=== PATIENT | female | born 1965 | race Caucasian/White ===

== ENCOUNTER → 2018-04-15 07:54 | Outpatient (CLI) | payer BC, SELFPAY ==
--- NOTE | 2018-04-15 08:15 | RAD_ITS ---
STUDY: X-RAY - PELVIS AND BILATERAL HIPS REASON FOR EXAM: Female, 52 years old. Pain. No known injury. TECHNIQUE: Radiological exam, hip, bilateral, with pelvis when performed; 2 views COMPARISON: None. FINDINGS: There is a non-specific bowel gas pattern. There are multiple calcified phleboliths. Normal bilateral iliac wings, sacroiliac joints and visualized sacrum. Normal bilateral superior and inferior pubic rami. Normal pubic symphysis. Normal bilateral ischial tuberosities. Normal visualized right femoral head. Normal right acetabulum. Normal right hip joint. Normal visualized left femoral head. Normal left acetabulum. Normal left hip joint. IMPRESSION: Normal x-ray examination of the pelvis and bilateral hips. Electronically Signed: Garrett Stroud MD at 9:21 EDT Tel [phone], Service support , STUDY: X-RAY - PELVIS REASON FOR EXAM: Female, 52 years old. Bilateral hip pain. TECHNIQUE: One view of the pelvis was obtained. COMPARISON: None. FINDINGS: There is a non-specific bowel gas pattern. There are multiple calcified phleboliths. There is narrowing with cortical sclerosis and osteophyte formation of the sacroiliac joint consistent with degenerative osteoarthritic changes. Normal visualized bilateral superior and inferior pubic rami. Normal pubic symphysis. Normal ischial tuberosities. Normal visualized right femoral head. Normal right acetabulum. Normal right hip joint. Normal visualized left femoral head. Normal left acetabulum. Normal left hip joint. 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 Electronically Signed: Garrett Stroud MD at 9:20 EDT Tel [phone], Service support ,
[2018-04-15 09:31] LABS: Absolute Lymphocyte Count 1.75 X10^3/ul (0.83-4.51); Absolute Neutrophil Count 2.3 X10^3/uL (2.0-7.7); Basophil# 0.03 X10^3/uL; Basophil% 0.7 % (0-1); Eosinophils% 4.4 % (0-5); Hematocrit 42.5 % (37-47); Lymphocyte # 1.75 X10^3/ul (4.0); Lymphocyte % 38.2 % (19-41); Mean Corp Hgb Conc 32.9 g/gl (32-36); Mean Corpuscular Hgb 29.9 pg (27.0-32.0); Mean Corpuscular Volume 90.6 fL (81-99); Mean Platelet Vol. 10.7 fl (6.2-12.0); Monocyte# 0.29 X10^3/uL; Monocyte% 6.3 % (0-10); Neutrophil # 2.31 X10^3/uL (2.7-7.7); Neutrophil % 50.4 % (47-70); Platelet Count 242 K/mm3 (150-450); RBC Distribution Width CV 12.2 % (11.6-14.6); RBC Distribution Width SD 39.9 fl (35.1-43.9); Red Blood Count 4.69 M/mm3 (4.2-5.4); White Blood Count 4.6 K/mm3 (4.4-11.0)
[2018-04-15 09:32] LABS: POSITIVE COUNT NO; POSITIVE DIFFERENTIAL NO; POSITIVE MORPHOLOGY NO
[2018-04-15 09:51] LABS: Anion Gap 7 (5-15); BUN 11 mg/dL (7-18); BUN/Creat Ratio 14.6 RATIO (10-20); Calcium,Total 9.3 mg/dL (8.5-10.1); Chloride 107 mmol/L (98-107); Cholesterol 204 mg/dL (200); Creatinine, Serum 0.75 mg/dL (0.55-1.02); EST Glomerular Filtration Rate 86 mL/min (>60); Est Glom Filt Rate - Afr Amer 104 mL/min (>60); Glucose 81 mg/dL (74-106); High Density Lipoprotein 51 mg/dL; Potassium 4.2 mmol/L (3.5-5.1); Sodium Level 141 mmol/L (136-145); Triglycerides 128 mg/dL; Very Low Density Lipoprotein 26 mg/dL (5-40)
== END ==
PROVIDERS: Family Provider Internal Medicine; PCP Internal Medicine; Visit Provider Internal Medicine
DX: Z00.00 Encounter for general adult medical examination without abnormal findings (principal); R10.2 Pelvic and perineal pain
CPT/HCPCS: 36415; 73521; 80048; 80061; 85025

== ENCOUNTER 2018-10-10 08:22 | Day surgery (SDC) | payer OTHER, SELFPAY ==
--- NOTE | 2018-10-10 | COLBX_PTH ---
PATIENT: NAYE MONDRAGON LOC: EN U#:[id number] AGE/SX: 53/F ROOM: RE10/10/[address]: Dr. Jamil Covington MD : 1965 BED: DIS: 10/10/2018 SPEC #: [id number] RECD: 10/10/18 13:52 STATUS: DEXTER REZuleima #: [id number] ANTHONY: 10/10/18 00:[address]: Jamil Covington DEPT: SURGICAL PATHOLOGY RECD BY: Omi Dale ENTERED: 10/10/18 13:52 SP TYPE: COLON BX OTHR DR: Dr. Josh Shoemaker DO Tissues: Right colon Procedures: Surgery Specimen Level IV HEADER OPERATION: Colonoscopy (MAC) PRE-OP DIAGNOSIS: Screening TISSUE SUBMITTED: Right colonic biopsies MICROSCOPIC DIAGNOSIS Right colon, biopsy: Fragments of colonic mucosa, no pathologic diagnosis. SJ:sarah 10/13/18 MICROSCOPIC DESCRIPTION Slides are reviewed. GROSS DESCRIPTION Received is one container labeled with the patient name and designated right colon biopsy. The specimen consists of multiple irregular fragments of light reyes soft tissue that in aggregate measure 1.5 x 0.5 x 0.1 cm. The specimen is totally submitted in one cassette. / SJ:sp 10/10/18 TC: 4 CPT: 10722
[2018-10-10 09:25] VITALS: BP 138/80; PULSE 93; RESP 18; TEMP 37; O2SAT 100; BMI 29.2
[2018-10-10 10:15] VITALS: BP 112/60; BP 138/80; PULSE 90; RESP 16; TEMP 36.9; O2SAT 98
--- NOTE | 2018-10-10 10:16 | OP.ENDO_ITS ---
Patient Name: Carmencita Dinh Procedure Date: 10/10/2018 9:47 AM Date of : 1965 Age: 53 Procedure: Colonoscopy Indications: Screening for colorectal malignant neoplasm Providers: Jamil Covington MD Referring MD: Jamil Covington MD Medicines: See the Anesthesia note for documentation of the administered medications Patient Profile: Last Colonoscopy: none. The patient's first colonoscopy is today. Complications: No immediate complications. Procedure: Pre-Anesthesia Assessment: - Prior to the procedure, a History and Physical was performed, and patient medications and allergies were reviewed. The patient's tolerance of previous anesthesia was also reviewed. The risks and benefits of the procedure and the sedation options and risks were discussed with the patient. All questions were answered, and informed consent was obtained. Prior Anticoagulants: The patient has taken no previous anticoagulant or antiplatelet agents. ASA Grade Assessment: II - A patient with mild systemic disease. After reviewing the risks and benefits, the patient was deemed in satisfactory condition to undergo the procedure. After I obtained informed consent, the scope was passed under direct vision. Throughout the procedure, the patient's blood pressure, pulse, and oxygen saturations were monitored continuously. The colonoscope was introduced through the anus and advanced to the cecum, identified by appendiceal orifice and ileocecal valve. The colonoscopy was performed without difficulty. The patient tolerated the procedure well. The quality of the bowel preparation was good. The ileocecal valve was photographed. Scope In: 9:57:22 AM Scope Withdrawal Time 0 hours 8 minutes 31 seconds Scope Out: 10:11:54 AM Total Procedure Duration Time 0 hours 14 minutes 32 seconds Findings: The perianal and digital rectal examinations were normal. Multiple diverticula were found in the sigmoid colon and descending colon. Biopsies for histology were taken with a cold forceps from the cecum and ascending colon for evaluation of microscopic colitis. The exam was otherwise without abnormality. Impression: - Diverticulosis in the sigmoid colon and in the descending colon. Biopsied. - The examination was otherwise normal. Recommendation: - Discharge patient to home. - Resume previous diet. - Continue present medications. - Repeat colonoscopy in 10 years for screening purposes. - Telephone my office for pathology results in 1 week. Procedure Code(s): --- Professional --- 01391, Colonoscopy, flexible; with biopsy, single or multiple Diagnosis Code(s): --- Professional --- Z12.11, Encounter for screening for malignant neoplasm of colon K57.30, Diverticulosis of large intestine without perforation or abscess without bleeding CPT copyright 2017 [employer]. All rights reserved. The codes documented in this report are preliminary and upon confectionery drops machine operator review may be revised to meet current compliance requirements. Jamil Covington MD 10/10/2018 10:16:05 AM This report has been signed electronically. Number of Addenda: 0 Note Initiated On: 10/10/2018 9:47 AM
[2018-10-10 10:20] VITALS: BP 106/66; BP 138/80; PULSE 89; RESP 16; O2SAT 99
[2018-10-10 10:25] VITALS: BP 123/68; BP 138/80; PULSE 86; RESP 16; O2SAT 99
[2018-10-10 10:30] VITALS: BP 126/66; BP 138/80; PULSE 84; RESP 16; TEMP 36.9; O2SAT 97
[2018-10-10 11:00] VITALS: BP 138/80
== END 2018-10-10 11:01 | disposition home or self-care (01) ==
LOC: EN 08:22 → AC 08:38
PROVIDERS: Family Provider Family Medicine; PCP Family Medicine; Referring Provider Surgery; Visit Provider Surgery
PROC: 0DJD8ZZ Inspection of Lower Intestinal Tract, Via Natural or Artificial Opening Endoscopic (ICD-10-PCS; CPT 45378; principal; 2018-10-10 09:25)
DX: Z12.11 Encounter for screening for malignant neoplasm of colon (principal); K57.30 Diverticulosis of large intestine without perforation or abscess without bleeding; J45.909 Unspecified asthma, uncomplicated; Z87.891 Personal history of nicotine dependence
CPT/HCPCS: 45380; 88305; J7120

== ENCOUNTER → 2022-12-05 | Outpatient (CLI) | payer OTHER, SELFPAY ==
--- NOTE | 2022-12-05 16:02 | CT_ITS ---
EXAM: CT ABDOMEN AND PELVIS WITHOUT AND WITH INTRAVENOUS CONTRAST CLINICAL INDICATION: HEMATURIA/PAIN TECHNIQUE: Helically acquired images were obtained of the abdomen and pelvis without and with intravenous contrast. This CT exam was performed using one or more of the following dose reduction techniques: automated exposure control, adjustment of the mA and/or kV according to patient size, and/or use of iterative reconstruction technique. This report was created using [employer] report generation technology. CONTRAST: IV 100mL Isovue-300 COMPARISON: None. FINDINGS: LOWER THORAX: Unremarkable. Lung bases are clear. No cardiomegaly. No significant pericardial effusion. ABDOMEN: LIVER: Unremarkable. Homogeneous. No focal mass. GALLBLADDER AND BILE DUCTS: Unremarkable. No calcified gallstones. No gallbladder distention or wall edema. No intra- or extrahepatic biliary ductal dilation. PANCREAS: Unremarkable. No focal cystic or solid mass. SPLEEN: Unremarkable. Normal size without focal cystic or solid mass. ADRENALS: Unremarkable. No nodules. KIDNEYS AND URETERS: Unremarkable. Normal renal size and position. No hydronephrosis. STOMACH AND BOWEL: Unremarkable. No stomach or bowel distention. No focal inflammatory change. PELVIS: APPENDIX: No evidence of acute appendicitis. BLADDER: Unremarkable. REPRODUCTIVE: Unremarkable as visualized. No mass. ABDOMEN and PELVIS: INTRAPERITONEAL SPACE: Unremarkable. No ascites or other fluid collection. No free air. BONES/JOINTS: Unremarkable. No suspicious lytic or blastic abnormality. SOFT TISSUES: Unremarkable. No discrete abdominal or pelvic wall hernia. VASCULATURE: Unremarkable. Abdominal aorta is non-dilated. LYMPH NODES: Unremarkable. No enlarged lymph nodes. CT/CT Abd/Pelvis W/WO Contrast IMPRESSION: Negative CT of the abdomen and pelvis without and with intravenous contrast. Electronically Signed: Victor M Weber MD at 17:03 [facility] ,
== END | disposition home or self-care (01) ==
LOC: CT 16:00
PROVIDERS: PCP Student in an Organized Health Care Education/Training Program; Referring Provider Urology; Visit Provider Urology
DX: R31.1 Benign essential microscopic hematuria (principal); R10.2 Pelvic and perineal pain
CPT/HCPCS: 74178; Q9967

== ENCOUNTER 2023-08-13 09:30 | Outpatient (RCR) | payer OTHER, SELFPAY ==
--- NOTE | 2023-05-20 15:19 | HP.PTEVAL ---
Patient's Visit Information NAYE MONDRAGON is a 57 year old F referred to Physical Therapy by Dr. Ivelisse De La Fuente DO with a diagnosis of S/P RC repair and R biceps tendonosis. Date of Evaluation: 05/20/23 Physical Therapist: DEVIKA Beltran - Visit Plan Frequency: 2x /Week Duration: 2 Months Plan: 2X/ week for 8 weeks for R shoulder end range PROM, AAROm/AROM, stretching, RC and scapular strengthening with HEP. HEP: Green mid rows, supine and standing wand flexion, towel IR stretch - Subjective Surgery was February 05 RC repair, bicep tendonosis. She has been doing PT since 2 weeks post. They did PROM for 1 month 2 X/week and then re-eval and then she was able to lift no more than cell phone (and then AAROM in supine (flexion, and ER). She can not even go behind the back until 3 weeks ago. She is [address] wanted her to go to PT here as she was still having pain in the bone on the later side between bicep and tricep. She did a doppler to r/o blood clot. She does have some neck pain she thought due to the wrong sling. She is not sleeping since Jan and very emotional. The pain wakes her up at night and her arm will get hard as a rock like a spasm and she props her arm on pillows. Melatonin 10 mg and Tylenol as needed for the pain. She is R handed. - Pain R shoulder Pain Intensity (Out of 10): Unrated - Objective R handed: R 45# and L 56#. R bicep reflex: R 2+/3 and L 1+/3. R shoulder AROM: Flexion 142. ABD 162, IR L1, ER 45. L shoulder flex 180, ABD 180, IR T5, ER 72. R shoulder MMT: flexion 4.3, ABD 3.2, ER 4.8, IR 8.2, bicep 5.5. L shoulder MMT: flexion 8.9, ABD 7.3, ER 6, 10.8, bicep 10.4. PROM R shoulder: Painful and tight at end range all planes - Balance/Special Test Scores Quick DASH Score: 72.7250 - Goals Goal 1:: I HEP Goal Time Frame: 8-12 Weeks Goal 2:: Be able to sleep through the night without waking up in pain Goal Time Frame: 8-12 Weeks Goal 3:: Increase R shoulder strength (at time of the eval: R shoulder MMT: flexion 4.3, ABD 3.2, ER 4.8, IR 8.2, bicep 5.5. L shoulder MMT: flexion 8.9, ABD 7.3, ER 6, 10.8, bicep 10.4) Goal Time Frame: 8-12 Weeks Goal 4:: Increase R shoulder AROM (at the time of the eval: R shoulder AROM: Flexion 142. ABD 162, IR L1, ER 45. L shoulder flex 180, ABD 180, IR T5, ER 72) Goal Time Frame: 8-12 Weeks Goal 5:: Decrease R lateral arm pain on a daily basis to 1/10 Goal Time Frame: 8-12 Weeks - Rehabilitation Potential Rehabilitation Potential: Good - Anticipated Interventions Patient/Client Instruction: Educate patient on: Condition, Plan of Care For the Purpose of:: To decrease pain, To increase ROM, To improve nutrient delivery to tissue, To improve muscle performance and motor function, To improve ability to perform ADL's, To increase tolerance to activity/condition/position, To improve performance and independence with ADL's, To decrease level of supervision to perform tasks, To improve ability of physical actions for home/community/work/leisure, To improve health of tissue, To decrease soft tissue restriction, To increase flexibility/ROM Therapeutic Exercise to Include: Strength training, Gait and locomotor training For the Purpose of:: To decrease pain, To increase ROM, To improve nutrient delivery to tissue, To improve muscle performance and motor function, To improve ability to perform ADL's, To increase tolerance to activity/condition/position, To improve performance and independence with ADL's, To decrease level of supervision to perform tasks, To improve ability of physical actions for home/community/work/leisure, To improve health of tissue, To decrease soft tissue restriction, To increase flexibility/ROM Manual Therapy Techniques to Include: Passive ROM For the Purpose of:: To increase ROM, To improve nutrient delivery to tissue, To improve muscle performance and motor function Thank you for the opportunity to evaluate your patient. For Medicare and Medicare HMO plans, please review the plan of care and approve it. It will need to be FAXED BACK to us at [phone] for Medicare purposes. For Medicare only, by signing this I certify the plan of care. Please let me know if there are questions or concerns regarding this plan of care. Physician Signature: Date:
== END 2023-08-13 19:00 | disposition home or self-care (01) ==
LOC: PT 09:30
PROVIDERS: PCP Student in an Organized Health Care Education/Training Program; Referring Provider Orthopaedic Surgery; Visit Provider Orthopaedic Surgery
DX: M79.601 Pain in right arm (principal); M67.813 Other specified disorders of tendon, right shoulder; M77.8 Other enthesopathies, not elsewhere classified; M75.51 Bursitis of right shoulder; Z98.890 Other specified postprocedural states
CPT/HCPCS: 97110; 97140; 97161; 97530

== ENCOUNTER 2023-11-21 09:00 | Outpatient (RCR) | payer OTHER, SELFPAY ==
--- NOTE | 2023-11-11 15:18 | HP.PTEVAL ---
Patient's Visit Information Visit Information Visit Information: NAYE MONDRAGON is a 58 year old F referred to Physical Therapy by Self Referred with a diagnosis of Shoulder strain. Date of Evaluation: 10/08/23 Physical Therapist: Brando Ceja DPT Visit Plan Frequency: 2-3x /Week Duration: 6 Weeks Plan: Start with DN to L UT, RTC insertion Manual mobilization at end range functional IR stretching progressive strengthening as tolerated. Subjective Subjective: Pt. is here today for her initial evaluation with history of R RTC repair, R trapezius strain, R snapping scapula. Pt. reports having R RTC repair ~8 months previously. Pt. reports overall doing well, but is still having R shoulder pain at times. She reports having difficulty with knowing what she can and cannot do. She is also having some pain at her lateral shoulder and scapular regions with her HEP. Pt. is hopeful to reduce symptoms in order to get back to all recreational activities without limitations. She is having some difficulty with sleeping as well. Pain R shoulder: Pain Intensity (Out of 10): 3 Pain Intensity Range: 2 and 5 Objective Objective: POSTURE: Pt. has fairly normal posture. Slight rounded shoulders, but able to self correct. PALPATION: Pt. has tenderness throughout RTC insertion. Painful at UT region. Pt. has increased tenderness at coracoid process as well. NEURO: normal throughout. Pt. has normal DTR of BUEs. ROM: Pt. has close to full R shoulder ROM, except slight tightness with functional IR on R side. MMT: Pt. has close to symmetrical strength between the two sides. except ER 15# on R side and 21# on L side. Balance/Special Test Scores Quick DASH Score: 25.0000 Goals Goal 1:: LTG: Pt. to be I with HEP Goal Time Frame: 4-6 Weeks Goal 2:: LTG: pt. to be able to sleep throughout the night without increase in symptoms. Goal Time Frame: 4-6 Weeks Goal 3:: LTG: pt. to have full L shoulder ROM without increase in symptoms. Goal Time Frame: 4-6 Weeks Goal 4:: LTG: Pt. to complete a progressive strengthening program of both deltoid and scapular/periscapular musculature. Goal Time Frame: 4-6 Weeks Rehabilitation Potential Physical Therapy Diagnosis: Pt. has signs and symptoms consistent with R UT and snapping scapula after RTC repair. Pt. has some weakness, but is more limited secondary to increased pain and difficulty sleeping after exercising. Rehabilitation Potential: Excellent Anticipated Interventions Patient/Client Instruction: Educate patient on: Condition, Plan of Care, Risk Factors and Benefits of Fitness Program For the Purpose of:: To foster healthy habits, To improve decision making, To facilitate caregiver knowledge, To improve self management, To prevent re-injury and To improve ability to perform tasks related to life management Therapeutic Exercise to Include: Strength training, Power training, Flexibilty training, Passive ROM, Active ROM and Scapular Strength/Stabilization For the Purpose of:: To decrease pain, To increase ROM, To improve nutrient delivery to tissue, To increase oxygenation perfusion, To improve muscle performance and motor function, To improve ability to perform ADL's, To decrease soft tissue restriction and To increase flexibility/ROM Manual Therapy Techniques to Include: Mobilization, Functional dry needling and Soft tissue mobilization For the Purpose of:: To decrease pain, To increase ROM, To improve nutrient delivery to tissue, To increase oxygenation perfusion and To improve muscle performance and motor function Text: Thank you for the opportunity to evaluate your patient. For Medicare and Medicare HMO plans, please review the plan of care and approve it. It will need to be FAXED BACK to us at [phone] for Medicare purposes. For Medicare only, by signing this I certify the plan of care. Please let me know if there are questions or concerns regarding this plan of care. Physician Signature: Date:
== END 2023-11-21 19:00 | disposition home or self-care (01) ==
LOC: PT 09:00
PROVIDERS: PCP Student in an Organized Health Care Education/Training Program
DX: S46.811D Strain of other muscles, fascia and tendons at shoulder and upper arm level, right arm, subsequent encounter (principal); M24.111 Other articular cartilage disorders, right shoulder; Z98.890 Other specified postprocedural states
CPT/HCPCS: 97110; 97161

== ENCOUNTER 2025-02-03 09:36 | Day surgery (SDC) | payer OTHER, SELFPAY ==
--- NOTE | 2025-02-01 13:44 | PAT.ANESEVAL ---
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 When Was Last Pacemaker Check QUESTION #4 FULL TEXT: You/Your Family Experience fever (hyperthermia) with Anesthesia Last Oral Intake Last Oral intake: Last Oral Intake NPO since Meds taken in AM with sips of water? 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 - golf club manager: PONV - golf club manager Female Yes 02/01/25 11:15 HX of Motion Sickness Yes 02/01/25 11:15 HX of N/V After Surgery Yes 02/01/25 11:15 Non-Smoker Yes 02/01/25 11:15 Duration of Surgery greater No 02/01/25 11:15 than 60 minutes Number of Risk Factors 4 02/01/25 11:15 PONV Score Severe Risk 02/01/25 11:15 Height & Weight Height & Weight: Anesthesia: Height & Weight Height 5 ft 6 in 11/17/24 10:35 Respiratory Assessment Respiratory Assessment - golf club manager: Respiratory Tract Infection Hx - golf club manager Hx Respiratory Tract Infection No: (+) COVID 2/21, WAS ON 02/01/25 11:15 PAXLOVID, NO S/S RESP DISTRESS -BACK TO BASELINE STOP Sleep Apnea STOP Sleep Apnea - golf club manager: STOP Sleep Apnea - golf club manager Hx Hypertension No 02/01/25 11:15 Hx Sleep Apnea Yes 02/01/25 11:15 CPAP Yes 02/01/25 11:15 BIPAP No 02/01/25 11:15 Do you snore loudly (louder than talking or can be heard Do you often feel tired/ fatigued/ sleepy during daytime? Has anyone observed you stop breathing during sleep? STOP Results Positive 02/01/25 11:15 QUESTION #5 FULL TEXT : Do you snore loudly (louder than talking or can be heard through closed doors)? Tobacco Use History Tobacco Use History - golf club manager: Tobacco Use History - golf club manager Tobacco Use Smoking Status Former smoker 02/01/25 11:15 Hx Tobacco Use No 02/01/25 11:15 Years Smoking Packs Smoked per Day Smoking Cessation Date was Yes - quit smoking within 15 02/01/25 11:15 within the last 15 years years Hx Smoking Cessation Date Hx Smoking Cessation Counseling Hematologic Medial History Hematologic Hx - golf club manager: Hematologic Medical Hx - occupational therapist per diem Hx of Blood Transfusion No 02/01/25 11:15 Hx of Transfusion in last 3 No 02/01/25 11:15 Months Date of Last Transfusion (if within last 3 months) Ever experience any problems No 02/01/25 11:15 with transfusion(s)? Specify any problems Hx of Preganancy in last 3 No 02/01/25 11:15 Months Nurse Filling Out Transfusion [facility] 02/01/25 11:15 & Questions: Date: 02/01/25 02/01/25 11:15 Time: 11:30 02/01/25 11:15 Patient unable to answer at this time (ie. confused, unrespo /Reproduction History /Reproductive History - golf club manager: /Reproductive Hx- golf club manager Hx Now No 02/01/25 11:15 Gestational Age (in weeks): EDC: Hx Hx Para Hx Section SAB No 02/01/25 11:15 [facility] Medical History (Updated 02/01/25 @ 11:30 by Galina Tapia) Arthritis Low iron High cholesterol Injury of head and neck History of ulceration Former smoker CPAP (continuous positive airway pressure) dependence Sleep apnea Leg cramps History of echocardiogram History of stress test Cardiology follow-up encounter Chronic shoulder pain Breast lump Glaucoma suspect Asthma Seasonal allergies Pelvic pain Home Medications ?Medication ?Instructions ?Recorded ?Last Taken ?Type multivitamin 1 cap PO QAM 04/14/18 10/01/18 History triamcinolone acetonide 55 mcg 2 spray intranasal QDAY 04/14/18 10/01/18 History nasal spray aerosol (Nasacort) acetaminophen 500 mg capsule 1,000 mg PO TID PRN fever or pain 11/16/24 Unknown History ascorbic acid (vitamin C) 1,000 mg 1 g PO QDAY 11/16/24 Unknown History capsule ferrous sulfate 325 mg (65 mg 325 mg PO DAILY 11/16/24 Unknown History iron) tablet psyllium husk 0.4 gram capsule 0.4 g PO 4X/DAY PRN constipation 11/16/24 Unknown History (Metamucil) cholecalciferol (vitamin D3) 50 50 mcg PO QDAY 11/17/24 Unknown History mcg (2,000 unit) capsule guaifenesin 600 mg tablet, 600 mg PO BID PRN congestion 02/01/25 Unknown History extended release 12 hr (Mucinex) loratadine 10 mg tablet 10 mg PO DAILY 02/01/25 Unknown History (Allerclear) pregabalin 50 mg capsule (Lyrica) 50 mg PO BID 02/01/25 Unknown History Allergy/AdvReac Type Severity Reaction Status Date / Time iodine Allergy Severe hives Verified 02/01/25 11:09 Sulfa (Sulfonamide Allergy Severe hives Verified 02/01/25 11:09 Antibiotics) chlorhexidine (From Allergy Intermediate HIVES Verified 02/01/25 11:09 ChloraPrep Clear) isopropyl alcohol (From Allergy Intermediate HIVES Verified 02/01/25 11:09 ChloraPrep Clear) morphine Allergy Intermediate Vomiting Verified 02/01/25 11:09 prochlorperazine (From Allergy Vomiting Verified 02/01/25 11:09 Compazine) Family History Grandmother Osteoporosis Heart disease Arthritis Diabetes Grandfather Arthritis Heart disease Diabetes Father Diabetes Hypertension Hyperlipemia Cancer lung Obesity Mother Diabetes Thyroid disorder Depression Obesity Brother Hypertension Obesity Surgical History History of loop electrical excision procedure (LEEP) History of D&C History of hysteroscopy History of tonsillectomy History of laparoscopy Social History (Updated 09/30/18 @ 16:[address] Jamil Covington MD) Smoking Status: Former smoker Tobacco: How many years used: 20 how long ago did patient quit smokin alcohol intake: never substance use type: does not use what type of physical activity do you participate in: walking frequency: 5-6 times per week Audit: Pertinent Findings Pertinent Findings EKG Perinent findings: 08/06/2024 sinus rhythm left axis deviation RSR 1 in V2 left anterior fascicular block Consult pertinent findings: Cardiology 11/05/2024. Chest pressure. Echocardiogram showed normal wall motion normal EF no further testing Recommendation Anesthesia Recommendation Anesthesia recommendation: OPTIMIZED for anesthesia
[2025-02-03] VITALS (8 sets, daily range): BP systolic 107–139; BP diastolic 65–79; PULSE 80–92; RESP 16; TEMP 36.9–37.2; O2SAT 95–98; BMI 30.7
--- NOTE | 2025-02-03 10:22 | PRE.ANES_ITS ---
ASA Classification* ASA Classification ASA Classification: 2 Assessment & Plan Anesthesia* Anesthesia Assessment Anesthesia Assessment: Discussed sedation and/or anesthesia options, risks, benefits, and alternatives with patient/parents/legal guardian/POA. Questions invited. The patient/parents/legal guardian/POA seems to understand and agrees to proceed with anesthesia plan. Reviewed the physical assessment, medical history, allergy history and patient home medications list prior to surgery/procedure/anesthetic and documented any changes. Performed airway and anesthesia risk assessments. Anesthesia Type Anesthesia Type: MAC Anesthesia Focused Assessment* Temperature: 98.9 F Pulse Rate: 92 Blood Pressure: 139/79 Respiratory Rate: 16 Pulse Ox: 98 Airway Assessment Mouth opens: >3 cm Mallampati Score: II Focused Labs Anesthesia Preop lab: CBC WBC 4.6 K/mm3 (4.4-11.0) 04/15/18 08:03 04/15/18 RBC 4.69 M/mm3 (4.2-5.4) 04/15/18 08:03 04/15/18 Hgb 14.0 g/dl (12.0-15.0) 04/15/18 08:03 04/15/18 Hct 42.5 % (37-47) 04/15/18 08:03 04/15/18 Plt Count 242 K/mm3 (150-450) 04/15/18 08:03 04/15/18 CHEMISTRY Potassium 4.2 mmol/L (3.5-5.1) 04/15/18 08:03 04/15/18 Sodium 141 mmol/L (136-145) 04/15/18 08:03 04/15/18 BUN 11 mg/dL (7-18) 04/15/18 08:03 04/15/18 Creatinine 0.75 mg/dL (0.55-1.02) 04/15/18 08:03 04/15/18 Glucose 81 mg/dL (74-106) 04/15/18 08:03 04/15/18 COAG Pre-Assessment Diagnosis/Proposed Procedure Planned Operative Procedure(s): EGD Anesthesia History 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 When Was Last Pacemaker Check QUESTION #4 FULL TEXT: You/Your Family Experience fever (hyperthermia) with Anesthesia Last Oral Intake Last Oral intake: Last Oral Intake NPO since 00:00 02/03/25 09:59 Meds taken in AM with sips of water? 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 Female Yes 02/01/25 11:15 HX of Motion Sickness Yes 02/01/25 11:15 HX of N/V After Surgery Yes 02/01/25 11:15 Non-Smoker Yes 02/01/25 11:15 Duration of Surgery greater No 02/01/25 11:15 than 60 minutes Number of Risk Factors 4 02/01/25 11:15 PONV Score Severe Risk 02/01/25 11:15 Height & Weight Height & Weight: Anesthesia: Height & Weight Height 5 ft 6 in 02/03/25 09:59 Weight: 86.183 kg 02/03/25 09:59 Body Mass Index (BMI) 30.7 02/03/25 09:59 Respiratory Assessment Respiratory Assessment - truck unloader: Respiratory Tract Infection Hx - truck unloader Hx Respiratory Tract Infection No: (+) COVID 2/21, WAS ON 02/01/25 11:15 PAXLOVID, NO S/S RESP DISTRESS -BACK TO BASELINE STOP Sleep Apnea STOP Sleep Apnea - truck unloader: STOP Sleep Apnea - truck unloader Hx Hypertension No 02/01/25 11:15 Hx Sleep Apnea Yes 02/01/25 11:15 CPAP Yes 02/01/25 11:15 BIPAP No 02/01/25 11:15 Do you snore loudly (louder than talking or can be heard Do you often feel tired/ fatigued/ sleepy during daytime? Has anyone observed you stop breathing during sleep? STOP Results Positive 02/01/25 11:15 QUESTION #5 FULL TEXT : Do you snore loudly (louder than talking or can be heard through closed doors)? 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 Specify any problems Hx of Preganancy in last 3 No 02/01/25 11:15 Months Nurse Filling Out Transfusion [facility] 02/01/25 11:15 & Questions: Date: 02/01/25 02/01/25 11:15 Time: 11:30 02/01/25 11:15 Patient unable to answer at this time (ie. confused, unrespo /Reproduction History /Reproductive History - truck unloader: /Reproductive Hx- truck unloader Hx Now No 02/01/25 11:15 Gestational Age (in weeks): EDC: Hx Hx Para Hx Section SAB No 02/01/25 11:15 [facility] Medical History Arthritis Low iron High cholesterol Injury of head and neck History of ulceration Former smoker CPAP (continuous positive airway pressure) dependence Sleep apnea Leg cramps History of echocardiogram History of stress test Cardiology follow-up encounter Chronic shoulder pain Breast lump Glaucoma suspect Asthma Seasonal allergies Pelvic pain Home Medications ?Medication ?Instructions ?Recorded ?Last Taken ?Type multivitamin 1 cap PO QAM 04/14/18 History triamcinolone acetonide 55 mcg 2 spray intranasal QDAY 04/14/18 10/01/18 History nasal spray aerosol (Nasacort) acetaminophen 500 mg capsule 1,000 mg PO TID PRN fever or pain 11/16/24 Unknown History ascorbic acid (vitamin C) 1,000 mg 1 g PO QDAY 4 Unknown History capsule ferrous sulfate 325 mg (65 mg 325 mg PO DAILY 11/16/24 Unknown History iron) tablet psyllium husk 0.4 gram capsule 0.4 g PO 4X/DAY PRN con stipation 11/16/24 Unknown History (Metamucil) cholecalciferol (vitamin D3) 50 50 mcg PO QDAY 4 Unknown History mcg (2,000 unit) capsule guaifenesin 600 mg tablet, 600 mg PO BID PRN congestio n 02/01/25 Unknown History extended release 12 hr (Mucinex) loratadine 10 mg tablet 10 mg PO DAILY 02/01/25 Unkn own History (Allerclear) pregabalin 50 mg capsule (Lyrica) 50 mg PO BID 5 02/02/25 History Allergy/AdvReac Type Severity Reaction Status Date / Time iodine Allergy Severe hives Verified 02/03/25 09:59 Sulfa (Sulfonamide Allergy Severe hives Verified 02/03/25 09:59 Antibiotics) chlorhexidine (From Allergy Intermediate HIVES Verified 02/03/25 09:59 ChloraPrep Clear) isopropyl alcohol (From Allergy Intermediate HIVES Verified 02/03/25 09:59 ChloraPrep Clear) morphine Allergy Intermediate Vomiting Verified 02/03/25 09:59 prochlorperazine (From Allergy Vomiting Verified 02/03/25 09:59 Compazine) Family History Grandmother Osteoporosis Heart disease Arthritis Diabetes Grandfather Arthritis Heart disease Diabetes Father Diabetes Hypertension Hyperlipemia Cancer lung Obesity Mother Diabetes Thyroid disorder Depression Obesity Brother Hypertension Obesity Surgical History History of loop electrical excision procedure (LEEP) History of D&C History of hysteroscopy History of tonsillectomy History of laparoscopy Social History Smoking Status: Former smoker Tobacco: How many years used: 20 how long ago did patient quit smokin alcohol intake: never substance use type: does not use what type of physical activity do you participate in: walking frequency: 5-6 times per week Review of Systems (Anesthesia) ROS Narrative System reviewed and no additional complaints, except as documented.
--- NOTE | 2025-02-03 10:45 | EGD_PTH ---
PATIENT: NAYE MONDRAGON LOC: EN U#:[id number] AGE/SX: 59/F ROOM: RE02/03/[address]: Dr. Matt Padron DO : 1965 BED: DIS: 02/03/2025 SPEC #: [id number] RECD: 02/04/25 10:35 STATUS: DEXTER REZuleima #: [id number] ANTHONY: 02/03/25 10:[address]: Matt Padron DEPT: SURGICAL PATHOLOGY RECD BY: Yaya Malave ENTERED: 02/04/25 10:36 SP TYPE: EGD BIOPSY LAURI DR: Dr. Johnathan Camara DO Tissues: A - Duodenum, NOS B - Stomach, NOS Procedures: Surgery Specimen Level IV HEADER OPERATION: EGD with biopsy PRE-OP DIAGNOSIS: Abdominal pain TISSUE SUBMITTED: A- Duodenum biopsy, B- Lesser curvature biopsy MICROSCOPIC DIAGNOSIS A. Duodenum, biopsy: * Normal villous architecture with Rashi gland hyperplasia. * Negative for increased intraepithelial lymphocytes. B. Stomach, lesser curvature, biopsy: * Oxyntic mucosa with features of reactive gastropathy. * Negative for Helicobacter-like organisms (H&E). MICROSCOPIC DESCRIPTION Slides are reviewed. GROSS DESCRIPTION Specimen A-received in formalin labeled, Naye Mondragon, and designated duodenum biopsy, are multiple reyes tissue fragment that aggregate to 0.6 x 0.6 x 0.2 cm. Totally submitted in one cassette.Specimen B-received in formalin labeled, Naye Mondragon, and designated lesser curvature biopsy, are two reyes tissue fragments aggregating to 0.7 x 0.3 x 0.2 cm. Totally submitted in one cassette.BELLO. 02/04/2025 CPT:89559p3
--- NOTE | 2025-02-03 11:05 | PCM.HP.STD ---
HPI - General General Date of Admission: 02/03/25 Date of Service: 02/03/25 Chief Complaint: Abdominal pain HPI Narrative NAYE MONDRAGON, is a 59 F who presents for the evaluation of abdominal pain. 59y/o female presents for consultation with complaints of epigastric abdominal pain/ache that radiates out to bilateral sides. She denies any relation to PO intake. She reports this pain is not similar to her prior ulcer pain in the 's. She denies any history of prior EGD. She denies any N/V but does endorse regurgitation since starting Omeprazole. I have reviewed PCP records and she reports starting Omeprazole 40mg daily on 11/06/2024. She complains of change in bowel habits with looser stools since starting PPI. CT A&P w/ contrast 10/05/2024 revealed a tiny fat containing umbilical hernia with mild diastasis recti, otherwise unremarkable. Colon 2018 (Dr. C[place]ton) negative right colon biopsy - denies any family history of colon CA - denies any personal history of colon polyps LABS 11/03/2024 CRP, ESR, SEBASTIAN, and stool for H. pylori Ag were all negative. 07/09/2024 CBC and CMP were unremarkable with a negative HCVAb 07/09/2024 - ABD pain x1 year - reports symptoms started a year ago when she started using a CPAP - wakes with symptoms - no change with PO intake - pain worse over the past 3 months - started Omeprazole and reports this caused upset stomach with a change in bowel habits - denies any weight loss - she reports elimination of gluten and dairy - thought this would help with symptoms but reports no change - takes Metamucil - has a BM QD - QOD - denies any BRBPR - reports she is not a vegetarian - she reports occult negative stool in the past year - c/o BM are messy - she is taking IBU-diphenhydramine 200-38mg -- she discontinued this and switched to Tylenol PM - she reports starting Fe TIW for low Fe - reports she has been on Fe for maybe 3 months - she reports abdominal discomfort began prior to starting Fe - shoulder pain - she was taking Meloxicam daily for >1 year and believes she discontinued this this past January - Caffeine 2 cups a day - EtOH - once a year - smoking - h/o quit 24 years ago - NSAIDS - as noted above EGD: denies previous - she reports she stopped using sun screen due to having a low vitamin D [facility] Medical History Arthritis Low iron High cholesterol Injury of head and neck History of ulceration Former smoker CPAP (continuous positive airway pressure) dependence Sleep apnea Leg cramps History of echocardiogram History of stress test Cardiology follow-up encounter Chronic shoulder pain Breast lump Glaucoma suspect Asthma Seasonal allergies Pelvic pain Home Medications ?Medication ?Instructions ?Recorded ?Last Taken ?Type multivitamin 1 cap PO QAM 04/14/18 10/01/18 History triamcinolone acetonide 55 mcg 2 spray intranasal QDAY 04/14/18 10/01/18 History nasal spray aerosol (Nasacort) acetaminophen 500 mg capsule 1,000 mg PO TID PRN fever or pain 11/16/24 Unknown History ascorbic acid (vitamin C) 1,000 mg 1 g PO QDAY 11/16/24 Unknown History capsule ferrous sulfate 325 mg (65 mg 325 mg PO DAILY 11/16/24 Unknown History iron) tablet psyllium husk 0.4 gram capsule 0.4 g PO 4X/DAY PRN constipation 11/16/24 Unknown History (Metamucil) cholecalciferol (vitamin D3) 50 50 mcg PO QDAY 11/17/24 Unknown History mcg (2,000 unit) capsule guaifenesin 600 mg tablet, 600 mg PO BID PRN congestion 02/01/25 Unknown History extended release 12 hr (Mucinex) loratadine 10 mg tablet 10 mg PO DAILY 02/01/25 Unknown History (Allerclear) pregabalin 50 mg capsule (Lyrica) 50 mg PO BID 02/01/25 02/02/25 History Allergy/AdvReac Type Severity Reaction Status Date / Time iodine Allergy Severe hives Verified 02/03/25 09:59 Sulfa (Sulfonamide Allergy Severe hives Verified 02/03/25 09:59 Antibiotics) chlorhexidine (From Allergy Intermediate HIVES Verified 02/03/25 09:59 ChloraPrep Clear) isopropyl alcohol (From Allergy Intermediate HIVES Verified 02/03/25 09:59 ChloraPrep Clear) morphine Allergy Intermediate Vomiting Verified 02/03/25 09:59 prochlorperazine (From Allergy Vomiting Verified 02/03/25 09:59 Compazine) Family History Grandmother Osteoporosis Heart disease Arthritis Diabetes Grandfather Arthritis Heart disease Diabetes Father Diabetes Hypertension Hyperlipemia Cancer lung Obesity Mother Diabetes Thyroid disorder Depression Obesity Brother Hypertension Obesity Surgical History History of loop electrical excision procedure (LEEP) History of D&C History of hysteroscopy History of tonsillectomy History of laparoscopy Social History Smoking Status: Former smoker Tobacco: How many years used: 20 how long ago did patient quit smokin alcohol intake: never substance use type: does not use what type of physical activity do you participate in: walking frequency: 5-6 times per week ROS Constitutional Constitutional: Denies fatigue, fever(s), poor appetite, weight gain or weight loss Gastrointestinal Gastrointestinal: Denies belching, bloating, change in bowel habits, change in stool character, chewing difficulty, coffee ground emesis, constipation, cramping, diarrhea, dyspepsia, dysphagia, early satiety, excessive flatus, fecal incontinence, heartburn, hematemesis, hematochezia, hemorrhoids, loose stools, melena, nausea, odynophagia, rectal bleeding, tenesmus, vomiting or weight changes Vital Signs Vital Signs Vital Signs: 02/03/25 09:59 02/03/25 09:59 02/03/25 10:23 Temperature 98.9 F 98.9 F Temperature Source Temporal Pulse Rate 92 92 Respiratory Rate 16 16 Respiratory Pattern Normal Blood Pressure 139/79 H 139/79 H Blood Pressure Mean 99 Blood Pressure Source Monitor Blood Pressure Position Semi-Fowlers Blood Pressure Location Left Arm Pulse Ox 98 98 Oxygen Delivery Method Room Air Weight Weight: 190 lb Body Mass Index (BMI) 30.7 Physical Exam Const alert, oriented x3, no apparent distress and healthy appearing General Appearance: cooperative GI normal to inspection, nondistended, normoactive bowel sounds, soft to palpation, non-tender and non-distended Percussion: normal to percussion Rectal Exam: deferred Assessment & Plan Assessment/Plan (1) Dyspepsia: (2) Epigastric pain: PLAN: ROS Const Constitutional: Positive for fatigue, headache(s) and weakness; No fever(s) or weight change ENT ENT: Positive for headache(s); No difficulty swallowing Gastro GI: Positive for abdominal pain, bloating, change in bowel habits and constipation; No belching, change in stool character, coffee ground emesis, cramping, diarrhea, heartburn, difficulty swallowing, feeling full early, excessive flatus, incontinent of stools, Vomiting blood/hematemesis, Blood in stool, loose stools, Black,tarry stools, nausea/dyspepsia, pain with swallowing, vomiting or other Musc Musculoskeletal: Positive for joint pain, back pain, muscle cramps, muscle weakness, numbness, stiffness and tingling Skin Skin: Positive for dry skin; No yellowing of the eye or itchy eyes Neuro Neurology: Positive for weakness, headache(s), numbness and tingling Psych Psychiatric: No anxiety and No depression Endo Endocrine: Positive for fatigue; No weight change Aller/Imm Allergy/Immunologic: No itchy eyes Moses/Lymp Hematologic/Lymphatic: No easy bleeding or easy bruising Exam Const General: healthy appearing, no acute distress and well developed Nutritional Appearance: average body habitus and well nourished Orientation: alert and oriented x3 HENAL Head: normocephalic Ears: hearing grossly normal bilaterally Mouth: moist mucous membranes Teeth and gingiva: dentition normal Eyes Conjunctivae: conjunctivae normal Sclera: sclerae normal Neck Neck: normal visual inspection, full ROM and trachea midline Resp Effort & Inspection: normal respiratory effort, able to speak in complete sentences and symmetric chest movement Auscultation: Bilateral: Clear to Auscultation Cardio Rate: regular rate Rhythm: regular rhythm GI Inspection: normal to inspection Auscultation: normal bowel sounds Palpation: soft and no hepatosplenomegaly Rectal Exam: deferred Skin General: no rashes or lesions noted and turgor normal Neuro General: patient alert and patient oriented x3 Cranial Nerves: other (CN' grossly intact, non-focal exam) Cognition: normal cognition Speech: speech normal Gait: normal gait Extrem General: normal to inspection (no edema noted) Psych Appearance: grossly normal and well kempt Affect: normal affect Attitude: cooperative Thought Process: normal Assessment and Plan Assessment and Plan (1) Screening for intestinal cancer: Status: Acute (2) Epigastric pain: Status: Acute (3) Dyspepsia: Status: Acute Medications: New pantoprazole 20 mg orally once daily 30 minutes prior to first meal; 30 tabs 3RF Discontinued omeprazole Discontinued Reason: Order Changed 40 mg PO QDAY Plan 59y/o female presents for consultation with complaints of epigastric abdominal pain/ache that radiates out to bilateral sides. She denies any relation to PO intake. She reports this pain is not similar to her prior ulcer pain in the 80's. She denies any history of prior EGD. She denies any N/V but does endorse regurgitation since starting Omeprazole. I have reviewed PCP records and she reports starting Omeprazole 40mg daily on 11/06/2024. H. pylori stool antigen was negative prior to starting PPI. She complains of change in bowel habits with looser stools since starting PPI. I have discontinued Omeprazole and she will trial pantoprazole 20mg daily. She will proceed with EGD. She declines colonoscopy but is agreeable to completion of Cologuard stool testing. Plan Details Follow Up: 2 Months
--- NOTE | 2025-02-03 11:28 | OP.CCLET_ITS ---
02/03/2025 Johnathan Camara Do Re : Upper GI endoscopy procedure for Carmencita Dinh Dear Jax This procedure was performed on Monday, February 03, 2025. My impressions and recommendations are as follows: Impressions : - Normal esophagus. - Erythematous mucosa in the lesser curvature. Biopsied. - No gross lesions in the third portion of the duodenum. Biopsied. Recommendations : - Await pathology results. - Continue present medications. My findings are described in the full procedure note, which is enclosed. If I can be of further assistance, please feel free to contact me at . Sincerely, Matt Padron, 02/03/2025 11:28:05 AM This report has been signed electronically.
--- NOTE | 2025-02-03 11:28 | OP.EGD_ITS ---
Patient Name: Carmencita Dinh Procedure Date: 02/03/2025 11:11 AM Date of : 1965 Age: 59 Procedure: Upper GI endoscopy Indications: Epigastric abdominal pain Providers: Matt Padron DO Referring MD: Johnathan Camara Do Medicines: Monitored Anesthesia Care Patient Profile: This is a 59 year old female. Refer to note in patient chart for documentation of history and physical. Patient has symptoms of acute right upper quadrant abdominal pain and acute epigastric abdominal pain. Complications: No immediate complications. Procedure: Pre-Anesthesia Assessment: - Prior to the procedure, a History and Physical was performed, and patient medications and allergies were reviewed. The patient is competent. The risks and benefits of the procedure and the sedation options and risks were discussed with the patient. All questions were answered and informed consent was obtained. Patient identification and proposed procedure were verified by the physician in the pre-procedure area. Mental Status Examination: alert and oriented. Airway Examination: normal oropharyngeal airway and neck mobility. Respiratory Examination: clear to auscultation. CV Examination: normal. ASA Grade Assessment: II - A patient with mild systemic disease. After reviewing the risks and benefits, the patient was deemed in satisfactory condition to undergo the procedure. The anesthesia plan was to use moderate sedation / analgesia (conscious sedation). Immediately prior to administration of medications, the patient was re-assessed for adequacy to receive sedatives. The heart rate, respiratory rate, oxygen saturations, blood pressure, adequacy of pulmonary ventilation, and response to care were monitored throughout the procedure. The physical status of the patient was re-assessed after the procedure. After obtaining informed consent, the endoscope was passed under direct vision. Throughout the procedure, the patient's blood pressure, pulse, and oxygen saturations were monitored continuously. The gastroscope was introduced through the mouth, and advanced to the third part of the duodenum. Small bowel enteroscopy was deemed necessary. The upper GI endoscopy was accomplished without difficulty. The patient tolerated the procedure well. Scope In: 11:19:08 AM Scope Withdrawal Time 0 hours 0 minutes 1 second Scope Out: 11:23:02 AM Total Procedure Duration Time 0 hours 3 minutes 54 seconds Findings: The examined esophagus was normal. Patchy mildly erythematous mucosa without bleeding was found on the lesser curvature of the stomach. Biopsies were taken with a cold forceps for histology. Verification of patient identification for the specimen was done. Estimated blood loss was minimal. Biopsies were taken with a cold forceps for Helicobacter pylori testing. Verification of patient identification for the specimen was done. Estimated blood loss was minimal. No gross lesions were noted in the third portion of the duodenum. Biopsies were taken with a cold forceps for histology. Impression: - Normal esophagus. - Erythematous mucosa in the lesser curvature. Biopsied. - No gross lesions in the third portion of the duodenum. Biopsied. Recommendation: - Await pathology results. - Continue present medications. Procedure Code(s): --- Professional --- 03212, Small intestinal endoscopy, enteroscopy beyond second portion of duodenum, not including ileum; with biopsy, single or multiple CPT copyright 2021 [employer]. All rights reserved. The codes documented in this report are preliminary and upon depilatory painter review may be revised to meet current compliance requirements. Matt Padron DO 02/03/2025 11:28:05 AM This report has been signed electronically. Number of Addenda: 0 Note Initiated On: 02/03/2025 11:11 AM
--- NOTE | 2025-02-03 11:34 | PCM.POST.ANE ---
Anesthesia: Postop Eval I Current Vital Signs Temperature: 98.4 F Pulse Rate: 87 Blood Pressure: 134/74 Respiratory Rate: 16 Pulse Ox: 97 Oxygen Delivery Method: Room Air Assessment Airway patent: Yes Spontaneous unlabored respirations: Yes Mental status: Awake and Calm nausea: No Vomiting: No Anesthesia Complication: No Fluid Hydration Crystalloid volume administer (ml): 30 Total IV fluid infused: 30 Progress Note Anesthesia document: Postop Eval 1 completed: Yes
--- NOTE | 2025-02-03 11:47 | PCM.POSTANE2 ---
Anesthesia Postop Eval I Sum Postop Eval Completion status Anesthesia document: Postop Eval 1 completed: Yes Anesthesia Postop Eval I Summary Anesthesia Postop Eval I Summary: Anesthesia Postop Eval I: Assessment Summary Airway patent Yes 02/03/25 11:34 [email or web address] Spontaneous unlabored Yes 02/03/25 11:34 [email or web address] respirations Mental status Awake,Calm 02/03/25 11:34 [email or web address] nausea No 02/03/25 11:34 [email or web address] Vomiting No 02/03/25 11:34 [email or web address] Anesthesia Postop Eval I: Fluid Summary Crystalloid volume administer 30 02/03/25 11:34 [email or web address] (ml) Colloids volume administered ( ml) Blood Product volume administered (ml) Total IV fluid infused 30 02/03/25 11:34 [email or web address] Anesthesia Postop Eval I: Summary Notes Anesthesia Complication No 02/03/25 11:34 [email or web address] Anesthesia Complication Comment: Post-operative progress note Anesthesia: Postop Eval II Evaluation Mental status: Awake Pain Level: 0 nausea: No Vomiting: No
== END 2025-02-03 12:10 | disposition home or self-care (01) ==
LOC: EN 09:41 → AC 09:43
PROVIDERS: PCP Student in an Organized Health Care Education/Training Program; Referring Provider Student in an Organized Health Care Education/Training Program; Visit Provider Internal Medicine Gastroenterology
PROC: 0DJ08ZZ Inspection of Upper Intestinal Tract, Via Natural or Artificial Opening Endoscopic (ICD-10-PCS; CPT 43235; principal; 2025-02-03 10:40)
DX: K31.89 Other diseases of stomach and duodenum (principal); R10.13 Epigastric pain; Z87.891 Personal history of nicotine dependence
CPT/HCPCS: 44361; 88305; A4216; J2405

== ENCOUNTER → 2025-03-18 | Outpatient (CLI) | payer OTHER, SELFPAY ==
--- NOTE | 2025-03-18 07:39 | US_ITS ---
PROCEDURE: ABDOMEN LIMITED 03/18/2025 REASON FOR EXAM: Right upper quadrant pain. TECHNIQUE: Complete abdominal ultrasound alston-scale images with color doppler. PATIENT PREPARATION: Per protocol COMPARISON: Prior CT scan dated December 05, 2022. FINDINGS: Liver: Diffusely echogenic suggesting fatty infiltration. The liver measures 14.1 cm. Gallbladder: No stones, sludge, wall thickening or tenderness. Common bile duct: Normal measuring 5 mm.. Pancreas: Visualized portions are sonographically unremarkable. Kidneys: The right kidney measures 11.9 cm 6 cm 4.2 cm. US/Abdomen Limited IMPRESSION: Fatty infiltration of the liver. The liver is not enlarged. Reading Location: [place] [id number]
== END | disposition home or self-care (01) ==
PROVIDERS: PCP Student in an Organized Health Care Education/Training Program; Referring Provider Nurse Practitioner Acute Care; Visit Provider Nurse Practitioner Acute Care
DX: R10.13 Epigastric pain (principal)
CPT/HCPCS: 76705

== ENCOUNTER → 2025-04-20 | Outpatient (CLI) | payer OTHER, SELFPAY ==
[2025-04-20 07:18] LABS: Absolute Lymphocyte Count 2.25 X10^3/uL (0.83-4.51); Absolute Neutrophil Count 1.4 X10^3/uL (2.0-7.7); Basophil# 0.06 X10^3/uL; Basophil% 1.4 % (0-1); Eosinophils% 6.8 % (0-5); Hematocrit 44.7 % (37-47); Hemoglobin 14.7 g/dL (12.0-15.0); Lymphocyte # 2.25 X10^3/ul (0.83-4.51); Lymphocyte % 50.9 % (19-41); Mean Corp Hgb Conc 32.9 g/dL (32-36); Mean Corpuscular Hgb 29.6 pg (27.0-32.0); Mean Corpuscular Volume 89.9 fL (81-99); Mean Platelet Vol. 9.9 fl (6.2-12.0); NRBC Flagged by Analyzer 0 % (0-5); Neutrophil % 31.7 % (47-70); Platelet Count 274 K/mm3 (150-450); RBC Distribution Width CV 12.6 % (11.6-14.6); RBC Distribution Width SD 41.4 fl (35.1-43.9); Red Blood Count 4.97 M/mm3 (4.2-5.4); White Blood Count 4.4 K/mm3 (4.4-11.0)
[2025-04-20 08:27] LABS: ALB/GLOB Ratio 1.3 RATIO (0.9-2.4); AST(SGOT) 32 U/L (<=31); Alanine Aminotransfer ALT/SGPT 40 U/L (<=34); Albumin, Serum 4.4 g/dL (3.5-5.0); Alkaline Phosphatase 109 U/L (35-104); Anion Gap 12 (5-15); BUN 11 mg/dL (4-19); BUN/Creat Ratio 14.1 RATIO (10-20); Carbon Dioxide 23.9 mmol/L (21.0-32.0); Chloride 106 mmol/L (98-108); EST Glomerular Filtration Rate 86 (>60); Globulin 3.3 g/dL (2.2-4.2); Glucose 100 mg/dL (70-99); Hepatitis B Surface Antigen Nonreactive (Nonreactive); Potassium 4.4 mmol/L (3.3-5.1); Protein, Total 7.7 g/dL (5.9-8.4); Sodium Level 143 mmol/L (133-145); Total Bilirubin 0.44 mg/dL (0.00-1.30)
[2025-04-20 08:54] LABS: Hepatitis C Antibody Nonreactive (Nonreactive)
[2025-04-20 09:58] LABS: Hepatitis B Surface Antibody Indetermin
[2025-04-21 05:07] LABS: Hepatitis A AB, Total Negative (Negative); Hepatitis B Core Ab Total Negative (Negative)
== END | disposition home or self-care (01) ==
LOC: LAB 06:26
PROVIDERS: PCP Student in an Organized Health Care Education/Training Program; Referring Provider Nurse Practitioner Acute Care; Visit Provider Nurse Practitioner Acute Care
DX: K76.0 Fatty (change of) liver, not elsewhere classified (principal)
CPT/HCPCS: 36415; 80053; 82977; 85025; 86704; 86706; 86708; 86803; 87340

== ENCOUNTER → 2025-05-26 | Outpatient (CLI) | payer OTHER, SELFPAY ==
--- OUTSIDE RECORDS SUMMARY | 2025-05-26 07:07 | XMS RPT_ITS | CCD ---
Author Organization [facility] Care Team Providers Care Director Of Category Management Name Role Phone Wendie Feliciano Melony Unavailable DR JOHNATHAN PEREZ DO Primary Care Physician Dre Naqvi Primary Care Provider Dre Naqvi Primary Care Provider Dre Naqvi Primary Care Provider Dre Naqvi Primary Care Provider Dre Naqvi DO Primary Care Provider [phone] Johnathan Perez DO Primary Care Provider [phone] IVELISSE DE LA FUENTE Attending Unavailab IVELISSE Stephens Admitting Unavailab DRE Monahan Primary Care Unavailable VITALIY LAM Referring Unavailable ANA, JOHNATHAN Primary Care Unavailable WAN WILKINSON Attending Unavailable VITALIY LAM Referring Unavailable ROMAR, JOHNATHAN Primary Care Unavailable WAN WILKINSON Attending Unavailable VITALIY LAM Referring Unavailable ROMOSCAR, JOHNATHAN Primary Care Unavailable VITALIY LAM Referring Unavailable ROMAR, JOHNATHAN Primary Care Unavailable IVELISSE DE LA FUENTE Attending Unavailab le ROMAR, JOHNATHAN Primary Care Unavailable ROMAR, JOHNATHAN Referring Unavailable ROMAR, JOHNATHAN Primary Care Unavailable CASS BEATTY Attending Unavailable IVELISSE DE LA FUENTE Attending Unavailab le ANA, JOHNATHAN Primary Care Unavailable ROMAR, JOHNATHAN Referring Unavailable ROMAR, JOHNATHAN Primary Care Unavailable IVELISSE DE LA FUENTE Attending Unavailab le ANA, JOHNATHAN Primary Care Unavailable ROMAR, JOHNATHAN Primary Care Unavailable IVELISSE DE LA FUENTE Referring Unavailab le IVELISSE DE LA FUENTE Attending Unavailab le PANCHITOAR DO, DR MANN Attending Unavailable ROMAR DO, DR MANN Primary Care Unavailable ROMAR DO, DR MANN Attending Unavailable ROMAR DO, DR MANN Primary Care Unavailable ROMAR DO, DR MANN Attending Unavailable ROMAR DO, DR MANN Primary Care Unavailable ROMAR DO, DR MANN Attending Unavailable ROMAR DO, DR MANN Primary Care Unavailable ROMAR DO, DR AMNN Attending Unavailable ROMAR DO, DR MANN Primary Care Unavailable ROMAR DO, DR MANN Attending Unavailable ROMAR DO, DR MANN Primary Care Unavailable Romar DO, Johnathan E Primary Care Provider MARK CUELLAR Referring Unavailable ROMAR, JOHNATHAN E Primary Care Unavailable Romar DO, Dr. Mann Primary Care Provider [phone] Romar DO, Dr. Mann Referring Provider Friend , Dr. Gutierrez Attending Provider Nereida BRADY, Dr. Gutierrez Other Provider [phone] Edgardo HEAVY LIFT RIGGER-CJayla Attending Provider Edgardo HEAVY LIFT RIGGER-CJayla Referring Provider Matt Padron Attending Unavailable Matt Padron Consulting Unavailable PanchitoarJohnathan Referring Unavailable Romar, Johnathan Primary Care Unavailable Matt Padron Attending Unavailable RomarJohnathan Referring Unavailable Romar, Johnathan Primary Care Unavailable EdgardoJayla Referring Unavailable EdgardoJayla Attending Unavailable Romar, Johnathan Primary Care Unavailable EdgardoJayla Referring Unavailable EdgardoJayla Attending Unavailable Romar, Johnathan Primary Care Unavailable Romar, Johnathan Referring Unavailable EdgardoJayla Attending Unavailable Romar, Johnathan Primary Care Unavailable Romar, Johnathan Referring Unavailable Romar, Johnathan Primary Care Unavailable Edgardo, Jayla Attending Unavailable Edgardo, Jayla Attending Unavailable Romar, Johnathan Referring Unavailable Romar, Johnathan Primary Care Unavailable JUSTINE OLGUIN MD Attending Unavailable ROMAR DO, DR MANN Primary Care Unavailable ROMAR DO, DR MANN Primary Care Unavailable MAGED CUEVAS MD Attending Unavailable ROMAR DO, DR MANN Attending Unavailable ROMAR DO, DR MANN Primary Care Unavailable ROMAR DO, DR MANN Primary Care Unavailable ROMAR DO, DR MANN Attending Unavailable ROMAR DO, DR MANN Attending Unavailable ROMAR DO, DR MANN Primary Care Unavailable ROMAR DO, DR MANN Attending Unavailable ROMAR DO, DR MANN Primary Care Unavailable ROMAR DO, DR MANN Primary Care Unavailable ROMAR DO, DR MANN Attending Unavailable ROMAR DO, DR MANN Primary Care Unavailable ROMAR DO, DR MANN Attending Unavailable ROMAR DO, DR MANN Attending Unavailable ROMAR DO, DR MANN Primary Care Unavailable ROMAR DO, DR MANN Attending Unavailable ROMAR DO, DR MANN Primary Care Unavailable ROMAR DO, DR MANN Primary Care Unavailable ROMAR DO, DR MANN Attending Unavailable ROMAR DO, DR MANN Primary Care Unavailable ÁNGELA ENVIRONMENTAL CONTROL ADMINISTRATOR-BODY SERVICE TEAM MEMBER, MOHINDER Attending Unavailab le ROMAR DO, DR MANN Primary Care Unavailable ROMAR DO, DR MANN Attending Unavailable ROMAR DO, DR MANN Primary Care Unavailable ROMAR DO, DR MANN Attending Unavailable ROMAR DO, DR MANN Attending Unavailable ROMAR DO, DR MANN Primary Care Unavailable ROMAR DO, DR MANN Attending Unavailable ROMAR DO, DR MANN Primary Care Unavailable ROMAR DO, DR MANN Attending Unavailable ROMAR DO, DR MANN Primary Care Unavailable ROMAR DO, DR MANN Attending Unavailable ROMAR DO, DR MANN Primary Care Unavailable ROMAR DO, DR MANN Attending Unavailable ROMAR DO, DR MANN Primary Care Unavailable ROMAR DO, DR MANN Attending Unavailable ROMAR DO, DR MANN Primary Care Unavailable Allergies Allergy Classification Reported Allergen(s) Allergy Type Date of Onset Reaction(s) Facility (20 sources) iodine; Translations: [Iodine] Drug Allergy 04-04-20 04 Hives [facility] Work Phone: (1 source) Sulfonamides (Antibiotic) drug allergy 08-24-20 14 [facility] Work Phone: (1 source) COMPOZINE drug allergy 08-24-20 14 [facility] Work Phone: (20 sources) Morphine; Translations: [morphine] Drug Allergy 03-25-20 06 [facility] (20 sources) Prochlorperazine; Translations: [prochlorperazine] Drug Allergy 04-04-20 04 Vomiting [facility] (20 sources) Sulfonamides (Antibiotic); Translations: [sulfa drugs] Drug allergy [facility] (20 sources) Sulfonamides (Antibiotic); Translations: [SULFA (SULFONAMIDE ANTIBIOTICS)] Propensity to adverse reactions 04-04-20 04 [facility] Work Phone: (5 sources) Sulfonamides (Antibiotic) Allergy to substance 10-08-20 18 [facility] [place] (20 sources) Chlorhexidine / Isopropyl Alcohol; Translations: [CHLORHEXIDIN-ISOPR OPYL ALCOHOL] Drug Allergy 02-19-20 23 Rash, [facility] Work Phone: (20 sources) Chlorhexidine; Translations: [chlorhexidine topical] Drug Allergy 02-25-20 Weal (disorder) [facility] (1 source) ALLERGIES NOT ON FILE; Translations: [ALLERGIES NOT ON FILE] Propensity to adverse reactions (disorder) [facility] Repository (2 sources) Isopropyl Alcohol Drug Allergy 02-25-20 25 [facility] (1 source) Chlorhexidine Drug Allergy 04-29-[address] [facility] Repository (1 source) Isopropyl Alcohol Drug Allergy 04-29-[address] [facility] Repository (1 source) Morphine Drug Allergy 04-29-[address] [facility] Repository (1 source) Prochlorperazine Drug Allergy 04-29-[address] [facility] Repository (1 source) Sulfonamides (Antibiotic) Drug allergy (disorder) 04-29-[address] [facility] Repository Medications Current Medications Medication Drug Class(es) Dates Sig (Normalized) Sig (Original) acetaminophen 500 mg oral capsule (20 sources) Start: 11-16-2024 take 2 capsules by mouth three times daily as needed for pain Acetaminophen 500 mg capsule Active 1000 mg PO THREE TIMES A DAY as needed for fever or pain November 16, 2024 1:00am Start: 10-12-2020 acetaminophen 500 mg oral tablet Dose : 1,000 mg = 2 tab(s), Oral, TID, PRN pain or fever, 0 Refill(s) Start Date: 10/12/20 Status: Ordered Repeat number: 1 acetaminophen (T YLENOL ORAL) Take by mouth as needed. 0 Active Comment on above: Take by mouth as nee ded. acetaminophen 250 mg / aspirin 250 mg / caffeine 65 mg oral tablet (8 sources) Platelet Aggregation Inhibitor, Nonsteroidal Anti-inflammatory Drug, Central Nervous System Stimulant, Methylxanthine Start: 10-12-20 take 1 tablet by mouth every six hours as needed for pain Excedrin Extra Strength oral tab (250/250/65) Dose = 1 tab(s), Oral, q6h, PRN pain, 0 Refill(s) Start Date: 10/12/20 Status: Ordered amoxicillin 875 mg / clavulanate 125 mg oral tablet (1 source) Penicillin-class Antibacterial Start: 05-15-20 End: 05-25-20 take 1 tablet by mouth every twelve hours at mealtime amoxicillin-clav ulanate 875 mg-125 mg oral tablet 1 tab(s), Oral, q12h, with food or milk, X 10 day(s), # 20 tab(s), 0 Refill(s), 05/25/23 8:45:00 EDT, Pharmacy: [facility] #[id number], 167.5, cm, 05/15/23 8:09:00 EDT, Height, 79.5 Start Date: 05/15/23 Stop Date: 05/25/23 Status: Ordered ascorbic acid 1000 mg oral capsule (20 sources) Vitamin C Start: 11-16-20 take 1 g by mouth once daily Ascorbic Acid (Vitamin C) 1,000 mg capsule Active 1 g PO daily November 16, 2024 1:00am Start: 05-15-2023 take 1 dose by mouth once denilson y Vitamin C Dose : 1,000 mg =, Oral, qDay, 0 Refill(s) Start Date: 05/15/23 Status: Ordered Repeat number: 1 take 2 tablets by mo uth once daily ascorbic acid, vitamin C, (VITAMIN C) 500 mg tablet Take 1,000 mg by mouth once daily. 0 Active Comment on above: Take 1,000 mg by eugenia once daily. cholecalciferol 0.1 mg oral tablet (20 sources) Vitamin D Start: 03-23-2025 End: 06-21-2025 cholecalciferol 100 mcg (4000 intl units) oral tablet Dose : 100 mcg = 1 tab(s), Oral, qDayM, with food, # 90 tab(s), 0 Refill(s), Pharmacy: [facility]/pharmacy #[id number], 167, cm, 03/23/25 8:55:00 EDT, Height, kg, 03/23/25 8:55:00 EDT, Dosing Weight Start Date: 03/23/25 Stop Date: 06/21/25 Status: Ordered Quantity: 90.0 Unit: tab(s) Repeat number: 1 Start: 11-17-2024 take 1 capsule by mo [facility] once daily Cholecalciferol (Vitamin D3) 50 mcg (2,000 unit) capsule Active 50 ug PO daily November 17, 2024 1:00am Start: 12-27-2023 End: 12-21-2024 cholecalciferol 100 mcg (400 0 intl units) oral tablet Dose : 100 mcg = 1 tab(s), Oral, qDayM, with food, # 90 tab(s), 3 Refill(s), Pharmacy: [facility] #[id number], 167, cm, 12/27/23 8:22:00 EST, Height, kg, 12/27/23 8:22:00 EST, Dosing Weight Start Date: 12/27/23 Stop Date: 12/21/24 Status: Ordered Quantity: 90.0 Unit: tab(s) Repeat number: 4 Start: 08-14-2023 End: 11-12-2023 cholecalciferol 100 mcg (400 0 intl units) oral tablet Dose : 100 mcg = 1 tab(s), Oral, qDayM, with food, # 90 tab(s), 0 Refill(s), Pharmacy: [facility] #[id number], 167, cm, 08/14/23 8:58:00 EDT, Height, kg, 08/14/23 8:58:00 EDT, Dosing Weight Start Date: 08/14/23 Stop Date: 11/12/23 Status: Ordered take 1 tablet by eugenia twice daily cholecalciferol (VITAMIN D3) 50 mcg (2,000 unit) tablet Take 2,000 Units by mouth twice daily. 0 Active take 1 tablet by eugenia once daily cholecalciferol (VITAMIN D-3) 50 mcg (2,000 unit) tablet Take 2,000 Units by mouth once daily. 0 Active Comment on above: Take 2,000 Units by mouth once daily. Take 2,000 Units by mouth twice daily. Cod Liver Oil (3 sources) Start: 2017 take 1 capsule by mouth once daily Cod Liver Oil Active 1 CAP PO DAILY September 29, 2018 11:00pm cyclobenzaprine hydrochloride 5 mg oral tablet (1 source) Muscle Relaxant Start: 2021 End: 2021 cyclobenzaprine 5 mg oral tablet Dose : 5 mg = 1 tab(s), Oral, qPM, PRN Muscle spasm, Do not drive, operate heavy machinery, or drink alcohol while on this med., X 30 day(s), # 30 tab(s), 1 Refill(s), 09/15/22 8:53:00 EDT, Pharmacy: [facility] #[id number], 167, cm, 07/17/22 8:32:00 EDT, Height Start Date: 07/17/22 Stop Date: 09/15/22 Status: Ordered diclofenac sodium 50 mg delayed release oral tablet (4 sources) Nonsteroidal Anti-inflammatory Drug Start: 2022 End: 2022 take 1 tablet by mouth twice daily diclofenac, EC, (VOLTAREN) 50 mg EC tablet Indications: S/P right rotator cuff repair Take 1 tablet by mouth twice daily. 60 tablet 0 04/09/2023 05/09/2023 Active Comment on above: Take 1 tablet by [facility] twice daily. DULoxetine 20 mg delayed release oral capsule (2 sources) Serotonin and Norepinephrine Reuptake Inhibitor Start: 2024 DULoxetine 20 mg oral delayed release capsule Dose : 20 mg = 1 cap(s), Oral, BID, # 180 cap(s), 0 Refill(s) Start Date: 02/16/25 Status: Ordered Quantity: 180.0 Unit: cap(s) Repeat number: 1 etodolac 400 mg oral tablet (1 source) Nonsteroidal Anti-inflammatory Drug Start: 2022 End: 2022 take 1 tablet by mouth twice daily etodolac (LODINE) 400 mg tablet Indications: Acute pain of right shoulder Take 1 tablet by mouth twice daily for 14 days. 28 tablet 0 07/01/2023 07/15/2023 Active Comment on above: Take 1 tablet by eugenia th twice daily for 14 days. ferrous sulfate 325 mg oral tablet (19 sources) Start: 2023 End: 2024 ferrous sulfate 325 mg (65 mg elemental iron) oral tablet Dose : 325 mg = 1 tab(s), Oral, qDay, may take with food to minimize abdominal discomfort, # 90 tab(s), 0 Refill(s), Pharmacy: [facility]/pharmacy #[id number], 167, cm, 03/23/25 8:55:00 EDT, Height, kg, 03/23/25 8:55:00 EDT, Dosing Weight Start Date: 03/23/25 Stop Date: 06/21/25 Status: Ordered Quantity: 90.0 Unit: tab(s) Repeat number: 1 12 hr guaiFENesin 600 mg extended release oral tablet (2 sources) Start: 2024 take 1 tablet by mouth twice daily as needed for congestion, then take 1 tablet by mouth every twelve hours as needed for congestion Guaifenesin (Mucinex) 600 mg tablet extended release 12hr Active 600 mg PO TWICE A DAY as needed for congestion February 01, 2025 1:00am Ibuprofen (15 sources) Nonsteroidal Anti-inflammatory Drug Start: 2022 take 1 tablet by mouth once daily at bedtime Advil PM 38 mg-200 mg oral tablet tab(s), Oral, qHS, 0 Refill(s) Start Date: 06/18/23 Status: Ordered Repeat number: 1 Start: 06-18-2023 take 1 tablet by eugenia th once daily at bedtime Advil PM 38 mg-200 mg oral tablet tab(s), Oral, qHS, 0 Refill(s) Start Date: 06/18/23 Status: Ordered loratadine 10 mg oral tablet (2 sources) Start: 02-01-2025 take 1 tablet by mouth once daily Loratadine (Allerclear) 10 mg tablet Active 10 mg PO DAILY February 01, 2025 1:00am melatonin 10 mg oral tablet (2 sources) Start: 05-15-2023 End: 06-14-2023 melatonin 10 mg oral tablet Dose : 10 mg = 1 tab(s), Oral, qHS, PRN as needed for insomnia, Do not drive, operate heavy machinery, or drink alcohol while on this med., # 30 tab(s), 0 Refill(s), Pharmacy: [facility] #[id number], 167.5, cm, 05/15/23 8:09:00 EDT, Height Start Date: 05/15/23 Stop Date: 06/14/23 Status: Ordered methocarbamol 750 mg oral tablet (1 source) Muscle Relaxant Start: 01-16-2022 End: 01-23-2022 methocarbamol 750 mg oral tablet Dose : 1,500 mg = 2 tab(s), Oral, TID, PRN as needed for pain, Do not drive, operate heavy machinery, or drink alcohol while on this medication., X 7 day(s), # 42 tab(s), 0 Refill(s), 01/23/22 15:10:00 EST, Pharmacy: [facility] 168, cm,... Start Date: 01/16/22 Stop Date: 01/23/22 Status: Ordered Misc Medication (1 source) Start: 08-14-2023 Misc Medicatio n See Instructions, relaxium , melatonin and magnesium, 0 Refill(s), 78 Start Date: 08/14/23 Status: Ordered multivitamin capsule (3 sources) Start: 04-14-2018 take 1 capsule by mouth once daily in the morning multivitamin capsule Active 1 CAP PO EVERY MORNING April 13, 2018 11:00pm Multivitamin capsule (2 sources) Start: 04-14-2018 Multivitamin capsule Active 1 NMA PO EVERY MORNING April 14, 2018 12:00am Multivitamin preparation (20 sources) Start: 10-09-2022 take 1 tablet by mouth once daily Multivitamin Dose = 1 tab(s), Oral, Daily, 0 Refill(s) Start Date: 10/09/22 Status: Ordered Repeat number: 1 Start: 10-09-2022 take 1 tablet by eugenia th once daily Multivitamin Dose = 1 tab(s), Oral, Daily, 0 Refill(s) Start Date: 10/09/22 Status: Ordered Start: 10-10-2017 multivitamin ( MULTIPLE VITAMINS ORAL) Take by mouth. 0 10/10/2017 Active Comment on above: Take by mouth. Nasacort Allergy 24HR 55 mcg/inh nasal spray (3 sources) Start: 0 take 1 dose nasal route once daily as needed Nasacort Allergy 24HR 55 mcg/inh nasal spray Dose = 1 spray(s), Nostril, each, qDay, PRN Allergy symptoms, 0 Refill(s) Start Date: 05/10/20 Status: Ordered pantoprazole 40 mg delayed release oral tablet (10 sources) Proton Pump Inhibitor Start: pantoprazole 40 mg oral enteric coated tablet Dose : 40 mg = 1 tab(s), Oral, qDay, # 90 tab(s), 0 Refill(s) Start Date: 03/23/25 Status: Ordered Quantity: 90.0 Unit: tab(s) Repeat number: 1 Start: 11-17-2024 End: 02-01-2025 take 1 tablet by mouth once daily at mealtime Pantoprazole 20 mg tablet,delayed release (DR/EC) Discontinued 20 mg PO .COMPLEX November 17, 2024 1:00am February 01, 2025 12:14pm 20 mg orally once daily 30 minutes prior to first meal; PARoxetine hydrochloride 10 mg oral tablet (7 sources) Serotonin Reuptake Inhibitor Start: 08-18-2024 Paxil 10 mg oral tablet Dose : 10 mg = 1 tab(s), Oral, qDay, # 90 tab(s), 0 Refill(s), Pharmacy: [facility]/pharmacy #[id number], 168.5, cm, 08/18/24 9:19:00 EDT, Height, kg, 08/18/24 9:19:00 EDT, Dosing Weight Start Date: 08/18/24 Status: Ordered predniSONE 10 mg oral tablet (5 sources) Start: 02-18-2023 End: 03-02-2023 take 4 tablets by mouth once daily, then take 3 tablets by mouth once daily, then take 2 tablets by mouth once daily, then take 1 tablet by mouth once daily predniSONE (DELTASONE) 10 mg tablet Take 4 tablets by mouth once daily for 3 days, THEN 3 tablets once daily for 3 days, THEN 2 tablets once daily for 3 days, THEN 1 tablet once daily for 3 days. 30 tablet 0 02/18/2023 03/02/2023 Active Comment on above: Take 4 tablets by mo [facility] once daily for 3 days, THEN 3 tablets once daily for 3 days, THEN 2 tablets once daily for 3 days, THEN 1 tablet once daily for 3 days. pregabalin 50 mg oral capsule (8 sources) Start: 02-24-2025 take 4 capsules by mouth twice daily Pregabalin (Lyrica) 50 mg capsule Active 200 mg PO TWICE A DAY February 24, 2025 10:02am Start: 01-22-2025 End: 02-24-2025 pregabalin 50 mg oral capsul e Dose : 50 mg = 1 cap(s), PLEASE SEE ATTACHED FOR DETAILED DIRECTIONS Start Date: 01/22/25 Status: Ordered Repeat number: 1 psyllium 400 mg oral capsule (11 sources) Start: 11-16-2024 Psyllium Husk (Metamucil) 0.4 gram capsule Active 0.4 g PO 4 TIMES DAILY as needed for constipation November 16, 2024 1:00am Start: 09-17-2024 Metamucil 400 mg oral capsule Dose : 2,000 mg = 5 cap(s), Oral, QID, PRN as needed for constipation, # 160 cap(s), 0 Refill(s) Start Date: 09/17/24 Status: Ordered Quantity: 160.0 Unit: cap(s) Repeat number: 1 rifAXIMin 550 mg oral tablet (4 sources) Rifamycin Antibacterial Start: 03-26-2025 End: 04-29-2025 Xifaxan 550 mg oral tablet Dose : 550 mg = 1 tab(s), Oral, BID, # 60 tab(s), 0 Refill(s) Start Date: 04/19/25 Status: Ordered Quantity: 60.0 Unit: tab(s) Repeat number: 1 triamcinolone acetonide 0.055 mg/actuat metered dose nasal spray (20 sources) Corticosteroid Start: 05-10-2020 Nasacort Aller gy 24HR 55 mcg/inh nasal spray 110 mcg Dose = 2 spray(s), Nostril, each, qDay, PRN Allergy symptoms, 0 Refill(s) Start Date: 05/10/20 Status: Ordered Repeat number: 1 Start: 04-14-2018 Triamcinolone Acetonide (Nasacort) 55 mcg aerosol,spray Active 2 NMA INTRANASAL daily April 14, 2018 12:00am Start: 04-14-2018 Triamcinolone Acetonide (Nasacort) 55 mcg aerosol,spray Active 2 SPRAY INTRANASAL daily April 13, 2018 11:00pm take 1 spray(s) nasa l route at bedtime TRIAMCINOLONE ACETONIDE (NASACORT NASAL) Use in the nose. One spray in each nostril at bedtime 0 Active Comment on above: Use in the nose. One spray in each nostril at bedtime turmeric extract 500 mg oral capsule (1 source) Start: 08-14-2023 turmeric 500 mg oral capsule Dose : 500 mg = 1 cap(s), Oral, Daily, 0 Refill(s) Start Date: 08/14/23 Status: Ordered Vitamin D3 50 mcg (2000 intl units) oral capsule (6 sources) Start: 07-17-2022 Vitamin D3 50 mcg (2000 intl units) oral capsule Dose : 50 mcg = 1 cap(s), Oral, qDay, # 60 cap(s), 0 Refill(s) Start Date: 07/17/22 Status: Ordered Completed/Discontinued Medications Medication Drug Class(es) Dates Sig (Normalized) Sig (Original) Acetaminophen / diphenhydrAMINE (1 source) Histamine-1 Receptor Antagonist acetaminophen/diphe nhydramine (TYLENOL PM ORAL) Take by mouth as needed. 0 Active Comment on above: Take by mouth as nee ded. acetaminophen 325 mg / oxyCODONE hydrochloride 5 mg oral tablet (20 sources) Opioid Agonist Start: 02-05-2023 take 1 tablet by mouth every six hours as needed for pain oxyCODONE-acetamino phen (PERCOCET) 5-325 mg tablet Indications: Postoperative pain Take 1 tablet by mouth every 6 hours as needed for pain. 20 tablet 0 02/05/2023 Active Comment on above: Take 1 tablet by [facility] every 6 hours as needed for pain. [id number] 200 actuat albuterol 0.09 mg/actuat metered dose inhaler (5 sources) beta2-Adrenergic Agonist Start: 04-14-2018 End: 11-17-2024 Albuterol Sulfate (Proair Hfa) 90 mcg/actuation HFA aerosol inhaler Discontinued 2 NMA INHALATION Q4H as needed for Sob &/Or Wheezing April 14, 2018 12:00am November 17, 2024 11:30am Start: 04-14-2018 take 1 puff(s) by in halation every four hours Albuterol Sulfate (Proair Hfa) 90 mcg/actuation HFA aerosol inhaler Active 2 PUFF INHALATION Q4H April 13, 2018 11:00pm aspirin 325 mg oral tablet (1 source) Nonsteroidal Anti-inflammatory Drug Start: 08-24-2014 ASPIRIN 325 MG TA BS as needed ASPIRIN [id number] Ivelisse De La Fuente ASPIRIN-ACETAMINOPHEN -CAFFEINE TABS (1 source) Start: 08-24-2014 PAMPRIN MAX TA BS as needed ASPIRIN-ACETAMINOPH EN-CAFFEINE TABS [id number] Ivelisse De La Fuente azelastine hydrochloride 0.206 mg/actuat metered dose nasal spray (5 sources) Histamine-1 Receptor Antagonist Start: 09-30-2018 End: 02-01-2025 Azelastine 0.15 % (205.5 mcg) spray,non-aerosol Discontinued 205.5 ug INTRANASAL TWICE A DAY September 30, 2018 12:00am February 01, 2025 12:14pm Clobetasol (8 sources) Corticosteroid Start: 01-29-2022 End: 02-12-2022 clobetasol 0.05% topical cream Apply 1 susannah, Topical, BID, PRN Rash, apply a thin film to affected area. After 14 days consecutive use, take 7 days off before restarting., # 45 gram(s), 0 Refill(s), other reason (Rx), Cream, Dosing Weight Start Date: 01/29/22 Stop Date: 02/12/22 Status: Ordered Start: 01-16-2022 End: 01-30-2022 clobetasol 0.05% topical cre am Apply 1 susannah, Topical, BID, PRN Rash, apply a thin film to affected area. After 14 days consecutive use, take 7 days off before restarting., X 14 day(s), # 45 gram(s), 0 Refill(s), [facility] [place], 168, cm, 01/16/22 14:39:00 E... Start Date: 01/16/22 Stop Date: 01/30/22 Status: Ordered Start: 09-30-2018 End: 11-17-2024 Clobetasol 0.05 % cream Disc ontinued 1 NMA TOPICAL TWICE A DAY September 30, 2018 12:00am November 17, 2024 11:32am Cod Liver Oil capsule (2 sources) Start: 09-30-2018 End: 11-17-2024 Cod Liver Oil capsule Discontinued 1 NMA PO DAILY September 30, 2018 12:00am November 17, 2024 11:32am diphenhydrAMINE citrate 38 mg / ibuprofen 200 mg oral tablet (2 sources) Histamine-1 Receptor Antagonist, Nonsteroidal Anti-inflammatory Drug Start: 11-16-2024 End: 02-01-2025 Ibuprofen-Diphenhydr amine Cit (Advil Pm) 200-38 mg tablet Discontinued 1 NMA PO AT BEDTIME November 16, 2024 1:00am February 01, 2025 12:14pm ergocalciferol, vitamin D2, (VITAMIN D2 ORAL) (13 sources) End: 01-21-2023 ergocalciferol, vitamin D2, (VITAMIN D2 ORAL) Take by mouth. 0 01/21/2023 Discontinued ergocalciferol, vitamin D2, (VITAMIN D2 ORAL) Take by mouth. 0 Active Comment on above: Take by mouth. 84 hr estradiol 0.28100 mg/hr / norethindrone acetate 0.87009 mg/hr transdermal system (11 sources) Estrogen Start: 07-16-20 End: 01-21-20 23 apply 1 dose transdermal route two times weekly, then apply 1 dose transdermal route two times weekly Estradiol-Norethindr one Acet (COMBIPATCH) 0.05-0.14 mg/24 hr Apply 1 Patch as directed two times a week. APPLY ONE(1) PATCH TWICE WEEKLY DIRECTED. 8 Patch 11 07/16/2022 01/21/2023 Discontinued Comment on above: Apply 1 Patch as dir ected two times a week. APPLY ONE(1) PATCH TWICE WEEKLY DIRECTED. Lactulose (2 sources) Osmotic Laxative Start: 03-08-20 End: 04-29-20 take 10 g by mouth once Lactulose 10 gram/15 mL solution Discontinued 10 g PO ONCE March 08, 2025 12:00am April 29, 2025 3:04pm As directed for breath testing Start: 03-08-2025 take 10 g by mouth once Lactul ose 10 gram/15 mL solution Active 10 g PO ONCE March 08, 2025 12:00am As directed for breath testing meloxicam 15 mg oral tablet (20 sources) Nonsteroidal Anti-inflammatory Drug Start: 07-17-2022 End: 01-13-2023 meloxicam 15 mg oral tablet Dose : 15 mg = 1 tab(s), Oral, qDay, PRN Pain, Take with food/milk and fluids. Do not take any other NSAIDs while on this med., # 90 tab(s), 1 Refill(s), [facility]: [id number], 167, cm, 07/17/22 8:32:00 EDT, Height, kg, 07/17/22 8:32:00 EDT, Dosin... Start Date: 07/17/22 Stop Date: 01/13/23 Status: Ordered Start: 04-27-2022 End: 07-01-2023 take 1 tablet by mouth once daily meloxicam (MOBIC) 7.5 mg tablet Take 1 tablet by mouth once daily. 30 tablet 0 04/27/2022 07/01/2023 Discontinued Start: 01-16-2022 End: 04-16-2022 meloxicam 15 mg oral tablet Dose : 15 mg = 1 tab(s), Oral, qDay, PRN Pain, Take with food/milk and fluids. Do not take any other NSAIDs while on this medication., # 30 tab(s), 1 Refill(s), [facility]: [id number] 167, cm, 02/15/22 8:26:00 EDT, Height, kg, 02/15/22 8:2... Start Date: 02/15/22 Stop Date: 04/16/22 Status: Ordered Start: 08-24-2014 End: 09-23-2014 take 1 tablet by mouth once daily at mealtime MELOXICAM 7.5 MG TABS one po daily with food MELOXICAM [id number] Ivelisse De La Fuente Comment on above: Take 1 tablet by eugenia th once daily. methylPREDNISolone 4 mg oral tablet (2 sources) Corticosteroid Start: 2022 methylPREDNISolone (MEDROL, CECI,) 4 mg Dose-Pack Indications: Acute pain of right shoulder Take 1 tablet by mouth as directed. As directed on package 21 tablet 0 07/01/2023 Active Comment on above: Take 1 tablet by eugenia as directed. As directed on package omeprazole 40 mg delayed release oral capsule (5 sources) Proton Pump Inhibitor Start: 2024 End: 2024 take 1 capsule by mouth once daily Omeprazole 40 mg capsule,delayed release(DR/EC) Discontinued 40 mg PO daily March 07, 2025 12:00am March 16, 2025 1:30pm Start: 11-03-2024 End: 12-15-2024 take 1 capsule by mouth once daily Omeprazole 40 mg capsule,delayed release(DR/EC) Discontinued 40 mg PO daily November 16, 2024 1:00am November 17, 2024 12:04pm ondansetron 4 mg oral tablet (20 sources) Serotonin-3 Receptor Antagonist Start: 02-05-2023 take 1 tablet by mouth every eight hours as needed ondansetron (ZOFRAN) 4 mg tablet Take 1 tablet by mouth every 8 hours as needed for nausea/vomiting. 10 tablet 0 02/05/2023 Active Comment on above: Take 1 tablet by eugenia every 8 hours as needed for nausea/vomiting. Soy Isofla-Blk Cohosh-Mag Bark (Estroven) 155 mg capsule (5 sources) Start: 04-14-2018 End: 09-30-2018 Soy Isofla-Blk Cohosh-Mag Bark (Estroven) 155 mg capsule Discontinued NMA PO April 14, 2018 12:00am September 30, 2018 3:20pm Start: 04-14-2018 End: 09-30-2018 Soy Isofla-Blk Cohosh-Mag Ba rk (Estroven) 155 mg capsule Discontinued CAP PO April 13, 2018 11:00pm September 30, 2018 2:20pm traMADol hydrochloride 50 mg oral tablet (1 source) Opioid Agonist Start: 08-24-2014 End: 09-23-2014 take 1 tablet by mouth twice daily at mealtime TRAMADOL HCL 50 MG TABS one by mouth twice a day with food TRAMADOL HCL [id number] Ivelisse De La Fuente traZODone hydrochloride 50 mg oral tablet (1 source) Serotonin Reuptake Inhibitor Start: 08-14-2023 End: 09-13-2023 traZODone 50 mg oral tablet Dose : 50 mg = 1 tab(s), Oral, qHS, PRN Sleep / Insomnia, after meals, # 30 tab(s), 0 Refill(s), [facility]acy: [facility] #[id number], 167, cm, 08/14/23 8:58:00 EDT, Height, kg, 08/14/23 8:58:00 EDT, Dosing Weight Start Date: 08/14/23 Stop Date: 09/13/23 Status: Ordered Problems Active Problems Problem Classification Problem Date Documented Da te Episodic/Chronic Allergic reactions (1 source) Urticaria; Translations: [Urticaria, unspecified] Episodic Aortic; peripheral; and visceral artery aneurysms (16 sources) Dilatation of descending aorta 08-06-2024 Chronic Asthma (5 sources) Asthma; Translations: [Unspecified asthma, uncomplicated] 04-14-2018 Chronic Disorders of lipid metabolism (20 sources) Mixed hyperlipidemia; Translations: [Mixed hyperlipidemia] Onset: 12-14-2024 05-24-2022 Chronic Comment on above: 02/20 ascvd risk 2.7% 10/02 ascvd risk 2.1% 08/24 ascvd 2.0% 07/25 ASCVD risk 3.4% Fluid and electrolyte disorders (3 sources) Hyperkalemia 07-09-2024 Episodic Genitourinary symptoms and ill-defined conditions (20 sources) Blood in urine 02-15-2022 Episodic Glaucoma (5 sources) Preglaucoma, unspecified, unspecified eye; Translations: [Glaucoma suspect] 04-14-2018 Chronic Lymphadenitis (11 sources) Axillary lymphadenopathy 10-07-2024 Episodic Menopausal disorders (20 sources) Postmenopausal bleeding; Translations: [Postmenopausal bleeding] Onset: 12-06-2017 12-06-2017 Chronic Menstrual disorders (20 sources) Irregular periods; Translations: [Irregular menstruation, unspecified] Onset: 06-30-2008 06-30-2008 Chronic Neoplasms of unspecified nature or uncertain behavior (20 sources) Neoplasm and/or hamartoma 01-05-2021 Episodic Nonmalignant breast conditions (20 sources) Breast lump; Translations: [Unspecified lump in unspecified breast] Onset: 07-15-2007 07-15-2007 Episodic Nonspecific chest pain (20 sources) Chest discomfort; Translations: [Chest pain] Onset: 12-14-2024 08-06-2024 Episodic Nutritional deficiencies (20 sources) Vitamin D deficiency; Translations: [Vitamin D deficiency, unspecified] Onset: 12-15-2024 05-22-2022 Chronic Other aftercare (1 source) Other penitentiary (current) drug therapy; Translations: [Other penitentiary (current) drug therapy] Onset: 05-19-2025 Episodic Other circulatory disease (1 source) Abnormal peripheral pulse 01-05-2021 Episodic Other connective tissue disease (20 sources) Primary fibromyalgia syndrome 05-09-2020 Episodic Other connective tissue disease (20 sources) Cramp 05-22-2022 Episodic Other connective tissue disease (13 sources) Partial thickness rotator cuff tear; Translations: [Incomplete rotator cuff tear or rupture of right shoulder, not specified as traumatic] Episodic Other connective tissue disease (1 source) Pain in right arm; Translations: [Pain in right arm] Episodic Other connective tissue disease (1 source) Fibromyalgia; Translations: [Fibromyalgia] Onset: 05-19-2025 Episodic Other female genital disorders (20 sources) Premenstrual tension syndrome; Translations: [Premenstrual tension syndrome] Onset: 06-30-2008 06-30-2008 Chronic Other gastrointestinal disorders (19 sources) Constipation 07-09-2024 Episodic Other gastrointestinal disorders (19 sources) Epigastric mass 07-09-2024 Episodic Other inflammatory condition of skin (20 sources) Psoriasis 01-29-2022 Chronic Other liver diseases (4 sources) Steatosis of liver 03-23-2025 Chronic Other liver diseases (3 sources) Fatty (change of) liver, not elsewhere classified; Translations: [Metabolic dysfunction-associate d steatotic liver disease (MASLD)] Onset: 04-27-2025 03-26-2025 Chronic Other liver diseases (2 sources) Alkaline phosphatase raised; Translations: [Abnormal levels of other serum enzymes] 04-21-2025 Episodic Other lower respiratory disease (20 sources) Rib pain 02-15-2022 Episodic Other lower respiratory disease (4 sources) Postviral cough 03-23-2025 Episodic Other nervous system disorders (2 sources) Carpal tunnel syndrome; Translations: [Ulnar neuropathy] Onset: 08-24-2014 09-28-2014 Chronic Other nervous system disorders (20 sources) Brachial plexus disorder; Translations: [Brachial plexus disorders] Onset: 04-04-2004 04-05-2004 Chronic Other nervous system disorders (8 sources) Right thoracic outlet syndrome 11-03-2024 Chronic Other nervous system disorders (1 source) Other acute postprocedural pain; Translations: [Postoperative pain] Onset: 02-05-2023 Episodic Other nervous system disorders (20 sources) Numbness of hand 08-14-2023 Episodic Other non-traumatic joint disorders (1 source) Chronic pain of right upper limb; Translations: [Pain in right shoulder] Episodic Other non-traumatic joint disorders (5 sources) Shoulder pain; Translations: [Pain in unspecified shoulder] 04-14-2018 Episodic Other non-traumatic joint disorders (8 sources) Multiple joint pain 11-03-2024 Episodic Other nutritional; endocrine; and metabolic disorders (4 sources) Body mass index 30+ - obesity 03-23-2025 Chronic Other nutritional; endocrine; and metabolic disorders (1 source) Body mass index (BMI) 31.0-31.9, adult; Translations: [Body mass index [BMI] 31.0-31.9, adult] Onset: 05-19-2025 Chronic Other skin disorders (20 sources) Hidradenitis suppurativa 05-09-2020 Episodic Other upper respiratory disease (20 sources) Allergic rhinitis; Translations: [Allergic rhinitis, unspecified] Onset: 06-30-2010 06-30-2010 Chronic Other upper respiratory disease (5 sources) Seasonal allergy; Translations: [Other seasonal allergic rhinitis] 04-14-2018 Chronic Residual codes; unclassified (1 source) Hypersomnia 08-14-2023 Chronic Residual codes; unclassified (20 sources) Obstructive sleep apnea syndrome; Translations: [Obstructive sleep apnea (adult) (pediatric)] 12-27-2023 Chronic Residual codes; unclassified (2 sources) Obstructive sleep apnea (adult) (pediatric); Translations: [Obstructive sleep apnea (adult) (pediatric)] Onset: 12-14-2024 Chronic Residual codes; unclassified (20 sources) Insomnia 05-09-2020 Episodic Residual codes; unclassified (20 sources) Flushing 05-22-2022 Episodic Residual codes; unclassified (5 sources) Postmenopausal state; Translations: [Asymptomatic menopausal state] 04-14-2018 Episodic Residual codes; unclassified (20 sources) Difficulty sleeping 10-09-2022 Episodic Spondylosis; intervertebral disc disorders; other back problems (20 sources) Chronic neck pain; Translations: [Neck pain] Onset: 02-18-2007 02-15-2022 Episodic Unclassified (20 sources) Suspected disease caused by 2019-nCoV 02-01-2022 Unclassified (1 source) APPOINTMENT CANCELLED 03-18-2024 Unclassified (19 sources) Pain of right shoulder region 07-09-2024 Unclassified (1 source) Cough, unspecified; Translations: [Cough, unspecified] Onset: 02-16-2025 Viral infection (2 sources) COVID-19; Translations: [COVID-19] Onset: 02-16-2025 Past or Other Problems Problem Classification Problem Date Documented Date Episodic/Chronic Abdominal pain (20 sources) Pain in pelvis; Translations: [Pelvic and perineal pain] Onset: 11-03-2024 04-14-2018 Episodic Immunizations and screening for infectious disease (2 sources) Encounter for screening for human papillomavirus (HPV); Translations: [Encounter for screening for human papillomavirus (HPV)] Onset: 08-18-2024 Episodic Malaise and fatigue (6 sources) Fatigue; Translations: [Other fatigue] Onset: 02-16-2025 03-23-2025 Episodic Nutritional deficiencies (20 sources) Iron deficiency; Translations: [Iron deficiency] Onset: 07-15-2024 07-13-2024 Episodic Other connective tissue disease (2 sources) Plantar fasciitis; Translations: [Adhesive capsulitis of shoulder] Onset: 08-24-2014 08-26-2014 Episodic Other connective tissue disease (20 sources) Muscle pain; Translations: [Myalgia and myositis, unspecified] Onset: 02-18-2007 02-18-2007 Episodic Other connective tissue disease (20 sources) Pain in limb; Translations: [Pain in unspecified limb] Onset: 09-05-2007 09-05-2007 Episodic Other connective tissue disease (20 sources) Fibromyalgia; Translations: [Fibromyalgia] Onset: 07-31-2010 07-31-2010 Episodic Other connective tissue disease (20 sources) Tendonitis of right shoulder; Translations: [Other enthesopathies, not elsewhere classified] Onset: 09-24-2022 Episodic Other connective tissue disease (20 sources) Impingement syndrome of right shoulder region; Translations: [Impingement syndrome of right shoulder] Onset: 09-24-2022 Episodic Other connective tissue disease (20 sources) Bursitis of right shoulder; Translations: [Bursitis of right shoulder] Onset: 09-24-2022 Episodic Other connective tissue disease (20 sources) Biceps tendinitis; Translations: [Bicipital tendinitis, right shoulder] Onset: 09-24-2022 Episodic Other connective tissue disease (20 sources) Tendinosis of right biceps brachii; Translations: [Other specified disorders of tendon, right shoulder] Onset: 02-19-2023 Episodic Other connective tissue disease (1 source) Pain in right arm; Translations: [Pain of right upper extremity] Onset: 09-05-2007 Episodic Other connective tissue disease (1 source) Other specified disorders of tendon, right shoulder; Translations: [Biceps tendonosis of right shoulder] Onset: 02-19-2023 Episodic Other connective tissue disease (1 source) Other enthesopathies, not elsewhere classified; Translations: [Tendinitis of right shoulder] Onset: 09-24-2022 Episodic Other connective tissue disease (1 source) Bursitis of right shoulder; Translations: [Bursitis of right shoulder] Onset: 09-24-2022 Episodic Other connective tissue disease (2 sources) Pain in right foot; Translations: [Pain in right foot] Onset: 12-15-2024 Episodic Other connective tissue disease (2 sources) Pain in left foot; Translations: [Pain in left foot] Onset: 12-15-2024 Episodic Other female genital disorders (20 sources) Cervical intraepithelial neoplasia grade 1; Translations: [Mild cervical dysplasia] Onset: 06-30-2008 06-30-2008 Episodic Other nervous system disorders (1 source) Abnormal reflex; Translations: [Abnormal reflex] Onset: 12-07-2014 12-16-2014 Episodic Other non-traumatic joint disorders (1 source) Pain in joint, shoulder region; Translations: [Pain in joint involving shoulder region] Onset: 08-24-2014 08-24-2014 Episodic Other non-traumatic joint disorders (3 sources) Pain in right shoulder; Translations: [Pain in joint, shoulder region] Onset: 11-03-2024 07-01-2023 Episodic Other non-traumatic joint disorders (2 sources) Pain in unspecified joint; Translations: [Pain in unspecified joint] Onset: 11-03-2024 Episodic Other screening for suspected conditions (not mental disorders or infectious disease) (8 sources) Decreased vitamin D; Translations: [Other specified abnormal findings of blood chemistry] Onset: 08-18-2024 Episodic Other upper respiratory infections (20 sources) Posterior rhinorrhea; Translations: [Acute pharyngitis, unspecified] Onset: 02-16-2025 08-14-2023 Episodic Residual codes; unclassified (1 source) Other specified postprocedural states; Translations: [S/P right rotator cuff repair] Onset: 02-19-2023 Episodic Unclassified (1 source) Cough, unspecified; Translations: [Cough, unspecified] Onset: 02-16-2025 Results Test Name Value Interpretation Reference Range Facility Gastroenterology Visit Repor ton 04-29-2025 Gastroenterology Visit Report [facility] Gastroenterology [address] [place] [address] OFFICE VISIT Date of Service: 04/29/25 MR#: [id number] Acct: [id number] Name: CARMENCITA MONDRAGON Rep #: [id number] : 1965 Provider: WINIFRED means Age/Sex: 59/F Location: [facility] [place] Status: Signed Intake Vital Signs 02/24/25 10:06 04/29/25 15:10 Height 5 ft 6 in 5 ft 6 in Weight: 192 lb 6 oz 198 lb 6 oz BMI 31.0 32.0 BP 128/84 H 126/77 H Respiration 18 16 Pulse 90 85 Pulse Oximetry (%) 98 94 Oxygen Delivery Method room air room air Intake Visit Reasons: Follow up Chief Complaint: on going pelvic pain 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: No Accompanied by: Is patient in pain?: No Allergies iodine Allergy (Severe, Verified 04/29/25 15:03) hives Sulfa (Sulfonamide Antibiotics) Allergy (Severe, Verified 04/29/25 15:03) hives chlorhexidine (From ChloraPrep Clear) Allergy (Intermediate, Verified 04/29/25 15:03) HIVES isopropyl alcohol (From ChloraPrep Clear) Allergy (Intermediate, Verified 04/29/25 15:03) HIVES morphine Allergy (Intermediate, Verified 04/29/25 15:03) Vomiting prochlorperazine (From Compazine) Allergy (Verified 04/29/25 15:03) Vomiting Medications ???Medication ???Instructions ???Recorded ???Confirmed ???Type multivitamin 1 cap PO QAM 04/14/18 04/29/25 His tory triamcinolone acetonide 55 mcg 2 spray intranasal QDAY 04/14/18 0 04/29/25 History nasal spray aerosol (Nasacort) acetaminophen 500 mg capsule 1,000 mg PO TID PRN fever or pain 11/16/24 04/29/25 History ascorbic acid (vitamin C) 1,000 mg 1 g PO QDAY 11/16/24 04/29/25 Hi story capsule ferrous sulfate 325 mg (65 mg 325 mg PO DAILY 11/16/24 04/29/25 History iron) tablet cholecalciferol (vitamin D3) 50 50 mcg PO QDAY 11/17/24 04/29/25 H istory mcg (2,000 unit) capsule guaifenesin 600 mg tablet, 600 mg PO BID PRN congestion 02/0104/29/25 History extended release 12 hr (Mucinex) loratadine 10 mg tablet 10 mg PO DAILY 02/01/25 04/29/25 H istory (Allerclear) pregabalin 50 mg capsule (Lyrica) 200 mg PO BID 02/24/25 04/29/25 H istory pantoprazole 40 mg tablet,delayed 40 mg PO QDAY #90 tabs 03/16/25 0 04/29/25 Rx release linaclotide 290 mcg capsule 290 mcg PO QAM #90 caps 05/01/25 0 05/01/25 Rx (Linzess) PFSH Medical History Arthritis Low iron High cholesterol Injury of head and neck History of ulceration Former smoker CPAP (continuous positive airway pressure) dependence Sleep apnea Leg cramps History of echocardiogram History of stress test Cardiology follow-up encounter Chronic shoulder pain Breast lump Glaucoma suspect Asthma Seasonal allergies Pelvic pain Surgical History History of loop electrical excision procedure (LEEP) History of D C History of hysteroscopy History of tonsillectomy History of laparoscopy Family History Grandmother Osteoporosis Heart disease Arthritis Diabetes Grandfather Arthritis Heart disease Diabetes Father Diabetes Hypertension Hyperlipemia Cancer lung Obesity Mother Diabetes Thyroid disorder Depression Obesity Brother Hypertension Obesity Social History Smoking Status: Former smoker Tobacco: How many years used: 20 how long ago did patient quit smokin alcohol intake: never substance use type: does not use what type of physical activity do you participate in: walking frequency: 5-6 times per week HPI HPI Chief Complaint: on going pelvic pain Details: CARMENCITA MONDRAGON, is a 59 F who presents to the office today for OV 02/24/2025 59-year-old female presents for follow-up of epigastric abdominal pain. EGD performed 02/04/2025, biopsies negative for H. pylori and celiac sprue. Cologuard was performed December 2024 and negative. I recommend repeating Cologuard or scheduling colonoscopy in 3 years. Epigastric abdominal pain has been ongoing for greater than 1 year and she denies any change in pain with p.o. intake or movement. She denies any improvement in pain with PPI x 3 months, or worsening of pain since discontinuing PPI 1 month ago. She denies any radiation of pain, weight loss or change in bowel habits. She will complete a 5-day course of Advil and Tylenol, if symptoms improve the pain is likely musculoskeletal or neuropathic in nature. She will provide symptom update in 1 week. If symptoms are persisting I will order an abdominal ultrasound and Trio smart breath testing. Patient Instructions: - 5 days of Advil 2 tablets (400mg) twice daily and Tylenol 2 tablets (1000mg) twice daily. T (more content not included)... Normal [facility] Hepatitis A AB, Totalon 05-2 HEPATITIS A,TOT Negative Normal Negative [facility] Comment on above: Result Comment: Comm ent: The HAV total antibody assay detects both IgG and IgM but does not differentiate between them. A negative result suggests susceptibility to infection. A positive result could be due to vaccination, previously resolved infection or active infection. Testing for HAV IgM should be performed if active HAV infection is suspected. [employer] offers profiles that will automatically reflex positive HAV total antibody results to IgM (e.g., panel #[id number] HAV Antibody w/ Rfx). Performed at: [address], [place], [place] [id number] Research Affiliate: Vern Fagan PhD, Phone: [phone] Performed By: #### L 3100.0300, L500.4050, L100.0100, L3890.6202, L3890.6102, L3890.6301, L3100.0460 ####[facility] [address] [place], [address] Hepatitis B Core Ab Totalon 04-21-2025 HEP B CORE,TOT Negative Normal Negative [facility] Comment on above: Performed By: #### L 3100.0300, L500.4050, L100.0100, L3890.6202, L3890.6102, L3890.6301, L3100.0460 ####[facility] [id number] [facility] [place], [place], [id number] Absolute lymphocyte countOrd ered By: Jayla Reynoso on 04-20-2025 Lymphocytes Auto (Unsp spec) [#/Vol] 2.25 10*3/uL 0.83-4.[address] [facility] Absolute neutrophil countOrd ered By: Jayla Reynoso on 04-20-2025 Neutrophils (Bld) [#/Vol] 1.4 10*3/uL Low 2.0-7.[address] [facility] Anion gap in Serum or Plasma Ordered By: Jayla Reynoso on 04-20-2025 Anion gap [Moles/Vol] 12 mmol/L 5-15 [facility] Automated lymphocyte count a s percentage of total leukocytesOrdered By: Jayla Reynoso on 04-20-2025 Lymphocytes/100 WBC Auto (Unsp spec) 50.9 % High - [facility] BUN/creatinine ratioOrdered By: Jayla Reynoso on 04-20-2025 Urea nitrogen/Creatinine [Mass ratio] 14.1 mg/mg - [facility] Basophil percentageOrdered B y: Jayla Reynoso on 04-20-2025 Basophils/100 WBC (Bld) 1.4 % High 0-1 [facility] Bilirubin, totalOrdered By: Jayla Edgardo on 04-20-2025 Bilirubin [Mass/Vol] 0.44 mg/dL 0.00-1.30 [facility] CBC W/Diff, Automatedon 04-02 Absolute Lymph 2.25 X10 3/uL Normal 0.83-4.[address] [facility] Comment on above: Performed By: #### L 3100.0300, L500.4050, L100.0100, L3890.6202, L3890.6102, L3890.6301, L3100.0460 #### [facility] [address] [place], [address] Absolute Neut 1.4 X10 3/uL Low 2.0-7.[address] [facility] Comment on above: Performed By: #### L 3100.0300, L500.4050, L100.0100, L3890.6202, L3890.6102, L3890.6301, L3100.0460 #### [facility] [address] [place], [address] Basophils/100 WBC (Bld) 1.4 % High 0-1 [facility] Comment on above: Performed By: #### L 3100.0300, L500.4050, L100.0100, L3890.6202, L3890.6102, L3890.6301, L3100.0460 #### [facility] [address] [place], [address] Eosinophils/100 WBC (Bld) 6.8 % High 0-[address] [facility] Comment on above: Performed By: #### L 3100.0300, L500.4050, L100.0100, L3890.6202, L3890.6102, L3890.6301, L3100.0460 #### [facility] [address] [place], [address] Erythrocyte distribution width (RBC) [Ratio] 12.6 % Normal 11.6-14.[address] [facility] Comment on above: Performed By: #### L 3100.0300, L500.4050, L100.0100, L3890.6202, L3890.6102, L3890.6301, L3100.0460 #### [facility] [address] [place], [address] Hematocrit (Bld) [Volume fraction] 44.7 % Normal 37-[address] [facility] Comment on above: Performed By: #### L 3100.0300, L500.4050, L100.0100, L3890.6202, L3890.6102, L3890.6301, L3100.0460 #### [facility] [address] [place], [address] Hemoglobin (Bld) [Mass/Vol] 14.7 g/dL Normal 12.0-15.[address] [facility] Comment on above: Performed By: #### L 3100.0300, L500.4050, L100.0100, L3890.6202, L3890.6102, L3890.6301, L3100.0460 #### [facility] [address] [place], [address] IG% 0.200 Normal 0.0-0.[address] [facility] Comment on above: Result Comment: IG% - Immature Granulocytes (promyelocytes, myelocytes and metamyelocytes) > 1% indicates that a LEFT SHIFT is Present. Performed By: #### L 3100.0300, L500.4050, L100.0100, L3890.6202, L3890.6102, L3890.6301, L3100.0460 #### [facility] [address] [place], [address] Lymphocytes/100 WBC (Bld) 50.9 % High 19-[address] [facility] Comment on above: Performed By: #### L 3100.0300, L500.4050, L100.0100, L3890.6202, L3890.6102, L3890.6301, L3100.0460 #### [facility] [address] [place], [address] MCH (RBC) [Entitic mass] 29.6 pg Normal 27.0-32.[address] [facility] Comment on above: Performed By: #### L 3100.0300, L500.4050, L100.0100, L3890.6202, L3890.6102, L3890.6301, L3100.0460 #### [facility] [address] [place], [address] MCHC (RBC) [Mass/Vol] 32.9 g/dL Normal 32-36 [facility] Comment on above: Performed By: #### L 3100.0300, L500.4050, L100.0100, L3890.6202, L3890.6102, L3890.6301, L3100.0460 #### [facility] [address] [place], [address] MCV (RBC) [Entitic vol] 89.9 fL Normal 81-99 [facility] Comment on above: Performed By: #### L 3100.0300, L500.4050, L100.0100, L3890.6202, L3890.6102, L3890.6301, L3100.0460 #### [facility] [address] [place], [address] Monocytes/100 WBC (Bld) 9.0 % Normal 0-10 [facility] Comment on above: Performed By: #### L 3100.0300, L500.4050, L100.0100, L3890.6202, L3890.6102, L3890.6301, L3100.0460 #### [facility] [address] [place], [address] Neutrophils/100 WBC (Bld) 31.7 % Low 47-[address] [facility] Comment on above: Performed By: #### L 3100.0300, L500.4050, L100.0100, L3890.6202, L3890.6102, L3890.6301, L3100.0460 #### [facility] [address] [place], [address] Nucleated RBC (Bld) [#/Vol] 0 10*3/uL Normal 0-[address] [facility] Comment on above: Performed By: #### L 3100.0300, L500.4050, L100.0100, L3890.6202, L3890.6102, L3890.6301, L3100.0460 #### [facility] [address] [place], [address] Platelet mean volume (Bld) [Entitic vol] 9.9 fL Normal 6.2-12.[address] [facility] Comment on above: Performed By: #### L 3100.0300, L500.4050, L100.0100, L3890.6202, L3890.6102, L3890.6301, L3100.0460 #### [facility] [address] [place], [address] Platelets (Bld) [#/Vol] 274 10*3/uL Normal 150-[address] [facility] Comment on above: Performed By: #### L 3100.0300, L500.4050, L100.0100, L3890.6202, L3890.6102, L3890.6301, L3100.0460 #### [facility] [address] [place], [address] RBC (Bld) [#/Vol] 4.97 10*6/uL Normal 4.2-5.4 [facility] Comment on above: Performed By: #### L 3100.0300, L500.4050, L100.0100, L3890.6202, L3890.6102, L3890.6301, L3100.0460 #### [facility] [address] [place], [address] RDW SD 41.4 fl Normal 35.1-43.[address] [facility] Comment on above: Performed By: #### L 3100.0300, L500.4050, L100.0100, L3890.6202, L3890.6102, L3890.6301, L3100.0460 #### [facility] [address] [place], [address] WBC (Bld) [#/Vol] 4.4 10*3/uL Normal 4.4-11.0 [facility] Comment on above: Performed By: #### L 3100.0300, L500.4050, L100.0100, L3890.6202, L3890.6102, L3890.6301, L3100.0460 #### [facility] [address] [facility] [place], [address] Carbon dioxide, total [Moles /volume] in Central venous bloodOrdered By: Jayla Reynoso on 04-20-2025 CO2 [Moles/Vol] 23.9 mmol/L 21.0-32.[address] [facility] Chloride assayOrdered By: Eduard Reynoso on 04-20-2025 Chloride [Moles/Vol] 106 mmol/L 98-108 [facility] Comprehensive Metabolic Prof ilon 04-20-2025 Albumin [Mass/Vol] 4.4 g/dL Normal 3.5-5.0 [facility] Comment on above: Performed By: #### L 3100.0300, L500.4050, L100.0100, L3890.6202, L3890.6102, L3890.6301, L3100.0460 ####[facility] [address] [place], [address] Albumin/Globulin [Mass ratio] 1.3 {ratio} Normal 0.9-2.[address] [facility] Comment on above: Performed By: #### L 3100.0300, L500.4050, L100.0100, L3890.6202, L3890.6102, L3890.6301, L3100.0460 ####[facility] [address] [place], [address] ALK PHOS 109 U/L High 35-[address] [facility] Comment on above: Performed By: #### L 3100.0300, L500.4050, L100.0100, L3890.6202, L3890.6102, L3890.6301, L3100.0460 ####[facility] [address] [place], [address] ALT [Catalytic activity/Vol] 40 U/L High <=[address] [facility] Comment on above: Performed By: #### L 3100.0300, L500.4050, L100.0100, L3890.6202, L3890.6102, L3890.6301, L3100.0460 ####[facility] [address] [place], [address] AST [Catalytic activity/Vol] 32 U/L Normal <=[address] [facility] Comment on above: Performed By: #### L 3100.0300, L500.4050, L100.0100, L3890.6202, L3890.6102, L3890.6301, L3100.0460 ####[facility] [address] [place], [address] Bilirubin [Mass/Vol] 0.44 mg/dL Normal 0.00-1.30 [facility] Comment on above: Performed By: #### L 3100.0300, L500.4050, L100.0100, L3890.6202, L3890.6102, L3890.6301, L3100.0460 ####[facility] [address] [place], [address] BUN/CRE 14.1 RATIO Normal 10-[address] [facility] Comment on above: Performed By: #### L 3100.0300, L500.4050, L100.0100, L3890.6202, L3890.6102, L3890.6301, L3100.0460 ####[facility] [address] [place], [address] Calcium [Mass/Vol] 10.0 mg/dL Normal 7.6-11.0 [facility] Comment on above: Performed By: #### L 3100.0300, L500.4050, L100.0100, L3890.6202, L3890.6102, L3890.6301, L3100.0460 ####[facility] [address] [place], [address] Chloride [Moles/Vol] 106 mmol/L Normal 98-108 [facility] Comment on above: Performed By: #### L 3100.0300, L500.4050, L100.0100, L3890.6202, L3890.6102, L3890.6301, L3100.0460 ####[facility] [address] [place], [address] CO2 [Moles/Vol] 23.9 mmol/L Normal 21.0-32.[address] [facility] Comment on above: Performed By: #### L 3100.0300, L500.4050, L100.0100, L3890.6202, L3890.6102, L3890.6301, L3100.0460 ####[facility] [address] [place], [address] Creatinine [Mass/Vol] 0.80 mg/dL Normal 0.70-1.20 [facility] Comment on above: Performed By: #### L 3100.0300, L500.4050, L100.0100, L3890.6202, L3890.6102, L3890.6301, L3100.0460 ####[facility] [address] [place], [place], [phone](255) GAP 12 Normal 5-[address] [facility] Comment on above: Performed By: #### L 3100.0300, L500.4050, L100.0100, L3890.6202, L3890.6102, L3890.6301, L3100.0460 ####[facility] [address] [place], [address](458) GFR/1.73 sq M.predicted among non-blacks MDRD (S/P/Bld) [Vol rate/Area] 86 mL/min/{1.73_m2} Normal >[address] [facility] Comment on above: Result Comment: mL/m in/1.73m2 CKD-EPI Creatinine Equation (2020) Performed By: #### L 3100.0300, L500.4050, L100.0100, L3890.6202, L3890.6102, L3890.6301, L3100.0460 ####[facility] [address] [place], [place], [phone](785) Globulin (S) [Mass/Vol] 3.3 g/dL Normal 2.2-4.2 [facility] Comment on above: Performed By: #### L 3100.0300, L500.4050, L100.0100, L3890.6202, L3890.6102, L3890.6301, L3100.0460 ####[facility] [address] [place], [place], [phone](237) Glucose [Mass/Vol] 100 mg/dL High 70-99 [facility] Comment on above: Performed By: #### L 3100.0300, L500.4050, L100.0100, L3890.6202, L3890.6102, L3890.6301, L3100.0460 ####[facility] [address] [place], [address] Potassium [Moles/Vol] 4.4 mmol/L Normal 3.3-5.1 [facility] Comment on above: Performed By: #### L 3100.0300, L500.4050, L100.0100, L3890.6202, L3890.6102, L3890.6301, L3100.0460 ####[facility] [address] [place], [address] Sodium [Moles/Vol] 143 mmol/L Normal 133-145 [facility] Comment on above: Performed By: #### L 3100.0300, L500.4050, L100.0100, L3890.6202, L3890.6102, L3890.6301, L3100.0460 ####[facility] [address] [place], [address] T PROT 7.7 g/dL Normal 5.9-8.[address] [facility] Comment on above: Performed By: #### L 3100.0300, L500.4050, L100.0100, L3890.6202, L3890.6102, L3890.6301, L3100.0460 ####[facility] [address] [place], [address] Urea nitrogen [Mass/Vol] 11 mg/dL Normal 4-[address] [facility] Comment on above: Performed By: #### L 3100.0300, L500.4050, L100.0100, L3890.6202, L3890.6102, L3890.6301, L3100.0460 ####[facility] [address] [place], [address] Eosinophil percentageOrdered By: Jayla Reynoso on 04-20-2025 Eosinophils/100 WBC (Bld) 6.8 % High 0-[address] [facility] Erythrocyte distribution wid th ratioOrdered By: Jayla Reynoso on 04-20-2025 Erythrocyte distribution width (RBC) [Ratio] 12.6 % 11.6-14.[address] [facility] Erythrocyte distribution wid th standard deviationOrdered By: Jayla Reynoso on 04-20-2025 Erythrocyte distribution width (RBC) [Ratio] 41.4 fl 35.1-43.[address] [facility] Glomerular filtration rate ( GFR) estimation/1.73 sq m using serum, plasma, or whole bOrdered By: Jayla Reynoso on 04-20-2025 GFR/1.73 sq M.predicted among non-blacks MDRD (S/P/Bld) [Vol rate/Area] 86 mL/min/{1.73_m2} >[address] [facility] Comment on above: mL/min/1.73m2 CKD-EP I Creatinine Equation (2020) Hematocrit Auto (Bld) [Volum e fraction]Ordered By: Jayla Reynoso on 04-20-2025 Hematocrit (Bld) [Volume fraction] 44.7 % 37-[address] [facility] Hemoglobin measurementOrdere d By: Jayla Reynoso on 04-20-2025 Hemoglobin (Bld) [Mass/Vol] 14.7 g/dL 12.0-15.[address] [facility] Hepatitis B Surface Antibody on 04-20-2025 HEP B Surf Ab Indetermin Normal [facility] Comment on above: Result Comment: <8.5 mIU/mL: Non-Reactive 8.5<= x <11.5 mIU/mL: Indeterminate >=11.5 mIU/mL: Reactive Non Reactive: Inconsistent with immunity less than <10 mIU/mL Reactive: Consistent with immunity greater than or equal to 10 mIU/mL Performed By: #### L 3100.0300, L500.4050, L100.0100, L3890.6202, L3890.6102, L3890.6301, L3100.0460 ####[facility] [address] [facility] [place], [place], [id number] Hepatitis C Antibodyon 04-20 Hepatitis C Ab Non-Reactive Normal Nonreactive [facility] Comment on above: Result Comment: Reac tive: Presumptive evidence of antibodies to HCV. Follow CDC recommendations for supplemental testing. Non-Reactive: Antibodies to HCV were not detected; does not exclude the possibility of exposure to HCV Reactive Results are presumptive evidence of antibodies to HCV. Follow CDC recommendations for supplemental testing. Order confirmation testing: HCV Quant by PCR testing - HCVPCR #[id number] Non Reactive: < 0.8 Equivocal: >/= 0.8 to < 1.0 Reactive: >/= 1.0 The [facility] requires that a reactive/equivocal HCV antibody result be sent out for confirmation. HCV Quant by PCR testing. Performed By: #### L 3100.0300, L500.4050, L100.0100, L3890.6202, L3890.6102, L3890.6301, L3100.0460 ####[facility] [address] [place], [address] Immature granulocytes/100 WB C Auto (Bld)Ordered By: Jayla Reynoso on 04-20-2025 Immature granulocytes/100 WBC (Bld) 0.200 % 0.0-0.[address] [facility] Comment on above: IG% - Immature Granu locytes (promyelocytes, myelocytes and metamyelocytes) > 1% indicates that a LEFT SHIFT is Present. L3890.6102on 04-20-2025 HEP B Surf Ag Non-Reactive Normal Nonreactive [facility] Comment on above: Result Comment: Reac tive: Presumptive evidence of HBV. Repeatedly reactive samples must be confirmed using a neutralization test ([employer] HBsAg Confirmatory Test) Non-Reactive: HBsAg not detected; does not exclude the possibility of exposure to HBV Performed By: #### L 3100.0300, L500.4050, L100.0100, L3890.6202, L3890.6102, L3890.6301, L3100.0460 ####[facility] [address] [facility] [place], [address] Laboratory - Chemistry and C hemistry - challengeOrdered By: Jayla Reynoso on 04-20-2025 AST [Catalytic activity/Vol] 32 U/L <[address] [facility] - Microbiology an d Antimicrobial susceptibilityOrdered By: Jayla Reynoso on 04-20-2025 HBV surface Ag Ql (S) Non-Reactive Nonreactive [facility] Comment on above: Reactive: Presumptiv e evidence of HBV. Repeatedly reactive samples must be confirmed using a neutralization test ([employer] HBsAg Confirmatory Test)Non-Reactive: HBsAg not detected; does not exclude the possibility of exposure to HBV MCV (mean corpuscular volume ) determinationOrdered By: Jayla Reynoso on 04-20-2025 MCV (RBC) [Entitic vol] 89.9 fL 81-99 [facility] Mean corpuscular hemoglobin (MCH) determinationOrdered By: Jayla Reynoso on 04-20-2025 MCH (RBC) [Entitic mass] 29.6 pg 27.0-32.[address] [facility] Mean corpuscular hemoglobin concentration (MCHC) determinationOrdered By: Jayla Reynoso on 04-20-2025 MCHC (RBC) [Mass/Vol] 32.9 g/dL 32-36 [facility] Mean platelet volume determi nationOrdered By: Jayla Reynoso on 04-20-2025 Platelet mean volume (Bld) [Entitic vol] 9.9 fL 6.2-12.[address] [facility] Monocyte percentageOrdered B y: Jayla Reynoso on 04-20-2025 Monocytes/100 WBC (Bld) 9.0 % 0-10 [facility] Neutrophil percentageOrdered By: Jayla Reynoso on 04-20-2025 Neutrophils/100 WBC (Bld) 31.7 % Low 47-[address] [facility] Nucleated red blood cell per centageOrdered By: Jayla Reynoso on 04-20-2025 Nucleated RBC/100 WBC (Bld) [Ratio] 0 % 0-[address] [facility] Platelet countOrdered By: Eduard Reynoso on 04-20-2025 Platelets (Bld) [#/Vol] 274 10*3/uL 150-[address] [facility] Potassium measurement (mass/ volume)Ordered By: Jayla Reynoso on 04-20-2025 Potassium (Unsp spec) [Mass/Vol] 4.4 mmol/L 3.3-5.[address] [facility] RBC Auto (Bld) [#/Vol]Ordere d By: Jayla Reynoso on 04-20-2025 RBC (Bld) [#/Vol] 4.97 10*6/uL 4.2-5.4 [facility] Serum creatinine measurement (mass/volume)Ordered By: Jayla Reynoso on 04-20-2025 Creatinine [Mass/Vol] 0.80 mg/dL 0.70-1.20 [facility] Serum globulin measurementOr dered By: Jayla Reyonso on 04-20-2025 Globulin (S) [Mass/Vol] 3.3 g/dL 2.2-4.2 [facility] Serum glucose measurement (m ass/volume)Ordered By: Jayla Reynoso on 04-20-2025 Glucose [Mass/Vol] 100 mg/dL High 70-99 [facility] Serum hepatitis B virus core antibody detectionOrdered By: Jayla Reynoso on 04-20-2025 HBV core Ab Ql (S) Negative Negative [facility] Serum hepatitis B virus surf heide antibody detectionOrdered By: Jayla Reynoso on 04-20-2025 HBV surface Ab Ql (S) Indetermin [facility] Comment on above: <8.5 mIU/mL: Non-[place] ctive8.5<= x <11.5 mIU/mL: Indeterminate>=11.5 mIU/mL: Reactive Non Reactive: Inconsistent with immunity less than <10 mIU/mL Reactive: Consistent with immunity greater than or equal to 10 mIU/mL Serum or plasma alanine baez otransferase (ALT) measurementOrdered By: Jayla Reynoso on 04-20-2025 ALT [Catalytic activity/Vol] 40 U/L High <[address] [facility] Serum or plasma albumin john urement (mass/volume)Ordered By: Jayla Reynoso on 04-20-2025 Albumin [Mass/Vol] 4.4 g/dL 3.5-5.0 [facility] Serum or plasma albumin/glob ulin mass ratioOrdered By: Jayla Reynoso on 04-20-2025 Albumin/Globulin [Mass ratio] 1.3 {ratio} 0.9-2.[address] [facility] Serum or plasma alkaline hoda sphatase measurementOrdered By: Jayla Reynoso on 04-20-2025 ALP [Catalytic activity/Vol] 109 U/L High 35-[address] [facility] Serum or plasma calcium john urement (mass/volume)Ordered By: Jayla Reynoso on 04-20-2025 Calcium [Mass/Vol] 10.0 mg/dL 7.6-11.0 [facility] Serum or plasma urea nitroge n measurement (mass/volume)Ordered By: Jayla Reynoso on 04-20-2025 Urea nitrogen [Mass/Vol] 11 mg/dL 4-[address] [facility] Sodium levelOrdered By: Brianna Reynoso on 04-20-2025 Sodium [Moles/Vol] 143 mmol/L 133-145 [facility] Total proteinOrdered By: Daksha Reynoso on 04-20-2025 Protein [Mass/Vol] 7.7 g/dL 5.9-8.4 [facility] White blood cell (WBC) count Ordered By: Jayla Reynoso on 04-20-2025 WBC (Bld) [#/Vol] 4.4 10*3/uL 4.4-11.0 [facility] US PELVIS NON-OB W/TRANSVAGI NALon 04-16-2025 US PELVIS NON-OB W/TRANSVAGINAL ORIGINAL EXAMINATION: TRANSVAGINAL PELVIC ULTRASOUND 04/15/2025 TECHNIQUE: Transvaginal pelvic ultrasound was performed. COMPARISON: CT abdomen pelvis with IV contrast 10/05/2024 HISTORY: ORDERING SYSTEM PROVIDED HISTORY: Reason for Exam: pelvic pain All images are recorded and archived. FINDINGS: Measurements: Uterus: 7.5 x 3.1 x 4.8 cm Endometrial stripe: 4.8 mm Right Ovary:2.1 x 1.5 x 155 cm Left Ovary: 2.4 x 1.4 x 1.8 cm Ultrasound Findings: Uterus: Uterus demonstrates normal myometrial echotexture. Endometrial stripe: Endometrial stripe top-normal in size for a postmenopausal female. Right Ovary: Right ovary is within normal limits. Left Ovary: Left ovary is within normal limits. Free Fluid: No evidence of free fluid. IMPRESSION: Unremarkable pelvic ultrasound. No discrete uterine or adnexal mass. Interpreted by: Owen Perdomo DO Preliminary Report By: Owen Perdomo DO Electronically signed By Owen Perdomo DO Dictated Date: 04/16/2025 9:45:12 AM Prelim Date: 04/16/2025 9:47:26 AM Sign Date: 04/16/2025 9:47:26 AM Ordering Provider: JOHNATHAN Ng [facility] Abdomen Limitedon 03-18-2025 Abdomen Limited [facility] Imaging Services [address] [place] [address] Abdomen Limited MR#: [id number] Acct: [id number] Name: CARMENCITA MONDRAGON Rep #: [id number] : 1965 F 59 From: Garrett shipley MD PCP: Dr. Johnathan Perez DO Status: REG CLI Study: Abdomen Limited Date of Exam: 03/18/25 Exam# [id number] Ordering Dr: Jayla Reynoso PROCEDURE: ABDOMEN LIMITED 03/18/2025 REASON FOR EXAM: Right upper quadrant pain. TECHNIQUE: Complete abdominal ultrasound alston-scale images with color doppler. PATIENT PREPARATION: Per protocol COMPARISON: Prior CT scan dated December 05, 2022. FINDINGS: Liver: Diffusely echogenic suggesting fatty infiltration. The liver measures 14.1 cm. Gallbladder: No stones, sludge, wall thickening or tenderness. Common bile duct: Normal measuring 5 mm.. Pancreas: Visualized portions are sonographically unremarkable. Kidneys: The right kidney measures 11.9 cm 6 cm 4.2 cm. US/Abdomen Limited IMPRESSION: Fatty infiltration of the liver. The liver is not enlarged. [facility] CC: WINIFRED Reynoso; Dr. Johnathan Perez DO [employer] Operator Head: Signed Normal [facility] Gastroenterology Visit Repor ton 02-24-2025 Gastroenterology Visit Report [facility] Gastroenterology [address] [facility] 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: No Is patient in pain?: Yes Allergies iodine Allergy (Severe, Verified 02/24/25 10:01) hives Sulfa (Sulfonamide Antibiotics) Allergy (Severe, Verified 02/24/25 10:01) hives chlorhexidine (From ChloraPrep Clear) Allergy (Intermediate, Verified 02/24/25 10:01) HIVES isopropyl alcohol (From ChloraPrep Clear) Allergy (Intermediate, Verified 02/24/25 10:01) HIVES morphine Allergy (Intermediate, Verified 02/24/25 10:01) Vomiting prochlorperazine (From Compazine) Allergy (Verified 02/24/25 10:01) Vomiting Medications ???Medication ???Instructions ???Recorded ???Confirmed ???Type multivitamin 1 cap PO QAM 04/14/18 02/24/25 His tory triamcinolone acetonide 55 mcg 2 spray intranasal QDAY 04/14/18 0 02/24/25 History nasal spray aerosol (Nasacort) acetaminophen 500 mg capsule 1,000 mg PO TID PRN fever or pain 11/16/24 02/24/25 History ascorbic acid (vitamin C) 1,000 mg 1 g PO QDAY 11/16/24 02/24/25 Hi story capsule ferrous sulfate 325 mg (65 mg 325 mg PO DAILY 11/16/24 02/24/25 History iron) tablet psyllium husk 0.4 gram capsule 0.4 g PO 4X/DAY PRN constipation 1 01/17/24 02/24/25 History (Metamucil) cholecalciferol (vitamin D3) 50 50 mcg PO QDAY 11/17/24 02/24/25 H istory mcg (2,000 unit) capsule guaifenesin 600 mg tablet, 600 mg PO BID PRN congestion 02/0102/24/25 History extended release 12 hr (Mucinex) loratadine 10 mg tablet 10 mg PO DAILY 02/01/25 02/24/25 H istory (Allerclear) pregabalin 50 mg capsule (Lyrica) 200 mg PO BID 02/24/25 02/24/25 H istory Nurse's Note: Completed cologuard and it was normal. Tried pantoprazole and it didn't help. [facility] Medical History Arthritis Low iron High cholesterol Injury of head and neck History of ulceration Former smoker CPAP (continuous positive airway pressure) dependence Sleep apnea Leg cramps History of echocardiogram History of stress test Cardiology follow-up encounter Chronic shoulder pain Breast lump Glaucoma suspect Asthma Seasonal allergies Pelvic pain Surgical History History of loop electrical excision procedure (LEEP) History of D C History of hysteroscopy History of tonsillectomy History of laparoscopy Family History Grandmother Osteoporosis Heart disease Arthritis Diabetes Grandfather Arthritis Heart disease Diabetes Father Diabetes Hypertension Hyperlipemia Cancer lung Obesity Mother Diabetes Thyroid disorder Depression Obesity Brother Hypertension Obesity Social History Smoking Status: Former smoker Tobacco: How many years used: 20 how long ago did patient quit smokin alcohol intake: never substance use type: does not use what type of physical activity do you participate in: walking frequency: 5-6 times per week HPI HPI Chief Complaint: on going pelvic pain Details: CARMENCITA MONDRAGON, is a 59 F who presents to the office today for OV 11/17/2025 59y/o female presents for consultation with complaints of epigastric abdominal pain/ache that radiates out to bilateral sides. She denies any relation to PO intake. She reports this pain is not similar to her prior ulcer pain in the 80's. She denies any history of prior EGD. She denies any N/V but does endorse regurgitation since starting Omeprazole. I have reviewed PCP records and she reports starting Omeprazole 40mg daily on 11/06/2024. H. pylori stool antigen was negative prior to starting PPI. She complains of change in bowel habits with looser stools since starting PPI. I have discontinued Omeprazole and she will trial pantoprazole 20mg daily. She will proceed with EGD. She declines colonoscopy but is agreeable to completion of Cologuard stool testing. EGD 02/03/2025 - negative H. pylori and celiac sprue - Normal esophagus. - Erythematous mucosa in the lesser curvature. Biopsied. - No gross lesions in the third portion of the duodenum. Biopsied. - She is continui (more content not included)... Normal [facility] XR CHEST 2 VIEWSon XR CHEST 2 VIEWS ORIGINAL EXAMINATION: TWO XRAY VIEWS OF THE CHEST 02/16/2025 10:39 am COMPARISON: None. HISTORY: ORDERING SYSTEM PROVIDED HISTORY: Reason for Exam: persistent cough after covid, rule out pneumonia FINDINGS: The lungs are without acute focal process. There is no effusion or pneumothorax. The cardiomediastinal silhouette is without acute process. The osseous structures are without acute process. IMPRESSION: No acute process. Interpreted by: Owen Perdomo DO Preliminary Report By: Owen Perdomo DO Electronically signed By Owen Perdomo DO Dictated Date: 02/17/2025 3:07:52 PM Prelim Date: 02/17/2025 3:08:55 PM Sign Date: 02/17/2025 3:08:55 PM Ordering Provider: JOHNATHAN PEREZ Normal [facility] .Auto Diffon 02-16-2025 Basophil, Absolute 0.0 10 3/mcL Normal 0.0-0.2 [facility] Comment on above: Performed By: #### C BC, ANEU, ADIFF, GFR, FE, CMP, TSHR #### [facility] [address] [place], [place] [address] Basophils/100 WBC (Bld) 0.9 % Normal 0.0-2.5 [facility] Comment on above: Performed By: #### C BC, ANEU, ADIFF, GFR, FE, CMP, TSHR #### [address] [address] Eosinophil, Absolute 0.2 10 3/mcL Normal 0.0-0.7 [facility] Comment on above: Performed By: #### C BC, ANEU, ADIFF, GFR, FE, CMP, TSHR #### [address] [address] Eosinophils/100 WBC (Bld) 3.2 % Normal 0.0-7.[address] [facility] Comment on above: Performed By: #### C BC, ANEU, ADIFF, GFR, FE, CMP, TSHR #### [address] [address] Lymphocyte, Absolute 1.7 10 3/mcL Normal 0.9-4.3 [facility] Comment on above: Performed By: #### C BC, ANEU, ADIFF, GFR, FE, CMP, TSHR #### [address] [address] Lymphocytes/100 WBC (Bld) 33.0 % Normal 20.0-40.[address] [facility] Comment on above: Performed By: #### C BC, ANEU, ADIFF, GFR, FE, CMP, TSHR #### [address] [address] Monocyte, Absolute 0.3 10 3/mcL Normal 0.1-1.4 [facility] Comment on above: Performed By: #### C BC, ANEU, ADIFF, GFR, FE, CMP, TSHR #### [address] [address] Monocytes/100 WBC (Bld) 5.9 % Normal 2.0-13.0 [facility] Comment on above: Performed By: #### C BC, ANEU, ADIFF, GFR, FE, CMP, TSHR #### [address] [address] Neutrophils/100 WBC (Bld) 57.0 % Normal 50.0-75.[address] [facility] Comment on above: Performed By: #### C BC, ANEU, ADIFF, GFR, FE, CMP, TSHR #### [address] [address] .GFRon 02-16-2025 Estimated Glomerular Filtration Rate 84 ml/min/1.73sqm Normal [facility] Comment on above: Result Comment: Stages of Chronic Kidney Disease (CKD) Stage Description eGFR(ml/min/1.73 sq.m.) CKD 1 Normal kidney function or >=90 normal kindney function with possible kidney damage (ex. Proteinuria) CKD 2 Kidney damage with mild loss 60-89 of kidney function CKD 3a Mild to moderate loss of kidney 45-59 function CKD 3b Moderate to severe loss of 30-44 of kindey function CKD 4 Severe loss of kidney function 15-29 CKD 5 Kidney failure <15 Note: (go live 2025) the eGFR calculation was updated to the 2020 CKD-EPI creatinine equation without a race factor to calculate the eGFR results. Performed By: #### C BC, ANEU, ADIFF, GFR, FE, CMP, TSHR #### [address] [address] .NEUABSon 02-16-2025 Neutrophil, Absolute 3.0 10 3/mcL Normal 2.3-8.1 [facility] Comment on above: Performed By: #### C BC, ANEU, ADIFF, GFR, FE, CMP, TSHR #### [address] [address] CBCon 02-16-2025 Erythrocyte distribution width (RBC) [Ratio] 13.2 % Normal 11.5-15.[address] [facility] Comment on above: Performed By: #### C BC, ANEU, ADIFF, GFR, FE, CMP, TSHR #### [address] [address] Hematocrit (Bld) [Volume fraction] 42.4 % Normal 34.0-46.[address] [facility] Comment on above: Performed By: #### C BC, ANEU, ADIFF, GFR, FE, CMP, TSHR #### [address] [address] Hgb 14.2 G/dL Normal 12.0-16.[address] [facility] Comment on above: Performed By: #### C BC, ANEU, ADIFF, GFR, FE, CMP, TSHR #### [address] [address] MCH (RBC) [Entitic mass] 29.8 pg Normal 27.0-33.[address] [facility] Comment on above: Performed By: #### C BC, ANEU, ADIFF, GFR, FE, CMP, TSHR #### [place] [address] MCHC 33.6 G/dL Normal 32.0-36.[address] [facility] Comment on above: Performed By: #### C BC, ANEU, ADIFF, GFR, FE, CMP, TSHR #### [place] [address] MCV (RBC) [Entitic vol] 88.6 fL Normal 80.0-99.0 [facility] Comment on above: Performed By: #### C BC, ANEU, ADIFF, GFR, FE, CMP, TSHR #### [place] [address] Platelet 215 10 3/mcL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 145 mmol/L AO ADM SS Urea nitrogen [Mass/Vol] 15 mg/dL Normal 7 - 18 mg/dL AO ADM SS Urea nitrogen/Creatinine [Mass ratio] 18 ratio Normal 7 - 27 ratio AO ADM SS Uric Acid Lvl 4.2 mg/dL Normal 2.6 - 6.2 mg/dL AO ADM SS URICon 12-15-2024 Uric Acid Lvl 4.2 mg/dL Normal 2.6-6.[address] [facility] Comment on above: Performed By: #### S JACQUI #### [address] [place], [place] [address] VIDHon 12-15-2024 Vit. D 25-Hydroxy 46.1 ng/mL Normal [facility] Comment on above: Result Comment: Inte rpretive Values Based on Total 25(OH) Vitamin D: Deficient <20 ng/mL Insufficient 20 - <30 ng/mL Sufficient 30-100 ng/mL Performed By: #### S JACQUI #### [address] [place], [place] [address] XR FOOT MINIMUM 3 VIEWS LEFT on 12-15-2024 XR FOOT MINIMUM 3 VIEWS LEFT ORIGINAL EXAMINATION: THREE XRAY VIEWS OF THE LEFT FOOT; THREE XRAY VIEWS OF THE RIGHT FOOT 12/15/2024 10:33 am; 12/15/2024 10:32 am COMPARISON: None. HISTORY: ORDERING SYSTEM PROVIDED HISTORY: Reason for Exam: left first metatarsal joint pain; ORDERING SYSTEM PROVIDED HISTORY: Reason for Exam: right first metatarsal joint pain FINDINGS: Right foot: Moderate to severe 1st MTP degenerative change with joint space narrowing, subchondral sclerosis and tiny dorsal bony hypertrophy/osteophyt e formation. Mild surrounding soft tissue prominence at the medial 1st MTP joint. Mild hallux valgus. Bipartite medial hallux sesamoid. No suspicious osseous lesions. No acute fracture. Left foot: Mild hallux valgus with moderate to severe degenerative change with joint space loss, [id number] and subchondral sclerosis/cysts at the 1st MTP joint and dorsal bony hypertrophy/osteophyt e formation. Mild soft tissue prominence at the medial 1st MTP joint. No suspicious osseous lesions. No acute fracture. IMPRESSION: Bilateral 1st MTP moderate to severe 1st MTP degenerative change with small dorsal bony hypertrophy/osteophyt e formation, early changes of hallux rigidus. No acute fracture. Interpreted by: Rad Santoyo Preliminary Report By: Rad Santoyo Electronically signed By Rad Santoyo Dictated Date: 12/15/2024 11:01:24 AM Prelim Date: 12/15/2024 11:07:37 AM Sign Date: 12/15/2024 11:07:37 AM Ordering Provider: [facility]ATHAN [facility] XR FOOT MINIMUM 3 VIEWS VICKIE Harvey 12-15-2024 XR FOOT MINIMUM 3 VIEWS RIGHT ORIGINAL EXAMINATION: THREE XRAY VIEWS OF THE LEFT FOOT; THREE XRAY VIEWS OF THE RIGHT FOOT 12/15/2024 10:33 am; 12/15/2024 10:32 am COMPARISON: None. HISTORY: ORDERING SYSTEM PROVIDED HISTORY: Reason for Exam: left first metatarsal joint pain; ORDERING SYSTEM PROVIDED HISTORY: Reason for Exam: right first metatarsal joint pain FINDINGS: Right foot: Moderate to severe 1st MTP degenerative change with joint space narrowing, subchondral sclerosis and tiny dorsal bony hypertrophy/osteophyt e formation. Mild surrounding soft tissue prominence at the medial 1st MTP joint. Mild hallux valgus. Bipartite medial hallux sesamoid. No suspicious osseous lesions. No acute fracture. Left foot: Mild hallux valgus with moderate to severe degenerative change with joint space loss, [id number] and subchondral sclerosis/cysts at the 1st MTP joint and dorsal bony hypertrophy/osteophyt e formation. Mild soft tissue prominence at the medial 1st MTP joint. No suspicious osseous lesions. No acute fracture. IMPRESSION: Bilateral 1st MTP moderate to severe 1st MTP degenerative change with small dorsal bony hypertrophy/osteophyt e formation, early changes of hallux rigidus. No acute fracture. Interpreted by: Rad Santoyo Preliminary Report By: Rad Santoyo Electronically signed By Rad Santoyo Dictated Date: 12/15/2024 11:01:24 AM Prelim Date: 12/15/2024 11:07:37 AM Sign Date: 12/15/2024 11:07:37 AM Ordering Provider: JOHNATHAN Ng [facility] CT CARDIAC SCORING WO IV CON TRASTon 12-14-2024 CT CARDIAC SCORING WO IV CONTRAST Interpreted By: Emelina Causey, STUDY: CT CARDIAC SCORING WO IV CONTRAST; 12/14/2024 10:07 am INDICATION: Signs/Symptoms:chest pain. ,R07.89 Other chest pain,E78.5 Hyperlipidemia, unspecified,G47.33 Obstructive sleep apnea (adult) (pediatric) COMPARISON: None. ACCESSION NUMBER(S): [id number] ORDERING CLINICIAN: MARK CUELLAR TECHNIQUE: Using prospective ECG gating, CT scan of the coronary arteries was performed without intravenous contrast. Coronary calcium scoring was performed according to the method of Agatston. FINDINGS: The score and distribution of calcium in the coronary arteries is as follows: LM 0 LAD 0 LCx 0 RCA 0 Total 0 The visualized mid/lower ascending thoracic aorta measures 3.6 cm in diameter. The heart is normal in size. No pericardial effusion is present. No gross evidence of mediastinal or hilar lymphadenopathy or masses is identified. The visualized segments of the lungs are normally expanded. The visualized subdiaphragmatic structures appear intact. IMPRESSION: 1. Coronary artery calcium score of 0*. *Coronary artery calcium scoring may be helpful in predicting the risk for future coronary heart disease events. According to the [employer] Clinical Expert Consensus Task Force, such testing provides important prognostic information in patients with more than one coronary heart disease risk factor. The coronary artery calcium score correlates with the annual risk of a non-fatal myocardial infarction or coronary heart disease . Coronary artery score Annual Risk 0-99 0.4% 100-399 1.3% >400 2.4% These three breakpoints correspond to lower, intermediate and high risk states for future coronary events. Such information should be used, along with appropriate clinical judgment, to make decisions regarding the intensity of risk factor management strategies to treat blood lipids and to modify other non-lipid coronary risk factors. Reference: Burnside P et al. Circulation. 2007; 115:402-426 MACRO: None Signed by: Emelina Causey 12/18/2024 1:43 PM Dictation workstation: [id number] [facility] Gastroenterology Visit Repor ton 11-17-2024 Gastroenterology Visit Report [facility] Gastroenterology [address] [place] [address] OFFICE VISIT Date of Service: 11/17/24 MR#: [id number] Acct: [id number] Name: CARMENCITA MONDRAGON Rep #: [id number] : 1965 Provider: WINIFRED means Age/Sex: 59/F [place] [facility] [place]: Signed Intake Vital Signs 11/17/24 10:35 Height 5 ft 6 in BP 122/83 H Respiration 18 Pulse 110 H Pulse Oximetry (%) 97 Oxygen Delivery Method room air Intake Visit Reasons: Epigastric pain Chief Complaint: on going pelvic pain 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: No Is patient in pain?: No Allergies iodine Allergy (Severe, Verified 11/17/24 10:30) hives Sulfa (Sulfonamide Antibiotics) Allergy (Severe, Verified 11/17/24 10:30) hives morphine Allergy (Intermediate, Verified 11/17/24 10:30) Vomiting prochlorperazine (From Compazine) Allergy (Verified 11/17/24 10:30) Vomiting Medications ???Medication ???Instructions ???Recorded ???Confirmed ???Type multivitamin 1 cap PO QAM 04/14/18 11/16/24 History triamcinolone acetonide 55 mcg 2 spray intranasal QDAY 04/14/18 11/16/24 History nasal spray aerosol (Nasacort) azelastine 205.5 mcg (0.15 %) 205.5 mcg intranasal BID 09/30/18 11/17/24 History nasal spray acetaminophen 500 mg capsule 1,000 mg PO TID PRN 11/16/24 11/16/24 History ascorbic acid (vitamin C) 1,000 mg 1 g PO QDAY 11/16/24 11/16/24 History capsule ferrous sulfate 325 mg (65 mg 325 mg PO QMWF 11/16/24 11/16/24 History iron) tablet ibuprofen-diphenhydra mine citrate 1 cap PO QHS 11/16/24 11/16/24 History 200 mg-38 mg tablet (Advil PM) psyllium husk 0.4 gram capsule 0.4 g PO .QID PRN 11/16/24 11/16/24 History (Metamucil) cholecalciferol (vitamin D3) 50 50 mcg PO QDAY 11/17/24 11/17/24 History mcg (2,000 unit) capsule pantoprazole 20 mg tablet,delayed 20 mg PO .COMPLEX #30 tabs 11/17/24 11/17/24 Rx release Nurse's Note: Started omeprazole on 11/06/24 and bowel movements are messy and she is still having abdominal discomfort. [facility] Medical History (Updated 11/17/24 @ 11:08 by FLOR ArellanoC) Chronic shoulder pain Breast lump Glaucoma suspect Asthma Seasonal allergies Pelvic pain Surgical History (Updated 09/30/18 @ 15:14 by Denise Mitchell) History of loop electrical excision procedure (LEEP) History of D C History of hysteroscopy History of tonsillectomy History of laparoscopy Family History Grandmother Osteoporosis Heart disease Arthritis Diabetes Grandfather Arthritis Heart disease Diabetes Father Diabetes Hypertension Hyperlipemia Cancer lung Obesity Mother Diabetes Thyroid disorder Depression Obesity Brother Hypertension Obesity Social History (Updated 09/30/18 @ 16:[address] Dre Covington MD) Smoking Status: Former smoker Tobacco: How many years used: 20 how long ago did patient quit smokin alcohol intake: never substance use type: does not use what type of physical activity do you participate in: walking frequency: 5-6 times per week HPI HPI Chief Complaint: on going pelvic pain Details: CARMENCITA MONDRAGON, is a 59 F who presents to the office today for 59y/o female presents for consultation with complaints of epigastric abdominal pain/ache that radiates out to bilateral sides. She denies any relation to PO intake. She reports this pain is not similar to her prior ulcer pain in the s. She denies any history of prior EGD. She denies any N/V but does endorse regurgitation since starting Omeprazole. I have reviewed PCP records and she reports starting Omeprazole 40mg daily on 11/06/2024. She complains of change in bowel habits with looser stools since starting PPI. CT A P w/ contrast 10/05/2024 revealed a tiny fat containing umbilical hernia with mild diastasis recti, otherwise unremarkable. Colon 2018 (Dr. Covington) negative right colon biopsy - denies any family history of colon CA - denies any personal history of colon polyps LABS 11/03/2024 CRP, ESR, SEBASTIAN, and stool for H. pylori Ag were all negative. 07/09/2024 CBC and CMP were unremarkable with a negative HCVAb 07/09/2024 - ABD pain x1 year - reports symptoms started a year ago when she started using a CPAP - wakes with symptoms - no change with PO intake - pain worse over the past 3 months - started Omeprazole and reports this caused upset stomach with a change in bowel habits - denies any weight loss - she reports elimination of gluten and dairy - thought this would help with symptoms but reports no change - takes Metamucil - has a BM QD - QOD - denies any BRBPR - reports she is not a vegetarian - she reports occult negative stool in the past year - c/o BM are messy - she is taking IBU-diphenhydramine 200-38mg -- she d (more content not included)... Normal [facility] HPon 11-05-2024 H. Pylori IgG Negative Normal [facility] Comment on above: Result Comment: INTE RPRETATION OF H. PYLORI IGG BY EIA: Negative No detectable antibodies to H. pylori. Positive H. pylori IgG antibody detected. Equivocal Equivocal for IgG antibodies to H. pylori. Repeat testing if still indicated. Performed By: #### C BC, ANEU, ADIFF, GFR, FE, CMP, TSHR #### [address] [address] ANAIFSon 11-04-2024 Antinuclear Ab Screen Negative Normal Negative [facility] Comment on above: Result Comment: Anti -nuclear antibody test is used as an aid in diagnosis of systemic autoimmune diseases. Where positive and clinically warranted, follow-up using disease-specific testing is recommended. Low positive titers are not uncommon with advanced age, certain chronic infections, and malignancies among others. Test methodology: Indirect fluorescence immunoassay (IFA) using HEp-2 cells. Performed By: [facility] [address] [place] [address] Research Affiliate: Champ Raines III, M.D. CLIA#: [id number] Performed By: #### S TREPA #### [address] [address] RFon 11-04-2024 Rheumatoid Factor <6.0 Normal <=5.[address] [facility] Comment on above: Result Comment: RF I gM Antibody by Enzyme Immunoassay: Negative < or = 6 Positive > 6 A positive result indicates the presence of RF antibodies and suggests the possibility of rheumatoid arthritis. A negative result indicates no RF IgM antibody or levels below the negative cut-off of the assay. Results of this assay should be used in conjunction with clinical findings and other serological tests. These results were obtained with the MediVision QUANTA Lite RF IgM DEYA. RF IgM values obtained with different manufacturers' assay methods may not be used interchangeably. The magnitude of the reported IgM levels cannot be correlated to an endpoint titer. Performed By: #### S TREPA #### [address] [address] CRPon 11-03-2024 C-Reactive Protein 0.1 mg/dL Normal 0.0-0.3 [facility] Comment on above: Performed By: #### S TREPA #### [address] [address] ESRon 11-03-2024 Erythrocyte Sed Rate 12 mm/hr Normal 0-30 [facility] Comment on above: Performed By: #### S TREPA #### [address] [address] FEon 11-03-2024 Iron [Mass/Vol] 49 ug/dL Low 50-[address] [facility] Comment on above: Performed By: #### S TREPA #### [address] [address] LABORATORYOrdered By: MADDIE HAWKINS CONTRIBUTOR_SYSTEM on 11-03-2024 Antinuclear Ab Screen Negative Invalid Interpretation Code Negative AO Sendouts SS Comment on above: Result Comment: Anti -nuclear antibody test is used as an aid in diagnosis of systemic autoimmune diseases. Where positive and clinically warranted, follow-up using disease-specific testing is recommended. Low positive titers are not uncommon with advanced age, certain chronic infections, and malignancies among others. Test methodology: Indirect fluorescence immunoassay (IFA) using HEp-2 cells. Performed By: [facility] [address] [place] [address] Research Affiliate: Paty Lucio III#: [id number] LABORATORYOrdered By: SYSTEM SYSTEM on 11-03-2024 CRP [Mass/Vol] 0.1 mg/dL Normal 0.0 - 0.3 mg/dL AO ADM SS Iron [Mass/Vol] 49 ug/dL Low 50 - 170 mcg/dL AO ADM SS LABORATORYOrdered By: Lo Mobley on 11-03-2024 ESR Photometric method (Bld) [Velocity] 12 mm/hr Normal 0 - 30 mm/hr AO Man Heme SS LABORATORYOrdered By: Nia Gipson on 11-03-2024 H. pylori IgG IA Ql Negative Invalid Interpretation Code AH Auto Viro/Sero SS Comment on above: Interpretive Data: I NTERPRETATION OF H. PYLORI IGG BY EIA: Negative No detectable antibodies to H. pylori. Positive H. pylori IgG antibody detected. Equivocal Equivocal for IgG antibodies to H. pylori. Repeat testing if still indicated. LABORATORYOrdered By: Maryse Simon on 11-03-2024 Rheumatoid factor IgM IA Qn (S) 1 Normal <=5.9 AH Auto Viro/Sero SS Comment on above: Interpretive Data: R F IgM Antibody by Enzyme Immunoassay: Negative < or = 6 Positive > 6 A positive result indicates the presence of RF antibodies and suggests the possibility of rheumatoid arthritis. A negative result indicates no RF IgM antibody or levels below the negative cut-off of the assay. Results of this assay should be used in conjunction with clinical findings and other serological tests. These results were obtained with the MediVision QUANTA Lite RF IgM DEYA. RF IgM values obtained with different manufacturers' assay methods may not be used interchangeably. The magnitude of the reported IgM levels cannot be correlated to an endpoint titer. US AXILLA BREAST BILATERALon 10-12-2024 US AXILLA BREAST BILATERAL ORIGINAL FROM: [address] [address] PROCEDURE FOR: CARMENCITA MONDRAGON [address] [place] [address] [place] [address] Home: PID#: [id number] Exam#: [id number] : 1965 Age: 59 TO: JOHNATHAN PEREZ [address] [address] Fax: NO FAX EXAMINATION: ULTRASOUND OF THE BILATERAL AXILLA 10/12/2024 11:19 am TECHNIQUE: Color flow and gómez scale targeted ultrasound of the bilateral axilla were performed. Permanently stored images were reviewed. COMPARISON: Mammogram July 10, 2024, shoulder MRI October 07, 2024 HISTORY: ORDERING SYSTEM PROVIDED HISTORY: Reason for Exam: axillary adenopathy on shoulder MRI FINDINGS: Normal appearing lymph nodes are seen within the axilla bilaterally. The largest on the right measures up to 1.7 cm with a cortical thickness of 1 mm. The largest on the left measures up to 2.4 cm with a cortical thickness of 1 mm. This likely explains the finding on right MRI of the shoulder. IMPRESSION: Normal bilateral axillary lymph nodes. The patient may return to annual mammographic screening. BIRADS: BI-RADS: 2: Benign RECALL: return to screening RECALL TYPE: mammo LETTER SENT: Normal BI-RADS 1 and 2 Interpreted by: Basilia Abel MD Preliminary Report By: Basilia Abel MD Electronically signed By Basilia Abel MD Dictated Date: 10/12/2024 12:55:34 PM Prelim Date: 10/12/2024 12:59:17 PM Sign Date: 10/12/2024 12:59:17 PM Ordering Provider: JOHNATHAN PEREZ CLINICAL: RIGHT AXILLARY LYMPHADENOPATHY. Senior Analyst: MALACHI KELLEY RT(R)(M) RDMS letter sent: Normal BI-RADS 1 and 2 Ultrasound BI-RADS: [address] [facility] MRI SHOULDER W/O CONTRAST [facility] 10-07-2024 MRI SHOULDER W/O CONTRAST RIGHT ORIGINAL EXAMINATION: MRI OF THE RIGHT SHOULDER WITHOUT CONTRAST 10/07/2024 7:42 am TECHNIQUE: Multiplanar multisequence MRI of the right shoulder was performed without the administration of intravenous contrast. COMPARISON: None. HISTORY: ORDERING SYSTEM PROVIDED HISTORY: Reason for Exam: right shoulder pain Prior rotator cuff tearand biceps tendon repair in january 2023 FINDINGS: There is no evidence of acute fracture, osteonecrosis or suspicious marrow lesion. Suture anchors within the humeral head related to prior rotator cuff repair. Mild degenerative changes of the AC joint.. A type 2 acromial undersurface is seen. The coracoclavicular and coracoacromial ligaments are intact. There is no subdeltoid subacromial bursitis. The teres minor is intact. Infraspinatus tendinosis. Supraspinatus tendinosis. There is some fluid dissecting along the anterior bursal surface fibers at the musculotendinous junction measuring approximately 1.2 by 1.3 cm suggesting low-grade tearing. Subscapularis tendinosis and fraying. The long head of the biceps tendon is maintained in anatomic location. The proximal intra-articular portion of the long head of the biceps tendon is not well appreciated. There is focal interstitial signal at the proximal extra-articular portion of the long head of biceps tendon at the level of bicipital groove on series 10, image 11 which may suggest proximal vertical longitudinal interstitial tearing. There is no biceps tenosynovitis. There is no acute Hill-Sacks or Bankart lesion. Suboptimal evaluation of the labrum with lack of intra-articular contrast. There is diffuse labral degeneration and tearing. No high-grade chondral lesions are present in the glenohumeral joint. There is no glenohumeral joint effusion or synovitis. The suprascapular and spinoglenoid notches as well as the quadrilateral space have preserved fat planes. There is no evidence of muscle atrophy or acute muscle denervation. Nonspecific axillary adenopathy. IMPRESSION: Prior changes of rotator cuff repair. Rotator cuff tendinosis. There is some fluid dissecting along the anterior bursal surface fibers at the musculotendinous junction of the supraspinatus tendon which may suggest low-grade underlying tearing. Subscapularis tendinosis and fraying. No high-grade rotator cuff tear. The proximal intra-articular portion long head of biceps tendon is not well appreciated. There is focal interstitial signal at the proximal extra-articular portion of the long head of biceps tendon at the level of bicipital groove which may suggest proximal vertical longitudinal interstitial tearing. Suboptimal evaluation labrum with lack of intra-articular contrast. There is diffuse labral degeneration and tearing. Additional incidental findings as above. Interpreted by: Rad Santoyo Preliminary Report By: Rad Santoyo Electronically signed By Rad Santoyo Dictated Date: 10/07/2024 10:57:21 AM Prelim Date: 10/07/2024 11:17:09 AM Sign Date: 10/07/2024 11:17:09 AM Ordering Provider: JOHNATHAN Ng [facility] CT ABDOMEN/PELVIS W/CONTRAST on 10-05-2024 CT ABDOMEN/PELVIS W/CONTRAST ORIGINAL EXAMINATION: CT OF THE ABDOMEN AND PELVIS WITH CONTRAST 10/05/2024 11:21 am TECHNIQUE: CT of the abdomen and pelvis was performed with the administration of intravenous and oral contrast. Multiplanar reformatted images are provided for review. Automated exposure control, iterative reconstruction, and/or weight based adjustment of the mA/kV was utilized to reduce the radiation dose to as low as reasonably achievable. COMPARISON: None. HISTORY: ORDERING SYSTEM PROVIDED HISTORY: Reason for Exam: epigastric pain, epigastric mass FINDINGS: Mild bibasilar atelectasis. No pleural effusion. Heart is normal in size without pericardial effusion. Normal liver morphology. No suspicious hepatic lesions. Gallbladder is unremarkable. No biliary dilatation. Spleen, pancreas and adrenal glands are unremarkable. Kidneys are symmetric in size without evidence of hydronephrosis or renal calculi. Ureters are normal in caliber. Urinary bladder is underdistended limited evaluation. Uterus and bilateral adnexa are within normal limits. Esophagus, stomach and duodenum are unremarkable. No evidence of obstruction. Colon is largely underdistended limiting evaluation. Appendix is unremarkable. No free pelvic fluid or evidence of pneumoperitoneum. The aorta is normal in caliber with mild atherosclerotic calcifications. Hepatic veins and portal venous system are patent. No pathologically enlarged abdominal or pelvic lymph nodes. There is a tiny fat containing umbilical hernia with mild diastasis rectus. No aggressive osseous lesions. Mild multilevel degenerative changes throughout the visualized spine. IMPRESSION: No acute findings within the abdomen and pelvis. Tiny fat containing umbilical hernia with mild diastasis rectus. Interpreted by: Vitaliy Perdomo Preliminary Report By: Vitaliy Perdomo Electronically signed By Vitaliy Perdomo Dictated Date: 10/05/2024 4:08:27 PM Prelim Date: 10/05/2024 4:15:29 PM Sign Date: 10/05/2024 4:15:29 PM Ordering Provider: JOHNATHAN Ng [facility] MRI SPINE CERVICAL W/O CONTR Yisel 09-25-2024 MRI SPINE CERVICAL W/O CONTRAST ORIGINAL INDICATION:ORDERING SYSTEM PROVIDED HISTORY: Reason for Exam: CERVICALGIA TECHNIQUE: MRI of the cervical spine was performed without intravenous contrast per standard protocol COMPARISON: None FINDINGS: ALIGNMENT: Straightening of the normal cervical lordosis without a listhesis. VERTEBRAE: No acute/recent fracture, significant chronic height loss, or focal osseous lesion. DISCS: Widespread disc desiccation. Moderate disc height loss involves the C5-C6 and C6-C7 levels followed by C4-C5. CORD: No intramedullary pathologic signal. PARAVERTEBRAL SOFT TISSUES: Unremarkable. EVALUATION OF INDIVIDUAL LEVELS DEMONSTRATES: C2-3: Tiny central zone disc protrusion without central canal stenosis or foraminal narrowing. C3-4: Tiny central zone disc protrusion and mild left facet arthrosis causes mild left without right foraminal narrowing or central canal stenosis. C4-5: Small posterior disc bulge most pronounced in the central and right central zones and facet arthrosis causes mild right without left foraminal narrowing or central canal stenosis C5-6: Small diffuse disc osteophyte complex and facet arthrosis causes mild central canal stenosis and moderate right without left foraminal narrowing. C6-7: Small disc osteophyte complex most pronounced in the central and left central zones and facet arthrosis without foraminal narrowing or central canal stenosis. C7-T1: Bilateral facet arthrosis without central canal stenosis or foraminal narrowing. ADDITIONAL COMMENTS: 14 mm (long axis) right level 2A lymph node (axial T2 image 23 series 8). IMPRESSION: 1. No levels of moderate or severe central canal stenosis. 2. Spondylotic changes resulting in up to moderate right foraminal narrowing at C5-C6. 3. Borderline prominent right level 2 A lymph node. Further evaluation with ultrasound is advised. Interpreted by: Dre Napoles MD Preliminary Report By: Dre Napoles MD Electronically signed By Dre Napoles MD Dictated Date: 09/25/2024 9:41:10 AM Prelim Date: 09/25/2024 9:51:49 AM Sign Date: 09/25/2024 9:51:49 AM Ordering Provider: MAGED Ng [facility] FEon 09-17-2024 Iron [Mass/Vol] 61 ug/dL Normal 50-[address] [facility] Comment on above: Performed By: #### F E, GLU #### [address] [place], [place] [address] GLUon 09-17-2024 Glucose [Mass/Vol] 103 mg/dL Normal 70-105 [facility] Comment on above: Performed By: #### F E, GLU #### [address] [address] LABORATORYOrdered By: SYSTEM SYSTEM on 09-17-2024 Glucose [Mass/Vol] 103 mg/dL Normal 70 - 105 mg/dL AO ADM SS Iron [Mass/Vol] 61 ug/dL Normal 50 - 170 mcg/dL AO ADM SS [facility] Reporton 2023 [facility] Report . Pathology Reports Accession: Collected Date/Time: Received Date/Time: Pathologist: [id number] 08/18/2024 09:57 EDT 08/18/2024 18:00 EDT [facility] Report SPECIMEN: Specimen Description: Liquid Prep w/ HPV Specimen: Cervical Screening or Diagnostic: Screening RELEVANT HISTORY: LMP: postmenopausal SPECIMEN ADEQUACY: SATISFACTORY FOR EVALUATION Endocervical/Transfor mational zone component present INTERPRETATION/RESULT S: NEGATIVE FOR INTRAEPITHELIAL LESION OR MALIGNANCY HIGH RISK HPV TESTING: Event Code Result HPV Interp See Interp HPVN HPV Interp Text: High Risk HPV Typing: NEGATIVE HPV types 16, 18, 31, 33, 35, 39, 45, 51, 52, 56, 58, 59, 66 and 68 DNA were undetectable or below the pre-set threshold. The meghan High-Risk HPV DNA Test is not intended for use as a screening device for Pap normal women under age 30 and is not intended to substitute for regular Pap screening. The meghan High-Risk HPV DNA Test is designed to augment existing methods for the detection of cervical disease and should be used in conjunction with clinical information derived from other diagnostic and screening tests, physical examinations and full medical history in accordance with appropriate patient management procedures. NOTE: A negative result does not preclude the presence of HPV infection because results depend on adequate specimen collection, absence of inhibitors and sufficient DNA to be detected. As of: 08/20/24 15:52 EDT COMMENT: This Pap Test was successfully processed and evaluated with the assistance of the [employer] ThinPrep Test Imaging System. Pathology Reports Accession: Collected Date/Time: Received Date/Time: Pathologist: [id number] 08/18/2024 09:57 EDT 08/18/2024 18:00 EDT Electronically Signed by Pathology report verified by [facility] Screened by: [place] Electronically signed by Liza RYDER (ASCP) Sign-Out Date: 08/20/2024 15:53 Performing Lab: [facility], [address] [place] [address] Pathology Dept Disclaimer The Pap test is a screening test for cervical cancer. As evidenced by published data, it is subject to both inherent false negative and false positive results. Your patient's results should be interpreted in context with pertinent clinical history including gynecological examination. Normal [facility] HPVon 08-20-2024 HPV Interp Normal See Interp HPVN [facility] Comment on above: Order Comment: Order placed by AP_HPV_ORDER rule from [id number] Result Comment: High Risk HPV Typing: NEGATIVE HPV types 16, 18, 31, 33, 35, 39, 45, 51, 52, 56, 58, 59, 66 and 68 DNA were undetectable or below the pre-set threshold. The meghan High-Risk HPV DNA Test is not intended for use as a screening device for Pap normal women under age 30 and is not intended to substitute for regular Pap screening. The meghan High-Risk HPV DNA Test is designed to augment existing methods for the detection of cervical disease and should be used in conjunction with clinical information derived from other diagnostic and screening tests, physical examinations and full medical history in accordance with appropriate patient management procedures. NOTE: A negative result does not preclude the presence of HPV infection because results depend on adequate specimen collection, absence of inhibitors and sufficient DNA to be detected. See Interp HPVN Performed By: #### C BC, ANEU, ADIFF, GFR, FE, CMP, TSHR #### [address] [address] HPV Source Cervix Normal [facility] Comment on above: Order Comment: Order placed by AP_HPV_ORDER rule from [id number] Performed By: #### C BC, ANEU, ADIFF, GFR, FE, CMP, TSHR #### [place] [address] LABORATORYOrdered By: Elia Okeefe on 08-18-2024 HPV Interp High Risk HPV Typing : NEGATIVEHPV types 16, 18, 31, 33, 35, 39, 45, 51, 52, 56, 58, 59, 66 and 68 DNA wereundetectable or below the pre-set threshold.The meghan High-Risk HPV DNA Test is not intended for use as a screening device forPap normal women under age 30 and is not intended to substitute for regular Papscreening.The meghan High-Risk HPV DNA Test is designed to augment existing methods for thedetection of cervical disease and should be used in conjunction with clinicalinformation derived from other diagnostic and screening tests, physical examinationsand full medical history in accordance with appropriate patient managementprocedures. NOTE: A negative result does not preclude the presence of HPV infection because resultsdepend on adequate specimen collection, absence of inhibitors and sufficientDNA to be detected. Normal See Interp HPVN Auto Viro/Sero SS Specimen source Nom (Unsp spec) Cervix (08/18/24 9:57 AM) Normal Auto Viro/Sero SS US AORTAon 08-13-2024 US AORTA ORIGINAL EXAMINATION: RETROPERITONEAL ULTRASOUND OF THE AORTA 08/13/2024 TECHNIQUE: Duplex ultrasound using B-mode/gómez scaled imaging, Doppler spectral analysis and color flow Doppler was obtained of the aorta. COMPARISON: None HISTORY: ORDERING SYSTEM PROVIDED HISTORY: Reason for Exam: epigastric mass, epigastric pain, enlargement of abdominal aorta on exam All images are recorded and archived. FINDINGS: Aorta: Proximal aorta measures 2.3 x 2.3 cm. Mid aorta measures 2.0 x 2.0 cm. Distal aorta measures 1.7 x 1.5 cm. There is appropriate triphasic waveforms in the aorta. No significant calcified plaque is encountered. Iliacs: Iliac arteries are patent and normal in caliber. IMPRESSION: No evidence for abdominal aortic aneurysm. Interpreted by: Owen Perdomo DO Preliminary Report By: Owen Perdomo DO Electronically signed By Owen Perdomo DO Dictated Date: 08/13/2024 1:28:28 PM Prelim Date: 08/13/2024 1:29:27 PM Sign Date: 08/13/2024 1:29:27 PM Ordering Provider: JOHNATHAN Ng [facility] US SOFT TISSUE MASS OF ABD/M ID BACKon 07-24-2024 US SOFT TISSUE MASS OF ABD/MID BACK ORIGINAL EXAMINATION: SOFT TISSUE ULTRASOUND EPIGASTRIC REGION07/24/2024 7:14 am COMPARISON: None HISTORY: ORDERING SYSTEM PROVIDED HISTORY: Reason for Exam: epigastric mass, painful, FINDINGS: No definite evidence of herniation visualized on resting and Valsalva images. No sonographic evidence of discrete mass lesion or fluid collection visualized in this region of concern. IMPRESSION: No definite evidence of herniation or sonographic abnormality visualized in the region of concern. I have personally reviewed the images of this examination and agree with the resident's findings and interpretation. Interpreted by: Owen Perdomo DO Preliminary Report By: Cristofer Rocha Electronically signed By Owen Perdomo DO Dictated Date: 07/24/2024 9:18:04 AM Prelim Date: 07/24/2024 10:12:26 AM Sign Date: 07/24/2024 10:12:26 AM Ordering Provider: JOHNATHAN Ng [facility] ([place]) LABORATORYOrdered By: Ana M Jordan on 07-15-2024 Hemoglobin.gastrointest inal Ql (Stl) Negative (07/15/24 11:10 AM) Normal AO Rapid Testing SS OCC (LAB)on 07-15-2024 Occult Blood Fecal Negative Normal Negative [facility] ([place]) Comment on above: Performed By: #### A TIA, CBC, ADIFF, LIP, LIPID, CMP, GFR #### [address] [address] #### HCV1 #### [address] [address] .GFRon 07-10-2024 GFR 88 ml/min/1.73sqm Normal [facility] ([place]) Comment on above: Result Comment: GFR Population mean for , Non- Americans Ages 20-29 = 116 mL/min/1.73 sq.m. Ages 30-39 = 107 mL/min/1.73 sq.m. Ages 40-49 = 99 mL/min/1.73 sq.m. Ages 50-59 = 93 mL/min/1.73 sq.m. Ages 60-69 = 85 mL/min/1.73 sq.m. Ages 70+ = 75 mL/min/1.73 sq.m. Chronic Kidney Disease: Less than 60 mL/min/1.73 square meters End Stage Renal Disease: Less than 15 mL/min/1.73 square meters Performed By: #### A TIA, CBC, ADIFF, LIP, LIPID, CMP, GFR #### [address] [address] #### HCV1 #### [address] [address] GFR Non- 73 ml/min/1.73sqm Normal [facility] ([place]) Comment on above: Result Comment: GFR Population mean for , Non- Americans Ages 20-29 = 116 mL/min/1.73 sq.m. Ages 30-39 = 107 mL/min/1.73 sq.m. Ages 40-49 = 99 mL/min/1.73 sq.m. Ages 50-59 = 93 mL/min/1.73 sq.m. Ages 60-69 = 85 mL/min/1.73 sq.m. Ages 70+ = 75 mL/min/1.73 sq.m. Chronic Kidney Disease: Less than 60 mL/min/1.73 square meters End Stage Renal Disease: Less than 15 mL/min/1.73 square meters Performed By: #### A TIA, CBC, ADIFF, LIP, LIPID, CMP, GFR #### [address] [address] #### HCV1 #### [address] 07-10-2024 BUN/Creatinine Ratio 11 ratio Normal 7-27 [facility] ([place] Comment on above: Performed By: #### Jass G, BMP, GFR, FE #### [address] [address] Calcium [Mass/Vol] 9.5 mg/dL Normal 8.4-10.2 [facility] ([place]) Comment on above: Performed By: #### Jass G, BMP, GFR, FE #### [address] [address] Chloride [Moles/Vol] 105 mmol/L Normal 98-107 [facility] [place] Comment on above: Performed By: #### Jass G, BMP, GFR, FE #### [address] [address] CO2 [Moles/Vol] 29 mmol/L Normal 22-29 [facility] ([place]) Comment on above: Performed By: #### Jass G, BMP, GFR, FE #### [address] [address] Creatinine [Mass/Vol] 0.81 mg/dL Normal 0.55-1.02 [facility] ([place]) Comment on above: Performed By: #### MIRELLA Oquendo, GFR, FE #### [address] [address] Electrolyte Balance 8.0 mEq/L Normal 4.0-15.0 [facility] ([place]) Comment on above: Performed By: #### MIRELLA Oquendo, GFR, FE #### [address] [address] Glucose [Mass/Vol] 144 mg/dL High 70-105 [facility] ([place]) Comment on above: Performed By: #### MIRELLA Oquendo, GFR, FE #### [address] [address] Potassium [Moles/Vol] 4.8 mmol/L Normal 3.5-5.1 [facility] ([place]) Comment on above: Performed By: #### MIRELLA Oquendo, GFR, FE #### [address] [address] Sodium [Moles/Vol] 142 mmol/L Normal 136-145 [facility] ([place]) Comment on above: Performed By: #### MIRELLA Oquendo, GFR, FE #### [address] [address] Urea nitrogen [Mass/Vol] 9 mg/dL Normal 7-18 [facility] ([place]) Comment on above: Performed By: #### MIRELLA Oquendo, GFR, FE #### [address] [address] FEon 07-10-2024 Iron [Mass/Vol] 27 ug/dL Low 50-170 [facility] ([place] Comment on above: Performed By: #### Jass Heck, MIRELLA, GFR, FE #### [address] [address] [place] MAMMOGRAM SCREENING BILAT ERAL W/TOMOon 07-10-2024 MA MAMMOGRAM SCREENING BILATERAL W/RENATO ORIGINAL FROM: [address] [address] PROCEDURE FOR: CARMENCITA MONDRAGON [address] [place] [address] Home: PID#: [id number] Exam#: [id number] : 1965 Age: 58 TO: JOHNATHAN PEREZ DO [address] [place], [place] [address] Fax: NO FAX EXAMINATION: SCREENING DIGITAL BILATERAL MAMMOGRAM WITH TOMOSYNTHESIS, 07/10/2024 1:44 pm TECHNIQUE: Screening mammography of the bilateral breasts was performed with tomosynthesis. 2D standard and 3D tomosynthesis combination imaging performed through both breasts in the MLO and CC projection. Computer aided detection was utilized in the interpretation of this exam. COMPARISON: 05/30/2023 HISTORY: Breast cancer screening. FINDINGS: BREAST DENSITY: There are scattered areas of fibroglandular density. There are no significant masses or calcifications. IMPRESSION: No mammographic evidence of malignancy. Continued screening with annual mammograms is recommended. Tyrer Cuzick risk calculations, generated with the history provided, report this patient's 10 year risk and lifetime risk for developing breast cancer at 2.3% and 6.6%, respectively. Based on this assessment tool, if the patient's calculated lifetime risk is below 20%, then the patient is considered at average risk for developing breast cancer. If the patient's calculated lifetime risk is at or above 20%, then the patient is considered high risk for developing breast cancer and may be a candidate for supplemental breast MRI screening in addition to annual mammographic screening per the [employer]. BIRADS: BI-RADS: 1: Negative RECALL: 1 year screening RECALL TYPE: mammo LETTER SENT: Normal BI-RADS 1 and 2 Interpreted by: Rogers Mota MD Preliminary Report By: Rogers Mota MD Electronically signed By Rogers Mota MD Dictated Date: 07/10/2024 3:06:22 PM Prelim Date: 07/10/2024 3:07:41 PM Sign Date: 07/10/2024 3:07:41 PM Ordering Provider: JOHNATHAN PEREZ Senior Analyst: MALACHI KELLEY RT(R) RDMS letter sent: Normal BI-RADS 1 and 2 Mammogram BI-RADS: 1 Negative Normal [facility] ([place]) MGon 07-10-2024 Magnesium [Mass/Vol] 1.8 mg/dL Normal 1.8-2.4 [facility] [place] Comment on above: Performed By: #### A TIA, CBC, ADIFF, LIP, LIPID, CMP, GFR #### [place] [address] #### HCV1 #### [address] [address] .Auto Diffon 07-09-2024 Basophil, Absolute 0.1 10 3/mcL Normal 0.0-0.2 [facility] [place] Comment on above: Performed By: #### A TIA, CBC, ADIFF, LIP, LIPID, CMP, GFR #### [place] [address] #### HCV1 #### [address] [address] Basophils/100 WBC (Bld) 1.0 % Normal 0.0-2.5 A Pending sale to [facility] ([place]) Comment on above: Performed By: #### A TIA, CBC, ADIFF, LIP, LIPID, CMP, GFR #### [address] [address] #### HCV1 #### [address] [address] Eosinophil, Absolute 0.2 10 3/mcL Normal 0.0-0.4 [facility] ([place]) Comment on above: Performed By: #### A TIA, CBC, ADIFF, LIP, LIPID, CMP, GFR #### [place] [address] #### HCV1 #### [address] [address] Eosinophils/100 WBC (Bld) 3.7 % Normal 0.0-7.0 [facility] ([place]) Comment on above: Performed By: #### A TIA, CBC, ADIFF, LIP, LIPID, CMP, GFR #### [address] [address] #### HCV1 #### [address] [address] Lymphocyte, Absolute 1.4 10 3/mcL Normal 0.8-3.9 [facility] ([place]) Comment on above: Performed By: #### A TIA, CBC, ADIFF, LIP, LIPID, CMP, GFR #### [place] [address] #### HCV1 #### [address] [address] Lymphocytes/100 WBC (Bld) 29.9 % Normal 10.0-50.0 [facility] ([place] Comment on above: Performed By: #### A TIA, CBC, ADIFF, LIP, LIPID, CMP, GFR #### [address] [address] #### HCV1 #### [address] [address] Monocyte, Absolute 0.4 10 3/mcL Normal 0.2-1.0 [facility] [place] Comment on above: Performed By: #### A TIA, CBC, ADIFF, LIP, LIPID, CMP, GFR #### [address] [address] #### HCV1 #### [address] [address] Monocytes/100 WBC (Bld) 7.5 % Normal 1.7-13.0 A Pending sale to [facility] ([place]) Comment on above: Performed By: #### A TIA, CBC, ADIFF, LIP, LIPID, CMP, GFR #### [address] [address] #### HCV1 #### [address] [address] Neutrophils/100 WBC (Bld) 57.9 % Normal 37.0-80.0 [facility] ([place] Comment on above: Performed By: #### A TIA, CBC, ADIFF, LIP, LIPID, CMP, GFR #### [address] [address] #### HCV1 #### [address] [address] .GFRon 07-09-2024 GFR 76 ml/min/1.73sqm Normal [facility] ([place] Comment on above: Result Comment: GFR Population mean for , Non- Americans Ages 20-29 = 116 mL/min/1.73 sq.m. Ages 30-39 = 107 mL/min/1.73 sq.m. Ages 40-49 = 99 mL/min/1.73 sq.m. Ages 50-59 = 93 mL/min/1.73 sq.m. Ages 60-69 = 85 mL/min/1.73 sq.m. Ages 70+ = 75 mL/min/1.73 sq.m. Chronic Kidney Disease: Less than 60 mL/min/1.73 square meters End Stage Renal Disease: Less than 15 mL/min/1.73 square meters Performed By: #### A TIA, CBC, ADIFF, LIP, LIPID, CMP, GFR #### [address] [address] #### HCV1 #### [address] [address] GFR Non- 63 ml/min/1.73sqm Normal [facility] ([place] Comment on above: Result Comment: GFR Population mean for , Non- Americans Ages 20-29 = 116 mL/min/1.73 sq.m. Ages 30-39 = 107 mL/min/1.73 sq.m. Ages 40-49 = 99 mL/min/1.73 sq.m. Ages 50-59 = 93 mL/min/1.73 sq.m. Ages 60-69 = 85 mL/min/1.73 sq.m. Ages 70+ = 75 mL/min/1.73 sq.m. Chronic Kidney Disease: Less than 60 mL/min/1.73 square meters End Stage Renal Disease: Less than 15 mL/min/1.73 square meters Performed By: #### A TIA, CBC, ADIFF, LIP, LIPID, CMP, GFR #### [address] [address] #### HCV1 #### [address] [address] .NEUABSon 07-09-2024 Neutrophil, Absolute 2.8 10 3/mcL Low 2.9-6.2 [facility] ([place]) Comment on above: Performed By: #### A TIA, CBC, ADIFF, LIP, LIPID, CMP, GFR #### [place] [address] #### HCV1 #### [place] [address] CBCon 07-09-2024 Erythrocyte distribution width (RBC) [Ratio] 13.2 % Normal 11.5-14.5 [facility] ([place]) Comment on above: Performed By: #### A TIA, CBC, ADIFF, LIP, LIPID, CMP, GFR #### [place] [address] #### HCV1 #### [place] [address] Hematocrit (Bld) [Volume fraction] 41.3 % Normal 37.0-47.0 [facility] ([place] Comment on above: Performed By: #### A TIA, CBC, ADIFF, LIP, LIPID, CMP, GFR #### [place] [address] #### HCV1 #### [place] [address] Hgb 13.9 G/dL Normal 12.0-16.0 [facility] ([place] Comment on above: Performed By: #### A TIA, CBC, ADIFF, LIP, LIPID, CMP, GFR #### [place] [address] #### HCV1 #### [place] [address] MCH (RBC) [Entitic mass] 30.0 pg Normal 27.0-31.2 [facility] ([place]) Comment on above: Performed By: #### A TIA, CBC, ADIFF, LIP, LIPID, CMP, GFR #### [address] [address] #### HCV1 #### [address] [address] MCHC 33.6 G/dL Normal 33.0-37.0 [facility] ([place]) Comment on above: Performed By: #### A TIA, CBC, ADIFF, LIP, LIPID, CMP, GFR #### [place] [address] #### HCV1 #### [place] [address] MCV (RBC) [Entitic vol] 89.3 fL Normal 80.0-94.0 A Pending sale to [facility] ([place]) Comment on above: Performed By: #### A TIA, CBC, ADIFF, LIP, LIPID, CMP, GFR #### [place] [address] #### HCV1 #### [place] [address] Platelet 225 10 3/mcL Normal 130-400 [facility] ([place]) Comment on above: Performed By: #### A TIA, CBC, ADIFF, LIP, LIPID, CMP, GFR #### [place] [address] #### HCV1 #### [place] [address] Platelet mean volume (Bld) [Entitic vol] 7.9 fL Normal 7.4-10.4 [facility] ([place]) Comment on above: Performed By: #### A TIA, CBC, ADIFF, LIP, LIPID, CMP, GFR #### [place] [address] #### HCV1 #### [place] [address] RBC 4.63 10 6/mcL Normal 4.20-5.40 [facility] ([place]) Comment on above: Performed By: #### A TIA, CBC, ADIFF, LIP, LIPID, CMP, GFR #### [address] [address] #### HCV1 #### [address] [address] WBC 4.8 10 3/mcL Normal 4.6-10.8 [facility] ([place]) Comment on above: Performed By: #### A TIA, CBC, ADIFF, LIP, LIPID, CMP, GFR #### [place] [address] #### HCV1 #### [place] [address] CMPon 07-09-2024 Albumin Level 4.2 G/dL Normal 3.5-5.0 [facility] ([place]) Comment on above: Performed By: #### A TIA, CBC, ADIFF, LIP, LIPID, CMP, GFR #### [place] [address] #### HCV1 #### [place] [address] Albumin/Globulin [Mass ratio] 1.2 {ratio} Normal 1.1-2.5 [facility] ([place]) Comment on above: Performed By: #### A TIA, CBC, ADIFF, LIP, LIPID, CMP, GFR #### [address] [address] #### HCV1 #### [place] [address] ALP [Catalytic activity/Vol] 130 U/L Normal 40-135 [facility] ([place]) Comment on above: Performed By: #### A TIA, CBC, ADIFF, LIP, LIPID, CMP, GFR #### [address] [address] #### HCV1 #### [place] [id number] ALT [Catalytic activity/Vol] 45 U/L Normal 14-59 [facility] ([place]) Comment on above: Performed By: #### A TIA, CBC, ADIFF, LIP, LIPID, CMP, GFR #### [place] [id number] #### HCV1 #### [address] [address] AST [Catalytic activity/Vol] 31 U/L Normal 10-40 [facility] ([place]) Comment on above: Performed By: #### A TIA, CBC, ADIFF, LIP, LIPID, CMP, GFR #### [place] [address] #### HCV1 #### [address] [address] Bili Total 0.3 mg/dL Normal 0.2-1.0 [facility] ([place]) Comment on above: Result Comment: Use of this assay is not recommended for patients undergoing treatment with eltrombopag due to the potential for falsely elevated results. Performed By: #### A TIA, CBC, ADIFF, LIP, LIPID, CMP, GFR #### [place] [address] #### HCV1 #### [place] [address] BUN/Creatinine Ratio 12 ratio Normal 7-27 [facility] [place] Comment on above: Performed By: #### A TIA, CBC, ADIFF, LIP, LIPID, CMP, GFR #### [place] [address] #### HCV1 #### [address] [address] Calcium [Mass/Vol] 9.8 mg/dL Normal 8.4-10.2 [facility] ([place]) Comment on above: Performed By: #### A TIA, CBC, ADIFF, LIP, LIPID, CMP, GFR #### [place] [address] #### HCV1 #### [place] [id number] Chloride [Moles/Vol] 106 mmol/L Normal 98-107 [facility] [place] Comment on above: Performed By: #### A TIA, CBC, ADIFF, LIP, LIPID, CMP, GFR #### [address] [address] #### HCV1 #### [address] [address] CO2 [Moles/Vol] 27 mmol/L Normal 22-29 [facility] ([place]) Comment on above: Performed By: #### A TIA, CBC, ADIFF, LIP, LIPID, CMP, GFR #### [address] [address] #### HCV1 #### [place] [address] Creatinine [Mass/Vol] 0.92 mg/dL Normal 0.55-1.02 [facility] ([place]) Comment on above: Performed By: #### A TIA, CBC, ADIFF, LIP, LIPID, CMP, GFR #### [place] [address] #### HCV1 #### [place] [address] Electrolyte Balance 9.0 mEq/L Normal 4.0-15.0 [facility] ([place]) Comment on above: Performed By: #### A TIA, CBC, ADIFF, LIP, LIPID, CMP, GFR #### [place] [address] #### HCV1 #### [place] [address] Globulin 3.5 G/dL Normal [facility] ([place]) Comment on above: Performed By: #### A TIA, CBC, ADIFF, LIP, LIPID, CMP, GFR #### [address] [address] #### HCV1 #### [place] [address] Glucose [Mass/Vol] 104 mg/dL Normal 70-105 [facility] ([place]) Comment on above: Performed By: #### A TIA, CBC, ADIFF, LIP, LIPID, CMP, GFR #### [place] [address] #### HCV1 #### [address] [address] Potassium [Moles/Vol] 5.3 mmol/L High 3.5-5.1 [facility] ([place]) Comment on above: Performed By: #### A TIA, CBC, ADIFF, LIP, LIPID, CMP, GFR #### [address] [address] #### HCV1 #### [place] [address] Sodium [Moles/Vol] 142 mmol/L Normal 136-145 [facility] ([place]) Comment on above: Performed By: #### A TIA, CBC, ADIFF, LIP, LIPID, CMP, GFR #### [place] [address] #### HCV1 #### [place] [address] Total Protein 7.7 G/dL Normal 6.4-8.2 [facility] ([place]) Comment on above: Performed By: #### A TIA, CBC, ADIFF, LIP, LIPID, CMP, GFR #### [place] [address] #### HCV1 #### [place] [address] Urea nitrogen [Mass/Vol] 11 mg/dL Normal 7-18 [facility] ([place]) Comment on above: Performed By: #### A TIA, CBC, ADIFF, LIP, LIPID, CMP, GFR #### [place] [address] #### HCV1 #### [place] [id number] HCVon 07-09-2024 Hep C Ab Non-Reactive Normal Non-Reactive [facility] ([place]) Comment on above: Performed By: #### A TIA, CBC, ADIFF, LIP, LIPID, CMP, GFR #### [place] [address] #### HCV1 #### [place] [id number] Hep C Ab Int Normal [facility] ([place]) Comment on above: Result Comment: Nonr eactive: Samples with a value < 0.80 are considered nonreactive (negative) for antibodies to HCV. A negative test result does not exclude the possibility of exposure to or infection with HCV. HCV antibodies may be undetectable in some stages of the infection and in some clinical conditions. See Interp Performed By: #### A TIA, CBC, ADIFF, LIP, LIPID, CMP, GFR #### [place] [address] #### HCV1 #### [place] [address] LIPon 07-09-2024 Lipase Level 65 U/L Normal 16-77 [facility] ([place]) Comment on above: Performed By: #### A TIA, CBC, ADIFF, LIP, LIPID, CMP, GFR #### [place] [address] #### HCV1 #### [place] [address] LIPIDon 07-09-2024 Cholesterol [Mass/Vol] 249 mg/dL High 0-200 [facility] ([place]) Comment on above: Result Comment: Chol esterol Reference Interval: Less than 200 Desirable 200-239 Borderline high risk 240 and above High risk Performed By: #### A TIA, CBC, ADIFF, LIP, LIPID, CMP, GFR #### [place] [address] #### HCV1 #### [address] [address] Cholesterol in HDL [Mass/Vol] 55 mg/dL Normal 40-60 [facility] ([place]) Comment on above: Performed By: #### A TIA, CBC, ADIFF, LIP, LIPID, CMP, GFR #### [place] [address] #### HCV1 #### [address] [address] Cholesterol in LDL [Mass/Vol] 176 mg/dL High 0-130 [facility] ([place]) Comment on above: Performed By: #### A TIA, CBC, ADIFF, LIP, LIPID, CMP, GFR #### [place] [address] [place], [place] [address] #### HCV1 #### [place] [id number] [place] [address] Triglyceride [Mass/Vol] 92 mg/dL Normal 0-150 A Pending sale to [facility] ([place]) Comment on above: Result Comment: Trig lyceride Reference Interval: Less than 150 Normal 150-199 Borderline high risk 200-499 High risk 500 or higher Very high risk Performed By: #### A TIA, CBC, ADIFF, LIP, LIPID, CMP, GFR #### [place] [address] [place], [place] [address] #### HCV1 #### [address] [address] CNOVon 03-12-2024 CNOV Office Visit (COLT ) CARMENCITA MNODRAGON ([id number]) 1965 F Date Time Provider Department 03/12/24 9:00 AM IVELISSE DE LA FUENTE During your visit today, we recorded the following information about you: Referring Provider: IVELISSE DE LA FUENTE [[id number]] Allergies As of Date: 03/12/2024 Noted Allergy Reaction CHLORAPREP CLEAR (CHLORHEXIDIN-IS*03/2 2 - Rash 4 - Hives IODINE 04/04/2004 4 - Hives MORPHINE 03/25/2006 11 - Vomiting PROCHLORPERAZINE 04/04/2004 11 - Vomiting Comments: compazine SULFA (SULFONAMIDE ANTIBIOTICS) 04/04/2004 Comments: uncertain Date Reviewed: 03/12/2024 Reviewed by: Lucy Danielle MA - Fully Assessed Reason for Visit: Established Patient [175] Follow Up [171] Primary Visit Diagnosis:APPOINTMENT CANCELLED Prescriptions as of 03/18/2024 - methylPREDNISolone (MEDROL, CECI,) 4 mg Dose-Pack Take 1 tablet by mouth as directed. As directed on package - ascorbic acid, vitamin C, (VITAMIN C) 500 mg tablet Take 1,000 mg by mouth once daily. - oxyCODONE-acetaminoph en (PERCOCET) 5-325 mg tablet Take 1 tablet by mouth every 6 hours as needed for pain. - ondansetron (ZOFRAN) 4 mg tablet Take 1 tablet by mouth every 8 hours as needed for nausea/vomiting. - cholecalciferol (VITAMIN D3) 50 mcg (2,000 unit) tablet Take 2,000 Units by mouth twice daily. - multivitamin (MULTIPLE VITAMINS ORAL) Take by mouth. - TRIAMCINOLONE ACETONIDE (NASACORT NASAL) Use in the nose. 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] 06/30/2008 PREMENSTRUAL TENSION [N94.3] 06/30/2008 Allergic Rhinitis [J30.9] 06/30/2010 Fibromyalgia [M79.7] 07/31/2010 Postmenopausal bleeding [N95.0] 12/06/2017 Tendinitis of right shoulder [M77.8] 09/24/2022 Impingement syndrome of right shoulder [M75.41] 09/24/2022 Bursitis of right shoulder [M75.51] 09/24/2022 Bicipital tendinitis of right shoulder [M75.21] 09/24/2022 Incomplete tear of right rotator cuff [M75.111] 02/05/2023 02/05/2023 S/P right rotator cuff repair [Z98.890] 02/19/2023 Biceps tendonosis of right shoulder [M67.813] 02/19/2023 Encounter Status:Closed by HARDEEP QUIJANO CMA on 03/18/24 Normal [facility] B12on 12-20-2023 Cobalamin (Vitamin B12) [Mass/Vol] 437 pg/mL Normal 211-911 [facility] ([place]) Comment on above: Performed By: #### A TIA, CBC, ADIFF, LIP, LIPID, CMP, GFR #### [place] [address] [place], [place] [address] #### HCV1 #### [address] [address] LABORATORYOrdered By: SYSTEM SYSTEM on 12-20-2023 25-hydroxyvitamin D3 [Mass/Vol] 34.9 ng/mL Invalid Interpretation Code AO ADM SS Comment on above: Interpretive Data: I nterpretive Values Based on Total 25(OH) Vitamin D: Deficient <20 ng/mL Insufficient 20 - <30 ng/mL Sufficient 30-100 ng/mL Cobalamin (Vitamin B12) [Mass/Vol] 437 pg/mL Normal 211 - 911 pg/mL ADM VIDHon 12-20-2023 Vit. D 25-Hydroxy 34.9 ng/mL Normal [facility] ([place]) Comment on above: Result Comment: Inte rpretive Values Based on Total 25(OH) Vitamin D: Deficient <20 ng/mL Insufficient 20 - <30 ng/mL Sufficient 30-100 ng/mL Performed By: #### A TIA, CBC, ADIFF, LIP, LIPID, CMP, GFR #### [place] [address] [address] #### HCV1 #### [address] [address] CNOVon 10-03-2023 CNOV Office Visit (ORTHWS ) CARMENCITA MONDRAGON ([id number]) 1965 F Date Time Provider Department 10/03/23 9:00 AM IVELISSE DE LA FUENTE During your visit today, we recorded the following information about you: Ivelisse De La Fuente DO 10/03/2023 10:25 AM Signed Follow Up Visit Chief Complaint Carmencita Mondragon is a 58 year old female who presents today for follow up office visit. Patient presents with: Right Shoulder - Follow Up, Established Patient: Proximately 8 months post op right shoulder arthroscopy, RCR, SAD/Acromioplasty, intra-articular biceps tendonesis Date of surgery: 02/05/2023 History of Present Illness PAIN EVALUATION 10/03/2023 0856 Pain Level: 7 Pain Location: Shoulder-Right Description: Sharp;Aching Pinch Duration Amount of Time: 8 Ongoing Duration Units: Months Frequency: Continuous Intervention/Comfort measure: Reposition;Medication ;Cold;Heat HPI: Carmencita Mondragon is a 58 year old female for a follow up visit 8 months post op right shoulder arthroscopy, RCR, SAD/Acromioplasty, intra-articular biceps tendonesis. Pain history is noted as above. Patient states she has had pinching pain in the right shoulder since the block from the surgery wore off. States it has been impacting her sleep quality and noticed certain movements (hand on hip, pulling down/turning the steering wheel) are hard but that her ROM has gotten better since surgery. Is there any overall improvement in your condition? No Any new injury, since being seen last: No REVIEW OF SYMPTOMS: Patient did not have, and does not currently have, any weight loss, malaise, fever, chills, headache, chest pain, chest pressure, palpitations, cough, shortness of breath, orthopnea, paroxsymal nocturnal dyspnea, nausea, vomiting, diarrhea, constipation, melena, hematochezia, urinary difficulties, prolonged bleeding, easily bruising, heat or cold intolerance, new onset joint pain or swelling, new onset extremity weakness or numbness, new onset auditory or visual disturbances, lightheadedness, dizziness, partial loss of consciousness or full loss of consciousness. Current Outpatient Medications Medication Sig ascorbic acid, vitamin C, (VITAMIN C) 500 mg tablet Take 1,000 mg by mouth once daily. cholecalciferol (VITAMIN D3) 50 mcg (2,000 unit) tablet Take 2,000 Units by mouth twice daily. multivitamin (MULTIPLE VITAMINS ORAL) Take by mouth. TRIAMCINOLONE ACETONIDE (NASACORT NASAL) Use in the nose. One spray in each nostril at bedtime methylPREDNISolone (MEDROL, CECI,) 4 mg Dose-Pack Take 1 tablet by mouth as directed. As directed on package (Patient not taking: Reported on 10/03/2023) oxyCODONE-acetaminoph en (PERCOCET) 5-325 mg tablet Take 1 tablet by mouth every 6 hours as needed for pain. ondansetron (ZOFRAN) 4 mg tablet Take 1 tablet by mouth every 8 hours as needed for nausea/vomiting. No current facility-administered medications for this visit. Physical Exam Vitals: [facility] 10/06/2015 Psych: Pleasant, good affect and mood General Appearance: Well appearing, alert, in no acute distress, well-hydrated, well nourished.. Skin: Skin color, texture, turgor normal, no suspicious rashes or lesions. Peripheral Pulses: Normal. Neurologic: Gait normal. Reflexes normal and symmetric. Sensation grossly intact.. Lymph Nodes: No cervical lymphadenopathy, No supraclavicular lymphadenopathy, No axillary lymphadenopathy., and No inguinal lymphadenopathy.. Respiratory: No recent pulmonary infection, hemoptysis, chronic cough, or shortness of breath at rest Rheumatologic: Joint deformities: right shoulder follow up Right Shoulder Exam Right shoulder exam is normal. Tenderness The patient is experiencing no tenderness. Range of Motion Active abduction: normal Passive abduction: normal Extension: normal External rotation: normal Forward flexion: normal Internal rotation 0 degrees: normal Internal rotation 90 degrees: normal Muscle Strength Abduction: 5/5 Internal rotation: 5/5 External rotation: 5/5 Supraspinatus: 5/5 Subscapularis: 5/5 Biceps: 5/5 Tests Apprehension: negative Vang test: negative Cross arm: negative Impingement: negative Other Erythema: absent Sensation: normal Pulse: present Comments: B/l med, uln, rad, ax nerves intact Ttp trap Snapping scapula Left Shoulder Exam Left shoulder exam is normal. Tenderness The patient is experiencing no tenderness. Range of Motion Active abduction: normal Passive abduction: normal Extension: normal External rotation: normal Forward flexion: normal Internal rotation 0 degrees: normal Internal rotation 90 degrees: normal Muscle Strength Abduction: 5/5 Internal rotation: 5/5 External rotation: 5/5 Supraspinatus: 5/5 Subscapularis: 5/5 Biceps: 5/5 Tests Apprehension: negative Vang test: (more content not included)... Normal [facility] CNOVon 07-01-2023 CNOV Office Visit (ORMDNA ) CARMENCITA MONDRAGON ([id number]) 1965 F Date Time Provider Department 07/01/23 4:00 PM CASS BEATTY During your visit today, we recorded the following information about you: Weight Height 83.7 kg 1.689 m Cass Beatty PA-C 07/02/2023 3:17 PM Signed POST OP Cass Beatty PA-C Department of Orthopaedics Orthopaedics [address] [place] [address] Dept: [phone] Ms. Mondragon presents today for her 5 month visit S/P right athroscopic rotator cuff repair and biceps tenodesis. DOS: 02/05/2023 She was doing well until last week when she had increased pain after increasing her weights at PT and getting her arm twisted weird when getting dressed. History: her pain intensity is 5/10. Pain has been controlled with ibuprofen. The patient denies swelling, warmth, discharge, drainage, fevers, chills, sweats. She reports no change in past medical AND surgical history, medications, allergies, social history, family history and review of systems since last visit. Radiographs: not applicable Physical Examination: Incision well healed Anterior portal tender to palpation ROM: Abduction: 140 Forward flexion: 130 Positive axillary, musculocutaneous, median, ulna, and radial nerve function Positive distal pulses Plan: Recommend she hold PT for 1 week, ok to continue ROM exercises Continue vitamin C Start prednisone taper followed by ranjana Advised at this time I do not think she reinjured her cuff or biceps tenodesis She will update the office in 3 weeks Cass Beatty PA-C Allergies As of Date: 07/01/2023 Noted Allergy Reaction CHLORAPREP CLEAR (CHLORHEXIDIN-IS*03/ 2 - Rash 4 - Hives IODINE 04/04/2004 4 - Hives MORPHINE 03/25/2006 11 - Vomiting PROCHLORPERAZINE 04/04/2004 11 - Vomiting Comments: compazine SULFA (SULFONAMIDE ANTIBIOTICS) 04/04/2004 Comments: uncertain Date Reviewed: 07/01/2023 Reviewed by: Darcy Sorensen OCCA - Fully Assessed Reason for Visit: Established Patient [175] Follow Up [171] Pain [78] Primary Visit Diagnosis:Acute pain of right shoulder [M25.511] Other Visit Diagnosis:S/P right rotator cuff repair [Z98.890] Order(s):methylPREDNI Solone (MEDROL, CECI,) 4 mg Dose-PackTake 1 tablet by mouth as directed. As directed on packageDisp: 21 tabletRfl: 0 etodolac (LODINE) 400 mg tabletTake 1 tablet by mouth twice daily for 14 days.Disp: 28 tabletRfl: 0 Prescriptions as of 07/02/2023 - methylPREDNISolone (MEDROL, CECI,) 4 mg Dose-Pack Take 1 tablet by mouth as directed. As directed on package - etodolac (LODINE) 400 mg tablet Take 1 tablet by mouth twice daily for 14 days. - ascorbic acid, vitamin C, (VITAMIN C) 500 mg tablet Take 1,000 mg by mouth once daily. - oxyCODONE-acetaminoph en (PERCOCET) 5-325 mg tablet Take 1 tablet by mouth every 6 hours as needed for pain. - ondansetron (ZOFRAN) 4 mg tablet Take 1 tablet by mouth every 8 hours as needed for nausea/vomiting. - cholecalciferol (VITAMIN D3) 50 mcg (2,000 unit) tablet Take 2,000 Units by mouth twice daily. - multivitamin (MULTIPLE VITAMINS ORAL) Take by mouth. - TRIAMCINOLONE ACETONIDE (NASACORT NASAL) Use in the nose. 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] 06/30/2008 PREMENSTRUAL TENSION [N94.3] 06/30/2008 Allergic Rhinitis [J30.9] 06/30/2010 Fibromyalgia [M79.7] 07/31/2010 Postmenopausal bleeding [N95.0] 12/06/2017 Tendinitis of right shoulder [M77.8] 09/24/2022 Impingement syndrome of right shoulder [M75.41] 09/24/2022 Bursitis of right shoulder [M75.51] 09/24/2022 Bicipital tendinitis of right shoulder [M75.21] 09/24/2022 Incomplete tear of right rotator cuff [M75.111] 02/05/2023 02/05/2023 S/P right rotator cuff repair [Z98.890] 02/19/2023 Biceps tendonosis of right shoulder [M67.813] 02/19/2023 Prescriptions ordered this encounter Disp Refills Start End METHYLPREDNISOLONE 4 MG TABLETS IN A* 21 t* 0 07/01/2023 Route: ORAL Sig: Take 1 tablet by mouth as directed. As directed on package ETODOLAC 400 MG TABLET 28 t* 0 07/01/2023 07/15/2023 Route: ORAL Sig: Take 1 tablet by mouth twice daily for 14 days. Medications Discontinued During This Encounter Prescriptions - meloxicam (MOBIC) 7.5 mg tablet (Discontinued) Take 15 mg by mouth once daily. Encounter Status:Closed by CASS BEATTY on 07/02/23 [facility] 06-27-2023 [facility] GIANCARLOCARMENCITA ([id number]) 1965 F Date Time Provider Department 06/27/23 IVELISSE DE LA FUENTE During your visit today, we recorded the following information about you: Neo Collazo RN 06/27/2023 10:25 AM Signed Pt had right shoulder arthroscopy with repair 02/05/[address] [place] [address] eD La Fuente and has followed up in [place], also completing PT in [place]. Pt was taught put on bra in front of her chest, spin it around, then put on straps. On the , pt was in severe right shoulder pain while doing so. Pt states pain has gone from about a 2 to usually a 6-7 now and can no longer put on bra, requires 's assistance. While at PT, pt has also started using free weights, with a 5lb bicep curl, so the pt is unable to tell if she is hurting from therapy, or if she has caused new damage. Pt states at her ANGIE on 06/13/23, she did not have any pain at the incision site, but since the event on the , she now has pain at the site where her bra strap rubbed her shoulder. Pt informed PT at appointment, and PT suggested following up with ortho. Pt has found heat (hot showers) and Advil to be helpful, but not enough. Pt is asking if adding a steroid might be beneficial. Pt is also concerned if she may need an OV or additional imaging. Please review and advise. Thank you. Misty Collazo, Donna Portillo 06/28/2023 10:22 AM Signed Called and got patient on the schedule with Kandice Beatty PA-C per . Allergies As of Date: 06/27/2023 Noted Allergy Reaction CHLORAPREP CLEAR (CHLORHEXIDIN-IS*03/2 2 - Rash 4 - Hives IODINE 04/04/2004 4 - Hives MORPHINE 03/25/2006 11 - Vomiting PROCHLORPERAZINE 04/04/2004 11 - Vomiting Comments: compazine SULFA (SULFONAMIDE ANTIBIOTICS) 04/04/2004 Comments: uncertain Date Reviewed: 06/13/2023 Reviewed by: Ivelisse De La Fuente DO - Fully Assessed Reason for Visit: Post-op Problem [Other] Prescriptions as of 06/28/2023 - ascorbic acid, vitamin C, (VITAMIN C) 500 mg tablet Take 1,000 mg by mouth once daily. - oxyCODONE-acetaminoph en (PERCOCET) 5-325 mg tablet Take 1 tablet by mouth every 6 hours as needed for pain. - ondansetron (ZOFRAN) 4 mg tablet Take 1 tablet by mouth every 8 hours as needed for nausea/vomiting. - cholecalciferol (VITAMIN D3) 50 mcg (2,000 unit) tablet Take 2,000 Units by mouth twice daily. - multivitamin (MULTIPLE VITAMINS ORAL) Take by mouth. - meloxicam (MOBIC) 7.5 mg tablet Take 1 tablet by mouth once daily. - TRIAMCINOLONE ACETONIDE (NASACORT NASAL) Use in the nose. 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] 06/30/2008 PREMENSTRUAL TENSION [N94.3] 06/30/2008 Allergic Rhinitis [J30.9] 06/30/2010 Fibromyalgia [M79.7] 07/31/2010 Postmenopausal bleeding [N95.0] 12/06/2017 Tendinitis of right shoulder [M77.8] 09/24/2022 Impingement syndrome of right shoulder [M75.41] 09/24/2022 Bursitis of right shoulder [M75.51] 09/24/2022 Bicipital tendinitis of right shoulder [M75.21] 09/24/2022 Incomplete tear of right rotator cuff [M75.111] 02/05/2023 02/05/2023 S/P right rotator cuff repair [Z98.890] 02/19/2023 Biceps tendonosis of right shoulder [M67.813] 02/19/2023 Encounter Status:Closed by NEO COLLAZO on 06/28/23 [facility] CNOVon 06-13-2023 CNOV Office Visit (ORTHWS ) CARMENCITA MONDRAGON ([id number]) 1965 F Date Time Provider Department 06/13/23 8:45 AM IVELISSE DE LA FUENTE During your visit today, we recorded the following information about you: Ivelisse De La Fuente DO 06/13/2023 3:07 PM Signed Follow Up Visit Chief Complaint Carmencita Mondragon is a 57 year old female who presents today for follow up office visit. Patient presents with: Right Shoulder - Post Op: 18 weeks 2 days post R shoulder arthroscopy RCR. SAD, acromioplasty,intra articular biceps tendonitis History of Present Illness PAIN EVALUATION 06/12/2023 1519 06/13/2023 0857 Pain Level: 6 6 Pain Location: Arm-Upper Right Shoulder-Right and upper arm Description: Burning;Contraction;R adiating;Sharp;Spasm; Stabbing;Stiffness;Ti ghtness Spasm;Cramping;Tightn ess;Burning;Sharp;Rad iating Duration Amount of Time: -- 18 Duration Units: Months Weeks Frequency: Intermittent Intermittent Intervention/Comfort measure: Medication;Relaxation ;Aromatherapy to promote a healing environment;Cold;Dist ractions;Exercise;Hea t;Massage;Music;Johnnie w support;Positioning Reposition;Medication ;Relaxation;Cold;Heat ;Massage;Pillow support;Positioning HPI: Carmencita Mondragon is a 57 year old female for a follow up visit R shoulder arthroscopy RCR, SAD,acromioplasty,int ra articular biceps tendonitis. Pain history is noted as above. Patient reports intermittent pain that changes area any pain type.She takes ibuprofen or tylenol for pain. Is there any overall improvement in your condition? No Any new injury, since being seen last: No REVIEW OF SYMPTOMS: Patient did not have, and does not currently have, any weight loss, malaise, fever, chills, headache, chest pain, chest pressure, palpitations, cough, shortness of breath, orthopnea, paroxsymal nocturnal dyspnea, nausea, vomiting, diarrhea, constipation, melena, hematochezia, urinary difficulties, prolonged bleeding, easily bruising, heat or cold intolerance, new onset joint pain or swelling, new onset extremity weakness or numbness, new onset auditory or visual disturbances, lightheadedness, dizziness, partial loss of consciousness or full loss of consciousness. Current Outpatient Medications Medication Sig ascorbic acid, vitamin C, (VITAMIN C) 500 mg tablet Take 1,000 mg by mouth once daily. cholecalciferol (VITAMIN D3) 50 mcg (2,000 unit) tablet Take 2,000 Units by mouth twice daily. multivitamin (MULTIPLE VITAMINS ORAL) Take by mouth. TRIAMCINOLONE ACETONIDE (NASACORT NASAL) Use in the nose. One spray in each nostril at bedtime oxyCODONE-acetaminoph en (PERCOCET) 5-325 mg tablet Take 1 tablet by mouth every 6 hours as needed for pain. ondansetron (ZOFRAN) 4 mg tablet Take 1 tablet by mouth every 8 hours as needed for nausea/vomiting. meloxicam (MOBIC) 7.5 mg tablet Take 1 tablet by mouth once daily. (Patient taking differently: Take 15 mg by mouth once daily.) No current facility-administered medications for this visit. Physical Exam Vitals: [facility] 10/06/2015 Psych: Pleasant, good affect and mood General Appearance: Well appearing, alert, in no acute distress, well-hydrated, well nourished.. Skin: Skin color, texture, turgor normal, no suspicious rashes or lesions. Peripheral Pulses: Normal. Neurologic: Gait normal. Reflexes normal and symmetric. Sensation grossly intact.. Lymph Nodes: No cervical lymphadenopathy, No supraclavicular lymphadenopathy, No axillary lymphadenopathy., and No inguinal lymphadenopathy.. Respiratory: No recent pulmonary infection, hemoptysis, chronic cough, or shortness of breath at rest Rheumatologic: Joint deformities: right shoulder pain Right Hand Exam Right hand exam is normal. Tenderness The patient is experiencing no tenderness. Range of Motion The patient has normal right wrist ROM. Wrist Extension: normal Flexion: normal Pronation: normal Supination: normal Muscle Strength The patient has normal right wrist strength. Tests Phalen?s Sign: negative Tinel's sign (median nerve): negative Randy's test: negative Other Erythema: absent Sensation: normal Pulse: present Comments: B/l med/uln/rad/ax nerves intact Left Hand Exam Left hand exam is normal. Tenderness The patient is experiencing no tenderness. Range of Motion The patient has normal left wrist ROM. Wrist Extension: normal Flexion: normal Pronation: normal Supination: normal Muscle Strength The patient has normal left wrist strength. Tests Phalen?s Sign: negative Tinel's sign (median nerve): negative Randy's test: negative Other Erythema: absent Sensation: normal Pulse: present Right Shoulder Exam Right shoulder exam is normal. Tenderness The patient is experiencing no tenderness. Range of Motion Active abduction: normal Passive abduction: normal E (more content not included)... Normal [facility] LABORATORYOrdered By: SYSTEM SYSTEM on 05-15-2023 25-hydroxyvitamin D3 [Mass/Vol] 29.3 ng/mL Invalid Interpretation Code AO ADM SS Calcium [Mass/Vol] 9.8 mg/dL Invalid Interpretation Code 8.4 - 10.2 mg/dL AO ADM SS Chloride [Moles/Vol] 102 mmol/L Invalid Interpretation Code 98 - 107 mmol/L AO ADM SS CO2 [Moles/Vol] 26 mmol/L Invalid Interpretation Code 22 - 29 mmol/L AO ADM SS Creatinine [Mass/Vol] 0.73 mg/dL Invalid Interpretation Code 0.55 - 1.02 mg/dL AO ADM SS Electrolyte Balance 9.0 mEq/L Invalid Interpretation Code 4.0 - 15.0 mEq/L AO ADM SS GFR/1.73 sq M.predicted among blacks MDRD (S/P/Bld) [Vol rate/Area] 100 ml/min/1.73sqm Invalid Interpretation Code AO Chemistry S GFR/1.73 sq M.predicted among non-blacks MDRD (S/P/Bld) [Vol rate/Area] 82 ml/min/1.73sqm Invalid Interpretation Code AO Chemistry S Glucose [Mass/Vol] 99 mg/dL Invalid Interpretation Code 70 - 105 mg/dL AO ADM SS Potassium [Moles/Vol] 4.4 mmol/L Invalid Interpretation Code 3.5 - 5.1 mmol/L AO ADM SS Sodium [Moles/Vol] 137 mmol/L Invalid Interpretation Code 136 - 145 mmol/L AO ADM SS Urea nitrogen [Mass/Vol] 7 mg/dL Invalid Interpretation Code 7 - 18 mg/dL AO ADM SS Urea nitrogen/Creatinine [Mass ratio] 10 ratio Invalid Interpretation Code 7 - 27 ratio AO ADM SS LABORATORYOrdered By: Ngoc Bocanegra on 05-15-2023 Basophil, Absolute 0.0 103/mcL Invalid Interpretation Code 0.0 - 0.2 10^3/mcL AO Workflow SS Basophils/100 WBC (Bld) 0.8 % Invalid Interpretation Code 0.0 - 2.5 % AO Workflow SS Eosinophil, Absolute 0.1 103/mcL Invalid Interpretation Code 0.0 - 0.4 10^3/mcL AO Workflow SS Eosinophils/100 WBC (Bld) 2.6 % Invalid Interpretation Code 0.0 - 7.0 % AO Workflow SS Erythrocyte distribution width (RBC) [Ratio] 13.2 % Invalid Interpretation Code 11.5 - 14.5 % AO Workflow SS Hematocrit (Bld) [Volume fraction] 39.9 % Invalid Interpretation Code 37.0 - 47.0 % AO Workflow SS Hemoglobin (Bld) [Mass/Vol] 13.6 G/dL Invalid Interpretation Code 12.0 - 16.0 G/dL AO Workflow SS Lymphocyte, Absolute 1.8 103/mcL Invalid Interpretation Code 0.8 - 3.9 10^3/mcL AO Workflow SS Lymphocytes/100 WBC (Bld) 32.0 % Invalid Interpretation Code 10.0 - 50.0 % AO Workflow SS MCH (RBC) [Entitic mass] 29.5 pg Invalid Interpretation Code 27.0 - 31.2 pg AO Workflow SS MCHC 34.0 G/dL Invalid Interpretation Code 33.0 - 37.0 G/dL AO Workflow SS MCV (RBC) [Entitic vol] 86.7 fL Invalid Interpretation Code 80.0 - 94.0 fL AO Workflow SS Monocyte, Absolute 0.4 103/mcL Invalid Interpretation Code 0.2 - 1.0 10^3/mcL AO Workflow SS Monocytes/100 WBC (Bld) 6.4 % Invalid Interpretation Code 1.7 - 13.0 % AO Workflow SS Neutrophil, Absolute 3.2 103/mcL Invalid Interpretation Code 2.9 - 6.2 10^3/mcL AO Workflow SS Neutrophils/100 WBC (Bld) 58.2 % Invalid Interpretation Code 37.0 - 80.0 % AO Workflow SS Platelet mean volume (Bld) [Entitic vol] 8.2 fL Invalid Interpretation Code 7.4 - 10.4 fL AO Workflow SS Platelets (Bld) [#/Vol] 238 103/mcL Invalid Interpretation Code 130 - 400 10^3/mcL AO Workflow SS RBC (Bld) [#/Vol] 4.60 106/mcL Invalid Interpretation Code 4.20 - 5.40 10^6/mcL AO Workflow SS WBC (Bld) [#/Vol] 5.5 103/mcL Invalid Interpretation Code 4.6 - 10.8 10^3/mcL AO Workflow SS LABORATORYOrdered By: Marita Grewal on 05-15-2023 Cholesterol [Mass/Vol] 248 mg/dL Invalid Interpretation Code 0 - 200 mg/dL AO ADM SS Cholesterol in HDL [Mass/Vol] 58 mg/dL Invalid Interpretation Code 40 - 60 mg/dL AO ADM SS Cholesterol in LDL [Mass/Vol] 169 mg/dL Invalid Interpretation Code 0 - 130 mg/dL AO ADM SS Triglyceride [Mass/Vol] 107 mg/dL Invalid Interpretation Code 0 - 150 mg/dL AO ADM SS US ARM VEIN DVT UNL VAS LABo n 05-06-2023 US ARM VEIN DVT UNL VAS LAB Non-Invasive Vascular Laboratory [facility] Upper Extremity Venous Duplex Unilateral - Right Date of service/time: 05/06/2023 2:31:19 PM Name: MRS. CARMENCITA MONDRAGON Date: 1965 Age: 57 years Gender: F Medical History Tobacco: Former Clinical Indication Upper extremity pain. TECHNIQUE -------- A venous duplex ultrasound examination was performed, including grayscale imaging with compression maneuvers and color Doppler and spectral Doppler examination with augmentation maneuvers and response to respiration of the below mentioned veins. FINDINGS -------- RIGHT SIDE Internal jugular vein Doppler: normal flow. Compression: normal. Subclavian vein Doppler: normal flow. Compression: normal. Axillary vein Doppler: normal flow. Compression: normal. Brachial vein Doppler: normal flow. Compression: normal. Basilic vein Compression: normal. Cephalic vein Doppler: abnormal flow with reflux. Compression: normal. LEFT SIDE Subclavian vein Doppler: normal flow. IMPRESSION RIGHT SIDE - DEEP VEINS Negative for acute deep vein thrombosis. No significant issue noted in area of pain. LEFT SIDE - DEEP VEINS Spontaneous and respirophasic flow noted in the subclavian vein. Technologist: Liza Cornell T Ordering physician: IVELISSE DE LA FUENTE Interpreting physician: Domitila Francois MD, RPVI Final CC [employer] Medical Image : [id number] See Link below for Image Normal [facility] CNOVon 05-02-2023 CNOV Office Visit (COLT ) CARMENCITA MONDRAGON ([id number]) 1965 F Date Time Provider Department 05/02/23 9:00 AM IVELISSE DE LA FUENTE During your visit today, we recorded the following information about you: Ivelisse De La Fuente DO 05/02/2023 10:55 AM Signed Follow Up Visit Chief Complaint Carmencita R iGancarlo is a 57 year old female who presents today for follow up office visit. Patient presents with: Right Shoulder - Post Op, Follow Up History of Present Illness PAIN EVALUATION 04/30/2023 1101 Pain Level: 5 Pain Location: Arm-Upper Right Description: Aching;Burning;Contra ction;Pressure;Sharp; Shooting;Stabbing Duration Units: Hours Frequency: Intermittent Intervention/Comfort measure: Medication;Reposition ;Relaxation;Aromather apy to promote a healing environment;Cold;Exer cise;Massage;Music;Pi llow support;Positioning;R ocking/holding HPI: Carmencita Mondragon is a 57 year old female for a follow up visit 12 weeks 2 days post op right shoulder arthroscopy RCR, SAD/acromioplasty, intraarticular biceps tenodesis. Pain history is noted as above. Reports pain mainly in R upper arm near tricep. Pain is constant but worse at night when she is laying in bed. States arm feels very tight even at rest. Also reports clicking in R shoulder when she does her exercises in the morning. She is in PT and feels like clicking started once she started becoming more active. Had skin issues bc of welts and had antibiotics which cleared skin lesions, had pain in arm and placed on diclofenac. Got a virus recnelty and better today, and here today for follow up. Having triceps pain and swelling in arm. Is there any overall improvement in your condition? yes Any new injury, since being seen last: No REVIEW OF SYMPTOMS: Patient did not have, and does not currently have, any weight loss, malaise, fever, chills, headache, chest pain, chest pressure, palpitations, cough, shortness of breath, orthopnea, paroxsymal nocturnal dyspnea, nausea, vomiting, diarrhea, constipation, melena, hematochezia, urinary difficulties, prolonged bleeding, easily bruising, heat or cold intolerance, new onset joint pain or swelling, new onset extremity weakness or numbness, new onset auditory or visual disturbances, lightheadedness, dizziness, partial loss of consciousness or full loss of consciousness. Current Outpatient Medications Medication Sig ascorbic acid, vitamin C, (VITAMIN C) 500 mg tablet Take 1,000 mg by mouth once daily. cholecalciferol (VITAMIN D3) 50 mcg (2,000 unit) tablet Take 2,000 Units by mouth twice daily. multivitamin (MULTIPLE VITAMINS ORAL) Take by mouth. TRIAMCINOLONE ACETONIDE (NASACORT NASAL) Use in the nose. One spray in each nostril at bedtime diclofenac, EC, (VOLTAREN) 50 mg EC tablet Take 1 tablet by mouth twice daily. oxyCODONE-acetaminoph en (PERCOCET) 5-325 mg tablet Take 1 tablet by mouth every 6 hours as needed for pain. ondansetron (ZOFRAN) 4 mg tablet Take 1 tablet by mouth every 8 hours as needed for nausea/vomiting. meloxicam (MOBIC) 7.5 mg tablet Take 1 tablet by mouth once daily. (Patient taking differently: Take 15 mg by mouth once daily.) No current facility-administered medications for this visit. Physical Exam Vitals: [facility] 10/06/2015 Psych: Pleasant, good affect and mood General Appearance: Well appearing, alert, in no acute distress, well-hydrated, well nourished.. Skin: Skin color, texture, turgor normal, no suspicious rashes or lesions. Peripheral Pulses: Normal. Neurologic: Gait normal. Reflexes normal and symmetric. Sensation grossly intact.. Lymph Nodes: No cervical lymphadenopathy, No supraclavicular lymphadenopathy, No axillary lymphadenopathy., and No inguinal lymphadenopathy.. Respiratory: No recent pulmonary infection, hemoptysis, chronic cough, or shortness of breath at rest Rheumatologic: Joint deformities: right arm pain Right Hand Exam Right hand exam is normal. Tenderness The patient is experiencing no tenderness. Range of Motion The patient has normal right wrist ROM. Wrist Extension: normal Flexion: normal Pronation: normal Supination: normal Muscle Strength The patient has normal right wrist strength. Tests Phalen?s Sign: negative Tinel's sign (median nerve): negative Randy's test: negative Other Erythema: absent Sensation: normal Pulse: present Comments: B/l med/uln/rad/ax nerves intact Left Hand Exam Left hand exam is normal. Tenderness The patient is experiencing no tenderness. Range of Motion The patient has normal left wrist ROM. Wrist Extension: normal Flexion: normal Pronation: normal Supination: normal Muscle Strength The patient has normal left wrist strength. Tests Phalen?s Sign: negative Tinel's sign (median nerve): negative Randy's test: negative Other Erythema: absent S (more content not included)... Normal [facility] CNTHERAPYon 04-30-2023 CNTHERAPY OT/PT/Speech Visit (PTWS) GIANCARLOCARMENCITA ([id number]) 1965 F Date Time Provider Department 04/30/23 1:15 PM WAN WILKINSON PTWS Date Time Provider Department [place] 04/30/2023 1:15 PM [id number], BRENT PTWS Edgar Nagel Reason for Visit: Physical Therapy [503] Primary Visit Diagnosis:S/P right rotator cuff repair [Z98.890] Other Visit Diagnosis:Biceps tendonosis of right shoulder [M67.813] Allergies As of Date: 04/30/2023 Noted Allergy Reaction CHLORAPREP CLEAR (CHLORHEXIDIN-IS*/ 2 - Rash 4 - Hives IODINE 04/04/2004 4 - Hives MORPHINE 03/25/2006 11 - Vomiting PROCHLORPERAZINE 04/04/2004 11 - Vomiting Comments: compazine SULFA (SULFONAMIDE ANTIBIOTICS) 04/04/2004 Comments: uncertain Date Reviewed: 03/15/2023 Reviewed by: Cass Beatty PA-C - Fully Assessed Prescriptions as of 04/30/2023 - diclofenac, EC, (VOLTAREN) 50 mg EC tablet Take 1 tablet by mouth twice daily. - oxyCODONE-acetaminoph en (PERCOCET) 5-325 mg tablet Take 1 tablet by mouth every 6 hours as needed for pain. - ondansetron (ZOFRAN) 4 mg tablet Take 1 tablet by mouth every 8 hours as needed for nausea/vomiting. - cholecalciferol (VITAMIN D3) 50 mcg (2,000 unit) tablet Take 2,000 Units by mouth twice daily. - multivitamin (MULTIPLE VITAMINS ORAL) Take by mouth. - meloxicam (MOBIC) 7.5 mg tablet Take 1 tablet by mouth once daily. - TRIAMCINOLONE ACETONIDE (NASACORT NASAL) Use in the nose. One spray in each nostril at bedtime Normal [facility] CNTHERAPYon 04-15-2023 CNTHERAPY OT/PT/Speech Visit (PTWS) CARMENCITA MONDRAGON ([id number]) 1965 F Date Time Provider Department 04/15/23 3:45 PM WAN WILKINSON PTGLORIA Date Time Provider Department Center 04/15/2023 3:45 PM [id number], BRENT PTGLORIA Nagel Reason for Visit: PT Progress Note [1596] Primary Visit Diagnosis:S/P right rotator cuff repair [Z98.890] Other Visit Diagnosis:Biceps tendonosis of right shoulder [M67.813] Allergies As of Date: 04/15/2023 Noted Allergy Reaction CHLORAPREP CLEAR (CHLORHEXIDIN-IS*03/2 2 - Rash 4 - Hives IODINE 04/04/2004 4 - Hives MORPHINE 03/25/2006 11 - Vomiting PROCHLORPERAZINE 04/04/2004 11 - Vomiting Comments: compazine SULFA (SULFONAMIDE ANTIBIOTICS) 04/04/2004 Comments: uncertain Date Reviewed: 03/15/2023 Reviewed by: Cass Beatty PA-C - Fully Assessed Prescriptions as of 04/15/2023 - diclofenac, EC, (VOLTAREN) 50 mg EC tablet Take 1 tablet by mouth twice daily. - oxyCODONE-acetaminoph en (PERCOCET) 5-325 mg tablet Take 1 tablet by mouth every 6 hours as needed for pain. - ondansetron (ZOFRAN) 4 mg tablet Take 1 tablet by mouth every 8 hours as needed for nausea/vomiting. - cholecalciferol (VITAMIN D3) 50 mcg (2,000 unit) tablet Take 2,000 Units by mouth twice daily. - multivitamin (MULTIPLE VITAMINS ORAL) Take by mouth. - meloxicam (MOBIC) 7.5 mg tablet Take 1 tablet by mouth once daily. - TRIAMCINOLONE ACETONIDE (NASACORT NASAL) Use in the nose. One spray in each nostril at bedtime [facility]EDNA[facility] CARMENCITA MONDRAGON ([id number]) 1965 F Date Time Provider Department 04/08/23 IVELISSE DE LA FUENTE During your visit today, we recorded the following information about you: Dvei Perkins RN 04/08/2023 2:30 PM Signed Pt calling. S/P right rotator cuff repair, DOS: 02/05/2023 Saw PT today who suggested she call. Burning sensation in bone, shoulder is extremely sensitive when it wasn't before. Also having more difficulty reaching when she was able to before. Ph. [phone] Please advise. Cass Beatty PA-C 04/09/2023 2:55 PM Signed Has had worsening pain since Saturday. No injury. Pain feels like it is burning and her motion has slightly decreased. Advised to take vitamin C twice daily. Discussed prescription anti-inflammatories vs prednisone taper. Rx for diclofenac sent to pharmacy. Cass Beatty PA-C Allergies As of Date: 04/08/2023 Noted Allergy Reaction CHLORAPREP CLEAR (CHLORHEXIDIN-IS*03/2 2 - Rash 4 - Hives IODINE 04/04/2004 4 - Hives MORPHINE 03/25/2006 11 - Vomiting PROCHLORPERAZINE 04/04/2004 11 - Vomiting Comments: compazine SULFA (SULFONAMIDE ANTIBIOTICS) 04/04/2004 Comments: uncertain Date Reviewed: 03/15/2023 Reviewed by: Cass Beatty PA-C - Fully Assessed Reason for Visit: Patient Update [8304] Patient Question [7127] Primary Visit Diagnosis:S/P right rotator cuff repair [Z98.890] Order(s):diclofenac, EC, (VOLTAREN) 50 mg EC tabletTake 1 tablet by mouth twice daily.Disp: 60 tabletRfl: 0 Prescriptions as of 04/09/2023 - diclofenac, EC, (VOLTAREN) 50 mg EC tablet Take 1 tablet by mouth twice daily. - oxyCODONE-acetaminoph en (PERCOCET) 5-325 mg tablet Take 1 tablet by mouth every 6 hours as needed for pain. - ondansetron (ZOFRAN) 4 mg tablet Take 1 tablet by mouth every 8 hours as needed for nausea/vomiting. - cholecalciferol (VITAMIN D3) 50 mcg (2,000 unit) tablet Take 2,000 Units by mouth twice daily. - multivitamin (MULTIPLE VITAMINS ORAL) Take by mouth. - meloxicam (MOBIC) 7.5 mg tablet Take 1 tablet by mouth once daily. - TRIAMCINOLONE ACETONIDE (NASACORT NASAL) Use in the nose. 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] 04/04/2004 CERVICALGIA [M54.2] 02/18/2007 MYALGIA AND MYOSITIS NOS [ZTD8086] 02/18/2007 LUMP OR MASS IN BREAST [N63.0] 07/15/2007 PAIN IN LIMB [M79.609] 09/05/2007 Excessive or frequent menstruation [N92.0] 06/30/2008 11/12/2016 IRREGULAR MENSTRUATION [N92.6] 06/30/2008 MILD DYSPLASIA OF CERVIX [N87.0] 06/30/2008 PREMENSTRUAL TENSION [N94.3] 06/30/2008 Allergic Rhinitis [J30.9] 06/30/2010 Fibromyalgia [M79.7] 07/31/2010 Postmenopausal bleeding [N95.0] 12/06/2017 Tendinitis of right shoulder [M77.8] 09/24/2022 Impingement syndrome of right shoulder [M75.41] 09/24/2022 Bursitis of right shoulder [M75.51] 09/24/2022 Bicipital tendinitis of right shoulder [M75.21] 09/24/2022 Incomplete tear of right rotator cuff [M75.111] 02/05/2023 02/05/2023 S/P right rotator cuff repair [Z98.890] 02/19/2023 Biceps tendonosis of right shoulder [M67.813] 02/19/2023 Prescriptions ordered this encounter Disp Refills Start End DICLOFENAC SODIUM 50 MG TABLET,DELAY* 60 t* 0 04/09/2023 05/09/2023 Route: ORAL Sig: Take 1 tablet by mouth twice daily. Encounter Status:Closed by CASS BEATTY on 04/09/23 [facility] CNTHERAPYon 04-08-2023 CNTHERAPY OT/PT/Speech Visit (PTWS) CARMENCITA MONDRAGON ([id number]) 1965 F Date Time Provider Department 04/08/23 12:30 PM AWILDA RIVER PTWS Date Time Provider Department [place] 04/08/2023 12:30 PM [id number], MARIAH PTWS Edgar Nagel Reason for Visit: Physical Therapy [503] Primary Visit Diagnosis:S/P right rotator cuff repair [Z98.890] Other Visit Diagnosis:Biceps tendonosis of right shoulder [M67.813] Allergies As of Date: 04/08/2023 Noted Allergy Reaction CHLORAPREP CLEAR (CHLORHEXIDIN-IS*03/2 2 - Rash 4 - Hives IODINE 04/04/2004 4 - Hives MORPHINE 03/25/2006 11 - Vomiting PROCHLORPERAZINE 04/04/2004 11 - Vomiting Comments: compazine SULFA (SULFONAMIDE ANTIBIOTICS) 04/04/2004 Comments: uncertain Date Reviewed: 03/15/2023 Reviewed by: Cass Beatty PA-C - Fully Assessed Prescriptions as of 04/08/2023 - oxyCODONE-acetaminoph en (PERCOCET) 5-325 mg tablet Take 1 tablet by mouth every 6 hours as needed for pain. - ondansetron (ZOFRAN) 4 mg tablet Take 1 tablet by mouth every 8 hours as needed for nausea/vomiting. - cholecalciferol (VITAMIN D3) 50 mcg (2,000 unit) tablet Take 2,000 Units by mouth twice daily. - multivitamin (MULTIPLE VITAMINS ORAL) Take by mouth. - meloxicam (MOBIC) 7.5 mg tablet Take 1 tablet by mouth once daily. - TRIAMCINOLONE ACETONIDE (NASACORT NASAL) Use in the nose. One spray in each nostril at bedtime Normal [facility] CNTHERAPYon 03-25-2023 CNTHERAPY OT/PT/Speech Visit (PTWS) CARMENCITA MONDRAGON ([id number]) 1965 F Date Time Provider Department 03/25/23 8:45 AM AWILDA RIVER PTWS Date Time Provider Department Center 03/25/2023 8:45 AM [id number], MARIAH PTWS Edgar Nagel Reason for Visit: Physical Therapy [503] Primary Visit Diagnosis:S/P right rotator cuff repair [Z98.890] Other Visit Diagnosis:Biceps tendonosis of right shoulder [M67.813] Allergies As of Date: 03/25/2023 Noted Allergy Reaction CHLORAPREP CLEAR (CHLORHEXIDIN-IS*01/31 2 - Rash 4 - Hives IODINE 04/04/2004 4 - Hives MORPHINE 03/25/2006 11 - Vomiting PROCHLORPERAZINE 04/04/2004 11 - Vomiting Comments: compazine SULFA (SULFONAMIDE ANTIBIOTICS) 04/04/2004 Comments: uncertain Date Reviewed: 03/15/2023 Reviewed by: Cass Beatty PA-C - Fully Assessed Prescriptions as of 03/25/2023 - oxyCODONE-acetaminoph en (PERCOCET) 5-325 mg tablet Take 1 tablet by mouth every 6 hours as needed for pain. - ondansetron (ZOFRAN) 4 mg tablet Take 1 tablet by mouth every 8 hours as needed for nausea/vomiting. - cholecalciferol (VITAMIN D3) 50 mcg (2,000 unit) tablet Take 2,000 Units by mouth twice daily. - multivitamin (MULTIPLE VITAMINS ORAL) Take by mouth. - meloxicam (MOBIC) 7.5 mg tablet Take 1 tablet by mouth once daily. - TRIAMCINOLONE ACETONIDE (NASACORT NASAL) Use in the nose. One spray in each nostril at bedtime [facility] ANES POSTPROC EVALon 023 ANES POSTPROC EVAL HNO ID: [id number] Author: Oz Porras MD Service: Anesthesiology Author Type: Anesthesiologist Type: Anesthesia Postprocedure Evaluation Filed: 02/05/2023 9:53 AM Note Text: POST ANESTHESIA EVALUATION NOTE : 1965 Procedure Summary Date: 02/05/23 Room / Location: [place] [address] / [place] Anesthesia Start: 735 Anesthesia Stop: 913 Procedures: ARTHROSCOPY SHOULDER ROTATOR CUFF (Right: Shoulder) TENODESIS LONG TENDON BICEPS (Right: Shoulder) ARTHROSCOPY SHOULDER WITH SUBACROMIAL DECOMPRESSION (Right: Shoulder) Diagnosis: Incomplete tear of right rotator cuff, unspecified whether traumatic Biceps tendinitis of right upper extremity (Incomplete tear of right rotator cuff, unspecified whether traumatic [M75.111]) (Biceps tendinitis of right upper extremity [M75.21]) Surgeons: Ivelisse De La Fuente DO Responsible Provider: Oz Porras MD Anesthesia Type: general ASA Status: 2 Anesthesia Type: general Airway Type: ETT Last Vitals Vitals Value Taken Time BP 134/63 02/05/23 0945 Temp 36 ?C (96.8 ?F) 02/05/23 0945 Pulse 83 02/05/23 0952 Resp 14 02/05/23 0952 SpO2 94 % 02/05/23 0952 Vitals shown include unvalidated device data. Post Anesthesia Patient Status Patient Evaluation: PACU. PACU/ICU Patient Condition: stable. Anticipated Disposition: phase 2 then home. Neurological Status: aware and responsive. Pulmonary Status: breathing comfortably on room air Airway Control: returned to baseline unsupported. Cardiovascular Status: stable. Pain Management: clinically adequate - multimodal analgesia pain management approach Postoperative Hydration: acceptable. Intraoperative Events: no significant anesthesia events Recommendation: continue current plan of care. Anesthesia Observations No Documentation SIGNATURE: Oz Porras MD PATIENT NAME: Carmencita Mondragon DATE: February 05, 2023 TIME: 9:53 AM CSN: [id number] [facility] ANES PRE-OPon 02-05-2023 ANES PRE-OP HNO ID: [id number] Author: Oz Porras MD Service: Anesthesiology Author Type: Anesthesiologist Type: Anesthesia Preprocedure Evaluation Filed: 02/05/2023 6:54 AM Note Text: ANESTHESIOLOGY DAY OF SURGERY NOTE : 1965 Procedure Information Date/Time: 02/05/23729 Procedures: ARTHROSCOPY SHOULDER ROTATOR CUFF (Right: Shoulder) TENODESIS LONG TENDON BICEPS (Right: Shoulder) Location[place] [place] Surgeons: Ivelisse De La Fuente, Estimated body mass index is 29.41 kg/m? as calculated from the following: Height as of 01/21/23: 168.9 cm (5' 6.5). Weight as of 01/21/23: 83.9 kg (185 lb). Most recent hematocrit and potassium results: Potassium 4.3 06/11/2017 Relevant Problems Other (+) Impingement syndrome of right shoulder I - PHYSICAL EVALUATION AIRWAY Patient intubated: No. Mallampati: II. TM distance: >3 FB. Neck ROM: full ROM without neurological symptoms. Mouth opening: adequate. Short neck: no. Thick neck: no DENTAL Dental findings: teeth intact and poor dentition. Additional exam findings: no II - ANESTHESIA PLAN ASA Score: 2 Anesthetic Plan: general Airway type: ETT NPO Status: adequate Beta Jennifer Monitoring Plan Monitoring plan: Standard ASA. Post Procedure Analgesic Plan Postoperative analgesic plan: parenteral or oral opioids and multimodal analgesia. Patient / Surrogate agrees to blood products: yes DNR status not reviewed with patient and/or family prior to surgery. Significant changes in the patient condition since the History and Physical, not otherwise documented in primary service progress note: no. Potential Anesthesia issues that may suggest increased risk of complications or contraindication to planned procedure: none. Vitals Value Taken Time BP 153/74 02/05/23 0638 Pulse 95 02/05/23 0638 Resp 16 02/05/23 0638 Temp 36.8 ?C (98.2 ?F) 02/05/23 0638 SpO2 99 % 02/05/23 0638 Facility-Administered Medications as of 02/05/2023 Medication Dose Route Frequency - lidocaine (PF) 10 mg/mL (1 %) 1-2 mg injection (XYLOCAINE) 0.1-0.2 mL INTRADERMAL PRN - lactated ringers iv infusion 5-30 mL/hr INTRAVENOUS CONTINUOUS - NaCl 0.9% iv flush bag 20 mL INTRAVENOUS PRN - ceFAZolin iv piggyback 2 g in D5W (iso-osmotic) 100 mL (ANCEF) 2 g INTRAVENOUS Pre-Op Once - acetaminophen 1,000 mg tab(s) (TYLENOL) 1,000 mg ORAL Pre-Op Once - midazolam (PF) 2 mg injection (VERSED) 2 mg INTRAVENOUS ONCE Outpatient Medications as of 02/05/2023 Medication Sig - multivitamin (MULTIPLE VITAMINS ORAL) Take by mouth. - meloxicam (MOBIC) 7.5 mg tablet Take 1 tablet by mouth once daily. (Patient taking differently: Take 15 mg by mouth once daily.) - TRIAMCINOLONE ACETONIDE (NASACORT NASAL) Use in the nose. One spray in each nostril at bedtime I have interviewed and examined the patient. I have reviewed the medical record and/or the pre-anesthesia evaluation, pertinent labs, and test results. This contains updated information obtained within 48 hours of Surgery/Procedure. SIGNATURE: Oz Porras MD PATIENT NAME: Carmencita Mondragon DATE: February 05, 2023 TIME: 6:54 AM CSN: [id number] [facility] NURSING PROGon 02-05-2023 NURSING PROG HNO ID: [id number] Author: Wendie Shah RN Service: Nursing Author Type: Registered Nurse Type: Nursing Progress Note Filed: 02/05/2023 10:42 AM Note Text: Other: pt feeling slightly better, IV Zofran given, snack and drink given, called to bedside and pt relates I'm ready to go home [facility] NURSING PROG HNO ID: [id number] Author: Ananda Garcia RN Service: Nursing Author Type: Registered Nurse Type: Nursing Progress Note Filed: 02/05/2023 7:47 AM Note Text: Dr. Porras at bedside for Right supraclavicuar nerve block. RN at bedside, pt monitored throughout, BP 149/66 Pulse 95 Temp 36.8 ?C (98.2 ?F) (Temporal Artery) Resp 18 LMP 10/06/2015 SpO2 100% .Pt tolerated procedure without difficulty. [facility] OPERATIVE NOon 02-05-2023 OPERATIVE NO HNO ID: [id number] Author: Ivelisse De La Fuente DO Service: Orthopaedic Surgery Author Type: Physician Type: Operative Report Filed: 02/05/2023 9:44 AM Note Text: OPERATIVE/PROCEDURE REPORT LOG ID: [id number] SURGERY/PROCEDURE DATE: 02/05/2023 INCISION/PROCEDURE START TIME: 8:14 AM INCISION CLOSE/PROCEDURE END TIME: 8:59 AM SURGEON(S)/PROCEDURAL IST(S) AND SCALE MODEL MAKER(S): Surgeon(s) and Role: * Ivelisse De La Fuente, DO - Primary Nurse Practitioner: Rogers Castro APRN.BODY SERVICE TEAM MEMBER Physician Logistics/Shipper: Libby Meyer PA-C; Keesha Knapp PA-C SURGERY/PROCEDURE(S): Right shoulder arthroscopy, rotator cuff repair, sad/acromioplasty, intraarticular biceps tenodesis ANESTHESIA: General SURGERY/PROCEDURE DETAILS: Preop note Patient is a 57-year-old female with continued right shoulder pain recalcitrant to conservative treatment options. MRI confirms incomplete rotator cuff as well as biceps labral tear as well as impingement syndrome. Consistent with exam. Risk benefits and alternatives surgery discussed with patient. Risk including but not limited to blood loss, blood clot, infection, neurovascular injury, failure procedure, loss of life and loss of limb. Patient is aware would like to proceed with right shoulder arthroscopy repair as indicated. We discussed intra-articular versus subpectoral and the fact the patient has no anterior groove pain and most likely will do an intra-articular tenodesis. We also discussed however if the tendon was significantly torn and needed to be excised we would do a septic tenodesis. Patient aware and agreement plan. Operative note Patient seen and examined preop holding area. Patient received a preop regional block. Patients right shoulder was marked. Patient was brought to the operating room and placed supine on the operating room table. Patient was placed in beachchair positioning and longterm through we rechecked her blood pressure which was stable throughout. All bony prominences were well-padded and SCDs placed on her bilateral lower extremity. S sign in, antibiotics and anesthesia was administered prior to beachchair positioning. The right arm was then prepped and draped in usual sterile technique. We marked out our bony landmarks for portal placement. Timeout was performed. We then insufflated the glenohumeral joint from the posterior aspect and had good return. We then created a posterior portal with an 11 blade and began our diagnostic arthroscopy. Patient has significant glenohumeral humeral changes condyle's lesion on the posterior aspect of her humerus. The rotator cuff was partially torn and marked with a 18-gauge spinal needle. The subscap was intact. The biceps was unstable at the biceps labral junction and it was hyperemic. We then created an anterior portal under direct visualization. We inserted a cannula into the anterior portal. We then performed a loopn tack with Arthrex system in standard technique and truncated the biceps at the biceps labral junction and then debrided back any loose tissue. The biceps was placed superior to the subscap and was secured after truncation. We then gently debride back the undersurface of the rotator cuff as well as the labrum. The rotator cuff appeared to be about 6065% torn off of its leading edge partial-thickness. We then moved to the subacromial space. A lateral portal was created under direct visualization. There is thickened bursa throughout especially the posterior veil. This was resected with a combination of a ablator wand and a shaver. We then able to visualize our rotator cuff and the site of our previously marked rotator cuff tear the tissue on the bursal side was also thinned and degenerative we completed the tear at that site. We then prepared our bed we did use a pick to microfracture the area where we can perform our lateral row we placed a suture tape through the small U-shaped tear and placed it to 1 swivel lock laterally in standard technique. We had no dogears good coverage and tension-free repair. Please note that throughout the case both the subacromial space and the glenohumeral joint were irrigated with copious amounts of sterile saline. Portals were closed with interrupted static nylon stitches sterile dressings were applied patient tolerated procedure well no complications transfer recovery room stable condition. Postoperative note Nonweightbearing right upper extremity Start physical therapy at the 2-week postop visit May remove sling 3 times a day for pendulums Zofran, Percocet, cold therapy prescriptions sent Called and left message regarding Intra-Op findings Call with increased pain numbness tingling further issues arise Comment: Please note this report has been produced using speech recognition software and may contain errors related to that system including errors in grammar, punctuation, and spelling, as well as words and phrases (more content not included)... Normal [facility] LABORATORYOrdered By: SYSTEM SYSTEM on 01-25-2023 Cortisol [Mass/Vol] 34.1 ug/dL Invalid Interpretation Code ADM SS Cortisol [Mass/Vol] 28.0 ug/dL Invalid Interpretation Code ADM SS Comment on above: Result Comment: Spec imen moderately hemolyzed. Results may be affected. Cortisol [Mass/Vol] 10.8 ug/dL Invalid Interpretation Code AH ADM SS LABORATORYOrdered By: Vestec on 01-08-2023 Cobalamin (Vitamin B12) [Mass/Vol] 592 pg/mL Invalid Interpretation Code 211 - 911 pg/mL AH ADM SS Cortisol [Mass/Vol] 3.9 ug/dL Invalid Interpretation Code AH ADM SS E2 [Mass/Vol] 16.79 pg/mL Invalid Interpretation Code AH ADM SS Folate [Mass/Vol] 27.68 ng/mL Invalid Interpretation Code 5.38 - 24.00 ng/mL AH ADM SS Follitropin Qn 83.8 m[IU]/mL Invalid Interpretation Code AH ADM SS Free T3 [Mass/Vol] 2.99 pg/mL Invalid Interpretation Code 2.30 - 4.00 pg/mL AO ADM SS Free T4 [Mass/Vol] 0.92 ng/dL Invalid Interpretation Code 0.76 - 1.46 ng/dL AO ADM SS Lutropin Qn 33.8 m[IU]/mL Invalid Interpretation Code AH ADM SS Thyroglobulin Ab IA Qn unit/mL Invalid Interpretation Code 15 - 60 unit/mL AH ADM SS TPO Ab IA Qn unit/mL Invalid Interpretation Code 0 - 60 unit/mL AH ADM SS TSH Qn 1.05 m[IU]/L Invalid Interpretation Code 0.36 - 3.74 mcIU/mL AO ADM SS LABORATORYOrdered By: Ngoc Bocanegra on 10-02-2022 Cholesterol [Mass/Vol] 217 mg/dL Invalid Interpretation Code 0 - 200 mg/dL AO ADM SS Cholesterol in HDL [Mass/Vol] 57 mg/dL Invalid Interpretation Code 40 - 60 mg/dL AO ADM SS Cholesterol in LDL [Mass/Vol] 141 mg/dL Invalid Interpretation Code 0 - 130 mg/dL AO ADM SS Triglyceride [Mass/Vol] 93 mg/dL Invalid Interpretation Code 0 - 150 mg/dL AO ADM SS Vit. D 25-Hydroxy 33.3 ng/mL Invalid Interpretation Code AO ADM SS LABORATORYOrdered By: Tammy Dean on 07-17-2022 Appearance (U) Clear (07/17/22 1:37 PM) Invalid Interpretation Code Clear AO Auto Urine SS Bilirubin Ql (U) Negative (07/17/22 1:37 PM) Invalid Interpretation Code Negative AO Auto Urine SS Color (U) Yellow (07/17/22 1:37 PM) Invalid Interpretation Code AO Auto Urine SS Glucose Test strip (U) [Mass/Vol] Negative Invalid Interpretation Code Negativemg/d L AO Auto Urine SS Hemoglobin Auto test strip (U) [Mass/Vol] Trace *ABN* (07/17/22 1:37 PM) Invalid Interpretation Code Negative AO Auto Urine SS Ketones Ql (U) Negative Invalid Interpretation Code Negativemg/d L AO Auto Urine SS UA Leuk Est Negative (07/17/22 1:37 PM) Invalid Interpretation Code Negative AO Auto Urine SS UA Nitrite Negative (07/17/22 1:37 PM) Invalid Interpretation Code Negative AO Auto Urine SS UA pH 6.5 (07/17/22 1:37 PM) Invalid Interpretation Code 5.0 - 8.0 AO Auto Urine SS UA Protein Negative Invalid Interpretation Code Negativemg/d L AO Auto Urine SS UA RBC 0-5 /HPF Invalid Interpretation Code None Seen/HPF AO Auto Urine SS UA Spec Grav 1.010 *ABN* (07/17/22 1:37 PM) Invalid Interpretation Code 1.015-1.025 AO Auto Urine SS UA Specimen Type Clean Catch (07/17/22 1:37 PM) Invalid Interpretation Code AO Auto Urine SS UA Squam Epithelial 0-5 /HPF Invalid Interpretation Code None Seen/HPF AO Auto Urine SS UA Urobilinogen 0.2 E.U./dL Invalid Interpretation Code 0.2-1.0E.U./ dL AO Auto Urine SS WBC LM.HPF (Urine sed) [#/Area] 0-5 /HPF Invalid Interpretation Code None Seen/HPF AO Auto Urine SS LABORATORYOrdered By: Elia Okeefe on 05-22-2022 HPV Interp High Risk HPV Typing : NEGATIVEHPV types 16, 18, 31, 33, 35, 39, 45, 51, 52, 56, 58, 59, 66 and 68 DNA wereundetectable or below the pre-set threshold.The meghan High-Risk HPV DNA Test is not intended for use as a screening device forPap normal women under age 30 and is not intended to substitute for regular Papscreening.The meghan High-Risk HPV DNA Test is designed to augment existing methods for thedetection of cervical disease and should be used in conjunction with clinicalinformation derived from other diagnostic and screening tests, physical examinationsand full medical history in accordance with appropriate patient managementprocedures. NOTE: A negative result does not preclude the presence of HPV infection because resultsdepend on adequate specimen collection, absence of inhibitors and sufficientDNA to be detected. Invalid Interpretation Code See Interp HPVN AH Auto Viro/Sero SS Specimen source Nom (Unsp spec) Cervix (05/22/22 8:52 AM) Invalid Interpretation Code AH Auto Viro/Sero SS MRI SHOULDER WO IVCON RTon 0 04-11-2022 [facility] LABORATORYOrdered By: Allyssa Arnold on 02-15-2022 Cholesterol [Mass/Vol] 232 mg/dL Invalid Interpretation Code 0 - 200 mg/dL AO ADM SS Cholesterol in HDL [Mass/Vol] 61 mg/dL Invalid Interpretation Code 40 - 60 mg/dL AO ADM SS Cholesterol in LDL [Mass/Vol] 155 mg/dL Invalid Interpretation Code 0 - 130 mg/dL AO ADM SS Triglyceride [Mass/Vol] 81 mg/dL Invalid Interpretation Code 0 - 150 mg/dL AO ADM SS Vit. D 25-Hydroxy 19.0 ng/mL Invalid Interpretation Code AO ADM SS LABORATORYOrdered By: Elia Sherwood on 02-15-2022 Appearance (U) Clear (02/15/22 9:06 AM) Invalid Interpretation Code Clear AO Auto Urine SS Bilirubin Ql (U) Negative (02/15/22 9:06 AM) Invalid Interpretation Code Negative AO Auto Urine SS Color (U) Yellow (02/15/22 9:06 AM) Invalid Interpretation Code AO Auto Urine SS Glucose Test strip (U) [Mass/Vol] Negative Invalid Interpretation Code Negativemg/d L AO Auto Urine SS Hemoglobin Auto test strip (U) [Mass/Vol] Negative (02/15/22 9:06 AM) Invalid Interpretation Code Negative AO Auto Urine SS Ketones Ql (U) Negative Invalid Interpretation Code Negativemg/d L AO Auto Urine SS UA Leuk Est Negative (02/15/22 9:06 AM) Invalid Interpretation Code Negative AO Auto Urine SS UA Nitrite Negative (02/15/22 9:06 AM) Invalid Interpretation Code Negative AO Auto Urine SS UA pH 7.0 (02/15/22 9:06 AM) Invalid Interpretation Code 5.0 - 8.0 AO Auto Urine SS UA Protein Negative Invalid Interpretation Code Negativemg/d L AO Auto Urine SS UA RBC None Seen /HPF Invalid Interpretation Code None Seen/HPF AO Auto Urine SS UA Spec Grav 1.010 *ABN* (02/15/22 9:06 AM) Invalid Interpretation Code 1.015-1.025 AO Auto Urine SS UA Specimen Type Clean Catch (02/15/22 9:06 AM) Invalid Interpretation Code AO Auto Urine SS UA Squam Epithelial 0-5 /HPF Invalid Interpretation Code None Seen/HPF AO Auto Urine SS UA Urobilinogen 0.2 E.U./dL Invalid Interpretation Code 0.2-1.0E.U./ dL AO Auto Urine SS WBC LM.HPF (Urine sed) [#/Area] None Seen /HPF Invalid Interpretation Code None Seen/HPF AO Auto Urine SS No Panel Informationon 01-16 Culture Urine <10,000 cfu/ml. No Significant growth. Sensitivity not indicated. [facility] Office Visiton 12-07-2014 Documentation of current medications (procedure) Done Invalid Interpretation Code [facility] [place] [facility] Work Phone: Smoking cessation education (procedure) yes Invalid Interpretation Code [facility] [place] [facility] Work Phone: Tobacco use [facility] Former smoker Invalid Interpretation Code [facility] [place] Work Phone: Vital Signs Date Time Vital Sign Value Performing Clinician Facility 04-29-2025 15:10-0400 Body height 167.[address] Johnathan Perez DO Work Phone: [facility] 04-29-2025 15:10-0400 Body mass index (BMI) [Ratio] 32 kg/m2 Dr. Johnathan Perez DO Work Phone: [facility] 04-29-2025 15:10-0400 Body weight 89.[address] Johnathan Perez DO Work Phone: [facility] 04-29-2025 15:10-0400 Diastolic blood pressure 77 mm[Hg] Dr. Johnathan Perez DO Work Phone: [facility] 04-29-2025 15:10-0400 Heart rate 85 /min Dr. Johnathan Perez DO Work Phone: [facility] 04-29-2025 15:10-0400 Respiratory rate 16 /min Dr. Johnathan Perez DO Work Phone: [facility] 04-29-2025 15:10-0400 SaO2% (BldA) [Mass fraction] 94 % Dr. Johnathan Perez DO Work Phone: [facility] 04-29-2025 15:10-0400 Systolic blood pressure 126 mm[Hg] Dr. Johnathan Perez DO Work Phone: [facility] 04-07-2025 10:10-0400 Body height [address] JOHNATHAN PEREZ DO [facility] 04-07-2025 10:10-0400 Body weight 89.[address] JOHNATHAN PEREZ DO [facility] 04-07-2025 10:10-0400 Body weight 32.16 kg/m2 DR JOHNATHAN PEREZ DO [facility] 02-24-2025 10:06-0400 Body height 167.[address] Johnathan Perez DO Work Phone: [facility] 02-24-2025 10:06-0400 Body mass index (BMI) [Ratio] 31 kg/m2 Dr. Johnathan Perez DO Work Phone: [facility] 02-24-2025 10:06-0400 Body weight 87.[address] Johnathan Perez DO Work Phone: [facility] 02-24-2025 10:06-0400 Diastolic blood pressure 84 mm[Hg] Dr. Johnathan Perez DO Work Phone: [facility] 02-24-2025 10:06-0400 Heart rate 90 /min Dr. Johnathan Perez DO Work Phone: [facility] 02-24-2025 10:06-0400 Respiratory rate 18 /min Dr. Johnathan Perez DO Work Phone: [facility] 02-24-2025 10:06-0400 SaO2% (BldA) [Mass fraction] 98 % Dr. Johnathan Perez DO Work Phone: [facility] 02-24-2025 10:06-0400 Systolic blood pressure 128 mm[Hg] Dr. Johnathan Perez DO Work Phone: [facility] 02-03-2025 11:40-0500 Body temperature 98.9 [degF] Dr. Johnathan Perez DO Work Phone: [facility] 02-03-2025 11:40-0500 Diastolic blood pressure 77 mm[Hg] Dr. Johnathan Perez DO Work Phone: [facility] 02-03-2025 11:40-0500 Heart rate 80 /min Dr. Johnathan Perez DO Work Phone: [facility] 02-03-2025 11:40-0500 Respiratory rate 16 /min Dr. Johnathan Perez DO Work Phone: [facility] 02-03-2025 11:40-0500 SaO2% (BldA) [Mass fraction] 95 % Dr. Johnathan Perez DO Work Phone: [facility] 02-03-2025 11:40-0500 Systolic blood pressure 124 mm[Hg] Dr. Johnathan Perez DO Work Phone: [facility] 02-03-2025 09:59-0500 Body mass index (BMI) [Ratio] 30.7 kg/m2 Dr. Johnathan Perez DO Work Phone: [facility] 02-03-2025 09:59-0500 Body weight 86.[address] Johnathan Perez DO Work Phone: [facility] 07-01-2023 15:46-0400 Body height 168.9 cm Cass Beatty PA-C Work Phone: [facility] 07-01-2023 15:46-0400 Body weight 83.69 kg Cass Beatty PA-C Work Phone: [facility] 01-25-2023 09:22-0500 Body height 167 cm RADHA MARTINES ENVIRONMENTAL CONTROL ADMINISTRATOR-BODY SERVICE TEAM MEMBER [facility] 01-25-2023 09:19-0500 Body temperature 98.42 [degF] RADAH MARTINES ENVIRONMENTAL CONTROL ADMINISTRATOR-BODY SERVICE TEAM MEMBER [facility] 01-25-2023 09:19-0500 Diastolic Blood Pressure Non-Invasive 71 1 RADHA MARTINES ENVIRONMENTAL CONTROL ADMINISTRATOR-BODY SERVICE TEAM MEMBER [facility] 01-25-2023 09:19-0500 Heart rate 83 /min RADHA MARTINES ENVIRONMENTAL CONTROL ADMINISTRATOR-BODY SERVICE TEAM MEMBER [facility] 01-25-2023 09:19-0500 Systolic Blood Pressure Non-Invasive 148 1 RADHA MARTINES ENVIRONMENTAL CONTROL ADMINISTRATOR-BODY SERVICE TEAM MEMBER [facility] 01-21-2023 13:29-0500 Body height 168.9 cm Pacc 1 Work Phone: [facility] 01-21-2023 13:29-0500 Body temperature 97.59 [degF] Pacc 1 Work Phone: [facility] 01-21-2023 13:29-0500 Body weight 83.92 kg Pacc 1 Work Phone: [facility] 01-21-2023 13:29-0500 Diastolic blood pressure 82 mm[Hg] Pacc 1 Work Phone: [facility] 01-21-2023 13:29-0500 Heart rate 105 /min Pacc 1 Work Phone: [facility] 01-21-2023 13:29-0500 Respiratory rate 16 /min Pacc 1 Work Phone: [facility] 01-21-2023 13:29-0500 SaO2% (BldA) [Mass fraction] 96 % Pacc 1 Work Phone: [facility] 01-21-2023 13:29-0500 Systolic blood pressure 124 mm[Hg] Pacc 1 Work Phone: [facility] 09-24-2022 11:00-0400 Diastolic blood pressure 80 mm[Hg] Wan Golias PT Work Phone: [facility] 09-24-2022 11:00-0400 Systolic blood pressure 126 mm[Hg] Wan Golias PT Work Phone: [facility] 07-16-2022 09:48-0400 Body weight 82.1 kg Thuy Cardoso MD Work Phone: [facility] 07-16-2022 09:48-0400 Diastolic blood pressure 82 mm[Hg] Thuy Cardoso MD Work Phone: [facility] 07-16-2022 09:48-0400 Systolic blood pressure 128 mm[Hg] Thuy Cardoso MD Work Phone: [facility] 12-07-2014 08:19-0500 BMI (Body Mass Index) 28.08 kg/m2 [facility] Work Phone: 12-07-2014 08:19-0500 Weight 78.93 kg [facility] Work Phone: 08-24-2014 13:23-0400 BP Diastolic 78 mm[Hg] [facility] Work Phone: 08-24-2014 13:23-0400 BP Systolic 118 mm[Hg[facility] Work Phone: 08-24-2014 13:23-0400 Height 167.64 cm [facility] Work Phone: 08-24-2014 13:23-0400 Pulse (Heart Rate) 80 /min [facility] Work Phone: Encounters Encounter Date Encounter Type Care Provider Facility Start: 05-19-2025 End: 05-19-2025 Patient encounter procedure DR JOHNATHAN PEREZ DO [facility] Start: 05-19-2025 End: 05-19-[address] JOHNATHAN PEREZ DO Facility[facility] Start: 04-29-2025 End: 04-29-2025 Patient encounter procedure Jayla VITALE -[facility] Work Phone: Start: 04-29-2025 End: 04-29-[address] Johanthan Perez DO Work Phone: [facility] Work Phone: Start: 04-21-2025 End: 04-21-[address] JOHNATHAN PEREZ DO Facility[facility] Start: 04-21-2025 End: 04-21-[address] JOHNATHAN PEREZ DO [facility] Start: 04-20-2025 End: 04-20-[address] Johnathan Perez DO Work Phone: [facility] Work Phone: Start: 04-20-2025 End: 04-20-2025 Patient encounter procedure Jayla VITALE -Laboratory Work Phone: Start: 04-20-2025 End: 04-20-2025 ambulatory Jayla Reynoso Facility:[facility] Start: 04-15-2025 End: 04-15-[address] JOHNATHAN PEREZ DO [facility] Start: 04-15-2025 End: 04-15-[address] JOHNATHAN PEREZ DO [facility] Start: 04-07-2025 End: 04-07-[address] JOHNATHAN PEREZ DO [facility] Start: 04-07-2025 End: 04-07-[address] JOHNATHAN PEREZ DO [facility] Start: 03-18-2025 End: 03-18-2025 Patient encounter procedure Jayla VITALE -[facility] Work Phone: Start: 03-18-2025 End: 03-18-2025 ambulatory Jayla Reynoso Facility:[facility] Start: 02-24-2025 End: 02-24-2025 Patient encounter procedure Jayla VITALE -[facility] Work Phone: Start: 02-24-2025 End: 02-24-2025 ambulatory Johnathan Perez Facility:[facility] Start: 02-16-2025 End: 02-20-[address] JOHNATHAN PEREZ DO [facility] Start: 02-16-2025 End: 02-16-[address] JOHNATHAN PEREZ DO [facility] Start: 02-03-2025 ambulatory Matt Padron Facility :[facility] Start: 02-03-2025 Non-patient / Non-visit Matt Lopez nd DO -[facility] Start: 02-03-2025 End: 02-03-2025 Admission to same day surgery center Matt Padron DO -Endoscopy Work Phone: Start: 02-03-2025 End: 02-03-2025 ambulatory Matt Padron Facility:[facility] Start: 01-22-2025 End: 01-26-[address] JOHNATHAN PEREZ DO [facility] Start: 01-22-2025 End: 01-26-2025 Outreach Lab MOHINDER MOTTA ENVIRONMENTAL CONTROL ADMINISTRATOR-BODY SERVICE TEAM MEMBER [facility] Start: 12-15-2024 End: 12-19-[address] JOHNATHAN PEREZ DO [facility] Start: 12-15-2024 End: 12-19-[address] JOHNATHAN PEREZ DO [facility] Start: 12-15-2024 End: 12-15-[address] JOHNATHAN PEREZ DO [facility] Start: 12-15-2024 End: 12-15-[address] JOHNATHAN PEREZ DO [facility] Start: 12-14-2024 End: 12-14-2024 Subsequent hospital visit by physician [address] Comment on above: Other chest pain; Hyperlipidemia, unspecified; Obstructive sleep apnea (adult) (pediatric) Start: 12-14-2024 End: 12-14-2024 ambulatory MARK Campbell [facility] Start: 11-17-2024 End: 11-17-2024 ambulatory Johnathan Perez Facility:[facility] Start: 11-03-2024 End: 11-07-[address] JOHNATHAN PEREZ DO [facility] Start: 11-03-2024 End: 11-07-[address] JOHNATHAN PEREZ DO [facility] Start: 10-12-2024 End: 10-12-[address] JOHNATHAN PEREZ DO [facility] Start: 10-12-2024 End: 10-12-[address] JOHNATHAN PEREZ DO [facility] Start: 10-09-2024 End: 10-09-[address] JOHNATHAN PEREZ DO [facility] Start: 10-09-2024 End: 10-09-[address] JOHNATHAN PEREZ DO [facility] Start: 10-07-2024 End: 10-07-[address] JOHNATHAN PEREZ DO [facility] Start: 10-07-2024 End: 10-07-[address] JOHNATHAN PEREZ DO [facility] Start: 10-05-2024 End: 10-05-[address] JOHNATHAN PEREZ DO [facility] Start: 10-05-2024 End: 10-05-[address] JOHNATHAN PEREZ DO [facility] Start: 09-23-2024 End: 09-23-[address] JOHNATHAN PEREZ DO [facility] Start: 09-23-2024 End: 09-23-2024 Patient encounter procedure MAGED CUEVAS MD [facility] Start: 09-17-2024 End: 09-17-[address] JOHNATHAN PEREZ DO [facility] Start: 09-17-2024 End: 09-17-[address] JOHNATHAN PEREZ DO [facility] Start: 08-18-2024 End: 08-22-2024 ambulatory JUSTINE OLGUIN MD Facility:[facility] Start: 08-18-2024 End: 08-22-2024 Outreach Lab JUSTINE OLGUIN MD [facility] Start: 08-13-2024 End: 08-13-[address] JOHNATHAN PEREZ DO [facility] Start: 08-13-2024 End: 08-13-[address] JOHNATHAN PEREZ DO [facility] Start: 07-24-2024 End: 07-24-[address] JOHNATHAN PEREZ DO Facility:[facility] Start: 07-24-2024 End: 07-24-[address] JOHNATHAN PEREZ DO [facility] Start: 07-15-2024 End: 07-19-[address] JOHNATHAN PEREZ DO Facility:[facility] Start: 07-15-2024 End: 07-19-[address] JOHNATHAN PEREZ DO [facility] Start: 07-10-2024 End: 07-10-[address] JOHNATHAN PEREZ DO Facility:[facility] Start: 07-10-2024 End: 07-10-[address] JOHNATHAN PEREZ DO [facility] Start: 07-09-2024 End: 07-09-[address] JOHNATHAN PEREZ DO Facility:[facility] Start: 03-12-2024 ambulatory JOHNATHAN PEREZ Facility:[facility] Start: 03-12-2024 End: 03-12-2024 Patient encounter procedure Ivelisse De La Fuente DO Work Phone: Orthopaedics Comment on above: APPOINTMENT CANCELLE D (Primary Dx) Start: 12-20-2023 End: 12-20-[address] JOHNATHAN PEREZ DO Facility:[facility] Start: 12-20-2023 End: 12-20-[address] JOHNATHAN PEREZ DO [facility] Start: 12-12-2023 End: 12-12-[address] JOHNATHAN PEREZ DO Facility:[facility] Start: 11-21-2023 End: 11-21-[address] [facility] Work Phone: Start: 11-21-2023 End: 11-21-2023 Discharged Recurring [facility] Work Phone: Start: 10-03-2023 End: 10-03-2023 ambulatory IVELISSE DE LA FUENTE Facility:[facility] Start: 08-13-2023 End: 08-13-[address] [facility] Work Phone: Start: 08-13-2023 End: 08-13-2023 Discharged [address]ur[address] [facility] Work Phone: Start: 08-13-2023 Registered Recurring [facility] Work Phone: Start: 07-01-2023 End: 07-01-2023 ambulatory JOHNATHAN PEREZ Facility:[facility] Start: 07-01-2023 End: 07-01-2023 Patient encounter procedure Cass Beatty PA-C Work Phone: Orthopaedics Comment on above: Acute pain of right shoulder (Primary Dx); S/P right rotator cuff repair Start: 06-13-2023 End: 06-13-2023 ambulatory IVELISSE DE LA FUENTE Facility:[facility] Start: 06-13-2023 End: 06-13-2023 Patient encounter procedure Ivelisse De La Fuente DO Work Phone: Orthopaedics Comment on above: Biceps tendonosis of right shoulder (Primary Dx); Tendinitis of right shoulder; Cervical radiculopathy Start: 05-30-2023 End: 05-30-[address] JOHNATHAN PEREZ DO [facility] Start: 05-15-2023 End: 05-15-[address] JOHNATHAN PEREZ DO [facility] Start: 05-15-2023 End: 05-15-2023 Well adult monitoring check done DR JOHNATHAN PEREZ DO [facility] Start: 05-06-2023 End: 05-06-2023 ambulatory JOHNATHAN PEREZ Facility:[facility] Start: 05-02-2023 End: 05-02-2023 ambulatory IVELISSE DE LA FUENTE Facility:[facility] Start: 05-02-2023 End: 05-02-2023 Patient encounter procedure Ivelisse De La Fuente DO Work Phone: Orthopaedics Comment on above: Pain of right upper extremity (Primary Dx); Biceps tendonosis of right shoulder; Tendinitis of right shoulder; Bursitis of right shoulder; S/P right rotator cuff repair Start: 04-30-2023 End: 04-30-2023 [facility] Facility:[facility] Start: 04-30-2023 End: 04-30-2023 ambulatory Wan Wilkinson PT Work Phone: [facility] Comment on above: S/P right rotator cu ff repair (Primary Dx); Biceps tendonosis of right shoulder Start: 04-15-2023 End: 04-15-2023 [facility] Facility:[facility] Start: 04-15-2023 End: 04-15-2023 ambulatory Wan Wittias PT Work Phone: [facility] Comment on above: S/P right rotator cu ff repair (Primary Dx); Biceps tendonosis of right shoulder Start: 04-08-2023 End: 04-08-2023 [facility] Facility:[facility] Start: 04-08-2023 Telephone encounter Ivelisse De La Fuente DO Work Phone: Orthopaedics Comment on above: Patient Update; Tiffany ent Question Start: 04-08-2023 End: 04-08-2023 ambulatory Awilda Torreshuba RESEARCH AND DEVELOPMENT TESTER Work Phone: [facility] Comment on above: S/P right rotator cu ff repair (Primary Dx); Biceps tendonosis of right shoulder Start: 03-25-2023 End: 03-25-2023 [facility] Facility:[facility] Start: 03-25-2023 End: 03-25-2023 ambulatory Awilda Torreshuba RESEARCH AND DEVELOPMENT TESTER Work Phone: [facility] Comment on above: S/P right rotator cu ff repair (Primary Dx); Biceps tendonosis of right shoulder Start: 03-18-2023 End: 03-18-2023 ambulatory Tania Ramirez PT Work Phone: [facility] Comment on above: S/P right rotator cu ff repair (Primary Dx); Biceps tendonosis of right shoulder Start: 03-14-2023 End: 03-14-2023 Patient encounter procedure Cass Beatty PA-C Work Phone: Orthopaedics Comment on above: S/P right rotator cu ff repair (Primary Dx) Start: 03-11-2023 End: 03-11-2023 ambulatory Awilda River RESEARCH AND DEVELOPMENT TESTER Work Phone: [facility] Comment on above: S/P right rotator cu ff repair (Primary Dx); Biceps tendonosis of right shoulder Start: 03-07-2023 End: 03-07-2023 ambulatory Awilda River RESEARCH AND DEVELOPMENT TESTER Work Phone: [facility] Comment on above: S/P right rotator cu ff repair (Primary Dx); Biceps tendonosis of right shoulder Start: 03-05-2023 Telephone encounter Ivelisse De La Fuente DO Work Phone: Orthopaedics Start: 03-05-2023 End: 03-05-2023 ambulatory Awilda River RESEARCH AND DEVELOPMENT TESTER Work Phone: [facility] Comment on above: S/P right rotator cu ff repair (Primary Dx); Biceps tendonosis of right shoulder Start: 03-01-2023 End: 03-01-2023 ambulatory Awilda Williamsonba RESEARCH AND DEVELOPMENT TESTER Work Phone: [facility] Comment on above: S/P right rotator cu ff repair (Primary Dx); Biceps tendonosis of right shoulder Start: 03-01-2023 Telephone encounter Ivelisse De La Fuente DO Work Phone: Orthopaedics Comment on above: Appointment Start: 02-26-2023 End: 02-26-2023 ambulatory Awilda Williamsonba RESEARCH AND DEVELOPMENT TESTER Work Phone: [facility] Comment on above: S/P right rotator cu ff repair (Primary Dx); Biceps tendonosis of right shoulder Start: 02-21-2023 End: 02-21-2023 ambulatory Awilda River RESEARCH AND DEVELOPMENT TESTER Work Phone: [facility] Comment on above: S/P right rotator cu ff repair (Primary Dx); Biceps tendonosis of right shoulder Start: 02-18-2023 Telephone encounter Vitaliy campbell PA-C Work Phone: Orthopaedics Comment on above: Returning Patient's Call Start: 02-18-2023 End: 02-18-2023 Patient encounter procedure Vitaliy Lam PA-C Work Phone: Orthopaedics Comment on above: S/P right rotator cu ff repair (Primary Dx); Biceps tendonosis of right shoulder; Urticarial rash Start: 02-15-2023 Telephone encounter ElviaNaya De La Fuente DO Work Phone: Orthopaedics Comment on above: arm update Start: 02-06-2023 Telephone encounter Ivelisse De La Fuente DO Work Phone: Orthopaedics Comment on above: Patient Question Start: 02-05-2023 End: 02-05-2023 ambulatory IVELISSE DE LA FUENTE Facility:[facility] Start: 01-25-2023 End: 01-25-2023 Patient encounter procedure RADHAJHOANA MARTINES ENVIRONMENTAL CONTROL ADMINISTRATOR-BODY SERVICE TEAM MEMBER [facility] Start: 01-21-2023 End: 01-21-2023 Admission to establishment Pacc [facility] 1 Work Phone: [facility] Start: 01-21-2023 End: 01-21-2023 ambulatory Pacc [facility] 1 Work Phone: Pre Anesthesia Comment on above: Pre-op evaluation (P rimary Dx) Start: 01-21-2023 End: 01-21-2023 Preprocedural examination done Pacc [facility] 1 Work Phone: Pre Anesthesia Start: 01-14-2023 Orders Only Ivelisse De La Fuente DO Work Phone: Orthopaedics Comment on above: Incomplete tear of r ight rotator cuff, unspecified whether traumatic (Primary Dx); Biceps tendinitis of right upper extremity Start: 01-10-2023 End: 01-10-2023 Patient encounter procedure ElviaNaya De La Fuente DO Work Phone: Orthopaedics Comment on above: Tendinitis of right shoulder (Primary Dx); Impingement syndrome of right shoulder; Bursitis of right shoulder; Bicipital tendinitis of right shoulder; Incomplete tear of right rotator cuff, unspecified whether traumatic Start: 01-08-2023 End: 01-08-2023 Patient encounter procedure RADHA MARTINES ENVIRONMENTAL CONTROL ADMINISTRATOR-BODY SERVICE TEAM MEMBER [facility] Start: 12-05-2022 End: 12-05-[address] [facility] Work Phone: Start: 12-05-2022 End: 12-05-2022 Patient encounter procedure [facility] Start: 10-22-2022 End: 10-22-2022 ambulatory Wan Golias PT Work Phone: [facility] Comment on above: Tendinitis of right shoulder (Primary Dx); Impingement syndrome of right shoulder; Bursitis of right shoulder; Bicipital tendinitis of right shoulder Start: 10-17-2022 End: 10-17-2022 ambulatory Wan Golias PT Work Phone: [facility] Comment on above: Tendinitis of right shoulder (Primary Dx); Impingement syndrome of right shoulder; Bursitis of right shoulder; Bicipital tendinitis of right shoulder Start: 10-11-2022 End: 10-11-2022 ambulatory Awilda River RESEARCH AND DEVELOPMENT TESTER Work Phone: [facility] Comment on above: Tendinitis of right shoulder (Primary Dx); Impingement syndrome of right shoulder; Bursitis of right shoulder; Bicipital tendinitis of right shoulder Start: 10-03-2022 End: 10-03-2022 ambulatory Wan Golias PT Work Phone: [facility] Comment on above: Tendinitis of right shoulder (Primary Dx); Impingement syndrome of right shoulder; Bursitis of right shoulder; Bicipital tendinitis of right shoulder Start: 10-02-2022 End: 10-02-[address] JOHNATHAN PEREZ DO [facility] Start: 10-01-2022 End: 10-01-2022 ambulatory Awilda River RESEARCH AND DEVELOPMENT TESTER Work Phone: [facility] Comment on above: Tendinitis of right shoulder (Primary Dx); Impingement syndrome of right shoulder; Bursitis of right shoulder; Bicipital tendinitis of right shoulder Start: 09-28-2022 End: 09-28-2022 ambulatory Awilda River RESEARCH AND DEVELOPMENT TESTER Work Phone: [facility] Comment on above: Tendinitis of right shoulder (Primary Dx); Impingement syndrome of right shoulder; Bursitis of right shoulder; Bicipital tendinitis of right shoulder Start: 09-24-2022 End: 09-24-2022 ambulatory Wan Wilkinson PT Work Phone: [facility] Comment on above: Tendinitis of right shoulder; Impingement syndrome of right shoulder; Bursitis of right shoulder; Biceps tendinitis of right upper extremity; Bicipital tendinitis of right shoulder Start: 07-17-2022 End: 07-21-[address] JOHNATHAN PEREZ DO [facility] Start: 07-16-2022 End: 07-16-2022 Patient encounter procedure Thuy Cardoso MD Work Phone: OB/Gynecology Comment on above: Symptomatic menopaus al or female climacteric states (Primary Dx); Low vitamin D level Start: 06-19-2022 Telephone encounter Thuy Cardoso MD Work Phone: OB/Gynecology Comment on above: Future Appointment Start: 05-29-2022 End: 05-29-[address] JOHNATHAN PEREZ DO [facility] Start: 05-22-2022 End: 05-26-[address] JOHNATHAN PEREZ DO [facility] Start: 04-27-2022 End: 04-27-2022 Patient encounter procedure Ivelisse De La Fuente DO Work Phone: Orthopaedics Comment on above: Tendinitis of right shoulder (Primary Dx); Impingement syndrome of right shoulder; Bursitis of right shoulder; Biceps tendinitis of right upper extremity Start: 04-11-2022 End: 04-11-2022 Subsequent hospital visit by physician [facility] (I-Stat/1.5t) Work Phone: Radiology Comment on above: Chronic right should er pain [M25.511, G89.29] Start: 04-02-2022 Telephone encounter Ivelisse De La Fuente DO Work Phone: Orthopaedics Comment on above: Patient Question Start: 03-13-2022 Telephone encounter ElviaNaya De La Fuente DO Work Phone: Orthopaedics Comment on above: MRI order Start: 02-15-2022 End: 02-19-[address] JOHNATHAN PEREZ DO [facility] Start: 02-15-2022 End: 02-15-[address] JOHNATHAN PEREZ DO [facility] Start: 01-16-2022 End: 01-20-[address] JOHNATHAN PEREZ DO [facility] Procedures Date Procedure Procedure Detail Performing Clinician Start: 04-20-2025 Hepatitis A virus an tibody, total measurement Dr. Johnathan Perez DO Work Phone: Comment on above: Comment: The HAV tot al antibody assay detects both IgG andIgM but does not differentiate between them. A negativeresult suggests susceptibility to infection. A positiveresult could be due to vaccination, previously resolvedinfection or active infection. Testing for HAV IgM shouldbe performed if active HAV infection is suspected. [facility] profiles that will automatically reflex positive HAVtotal antibody results to IgM (e.g., panel #[id number] HAVAntibody w/ Rfx).Performed at: [address] [id number] Director: Vern Fagan PhD, Phone: [phone] Start: 04-20-2025 Hepatitis C antibody measurement Dr. Johnathan Perez DO Work Phone: Comment on above: Reactive: Presumptiv e evidence of antibodies to HCV. Follow CDC recommendations for supplemental testing.Non-Reactive: Antibodies to HCV were not detected; does not exclude the possibility of exposure to HCVReactive Results are presumptive evidence of antibodies to HCV. Follow CDC recommendations for supplemental testing.Order confirmation testing: HCV Quant by PCR testing - HCVPCR #[id number] Non Reactive: < 0.8 Equivocal: >/= 0.8 to < 1.0 Reactive: >/= 1.0The CDC requires that a reactive/equivocal HCV antibody result be sent out for confirmation. HCV Quant by PCR testing. Start: 03-18-[address] Johnathan Perez DO Work Phone: Start: 02-19-2023 History of repair of musculotendinous cuff of shoulder S/P right rotator cuff repair Awilda Williamsonbonnie RESEARCH AND DEVELOPMENT TESTER Work Phone: Start: 02-05-2023 Rotator cuff includi ng muscles and tendons (body structure) DR JOHNATHAN PEREZ DO Comment on above: right rotator cuff, with right bicep repair Start: 12-05-2022 Computed tomography of abdomen and pelvis with contrast Start: 04-11-2022 Mri any jt upper ext remity w/o contrast matrl Ivelisse De La Fuente DO Work Phone: Start: 05-10-[address] Obdulia PEREZ DO Start: 10-10-2018 Colonoscopy Fidencio 2 Start: 10-10-[address] JOHNATHAN ELY DO Comment on above: diverticulosis; repe at 10 yrs, Dr. Malcom Covington Start: 08-02-2018 Ophthalmic examinati on and evaluation DR JOHNATHAN PEREZ DO Comment on above: Dr. Willard Start: 11-06-2016 Mammography Ivelisse canchola DO Work Phone: Start: 07-31-2013 Lipid 1996 panel - S caitlyn or Plasma Ivelisse Sudhakar DO Work Phone: Start: 12-02-1996 Loop electrosurgical excision procedure DR JOHNATHAN PEREZ DO Start: 12-02-[address] JOHNATHAN IBANEZ DO Dilation and curettage DR ELSI PEREZ DO Dilation and curettage Dilation and curettage( Confirmed ) DR JOHNATHAN PEREZ DO History of repair of musculotendinous cuff of shoulder S/P right rotator cuff repair Vitaliy Lam PA-C Work Phone: History of repair of musculotendinous cuff of shoulder S/P right rotator cuff repair Awilda Kashuba RESEARCH AND DEVELOPMENT TESTER Work Phone: History of repair of musculotendinous cuff of shoulder S/P right rotator cuff repair Awilda Kashuba RESEARCH AND DEVELOPMENT TESTER Work Phone: History of repair of musculotendinous cuff of shoulder S/P right rotator cuff repair Awilda Kashuba RESEARCH AND DEVELOPMENT TESTER Work Phone: History of repair of musculotendinous cuff of shoulder S/P right rotator cuff repair Awilda Kashuba RESEARCH AND DEVELOPMENT TESTER Work Phone: History of repair of musculotendinous cuff of shoulder S/P right rotator cuff repair Awilda Kashuba RESEARCH AND DEVELOPMENT TESTER Work Phone: History of repair of musculotendinous cuff of shoulder S/P right rotator cuff repair Awilda Kashuba RESEARCH AND DEVELOPMENT TESTER Work Phone: History of repair of musculotendinous cuff of shoulder S/P right rotator cuff repair Cass Beatty PA-C Work Phone: History of repair of musculotendinous cuff of shoulder S/P right rotator cuff repair Tania Ramirez PT Work Phone: History of repair of musculotendinous cuff of shoulder S/P right rotator cuff repair Awilda Kashuba RESEARCH AND DEVELOPMENT TESTER Work Phone: History of repair of musculotendinous cuff of shoulder S/P right rotator cuff repair Awilda River RESEARCH AND DEVELOPMENT TESTER Work Phone: History of repair of musculotendinous cuff of shoulder S/P right rotator cuff repair Wan Golias PT Work Phone: History of repair of musculotendinous cuff of shoulder S/P right rotator cuff repair Wan Golias PT Work Phone: History of repair of musculotendinous cuff of shoulder S/P right rotator cuff repair Ivelisse De La Fuente DO Work Phone: History of repair of musculotendinous cuff of shoulder S/P right rotator cuff repair Cass Beatty PA-C Work Phone: Hysteroscopy DR JOHNATHAN Martinez O Laparoscopy DR JOHNATHAN Schulte Plan of Treatment Date Care Activity Detail Author Start: 07-09-2034 DTaP/Tdap/Td Vaccine s (4 - Td or Tdap) DTaP/Tdap/Td Vaccines (4 - Td or Tdap) [facility] Start: 10-10-2028 Screening for malign ant neoplasm of colon [facility] Start: 05-22-2027 PAP TESTING PAP TESTING [facility] Start: 05-22-2027 Screening for malign ant neoplasm of cervix Pap Testing [facility] Start: 02-03-2025 Endoscopy upper smal l intestine w/biopsy SMALL BOWEL ENDOSCOPY/BIOPSY [facility] Start: 02-03-2025 Patient discharge [facility] Start: 08-02-2024 COVID-19 Vaccine ( season) COVID-19 Vaccine ( season) [facility] Start: 08-02-2024 Influenza vaccination Influenz a Vaccine (Season Ended) [facility] Start: 02-21-2024 Shingrix Vaccine (2 of 2) Shingrix Vaccine (2 of 2) [facility] Start: 12-02-2023 Behavioral Health Screening Behavioral Health Screening [facility] Start: 08-02-2023 Covid-19 Vaccine ( season) Covid-19 Vaccine ( season) [facility] Start: 08-02-2023 Influenza vaccination C [facility] Start: 07-31-2023 Urine microalbumin profile [facility] Start: 12-02-2022 [facility]MENT [facility] Start: 08-02-2022 Influenza vaccination C [facility] Start: 12-02-2021 DEPRESSION ASSESSMENT [facility] Start: 06-11-2020 DIABETES SCREEN DIABETES SCREEN [facility] Start: 06-11-2020 Diabetes Screening Diabetes Screenin g [facility] Start: 09-20-2019 HPV TESTING HPV TESTING [facility] Start: 09-20-2019 PAP TESTING PAP TESTING [facility] Start: 09-20-2019 Screening for malign ant neoplasm of cervix HPV Testing [facility] Start: 07-31-2018 Lipid 1996 panel - Serum or Plasma Lipid Screening [facility] Start: 07-31-2018 Lipid panel Lipid Screening [facility] Start: 07-31-2018 LIPID SCREEN LIPID SCREEN [facility] Start: 11-06-2017 Mammography [facility] Start: 11-06-2017 Screening for malign ant neoplasm of breast Mammogram Screening [facility] Start: 10-10-2017 End: 10-10-2017 Appointment Appointment [facility] [place] [facility] Work Phone: Start: 2016 SHINGRIX VACCINE (1 of 2) SHINGRIX VACCINE (1 of 2) [facility] Start: 08-24-2014 End: 08-24-2014 EMG EMG [facility] [place] [facility] Work Phone: Start: 08-24-2014 End: 08-24-2014 Nerve Conduction Nerve Conduction [facility] [place] Work Phone: Start: 08-24-2014 End: 08-24-2014 Radex shoulder complete minimum 2 views X-Ray, Shoulder [facility] [place] Work Phone: Start: 2011 COLOGUARD (FIT-DNA) COLOGUARD (FIT-D NA) [facility] Start: 2011 Colonoscopy COLONOSCOPY [facility] Start: 2011 COLORECTAL CANCER SCREENING COLORECTAL CANCER SCREENING [facility] Start: [address] COLONOGRAPHY [facility] Start: 2011 FECAL OCCULT BLOOD FECAL OCCULT BLOO D [facility] Start: 2011 Screening for malign ant neoplasm of colon [facility] Start: 2011 SIGMOIDOSCOPY SIGMOIDOSCOPY [facility] Start: 2006 Screening for malign ant neoplasm of breast Mammogram [facility] Start: 1987 Screening for malign ant neoplasm of cervix [facility] Start: 1985 Hepatitis B Vaccine (1 of 3 - 19+ 3-dose series) Hepatitis B Vaccine (1 of 3 - 19+ 3-dose series) [facility] Start: 1985 Hepatitis B Vaccines (1 of 3 - 19+ 3-dose series) Hepatitis B Vaccines (1 of 3 - 19+ 3-dose series) [facility] Start: 1985 Pneumococcal vaccination Pneumococcal Vaccine (1 of 2 - PCV) [facility] Start: 1984 HEPATITIS C SCREENING HEPATITIS C [facility] Start: 1984 Hepatitis C screening Hepatitis C [facility] Start: 1984 HIV SCREENING HIV SCREENING [facility] Start: 1984 HIV screening HIV Screening [facility] Start: 1978 Adult depression screening assessment DEPRESSION SCREENING [facility] Start: 1971 COVID-19 VACCINE (#1) COVID-19 VACCI NE (#1) [facility] Start: 1971 COVID-19 VACCINE (1) COVID-19 VACCIN E (1) [facility] Start: 1967 MMR Vaccines (1 of 1 - Standard series) MMR Vaccines (1 of 1 - Standard series) [facility] Start: 01-20-1967 COVID-19 VACCINE (#1) COVID-19 VACCI NE (#1) [facility] Start: 1966 HEPATITIS B (1 of 3 - 3-dose series) HEPATITIS B (1 of 3 - 3-dose series) [facility] Start: 1966 Hepatitis B Vaccine (1 of 3 - 3-dose series) Hepatitis B Vaccine (1 of 3 - 3-dose series) [facility] Start: 1966 HIV screening HIV Screening [facility] Start: 1966 Lipid panel Lipid Panel [facility] Start: 1966 Screening for malign ant neoplasm of colon [facility] Start: 1966 Yearly Adult Physical Yearly Adult P hysical [facility] End: 12-14-2024 CT for calcium scoring WO contrast and CTA W contrast IV Heart and coronary arteries [facility] Service Area Work Phone: Comment on above: Once for 1 Occurrenc es starting 12/14/2024 until 12/14/2024 Gamma glutamyl transferase measurement [facility] Patient referral [facility] Work Phone: End: 05-02-2024 US ARM VEIN DVT UNL VAS LAB US ARM VEIN DVT UNL VAS LAB Vascular Lab Routine Pain of right upper extremity Biceps tendonosis of right shoulder Tendinitis of right shoulder Bursitis of right shoulder S/P right rotator cuff repair 1 Occurrences starting 05/02/2023 until 05/02/2024 [facility] Work Phone: Comment on above: 1 Occurrences starti ng 05/02/2023 until 05/02/2024 End: 05-31-2024 US DVT UPPER RIGHT US DVT UPPER RIGHT Radiology Routine Pain of right upper extremity 1 Occurrences starting 05/02/2023 until 05/31/2024 [facility] Work Phone: Comment on above: 1 Occurrences starti ng 05/02/2023 until 05/31/2024 [facility] Immunizations Immunization Date Immunization Notes Care Provider Fa cili 09-17-2024 influenza, injectabl e, quadrivalent, contains preservative; Translations: [Fluarix PF Prefilled Syringe ] DR JOHNATHAN PEREZ DO [facility] 07-23-2024 zoster vaccine recombinant; Translations: [Shingrix] DR JOHNATHAN PEREZ DO [facility] 07-09-2024 tetanus toxoid, reduced diphtheria toxoid, and acellular pertussis vaccine, adsorbed; Translations: [Boostrix (Tdap)] DR JOHNATHAN PEREZ DO [facility] 12-27-2023 zoster vaccine recombinant; Translations: [Shingrix] DR JOHNATHAN PEREZ DO [facility] 07-31-2013 tetanus toxoid, reduced diphtheria toxoid, and acellular pertussis vaccine, adsorbed Ivelisse Sudhakar DO Work Phone: [facility] 12-02-2000 diphtheria and tetan us toxoids, adsorbed for pediatric use Ivelisse De La Fuente DO Work Phone: [facility] Work Phone: Payers Date Payer Category Payer Private Health Insurance [id number] 2024 Self-pay [id number] 2023 [facility] Care ([facility]) MEDICAL [facility] [id number] 2020 Unknown MMO MMO [employer] [id number] 2020-Present [phone] [address] [place] [address] PPO [id number] [id number]. [id number] 2020 Unknown [id number]. 1.13.159.2. 7.3.387448.315 2020 Unknown [id number] 2014 Unknown [id number] 1966 Unknown [id number] 2.16840.1.058333.3.579.2. 1966 Unknown [id number] 2.16840.1.752800.3.579.2. 1966 Unknown [id number] 2.840.1.701820.3.579.2. 1966 Unknown [id number] 2.16840.1.681575.3.579.2. 1966 Unknown [id number] 2.16.840.1.694746.3.579.2. 1966 Unknown [id number] 2.16.840.1.964480.3.579.2. 1966 Unknown [id number] 2.16.840.1.736186.3.579.2. 1966 Unknown [id number] 2.16.840.1.723466.3.579.2. 1966 Unknown [id number] 2.16.840.1.747784.3.579.2. 1966 Unknown [id number] 2.16.840.1.453895.3.579.2. 1966 Unknown [id number] 2.16.840.1.992835.3.579.2. 1966 Unknown [id number] 2.16.840.1.012275.3.579.2. 1966 Unknown [id number] 2.16.840.1.923212.3.579.2. 1966 Unknown [id number] 2.16.840.1.039459.3.579.2. 1966 Unknown [id number] 2.16.840.1.482886.3.579.2. 1966 Unknown [id number] 2.16.840.1.627175.3.579.2. 1966 Unknown [id number] 2.16.840.1.181602.3.579.2 1966 Unknown [id number] 2.16.840.1.546363.3.579.2. 1966 Unknown [id number] 2.16.840.1.303864.3.579.2 1966 Unknown [id number] 2.16.840.1.763365.3.579.2 1966 Unknown [id number] 2.16.840.1.397316.3.579.2. 1966 Unknown [id number] 2.16.840.1.196244.3.579.2. 1966 Unknown [id number] 2.16.840.1.808426.3.579.2. 1966 Unknown [id number] 2.16.840.1.464780.3.579.2. 1966 Unknown [id number] 2.16.840.1.377504.3.579.2 1966 Unknown [id number] 2.16.840.1.415591.3.579.2. 1966 Unknown [id number] 2.16.840.1.825225.3.579.2. 1243 Private Health Insurance [facility] [id number] Unknown [facility] [employer] [id number] Unknown [id number] 2.16.840.1.135404.3.579.2. 462 Unknown [id number] 2.16.840.1.647702.3.579.2. 462 Unknown [id number] 2.16.840.1.607326.3.579.2. 462 Unknown [id number] 2.16.840.1.382118.3.579.2. 462 Unknown [id number] 2.16.840.1.615525.3.579.2. 462 Unknown [id number] 2.16.840.1.480452.3.579.2. 462 Unknown [id number] 2.16.840.1.191296.3.579.2. 462 Social History Date Type Detail Facility Start: 01-16-2022 End: 02-16-2025 Ex-smoker (finding) [facility] Start: 1965 Sex Assigned At Female A [facility] End: 12-02-1998 History of tobacco use Current smoker [facility] End: 12-02-1998 History of tobacco use Cigarette Smoker [facility] Start: 12-06-2021 End: 03-12-2024 Alcohol intake Current non-drinker of alcohol (finding) [facility] Start: 1965 Sex Assigned At Not on file C [facility] Start: 03-13-2022 End: 12-14-2024 Exposure to SARS-CoV-2 (event) Not sure [facility] Start: 05-29-2011 End: 04-08-2023 Cigarettes smoked current (pack per day) - Reported 1 [facility] Start: 05-29-2011 End: 01-21-2023 Tobacco use and exposure Smokeless tobacco non-user [facility] Start: 10-08-2018 Tobacco smoking stat us NHIS Unknown if ever smoked [facility] Start: 10-08-2018 Non-smoker [facility] Start: 04-08-2023 End: 06-13-2023 Tobacco use panel [facility] National Score (1-100), lower number is lower risk 71 [facility] Sexual Orientation Lobo Jovanna [facility]spital [facility] Start: 05-27-2019 Sex Female (finding) [facility] NEGATED: Highlighted row Not [facility] Medical Equipment Procedure Code Equipment Code Equipment Origin al Text Equipment Identifier Dates Anchr Sut 4.75mm 2 Fibertak - [id number] Start: 02-05-2023 Lnt Implant Syst em 4.75 Bc Swivelock [id number] Start: 02-05-2023 Goals Date Patient Goal Desired Activity /State Functional Status Date Assessment Result Facility 01-25-2023 Functional Status Awake [place] [facility] Mental Status Date Assessment Result Facility 02-03-2025 Cognitive function Voice/Name [facility] Work Phone: 01-25-2023 Mental Status Orientation Oriented x 4 [facility] Clinical Notes 06-30-2008 to 04-01-2025 Radiology Note Date & Type Note Facility 04-01-2025 Evaluation + Plan note Future Appointments Appointment Date:04/13/2025 09:45:00 AM Scheduled Provider: Location:[facility] Appointment Type:PC Nurse BP Check Appointment Date:04/15/2025 01:30:00 PM Scheduled Provider: Location:[facility] Appointment Type:US Transvaginal Non OB Appointment Date:04/19/2025 01:15:00 PM Scheduled Provider:JUSTINE OLGUIN MD Location:[facility] Appointment Type:WH OV Appointment Date:04/21/2025 10:00:00 AM Scheduled Provider: Location:[facility] Appointment Type:MEDS - Weight Management Appointment Date:04/21/2025 10:30:00 AM Scheduled Provider: Location:[facility] Appointment Type:NUT Diet Visit Individual Appointment Date:06/08/2025 09:00:00 AM Scheduled Provider:JOHNATHAN PEREZ DO Location:[facility] Appointment Type:PC OV Future Scheduled TestsUS Transvaginal Non OB 04/15/25CT Coronary Calcium Score w/o Contrast 11/05/24 [facility] 02-18-2025 Note . MICRO - Microbiology PROCEDURE: Throat Culture [*1] SOURCE: Throat BODY SITE: COLLECTED DATE/TIME: 02/16/2025 13:30 EDT RECEIVED DATE/TIME: 02/16/2025 19:43 EDT START DATE/TIME: 02/16/2025 19:43 EDT FREE TEXT SOURCE: FINAL REPORTS Final Report [] Verified Date/Time/Personnel: 02/18/2025 07:15 EDT Normal throat samantha present Sensitivity Testing: Not Indicated PRELIMINARY REPORTS Preliminary Report [] Verified Date/Time/Personnel: 02/17/2025 12:04 EDT Negative for upper respiratory pathogens at 24 hours. Performing Locations *1: This test was performed at: [facility], [address] [place] [address], [phone] , [facility] 02-03-2025 Evaluation note Diagnosis Onset Date Resolution Dyspepsia acute February 03 9:36am Epigastric pain acute January 9:36am Epigastric pain acute January 9:50am [facility] Work Phone: 1(257) 643-705503-05-2025 [facility] Medical Records Department [address] [place] [id number] History Physical Exam 02/03/25 1105 MR#: [id number] Acct: [id number] Name: CARMENCITA MONDRAGON Rep #: [id number] : 1965 59 From: Matt Friend DO PCP: Dr. Johnathan Perez DO Status:[facility] Location: [place] [address] HPI - General General Date of Admission: 02/03/25 Date of Service: 02/03/25 Chief Complaint: Abdominal pain HPI Narrative CARMENCITA GIANCARLO, is a 59 F who presents for the evaluation of abdominal pain. 59y/o female presents for consultation with complaints of epigastric abdominal pain/ache that radiates out to bilateral sides. She denies any relation to PO intake. She reports this pain is not similar to her prior ulcer pain in the s. She denies any history of prior EGD. She denies any N/V but does endorse regurgitation since starting Omeprazole. I have reviewed PCP records and she reports starting Omeprazole 40mg daily on 11/06/2024. She complains of change in bowel habits with looser stools since starting PPI. CT A P w/ contrast 10/05/2024 revealed a tiny fat containing umbilical hernia with mild diastasis recti, otherwise unremarkable. Colon 2017 (Dr. Covington) negative right colon biopsy - denies any family history of colon CA - denies any personal history of colon polyps LABS 11/03/2024 CRP, ESR, SEBASTIAN, and stool for H. pylori Ag were all negative. 07/09/2024 CBC and CMP were unremarkable with a negative HCVAb 07/09/2024 - ABD pain x1 year - reports symptoms started a year ago when she started using a CPAP - wakes with symptoms - no change with PO intake - pain worse over the past 3 months - started Omeprazole and reports this caused upset stomach with a change in bowel habits - denies any weight loss - she reports elimination of gluten and dairy - thought this would help with symptoms but reports no change - takes Metamucil - has a BM QD - QOD - denies any BRBPR - reports she is not a vegetarian - she reports occult negative stool in the past year - c/o BM are messy - she is taking IBU-diphenhydramine 200-38mg -- she discontinued this and switched to Tylenol PM - she reports starting Fe TIW for low Fe - reports she has been on Fe for maybe 3 months - she reports abdominal discomfort began prior to starting Fe - shoulder pain - she was taking Meloxicam daily for >1 year and believes she discontinued this this past January - Caffeine 2 cups a day - EtOH - once a year - smoking - h/o quit 24 years ago - NSAIDS - as noted above EGD: denies previous - she reports she stopped using sun screen due to having a low vitamin D [facility] Medical History Arthritis Low iron High cholesterol Injury of head and neck History of ulceration Former smoker CPAP (continuous positive airway pressure) dependence Sleep apnea Leg cramps History of echocardiogram History of stress test Cardiology follow-up encounter Chronic shoulder pain Breast lump Glaucoma suspect Asthma Seasonal allergies Pelvic pain Home Medications ???Medication ???Instructions ???Recorded ???Last Taken ???Type multivitamin 1 cap PO QAM 04/14/18 10/01/18 His tory triamcinolone acetonide 55 mcg 2 spray intranasal QDAY 04/14/18 1 History nasal spray aerosol (Nasacort) acetaminophen 500 mg capsule 1,000 mg PO TID PRN fever or pain 11/16/24 Unknown History ascorbic acid (vitamin C) 1,000 mg 1 g PO QDAY 11/16/24 Unknown His tory capsule ferrous sulfate 325 mg (65 mg 325 mg PO DAILY 11/16/24 Unknown H istory iron) tablet psyllium husk 0.4 gram capsule 0.4 g PO 4X/DAY PRN constipation 1 01/17/24 Unknown History (Metamucil) cholecalciferol (vitamin D3) 50 50 mcg PO QDAY 11/17/24 Unknown Hi story mcg (2,000 unit) capsule guaifenesin 600 mg tablet, 600 mg PO BID PRN congestion 02/01 Unknown History extended release 12 hr (Mucinex) loratadine 10 mg tablet 10 mg PO DAILY 02/01/25 Unknown Hi story (Allerclear) pregabalin 50 mg capsule (Lyrica) 50 mg PO BID 02/01/25 02/02/25 Hi story Allergy/AdvReac Type Severity Reaction Status Date / Time iodine Allergy Severe hives Verified 02/03/25 09:59 Sulfa (Sulfonamide Allergy Severe hives Verified 02/03/25 09:59 Antibiotics) chlorhexidine (From Allergy Intermediate HIVES Verified 02/03/25 09:59 ChloraPrep Clear) isopropyl alcohol (From Allergy Intermediate HIVES Verified 02/03/25 09:59 ChloraPrep Clear) morphine Allergy Intermediate Vomiting Verified 02/03/25 09:59 prochlorperazine (From Allergy Vomiting Verified 02/03/25 09:59 Compazine) Family History Grandmother Osteoporosis Heart disease Arthritis Diabetes Grandfather Arthritis H (more content not included)...[facility]01-14-2025 Note* Exam Date Time Procedure Performing Provider Status 12/15/24 10:32 AM XR Foot Minimum 3 Views Left RAD SANTOYO MD; Auth (Verified) [id number] ORIGINAL EXAMINATION: THREE XRAY VIEWS OF THE LEFT FOOT; THREE XRAY VIEWS OF THE RIGHT FOOT 12/15/2024 10:33 am; 12/15/2024 10:32 am COMPARISON: None. HISTORY: ORDERING SYSTEM PROVIDED HISTORY: Reason for Exam: left first metatarsal joint pain; ORDERING SYSTEM PROVIDED HISTORY: Reason for Exam: right first metatarsal joint pain FINDINGS: Right foot: Moderate to severe 1st MTP degenerative change with joint space narrowing, subchondral sclerosis and tiny dorsal bony hypertrophy/osteophyte formation. Mild surrounding soft tissue prominence at the medial 1st MTP joint. Mild hallux valgus. Bipartite medial hallux sesamoid. No suspicious osseous lesions. No acute fracture. Left foot: Mild hallux valgus with moderate to severe degenerative change with joint space loss, [id number] and subchondral sclerosis/cysts at the 1st MTP joint and dorsal bony hypertrophy/osteophyte formation. Mild soft tissue prominence at the medial 1st MTP joint. No suspicious osseous lesions. No acute fracture. IMPRESSION: Bilateral 1st MTP moderate to severe 1st MTP degenerative change with small dorsal bony hypertrophy/osteophyte formation, early changes of hallux rigidus. No acute fracture. Interpreted by: Rad Santoyo Preliminary Report By: Rad Santoyo Electronically signed By Rad Santoyo Dictated Date: 12/15/2024 11:01:24 AM Prelim Date: 12/15/2024 11:07:37 AM Sign Date: 12/15/2024 11:07:37 AM Ordering Provider: [facility]01-14-2025 Note* Exam Date Time Procedure Performing Provider Status 12/15/24 10:31 AM XR Foot Minimum 3 Views Right RAD SANTOYO MD; Auth (Verified) [id number] ORIGINAL EXAMINATION: THREE XRAY VIEWS OF THE LEFT FOOT; THREE XRAY VIEWS OF THE RIGHT FOOT 12/15/2024 10:33 am; 12/15/2024 10:32 am COMPARISON: None. HISTORY: ORDERING SYSTEM PROVIDED HISTORY: Reason for Exam: left first metatarsal joint pain; ORDERING SYSTEM PROVIDED HISTORY: Reason for Exam: right first metatarsal joint pain FINDINGS: Right foot: Moderate to severe 1st MTP degenerative change with joint space narrowing, subchondral sclerosis and tiny dorsal bony hypertrophy/osteophyte formation. Mild surrounding soft tissue prominence at the medial 1st MTP joint. Mild hallux valgus. Bipartite medial hallux sesamoid. No suspicious osseous lesions. No acute fracture. Left foot: Mild hallux valgus with moderate to severe degenerative change with joint space loss, [id number] and subchondral sclerosis/cysts at the 1st MTP joint and dorsal bony hypertrophy/osteophyte formation. Mild soft tissue prominence at the medial 1st MTP joint. No suspicious osseous lesions. No acute fracture. IMPRESSION: Bilateral 1st MTP moderate to severe 1st MTP degenerative change with small dorsal bony hypertrophy/osteophyte formation, early changes of hallux rigidus. No acute fracture. Interpreted by: Rad Santoyo Preliminary Report By: Rad Santoyo Electronically signed By Rad Santoyo Dictated Date: 12/15/2024 11:01:24 AM Prelim Date: 12/15/2024 11:07:37 AM Sign Date: 12/15/2024 11:07:37 AM Ordering Provider: JOHNATHAN PEREZ [facility]11-11-2024 Note ORIGINAL FROM: [place] [address] PROCEDURE FOR: CARMENCITA MONDRAGON [address] [place] [address] Home: PID#: [id number] Exam#: [id number] : 1965 Age: 59 TO: JOHNATHAN PEREZ [place] [address] Fax: NO FAX EXAMINATION: ULTRASOUND OF THE BILATERAL AXILLA 10/12/2024 11:19 am TECHNIQUE: Color flow and gómez scale targeted ultrasound of the bilateral axilla were performed. Permanently stored images were reviewed. COMPARISON: Mammogram July 10, 2024, shoulder MRI October 07, 2024 HISTORY: ORDERING SYSTEM PROVIDED HISTORY: Reason for Exam: axillary adenopathy on shoulder MRI FINDINGS: Normal appearing lymph nodes are seen within the axilla bilaterally. The largest on the right measures up to 1.7 cm with a cortical thickness of 1 mm. The largest on the left measures up to 2.4 cm with a cortical thickness of 1 mm. This likely explains the finding on right MRI of the shoulder. IMPRESSION: Normal bilateral axillary lymph nodes. The patient may return to annual mammographic screening. BIRADS: BI-RADS: 2: Benign RECALL: return to screening RECALL TYPE: mammo LETTER SENT: Normal BI-RADS 1 and 2 Interpreted by: Basilia Abel MD Preliminary Report By: Basilia Abel MD Electronically signed By Basilia Abel MD Dictated Date: 10/12/2024 12:55:34 PM Prelim Date: 10/12/2024 12:59:17 PM Sign Date: 10/12/2024 12:59:17 PM Ordering Provider: JOHNATHAN PEREZ CLINICAL: RIGHT AXILLARY LYMPHADENOPATHY. Senior Analyst: MALACHI KELLEY RT(R)(M) RDMS letter sent: Normal BI-RADS 1 and 2 Ultrasound BI-RADS: 2 [facility]11-08-2024 Note* Exam Date Time Procedure Performing Provider Status 10/09/24 8:38 AM Echocardiogram, Adult - CV Auth (Verified) [facility] 11-06-2024 Note ORIGINAL EXAMINATION: MRI OF THE RIGHT SHOULDER WITHOUT CONTRAST 10/07/2024 7:42 am TECHNIQUE: Multiplanar multisequence MRI of the right shoulder was performed without the administration of intravenous contrast. COMPARISON: None. HISTORY: ORDERING SYSTEM PROVIDED HISTORY: Reason for Exam: right shoulder pain Prior rotator cuff tearand biceps tendon repair in january 2023 FINDINGS: There is no evidence of acute fracture, osteonecrosis or suspicious marrow lesion. Suture anchors within the humeral head related to prior rotator cuff repair. Mild degenerative changes of the AC joint.. A type 2 acromial undersurface is seen. The coracoclavicular and coracoacromial ligaments are intact. There is no subdeltoid subacromial bursitis. The teres minor is intact. Infraspinatus tendinosis. Supraspinatus tendinosis. There is some fluid dissecting along the anterior bursal surface fibers at the musculotendinous junction measuring approximately 1.2 by 1.3 cm suggesting low-grade tearing. Subscapularis tendinosis and fraying. The long head of the biceps tendon is maintained in anatomic location. The proximal intra-articular portion of the long head of the biceps tendon is not well appreciated. There is focal interstitial signal at the proximal extra-articular portion of the long head of biceps tendon at the level of bicipital groove on series 10, image 11 which may suggest proximal vertical longitudinal interstitial tearing. There is no biceps tenosynovitis. There is no acute Hill-Sacks or Bankart lesion. Suboptimal evaluation of the labrum with lack of intra-articular contrast. There is diffuse labral degeneration and tearing. No high-grade chondral lesions are present in the glenohumeral joint. There is no glenohumeral joint effusion or synovitis. The suprascapular and spinoglenoid notches as well as the quadrilateral space have preserved fat planes. There is no evidence of muscle atrophy or acute muscle denervation. Nonspecific axillary adenopathy. IMPRESSION: Prior changes of rotator cuff repair. Rotator cuff tendinosis. There is some fluid dissecting along the anterior bursal surface fibers at the musculotendinous junction of the supraspinatus tendon which may suggest low-grade underlying tearing. Subscapularis tendinosis and fraying. No high-grade rotator cuff tear. The proximal intra-articular portion long head of biceps tendon is not well appreciated. There is focal interstitial signal at the proximal extra-articular portion of the long head of biceps tendon at the level of bicipital groove which may suggest proximal vertical longitudinal interstitial tearing. Suboptimal evaluation labrum with lack of intra-articular contrast. There is diffuse labral degeneration and tearing. Additional incidental findings as above. Interpreted by: Rad Santoyo Preliminary Report By: Rad Santoyo Electronically signed By Rad Santoyo Dictated Date: 10/07/2024 10:57:21 AM Prelim Date: 10/07/2024 11:17:09 AM Sign Date: 10/07/2024 11:17:09 AM Ordering Provider: [facility]11-04-2024 Note ORIGINAL EXAMINATION: CT OF THE ABDOMEN AND PELVIS WITH CONTRAST 10/05/2024 11:21 am TECHNIQUE: CT of the abdomen and pelvis was performed with the administration of intravenous and oral contrast. Multiplanar reformatted images are provided for review. Automated exposure control, iterative reconstruction, and/or weight based adjustment of the mA/kV was utilized to reduce the radiation dose to as low as reasonably achievable. COMPARISON: None. HISTORY: ORDERING SYSTEM PROVIDED HISTORY: Reason for Exam: epigastric pain, epigastric mass FINDINGS: Mild bibasilar atelectasis. No pleural effusion. Heart is normal in size without pericardial effusion. Normal liver morphology. No suspicious hepatic lesions. Gallbladder is unremarkable. No biliary dilatation. Spleen, pancreas and adrenal glands are unremarkable. Kidneys are symmetric in size without evidence of hydronephrosis or renal calculi. Ureters are normal in caliber. Urinary bladder is underdistended limited evaluation. Uterus and bilateral adnexa are within normal limits. Esophagus, stomach and duodenum are unremarkable. No evidence of obstruction. Colon is largely underdistended limiting evaluation. Appendix is unremarkable. No free pelvic fluid or evidence of pneumoperitoneum. The aorta is normal in caliber with mild atherosclerotic calcifications. Hepatic veins and portal venous system are patent. No pathologically enlarged abdominal or pelvic lymph nodes. There is a tiny fat containing umbilical hernia with mild diastasis rectus. No aggressive osseous lesions. Mild multilevel degenerative changes throughout the visualized spine. IMPRESSION: No acute findings within the abdomen and pelvis. Tiny fat containing umbilical hernia with mild diastasis rectus. Interpreted by: Vitaliy Perdomo Preliminary Report By: Vitaliy Perdomo Electronically signed By Vitaliy Perdomo Dictated Date: 10/05/2024 4:08:27 PM Prelim Date: 10/05/2024 4:15:29 PM Sign Date: 10/05/2024 4:15:29 PM Ordering Provider: [facility]09-19-2024 Note The Pap test is a screening test for cervical cancer. As evidenced by published data, it is subjectto both inherent false negative and false positive results. Your patient's results should be interpreted in context with pertinent clinical history including gynecological examination. [facility] 09-19-2024 Note The Pap test is a screening test for cervical cancer. As evidenced by published data, it is subjectto both inherent false negative and false positive results. Your patient's results should be interpreted in context with pertinent clinical history including gynecological examination. [facility] 09-19-2024 Note The Pap test is a screening test for cervical cancer. As evidenced by published data, it is subjectto both inherent false negative and false positive results. Your patient's results should be interpreted in context with pertinent clinical history including gynecological examination. [facility] 09-19-2024 Note The Pap test is a screening test for cervical cancer. As evidenced by published data, it is subjectto both inherent false negative and false positive results. Your patient's results should be interpreted in context with pertinent clinical history including gynecological examination. [facility] 09-19-2024 Note The Pap test is a screening test for cervical cancer. As evidenced by published data, it is subjectto both inherent false negative and false positive results. Your patient's results should be interpreted in context with pertinent clinical history including gynecological examination. [facility] 09-19-2024 Note The Pap test is a screening test for cervical cancer. As evidenced by published data, it is subjectto both inherent false negative and false positive results. Your patient's results should be interpreted in context with pertinent clinical history including gynecological examination. [facility] 09-19-2024 Note The Pap test is a screening test for cervical cancer. As evidenced by published data, it is subjectto both inherent false negative and false positive results. Your patient's results should be interpreted in context with pertinent clinical history including gynecological examination. [facility] 09-19-2024 Note The Pap test is a screening test for cervical cancer. As evidenced by published data, it is subjectto both inherent false negative and false positive results. Your patient's results should be interpreted in context with pertinent clinical history including gynecological examination. [facility] 09-12-2024 Note ORIGINAL EXAMINATION: RETROPERITONEAL ULTRASOUND OF THE AORTA 08/13/2024 TECHNIQUE: Duplex ultrasound using B-mode/gómez scaled imaging, Doppler spectral analysis and color flow Doppler was obtained of the aorta. COMPARISON: None HISTORY: ORDERING SYSTEM PROVIDED HISTORY: Reason for Exam: epigastric mass, epigastric pain, enlargement of abdominal aorta on exam All images are recorded and archived. FINDINGS: Aorta: Proximal aorta measures 2.3 x 2.3 cm. Mid aorta measures 2.0 x 2.0 cm. Distal aorta measures 1.7 x 1.5 cm. There is appropriate triphasic waveforms in the aorta. No significant calcified plaque is encountered. Iliacs: Iliac arteries are patent and normal in caliber. IMPRESSION: No evidence for abdominal aortic aneurysm. Interpreted by: Owen Perdomo DO Preliminary Report By: Owen Perdomo DO Electronically signed By Owen Perdomo DO Dictated Date: 08/13/2024 1:28:28 PM Prelim Date: 08/13/2024 1:29:27 PM Sign Date: 08/13/2024 1:29:27 PM Ordering Provider: [facility]08-23-2024 Note ORIGINAL EXAMINATION: SOFT TISSUE ULTRASOUND EPIGASTRIC REGION07/24/2024 7:14 am COMPARISON: None HISTORY: ORDERING SYSTEM PROVIDED HISTORY: Reason for Exam: epigastric mass, painful, FINDINGS: No definite evidence of herniation visualized on resting and Valsalva images. No sonographic evidence of discrete mass lesion or fluid collection visualized in this region of concern. IMPRESSION: No definite evidence of herniation or sonographic abnormality visualized in the region of concern. I have personally reviewed the images of this examination and agree with the resident's findings and interpretation. Interpreted by: Owen Perdomo DO Preliminary Report By: Cristofer Rocha Electronically signed By Owen Perdomo DO Dictated Date: 07/24/2024 9:18:04 AM Prelim Date: 07/24/2024 10:12:26 AM Sign Date: 07/24/2024 10:12:26 AM Ordering Provider: [facility]08-02-2024 Evaluation + Plan note Future Appointments Appointment Date:07/23/2024 02:15:00 PM Scheduled Provider: Location:[facility] Appointment Type:PC Nurse Injection Appointment Date:07/24/2024 07:00:00 AM Scheduled Provider: Location:[facility] Appointment Type:US Soft Tissue Mass of Abd/Mid Back Appointment Date:08/06/2024 09:30:00 AM Scheduled Provider:JOHNATHAN PEREZ DO Location:[facility] Appointment Type:PC OV Future Scheduled Tests Radiology* US Soft Tissue Mass of Abd/Mid Back 07/24/24 [facility] 11-02-2023 NoteHNO ID: [id number] Author: Ivelisse De La Fuente, DO Service: ? Author Type: Physician Type: Progress Notes Filed: 10/03/2023 10:25 AM Note Text: Follow Up Visit Chief Complaint Carmencita Mondragon is a 58 year old female who presents today for follow up office visit. Patient presents with: Right Shoulder - Follow Up, Established Patient: Proximately 8 months post op right shoulder arthroscopy, RCR, SAD/Acromioplasty, intra-articular biceps tendonesis Date of surgery: 02/05/2023 History of Present Illness PAIN EVALUATION 10/03/2023 0856 Pain Level: 7 Pain Location: Shoulder-Right Description: Sharp;Aching Pinch Duration Amount of Time: 8 Ongoing Duration Units: Months Frequency: Continuous Intervention/Comfort measure: Reposition;Medication;Cold;Heat HPI: Carmencita Mondragon is a 58 year old female for a follow up visit 8 months post op right shoulder arthroscopy, RCR, SAD/Acromioplasty, intra-articular biceps tendonesis. Pain history is noted as above. Patient states she has had pinching pain in the right shoulder since the block from the surgery wore off. States it has been impacting her sleep quality and noticed certain movements (hand on hip, pulling down/turning the steering wheel) are hard but that her ROM has gotten better since surgery. Is there any overall improvement in your condition? No Any new injury, since being seen last: No REVIEW OF SYMPTOMS: Patient did not have, and does not currently have, any weight loss, malaise, fever, chills, headache, chest pain, chest pressure, palpitations, cough, shortness of breath, orthopnea, paroxsymal nocturnal dyspnea, nausea, vomiting, diarrhea, constipation, melena, hematochezia, urinary difficulties, prolonged bleeding, easily bruising, heat or cold intolerance, new onset joint pain or swelling, new onset extremity weakness or numbness, new onset auditory or visual disturbances, lightheadedness, dizziness, partial loss of consciousness or full loss of consciousness. Current Outpatient Medications Medication Sig ascorbic acid, vitamin C, (VITAMIN C) 500 mg tablet Take 1,000 mg by mouth once daily. cholecalciferol (VITAMIN D3) 50 mcg (2,000 unit) tablet Take 2,000 Units by mouth twice daily. multivitamin (MULTIPLE VITAMINS ORAL) Take by mouth. TRIAMCINOLONE ACETONIDE (NASACORT NASAL) Use in the nose. One spray in each nostril at bedtime methylPREDNISolone (MEDROL, CECI,) 4 mg Dose-Pack Take 1 tablet by mouth as directed. As directed on package (Patient not taking: Reported on 10/03/2023) oxyCODONE-acetaminophen (PERCOCET) 5-325 mg tablet Take 1 tablet by mouth every 6 hours as needed for pain. ondansetron (ZOFRAN) 4 mg tablet Take 1 tablet by mouth every 8 hours as needed for nausea/vomiting. No current facility-administered medications for this visit. Physical Exam Vitals: [facility] 10/06/2015 Psych: Pleasant, good affect and mood General Appearance: Well appearing, alert, in no acute distress, well-hydrated, well nourished.. Skin: Skin color, texture, turgor normal, no suspicious rashes or lesions. Peripheral Pulses: Normal. Neurologic: Gait normal. Reflexes normal and symmetric. Sensation grossly intact.. Lymph Nodes: No cervical lymphadenopathy, No supraclavicular lymphadenopathy, No axillary lymphadenopathy., and No inguinal lymphadenopathy.. Respiratory: No recent pulmonary infection, hemoptysis, chronic cough, or shortness of breath at rest Rheumatologic: Joint deformities: right shoulder follow up Right Shoulder Exam Right shoulder exam is normal. Tenderness The patient is experiencing no tenderness. Range of Motion Active abduction: normal Passive abduction: normal Extension: normal External rotation: normal Forward flexion: normal Internal rotation 0 degrees: normal Internal rotation 90 degrees: normal Muscle Strength Abduction: 5/5 Internal rotation: 5/5 External rotation: 5/5 Supraspinatus: 5/5 Subscapularis: 5/5 Biceps: 5/5 Tests Apprehension: negative Vang test: negative Cross arm: negative Impingement: negative Other Erythema: absent Sensation: normal Pulse: present Comments: B/l med, uln, rad, ax nerves intact Ttp trap Snapping scapula Left Shoulder Exam Left shoulder exam is normal. Tenderness The patient is experiencing no tenderness. Range of Motion Active abduction: normal Passive abduction: normal Extension: normal External rotation: normal Forward flexion: normal Internal rotation 0 degrees: normal Internal rotation 90 degrees: normal Muscle Strength Abduction: 5/5 Internal rotation: 5/5 External rotation: 5/5 Supraspinatus: 5/5 Subscapularis: 5/5 Biceps: 5/5 Tests Apprehension: negative Vang test: negative Cross arm: negative Impingement: negative Other Erythema: absent Sensation: normal Pulse: present Assessment and Plan Radiographs: No imaging to review. Impression: (more content not included)...[facility]07-31-2023 NoteHNO ID: [id number] Author: Cass Beatty PA-C Service: ? Author Type: Physician Logistics/Shipper Type: Progress Notes Filed: 07/02/2023 3:17 PM Note Text: POST OP Cass Beatty PA-C Department of Orthopaedics Orth[facility] [address] [place] [id number] Dept: [phone] Ms. Mondragon presents today for her 5 month visit S/P right athroscopic rotator cuff repair and biceps tenodesis. DOS: 02/05/2023 She was doing well until last week when she had increased pain after increasing her weights at PT and getting her arm twisted weird when getting dressed. History: her pain intensity is 5/10. Pain has been controlled with ibuprofen. The patient denies swelling, warmth, discharge, drainage, fevers, chills, sweats. She reports no change in past medical AND surgical history, medications, allergies, social history, family history and review of systems since last visit. Radiographs: not applicable Physical Examination: Incision well healed Anterior portal tender to palpation ROM: Abduction: 140 Forward flexion: 130 Positive axillary, musculocutaneous, median, ulna, and radial nerve function Positive distal pulses Plan: Recommend she hold PT for 1 week, ok to continue ROM exercises Continue vitamin C Start prednisone taper followed by ranjana Advised at this time I do not think she reinjured her cuff or biceps tenodesis She will update the office in 3 weeks [facility] History of Present illness Narrative* Cass Beatty PA-C - 07/01/2023 4:09 PM EDT POST OP Cass Beatty PA-C Department of Orthopaedics Orthopaedics [address] [place], [place] [id number] Dept: [phone] Ms. Mondragon presents today for her 5 month visit S/P right athroscopic rotator cuff repair and biceps tenodesis. DOS: 02/05/2023 She was doing well until last week when she had increased pain after increasing her weights at PT and getting her arm twisted weird when getting dressed. History: her pain intensity is 5/10. Pain has been controlled with ibuprofen. The patient denies swelling, warmth, discharge, drainage, fevers, chills, sweats. She reports no change in past medical & surgical history, medications, allergies, social history, family history and review of systems since last visit. Radiographs: not applicable Physical Examination: Incision well healed Anterior portal tender to palpation ROM: Abduction: 140 Forward flexion: 130 Positive axillary, musculocutaneous, median, ulna, and radial nerve function Positive distal pulses Plan: Recommend she hold PT for 1 week, ok to continue ROM exercises Continue vitamin C Start prednisone taper followed by ranjana Advised at this time I do not think she reinjured her cuff or biceps tenodesis She will update the office in 3 weeks Cass Beatty PA-C [facility] NoteHNO ID: [id number] Author: Ivelisse De La Fuente, DO Service: ? Author Type: Physician Type: Progress Notes Filed: 06/13/2023 3:07 PM Note Text: Follow Up Visit Chief Complaint Carmencita Mondragon is a 57 year old female who presents today for follow up office visit. Patient presents with: Right Shoulder - Post Op: 18 weeks 2 days post R shoulder arthroscopy RCR. SAD, acromioplasty,intra articular biceps tendonitis History of Present Illness PAIN EVALUATION 06/12/2023 1519 06/13/2023 0857 Pain Level: 6 6 Pain Location: Arm-Upper Right Shoulder-Right and upper arm Description: Burning;Contraction;Radiating;Sharp;Spasm;Stabbing;Stiffness;Tightness Spasm;Cramping;Tightness;Burning;Sharp;Radiating Duration Amount of Time: -- 18 Duration Units: Months Weeks Frequency: Intermittent Intermittent Intervention/Comfort measure: Medication;Relaxation;Aromatherapy to promote a healing environment;Cold;Distractions;Exercise;Heat;Massage;Music;Pillow support;Positioning Reposition;Medication;Relaxation;Cold;Heat;Massage;Pillow support;Positioning HPI: Carmencita Mondragon is a 57 year old female for a follow up visit R shoulder arthroscopy RCR, SAD,acromioplasty,intra articular biceps tendonitis. Pain history is noted as above. Patient reports intermittent pain that changes area any pain type.She takes ibuprofen or tylenol for pain. Is there any overall improvement in your condition? No Any new injury, since being seen last: No REVIEW OF SYMPTOMS: Patient did not have, and does not currently have, any weight loss, malaise, fever, chills, headache, chest pain, chest pressure, palpitations, cough, shortness of breath, orthopnea, paroxsymal nocturnal dyspnea, nausea, vomiting, diarrhea, constipation, melena, hematochezia, urinary difficulties, prolonged bleeding, easily bruising, heat or cold intolerance, new onset joint pain or swelling, new onset extremity weakness or numbness, new onset auditory or visual disturbances, lightheadedness, dizziness, partial loss of consciousness or full loss of consciousness. Current Outpatient Medications Medication Sig ascorbic acid, vitamin C, (VITAMIN C) 500 mg tablet Take 1,000 mg by mouth once daily. cholecalciferol (VITAMIN D3) 50 mcg (2,000 unit) tablet Take 2,000 Units by mouth twice daily. multivitamin (MULTIPLE VITAMINS ORAL) Take by mouth. TRIAMCINOLONE ACETONIDE (NASACORT NASAL) Use in the nose. One spray in each nostril at bedtime oxyCODONE-acetaminophen (PERCOCET) 5-325 mg tablet Take 1 tablet by mouth every 6 hours as needed for pain. ondansetron (ZOFRAN) 4 mg tablet Take 1 tablet by mouth every 8 hours as needed for nausea/vomiting. meloxicam (MOBIC) 7.5 mg tablet Take 1 tablet by mouth once daily. (Patient taking differently: Take 15 mg by mouth once daily.) No current facility-administered medications for this visit. Physical Exam Vitals: [facility] 10/06/2015 Psych: Pleasant, good affect and mood General Appearance: Well appearing, alert, in no acute distress, well-hydrated, well nourished.. Skin: Skin color, texture, turgor normal, no suspicious rashes or lesions. Peripheral Pulses: Normal. Neurologic: Gait normal. Reflexes normal and symmetric. Sensation grossly intact.. Lymph Nodes: No cervical lymphadenopathy, No supraclavicular lymphadenopathy, No axillary lymphadenopathy., and No inguinal lymphadenopathy.. Respiratory: No recent pulmonary infection, hemoptysis, chronic cough, or shortness of breath at rest Rheumatologic: Joint deformities: right shoulder pain Right Hand Exam Right hand exam is normal. Tenderness The patient is experiencing no tenderness. Range of Motion The patient has normal right wrist ROM. Wrist Extension: normal Flexion: normal Pronation: normal Supination: normal Muscle Strength The patient has normal right wrist strength. Tests Phalen?s Sign: negative Tinel's sign (median nerve): negative Randy's test: negative Other Erythema: absent Sensation: normal Pulse: present Comments: B/l med/uln/rad/ax nerves intact Left Hand Exam Left hand exam is normal. Tenderness The patient is experiencing no tenderness. Range of Motion The patient has normal left wrist ROM. Wrist Extension: normal Flexion: normal Pronation: normal Supination: normal Muscle Strength The patient has normal left wrist strength. Tests Phalen?s Sign: negative Tinel's sign (median nerve): negative Randy's test: negative Other Erythema: absent Sensation: normal Pulse: present Right Shoulder Exam Right shoulder exam is normal. Tenderness The patient is experiencing no tenderness. Range of Motion Active abduction: normal Passive abduction: normal Extension: normal External rotation: normal Forward flexion: normal Internal rotation 0 degrees: normal Internal rotation 90 degrees: normal Muscle Strength Abduction: 5/5 Inte (more content not included)...[facility]07-13-2023 History of Present illness Narrative* Ivelisse De La Fuente DO - 06/13/2023 8:55 AM EDT Images from the original note were not included. Follow Up Visit Chief Complaint Carmencita Mondragon is a 57 year old female who presents today for follow up office visit. Patient presents with: Right Shoulder - Post Op: 18 weeks 2 days post R shoulder arthroscopy RCR. SAD, acromioplasty,intraarticular biceps tendonitis History of Present Illness PAIN EVALUATION 06/12/2023 1519 06/13/2023 0857 Pain Level: 6 6 Pain Location: Arm-Upper Right Shoulder-Right and upper arm Description: Burning;Contraction;Radiating;Sharp;Spasm;Stabbing;Stiffness;Tightness Spasm;Cramping;Tightness;Burning;Sharp;Radiating Duration Amount of Time: -- 18 Duration Units: Months Weeks Frequency: Intermittent Intermittent Intervention/Comfort measure: Medication;Relaxation;Aromatherapy to promote a healing environment;Cold;Distractions;Exercise;Heat;Massage;Music;Pillow support;Positioning Reposition;Medication;Relaxation;Cold;Heat;Massage;Pillow support;Positioning HPI: Carmencita Mondragon is a 57 year old female for a follow up visit R shoulder arthroscopy RCR, SAD,acromioplasty,intra articular biceps tendonitis. Pain history is noted as above. Patient reports intermittent pain that changes area any pain type.She takes ibuprofen or tylenol for pain. Is there any overall improvement in your condition? No Any new injury, since being seen last: No REVIEW OF SYMPTOMS: Patient did not have, and does not currently have, any weight loss, malaise, fever, chills, headache, chest pain, chest pressure, palpitations, cough, shortness of breath, orthopnea, paroxsymal nocturnal dyspnea, nausea, vomiting, diarrhea, constipation, melena, hematochezia, urinary difficulties, prolonged bleeding, easily bruising, heat or cold intolerance, new onset joint pain or swelling, newonset extremity weakness or numbness, new onset auditory or visual disturbances, lightheadedness, dizziness, partial loss of consciousness or full loss of consciousness. Current Outpatient Medications Medication Sig ascorbic acid, vitamin C, (VITAMIN C) 500 mg tablet Take 1,000 mg by mouth once daily. cholecalciferol (VITAMIN D3) 50 mcg (2,000 unit) tablet Take 2,000 Units by mouth twice daily. multivitamin (MULTIPLE VITAMINS ORAL) Take by mouth. TRIAMCINOLONE ACETONIDE (NASACORT NASAL) Use in the nose. One spray in each nostril at bedtime oxyCODONE-acetaminophen (PERCOCET) 5-325 mg tablet Take 1 tablet by mouth every 6 hours as needed for pain. ondansetron (ZOFRAN) 4 mg tablet Take 1 tablet by mouth every 8 hours as needed for nausea/vomiting. meloxicam (MOBIC) 7.5 mg tablet Take 1 tablet by mouth once daily. (Patient taking differently: Take 15 mg by mouth once daily.) No current facility-administered medications for this visit. Physical Exam Vitals: [facility] 10/06/2015 Psych: Pleasant, good affect and mood General Appearance: Well appearing, alert, in no acute distress, well-hydrated, well nourished.. Skin: Skin color, texture, turgor normal, no suspicious rashes or lesions. Peripheral Pulses: Normal. Neurologic: Gait normal. Reflexes normal and symmetric. Sensation grossly intact.. Lymph Nodes: No cervical lymphadenopathy, No supraclavicular lymphadenopathy, No axillary lymphadenopathy., and No inguinal lymphadenopathy.. Respiratory: No recent pulmonary infection, hemoptysis, chronic cough, or shortness of breath at rest Rheumatologic: Joint deformities: right shoulder pain Right Hand Exam Right hand exam is normal. Tenderness The patient is experiencing no tenderness. Range of Motion The patient has normal right wrist ROM. Wrist Extension: normal Flexion: normal Pronation: normal Supination: normal Muscle Strength The patient has normal right wrist strength. Tests Phalen s Sign: negative Tinel's sign (median nerve): negative Randy's test: negative Other Erythema: absent Sensation: normal Pulse: present Comments: B/l med/uln/rad/ax nerves intact Left Hand Exam Left hand exam is normal. Tenderness The patient is experiencing no tenderness. Range of Motion The patient has normal left wrist ROM. Wrist Extension: normal Flexion: normal Pronation: normal Supination: normal Muscle Strength The patient has normal left wrist strength. Tests Phalen s Sign: negative Tinel's sign (median nerve): negative Randy's test: negative Other Erythema: absent Sensation: normal Pulse: present Right Shoulder Exam Right shoulder exam is normal. Tenderness The patient is experiencing no tenderness. Range of Motion Active abduction: normal Passive abduction: normal Extension: normal External rotation: normal Forward flexion: normal Internal rotation 0 degrees: normal Internal rotation 90 degrees: normal Muscle Strength Abduction: 5/5 Internal rotation: 5/5 External rotation: 5/5 Supraspinatus: 5/5 Subscapularis: 5/5 Biceps: 5/5 Tests Apprehension: negative Vang test: negative Cross arm: negative Impingement: negative Other Erythema: absent Sensation: normal Pulse: present Comments: B/l med, uln, rad, ax nerves intact Left Shoulder Exam Left shoulder exam is normal. Tenderness The patient is experiencing no tenderness. Range of Motion Active abduction: normal Passive abduction: normal Extension: normal External rotation: normal Forward flexion: normal Internal rotation 0 degrees: normal Internal rotation 90 degrees: normal Muscle Strength Abduction: 5/5 Internal rotation: 5/5 External rotation: 5/5 Supraspinatus: 5/5 Subscapularis: 5/5 Biceps: 5/5 Tests Apprehension: negative Vang test: negative Cross arm: negative Impingement: negative Other Erythema: absent Sensation: normal Pulse: present Assessment and Plan Radiographs: No imaging to review. Impression: Encounter Diagnosis ICD-10-CM 1. Biceps tendonosis of right shoulder M67.813 2. Tendinitis of right shoulder M77.8 Today, in detail, through a thorough evaluation, we discussed possible etiologies of pain and our plans for further diagnostic and therapeutic interventions. We discussed strategies for decreasing pain and improving strength, stability and motion. Patient's questions were answered in detailed. Patient verbalizes understanding and agrees with the treatment plan as discussed. Doing appropriate rom and strengthening Pain going into her hand most likely from neck- recommended seeing Spine for workup eval as patientstates travels from neck down back of her arm into her hand Improving right shoulder strengthening, no pain in shoulder joint with provocative eval/maneuvers Discussed above with aptient, aware and in agreement of plan Patient aware and in agreement of plan. All questions answered. Ivelisse De La Fuente D.O. M.P.H. documented in [facility] Note ORIGINAL FROM: [facility] [id number] [place], [place] [address] PROCEDURE FOR: CARMENCITA MONDRAGON [address] [place] [address] Home: PID#: [id number] Exam#: [id number] : 1965 Age: 57 TO: JOHNATHAN PEREZ DO [address] [place] [id number] Fax: NO FAX EXAMINATION: SCREENING DIGITAL BILATERAL MAMMOGRAM WITH TOMOSYNTHESIS, 05/30/2023 8:56 am TECHNIQUE: Screening mammography of the bilateral breasts was performed with tomosynthesis. 2D standard and 3D tomosynthesis combination imaging performed through both breasts in the MLO and CC projection. Computer aided detection was utilized in the interpretation of this exam. COMPARISON: 05/30/2023, 05/29/2022 HISTORY: Breast cancer screening. FINDINGS: BREAST DENSITY: Scattered fibroglandular tissue There are no significant masses or calcifications. IMPRESSION: No mammographic evidence of malignancy. Continued screening with annual mammograms is recommended. BIRADS: MAMMOGRAM BI-RADS: 1: Negative RECALL: 1 year screening RECALL TYPE: mammo LETTER SENT: Normal BI-RADS 1 and 2 Interpreted by: Sylvester Loyd MD Preliminary Report By: Sylvester Loyd MD Electronically signed By Sylvester Loyd MD Dictated Date: 05/30/2023 10:12:52 AM Prelim Date: 05/30/2023 10:18:10 AM Sign Date: 05/30/2023 10:18:10 AM Ordering Provider: JOHNATHAN PEREZ Senior Analyst: ALEJO MALDONADO RT(R) (M) letter sent: Normal BI-RADS 1 and 2 Mammogram BI-RADS: 1 Negative [facility]06-29-2023 Note ORIGINAL FROM: [address] [address] PROCEDURE FOR: CARMENCITA MONDRAGON [address] [place] [address] Home: PID#: [id number] Exam#: [id number] : 1965 Age: 57 TO: JOHNATHAN PEREZ DO [address] [place] [phone] Fax: NO FAX EXAMINATION: SCREENING DIGITAL BILATERAL MAMMOGRAM WITH TOMOSYNTHESIS, 05/30/2023 8:56 am TECHNIQUE: Screening mammography of the bilateral breasts was performed with tomosynthesis. 2D standard and 3D tomosynthesis combination imaging performed through both breasts in the MLO and CC projection. Computer aided detection was utilized in the interpretation of this exam. COMPARISON: 05/30/2023, 05/29/2022 HISTORY: Breast cancer screening. FINDINGS: BREAST DENSITY: Scattered fibroglandular tissue There are no significant masses or calcifications. IMPRESSION: No mammographic evidence of malignancy. Continued screening with annual mammograms is recommended. BIRADS: MAMMOGRAM BI-RADS: 1: Negative RECALL: 1 year screening RECALL TYPE: mammo LETTER SENT: Normal BI-RADS 1 and 2 Interpreted by: Sylvester Loyd MD Preliminary Report By: Sylvester Loyd MD Electronically signed By Sylvester Loyd MD Dictated Date: 05/30/2023 10:12:52 AM Prelim Date: 05/30/2023 10:18:10 AM Sign Date: 05/30/2023 10:18:10 AM Ordering Provider: JOHNATHAN PEREZ Senior Analyst: ALEJO DAVALOS(Malcom) (M) letter sent: Normal BI-RADS 1 and 2 Mammogram BI-RADS: 1 [facility]06-01-2023 NoteHNO ID: [id number] Author: Ivelisse De La Fuente, DO Service: ? Author Type: Physician Type: Progress Notes Filed: 05/02/2023 10:55 AM Note Text: Follow Up Visit Chief Complaint Carmencita Mondragon is a 57 year old female who presents today for follow up office visit. Patient presents with: Right Shoulder - Post Op, Follow Up History of Present Illness PAIN EVALUATION 04/30/2023 1101 Pain Level: 5 Pain Location: Arm-Upper Right Description: Aching;Burning;Contraction;Pressure;Sharp;Shooting;Stabbing Duration Units: Hours Frequency: Intermittent Intervention/Comfort measure: Medication;Reposition;Relaxation;Aromatherapy to promote a healing environment;Cold;Exercise;Massage;Music;Pillow support;Positioning;Rocking/holding HPI: Carmencita Mondragon is a 57 year old female for a follow up visit 12 weeks 2 days post op right shoulder arthroscopy RCR, SAD/acromioplasty, intraarticular biceps tenodesis. Pain history is noted as above. Reports pain mainly in R upper arm near tricep. Pain is constant but worse at night when she is laying in bed. States arm feels very tight even at rest. Also reports clicking in R shoulder when she does her exercises in the morning. She is in PT and feels like clicking started once she started becoming more active. Had skin issues bc of welts and had antibiotics which cleared skin lesions, had pain in arm and placed on diclofenac. Got a virus recnelty and better today, and here today for follow up. Having triceps pain and swelling in arm. Is there any overall improvement in your condition? yes Any new injury, since being seen last: No REVIEW OF SYMPTOMS: Patient did not have, and does not currently have, any weight loss, malaise, fever, chills, headache, chest pain, chest pressure, palpitations, cough, shortness of breath, orthopnea, paroxsymal nocturnal dyspnea, nausea, vomiting, diarrhea, constipation, melena, hematochezia, urinary difficulties, prolonged bleeding, easily bruising, heat or cold intolerance, new onset joint pain or swelling, new onset extremity weakness or numbness, new onset auditory or visual disturbances, lightheadedness, dizziness, partial loss of consciousness or full loss of consciousness. Current Outpatient Medications Medication Sig ascorbic acid, vitamin C, (VITAMIN C) 500 mg tablet Take 1,000 mg by mouth once daily. cholecalciferol (VITAMIN D3) 50 mcg (2,000 unit) tablet Take 2,000 Units by mouth twice daily. multivitamin (MULTIPLE VITAMINS ORAL) Take by mouth. TRIAMCINOLONE ACETONIDE (NASACORT NASAL) Use in the nose. One spray in each nostril at bedtime diclofenac, EC, (VOLTAREN) 50 mg EC tablet Take 1 tablet by mouth twice daily. oxyCODONE-acetaminophen (PERCOCET) 5-325 mg tablet Take 1 tablet by mouth every 6 hours as needed for pain. ondansetron (ZOFRAN) 4 mg tablet Take 1 tablet by mouth every 8 hours as needed for nausea/vomiting. meloxicam (MOBIC) 7.5 mg tablet Take 1 tablet by mouth once daily. (Patient taking differently: Take 15 mg by mouth once daily.) No current facility-administered medications for this visit. Physical Exam Vitals: [facility] 10/06/2015 Psych: Pleasant, good affect and mood General Appearance: Well appearing, alert, in no acute distress, well-hydrated, well nourished.. Skin: Skin color, texture, turgor normal, no suspicious rashes or lesions. Peripheral Pulses: Normal. Neurologic: Gait normal. Reflexes normal and symmetric. Sensation grossly intact.. Lymph Nodes: No cervical lymphadenopathy, No supraclavicular lymphadenopathy, No axillary lymphadenopathy., and No inguinal lymphadenopathy.. Respiratory: No recent pulmonary infection, hemoptysis, chronic cough, or shortness of breath at rest Rheumatologic: Joint deformities: right arm pain Right Hand Exam Right hand exam is normal. Tenderness The patient is experiencing no tenderness. Range of Motion The patient has normal right wrist ROM. Wrist Extension: normal Flexion: normal Pronation: normal Supination: normal Muscle Strength The patient has normal right wrist strength. Tests Phalen?s Sign: negative Tinel's sign (median nerve): negative Randy's test: negative Other Erythema: absent Sensation: normal Pulse: present Comments: B/l med/uln/rad/ax nerves intact Left Hand Exam Left hand exam is normal. Tenderness The patient is experiencing no tenderness. Range of Motion The patient has normal left wrist ROM. Wrist Extension: normal Flexion: normal Pronation: normal Supination: normal Muscle Strength The patient has normal left wrist strength. Tests Phalen?s Sign: negative Tinel's sign (median nerve): negative Randy's test: negative Other Erythema: absent Sensation: normal Pulse: present Right Shoulder Exam Comments: Painful triceps area Neuro intact Arom 110, IR to L5 Assessment and Plan Radiographs: No imaging to review. Impr (more content not included)...[facility]06-01-2023 History of Present illness Narrative* Ivelisse De La Fuente, - 05/02/2023 8:41 AM EDT Images from the original note were not included. Follow Up Visit Chief Complaint Carmencita Mondragon is a 57 year old female who presents today for follow up office visit. Patient presents with: Right Shoulder - Post Op, Follow Up History of Present Illness PAIN EVALUATION 04/30/2023 1101 Pain Level: 5 Pain Location: Arm-Upper Right Description: Aching;Burning;Contraction;Pressure;Sharp;Shooting;Stabbing Duration Units: Hours Frequency: Intermittent Intervention/Comfort measure: Medication;Reposition;Relaxation;Aromatherapy to promote a healing environment;Cold;Exercise;Massage;Music;Pillow support;Positioning;Rocking/holding HPI: Carmencita Mondragon is a 57 year old female for a follow up visit 12 weeks 2 days post op right shoulder arthroscopy RCR, SAD/acromioplasty, intraarticular biceps tenodesis. Pain history is noted asabove. Reports pain mainly in R upper arm near tricep. Pain is constant but worse at night when sheis laying in bed. States arm feels very tight even at rest. Also reports clicking in R shoulder when she does her exercises in the morning. She is in PT and feels like clicking started once she started becoming more active. Had skin issues bc of welts and had antibiotics which cleared skin lesions,had pain in arm and placed on diclofenac. Got a virus recnelty and better today, and here today forfollow up. Having triceps pain and swelling in arm. Is there any overall improvement in your condition? yes Any new injury, since being seen last: No REVIEW OF SYMPTOMS: Patient did not have, and does not currently have, any weight loss, malaise, fever, chills, headache, chest pain, chest pressure, palpitations, cough, shortness of breath, orthopnea, paroxsymal nocturnal dyspnea, nausea, vomiting, diarrhea, constipation, melena, hematochezia, urinary difficulties, prolonged bleeding, easily bruising, heat or cold intolerance, new onset joint pain or swelling, newonset extremity weakness or numbness, new onset auditory or visual disturbances, lightheadedness, dizziness, partial loss of consciousness or full loss of consciousness. Current Outpatient Medications Medication Sig ascorbic acid, vitamin C, (VITAMIN C) 500 mg tablet Take 1,000 mg by mouth once daily. cholecalciferol (VITAMIN D3) 50 mcg (2,000 unit) tablet Take 2,000 Units by mouth twice daily. multivitamin (MULTIPLE VITAMINS ORAL) Take by mouth. TRIAMCINOLONE ACETONIDE (NASACORT NASAL) Use in the nose. One spray in each nostril at bedtime diclofenac, EC, (VOLTAREN) 50 mg EC tablet Take 1 tablet by mouth twice daily. oxyCODONE-acetaminophen (PERCOCET) 5-325 mg tablet Take 1 tablet by mouth every 6 hours as needed for pain. ondansetron (ZOFRAN) 4 mg tablet Take 1 tablet by mouth every 8 hours as needed for nausea/vomiting. meloxicam (MOBIC) 7.5 mg tablet Take 1 tablet by mouth once daily. (Patient taking differently: Take 15 mg by mouth once daily.) No current facility-administered medications for this visit. Physical Exam Vitals: [facility] 10/06/2015 Psych: Pleasant, good affect and mood General Appearance: Well appearing, alert, in no acute distress, well-hydrated, well nourished.. Skin: Skin color, texture, turgor normal, no suspicious rashes or lesions. Peripheral Pulses: Normal. Neurologic: Gait normal. Reflexes normal and symmetric. Sensation grossly intact.. Lymph Nodes: No cervical lymphadenopathy, No supraclavicular lymphadenopathy, No axillary lymphadenopathy., and No inguinal lymphadenopathy.. Respiratory: No recent pulmonary infection, hemoptysis, chronic cough, or shortness of breath at rest Rheumatologic: Joint deformities: right arm pain Right Hand Exam Right hand exam is normal. Tenderness The patient is experiencing no tenderness. Range of Motion The patient has normal right wrist ROM. Wrist Extension: normal Flexion: normal Pronation: normal Supination: normal Muscle Strength The patient has normal right wrist strength. Tests Phalen s Sign: negative Tinel's sign (median nerve): negative Randy's test: negative Other Erythema: absent Sensation: normal Pulse: present Comments: B/l med/uln/rad/ax nerves intact Left Hand Exam Left hand exam is normal. Tenderness The patient is experiencing no tenderness. Range of Motion The patient has normal left wrist ROM. Wrist Extension: normal Flexion: normal Pronation: normal Supination: normal Muscle Strength The patient has normal left wrist strength. Tests Phalen s Sign: negative Tinel's sign (median nerve): negative Randy's test: negative Other Erythema: absent Sensation: normal Pulse: present Right Shoulder Exam Comments: Painful triceps area Neuro intact Arom 110, IR to L5 Assessment and Plan Radiographs: No imaging to review. Impression: Encounter Diagnosis ICD-10-CM 1. Pain of right upper extremity M79.601 US DVT UPPER RIGHT CONSULT TO PHYSICAL THERAPY US ARM VEIN DVT UNL VAS LAB 2. Biceps tendonosis of right shoulder M67.813 CONSULT TO PHYSICAL THERAPY US ARM VEIN DVT UNL VAS LAB 3. Tendinitis of right shoulder M77.8 CONSULT TO PHYSICAL THERAPY US ARM VEIN DVT UNL VAS LAB 4. Bursitis of right shoulder M75.51 CONSULT TO PHYSICAL THERAPY US ARM VEIN DVT UNL VAS LAB 5. S/P right rotator cuff repair Z98.890 CONSULT TO PHYSICAL THERAPY US ARM VEIN DVT UNL VAS LAB Today, in detail, through a thorough evaluation, we discussed possible etiologies of pain and our plans for further diagnostic and therapeutic interventions. We discussed strategies for decreasing pain and improving strength, stability and motion. Patient's questions were answered in detailed. Patient verbalizes understanding and agrees with the treatment plan as discussed. Doppler of arm to r/o dvt as patient having atypical pain and may have some inflammation after dermatitis from adhesives/ skin prep most likely No neuro deficits Good ROM for 3 months, most likely compensation pain in triceps but will follow as no other jacob issues on PE Cont nsaids as needed Follow up in 6 weeks Patient unhappy with her PT so gave her new PT script to be taken to another location Patient aware and in agreement of plan. All questions answered. Ivelisse De La Fuente D.O. M.P.H. documented in this [facility]05[facility]23 NoteHNO ID: [id number] Author: Wan Wilkinson PT Service: ? Author Type: Physical Therapist Type: Progress Notes Filed: 04/30/2023 2:38 PM Note Text: Episode Visit Count: 13 Therapist That Will Accept/Oversee The Plan Of Care: Wan Wilkinson PT Start of Care Date: 02/19/23 Onset Date: 02/05/23 Patient Identified by Name and Date of : Yes REHABILITATION AND SPORTS THERAPY PHYSICAL THERAPY TREATMENT NOTE ASSESSMENT: Carmencita Mondragon tolerated the session with fatigue, expected muscle soreness, and no issues. She demonstrated improvements in ROM. The patient will continue to benefit from ongoing skilled physical therapy to progress toward set goals and to continue with post-operative protocol. PLAN FOR NEXT VISIT: Continue with progression through protocol pending any new or different recommendations following MD appointment May 02. SUBJECTIVE: Patient Reason for Visit: Pt reports that her illness is only slowly getting better. She reports that her R shoulder is feeling approximately the same. She does report a new onset of clicking in R shoulder that she reports began 04/25/23 and is accompanied by a lot of pain. She reports consistent clicking with pendulums and wand/kamaljit AAROM. She reports compliance with HEP 2x day. Pain: Pain Pain Level: (5.5/10) Pain Location: Shoulder - Right Description: (clicking) Frequency: Continuous Post Treatment Pain Post Treatment Pain Level: No Change Post Treatment Pain Location: Shoulder - Right OBJECTIVE MEASURES WITH LEVEL OF FUNCTION: UE PROM R UE PROM: supine R Shoulder Flex: 175 Degrees R Shoulder External Rotation: 78 Degrees (0 degrees of abduction) TREATMENT: Therapeutic Exercise: 1: Pendulums for R shoulder 2x10 each 2: SciFit seat #10 x6 minutes (pt provided an update on her condition and plan of care reviewed, including protocol and realistic expectations) 3: seated rope and kamaljit AAROM for R shoulder flexion 2x10 in pain-free range 4: seated rope and kamaljit AAROM for R shoulder abduction 2x10 in pain-free range 5: standing rope and kamaljit IR behind back 2x10 in pain-free range 6: supine wand AAROM for flexion 2x10 7: supine wand AAROM for R shoulder ER with elbow flexed 90 degrees 2x10 8: standing wand AAROM for R shoulder abduction 2x10 in pain-free range Skilled Intervention: Patient was educated in proper exercise technique and purpose for exercises. Skilled judgment was provided in selection of appropriate interventions. Correct performance of therapeutic exercises was facilitated with verbal, visual, and tactile cuing. Patient education as noted. Billing Therapeutic Exercise Treatment Minutes: 45 Total Treatment Time Minutes (timed/untimed): 45 Wan Wilkinson [facility]05-30-2023 History of Present illness Narrative* Wan Wilkinson, PT - 04/30/2023 2:35 PM EDT Episode Visit Count: 13 Therapist That Will Accept/Oversee The Plan Of Care: Wan Wilkinson PT Start of Care Date: 02/19/23 Onset Date: 02/05/23 Patient Identified by Name and Date of : Yes REHABILITATION AND SPORTS THERAPY PHYSICAL THERAPY TREATMENT NOTE ASSESSMENT: Carmencita Mondragon tolerated the session with fatigue, expected muscle soreness, and no issues. She demonstrated improvements in ROM. The patient will continue to benefit from ongoing skilled physical therapy to progress toward set goals and to continue with post-operative protocol. PLAN FOR NEXT VISIT: Continue with progression through protocol pending any new or different recommendations following MD appointment May 02. SUBJECTIVE: Patient Reason for Visit: Pt reports that her illness is only slowly getting better. She reports that her R shoulder is feeling approximately the same. She does report a new onset of clicking in R shoulder that she reports began 04/25/23 and is accompanied by a lot of pain. She reportsconsistent clicking with pendulums and wand/kamaljit AAROM. She reports compliance with HEP 2x day. Pain: Pain Pain Level: (5.5/10) Pain Location: Shoulder - Right Description: (clicking) Frequency: Continuous Post Treatment Pain Post Treatment Pain Level: No Change Post Treatment Pain Location: Shoulder - Right OBJECTIVE MEASURES WITH LEVEL OF FUNCTION: UE PROM R UE PROM: supine R Shoulder Flex: 175 Degrees R Shoulder External Rotation: 78 Degrees (0 degrees of abduction) TREATMENT: Therapeutic Exercise: 1: Pendulums for R shoulder 2x10 each 2: SciFit seat #10 x6 minutes (pt provided an update on her condition and plan of care reviewed, including protocol and realistic expectations) 3: seated rope and kamaljit AAROM for R shoulder flexion 2x10 in pain-free range 4: seated rope and kamaljit AAROM for R shoulder abduction 2x10 in pain-free range 5: standing rope and kamaljit IR behind back 2x10 in pain-free range 6: supine wand AAROM for flexion 2x10 7: supine wand AAROM for R shoulder ER with elbow flexed 90 degrees 2x10 8: standing wand AAROM for R shoulder abduction 2x10 in pain-free range Skilled Intervention: Patient was educated in proper exercise technique and purpose for exercises. Skilled judgment was provided in selection of appropriate interventions. Correct performance of therapeutic exercises was facilitated with verbal, visual, and tactile cuing. Patient education as noted. Billing Therapeutic Exercise Treatment Minutes: 45 Total Treatment Time Minutes (timed/untimed): 45 Wan Wilkinson PT documented in this encounterGu[facility]05-[facility]-2023 NoteHNO ID: [id number] Author: Wan Wilkinson PT Service: ? Author Type: Physical Therapist Type: Progress Notes Filed: 04/15/2023 6:12 PM Note Text: Episode Visit Count: 12 Therapist That Will Accept/Oversee The Plan Of Care: Wan Golias PT Start of Care Date: 02/19/23 Onset Date: 02/05/23 Patient Identified by Name and Date of : Yes REHABILITATION AND SPORTS THERAPY PHYSICAL THERAPY PROGRESS REPORT PLAN OF CARE UPDATE: Assessment: Carmencita Mondragon demonstrates moderate improvement in reaching overhead and use hand with arm at shoulder level. She has progressed toward goals. Patient continues to present with impairments in ADL's, independence in exercise, overall function, patient reported outcome measures, range of motion, strength, symptom management, and sleeping that interfere with sleeping, reaching behind back, reaching overhead, lifting, use hand with arm at shoulder level. Current prognosis is Excellent due to: current objective clinical presentation, good overall health status, acuteness of condition, within-session changes, good support system/ coping skills. She will benefit from continued skilled therapy services to meet the updated goals for this plan of care as noted below. Updated: 04/15/23 Goals for Episode of Care: created on 02/19/23 through 05/15/23 updated 03/18/23 [place] in home exercise program. - partially achieved will progress per protocol Patient will decrease pain rating by 2 points to meet minimal clinical important difference for numeric pain rating scale. - partially achieved, will continue Patient will increase passive ROM of right shoulder per protocol to 140 elevation and 40 ER to allow pt to facilitate full function halfway - achieved Perform ROM exs without pain. - partially achieved, will continue Pt will increase AROM for elevation, abduction, extension and functional ER and IR to equal left. - partially achieved, will continue LTG: increase strength of right shoulder to 4+/5 with tolerance to ADL's without pain / will address per protocol Patient Goals: return to full function/ progressing Patient Goals: return to full function Planned Interventions, Frequency, and Duration: 1x/week, 4 weeks Total Number of Visits Planned: 4 Patient to be seen for Therapeutic exercise (94020), Neuromuscular re-education (57530), Manual therapy (56340), Self-usp management ([id number]), Patient/Family/Caregiver Education, Body Mechanics Training PLAN FOR NEXT VISIT: Continue with therex to address AAROM and eventually AROM and strengthening. She is currently 10 weeks post-op and in the AAROM/AROM phase. Resistance training to start week 12 and beyond as tolerated. Consider SciFit StepOne, towel IR stretch for R shoulder and isometrics as tolerated. SUBJECTIVE: Patient Reason for Visit: Pt reports that overall her R shoulder condition is unchanged since starting new medication 04/09/23. She reports that curently the pain in R shoulder is still significant and prevents her from sleeping through the night. She reports that pain is less severe in recliner. She describes pain in left upper arm as burning and muscles are tense and contracted. She reports completing HEP throughout the day instead of doing all of them together. She reports that doing HEP does not increase pain. She has dialed back the HEP as advised by therapist in previous session. Pt reports that she plans to update her surgeon's office in the persistent pain and lack of improvement with new medication that was started 04/09/23. Patient Goals: return to full function Functional Limitations: sleeping, reaching behind back, reaching overhead, lifting, use hand with arm at shoulder level Prior Level of Function: Independent without limitations Intake Information: Prescription present Pain: Pain Pain Level: 7 Pain Location: Shoulder - Right, Upper Arm - Right Description: Burning, Aching (pinching) Frequency: Continuous (Constant pain the varies in intensity.) Post Treatment Pain Post Treatment Pain Level: (6.5/10) Post Treatment Pain Location: Shoulder - Right Post Treatment Pain Description: (not significantly changed) Post Treatment Symptoms: After session pt denied any increase in pain despite increased movement and use that she expected would aggravate her symptoms. PROMIS Scales Higher is Better 04/15/2023 02/18/2023 Phys Func - Score 27 (severe dysfunction) 24 (severe dysfunction) Phys Func - Percentile 1 % 0 % Self-Eff Symptom - Score 43 (Average) 52 (Average) Self-Eff Symptom - Percentile 24 % 58 % T-scores: mean of general population = 50. 5 points is clinically meaningfully difference Percentiles provide an indication of how the patient's score ranks in relation to the general population. Higher percentile rankings indicate better function/quality of life. 50th percentile is the average of the general population and indicate (more content not included)...[facility]05-15-2023 History of Present illness Narrative* Wan Wilkinson, PT - 04/15/2023 6:10 PM EDT Episode Visit Count: 12 Therapist That Will Accept/Oversee The Plan Of Care: Wan Wilkinson PT Start of Care Date: 02/19/23 Onset Date: 02/05/23 Patient Identified by Name and Date of : Yes REHABILITATION AND SPORTS THERAPY PHYSICAL THERAPY PROGRESS REPORT PLAN OF CARE UPDATE: Assessment: Carmencita Mondragon demonstrates moderate improvement in reaching overhead and use hand with arm at shoulder level. She has progressed toward goals. Patient continues to present with impairments in ADL's, independence in exercise, overall function, patient reported outcome measures, range of motion, strength, symptom management, and sleeping that interfere with sleeping, reaching behind back, reaching overhead, lifting, use hand with arm at shoulder level. Current prognosis is Excellent due to: current objective clinical presentation, good overall health status, acuteness of condition, within-session changes, good support system/ coping skills. She will benefit from continued skilled therapy services to meet the updated goals for this plan of care as noted below. Updated: 04/15/23 Goals for Episode of Care: created on 02/19/23 through 05/15/23 updated 03/18/23 [place] in home exercise program. - partially achieved will progress per protocol Patient will decrease pain rating by 2 points to meet minimal clinical important difference for numeric pain rating scale. - partially achieved, will continue Patient will increase passive ROM of right shoulder per protocol to 140 elevation and 40 ER to allow pt to facilitate full function halfway - achieved Perform ROM exs without pain. - partially achieved, will continue Pt will increase AROM for elevation, abduction, extension and functional ER and IR to equal left. -partially achieved, will continue LTG: increase strength of right shoulder to 4+/5 with tolerance to ADL's without pain / will address per protocol Patient Goals: return to full function/ progressing Patient Goals: return to full function Planned Interventions, Frequency, and Duration: 1x/week, 4 weeks Total Number of Visits Planned: 4 Patient to be seen for Therapeutic exercise (34320), Neuromuscular re-education (18676), Manual therapy (81177), Self-usp management ([id number]), Patient/Family/Caregiver Education, Body Mechanics Training PLAN FOR NEXT VISIT: Continue with therex to address AAROM and eventually AROM and strengthening. She is currently 10 weeks post-op and in the AAROM/AROM phase. Resistance training to start week 12 and beyond as tolerated. Consider SciFit StepOne, towel IR stretch for R shoulder and isometrics as tolerated. SUBJECTIVE: Patient Reason for Visit: Pt reports that overall her R shoulder condition is unchangedsince starting new medication 04/09/23. She reports that curently the pain in R shoulder is still significant and prevents her from sleeping through the night. She reports that pain is less severe in recliner. She describes pain in left upper arm as burning and muscles are tense and contracted. She reports completing HEP throughout the day instead of doing all of them together. She reports thatdoing HEP does not increase pain. She has dialed back the HEP as advised by therapist in previoussession. Pt reports that she plans to update her surgeon's office in the persistent pain and lack of improvement with new medication that was started 04/09/23. Patient Goals: return to full function Functional Limitations: sleeping, reaching behind back, reaching overhead, lifting, use hand with arm at shoulder level Prior Level of Function: Independent without limitations Intake Information: Prescription present Pain: Pain Pain Level: 7 Pain Location: Shoulder - Right, Upper Arm - Right Description: Burning, Aching (pinching) Frequency: Continuous (Constant pain the varies in intensity.) Post Treatment Pain Post Treatment Pain Level: (6.5/10) Post Treatment Pain Location: Shoulder - Right Post Treatment Pain Description: (not significantly changed) Post Treatment Symptoms: After session pt denied any increase in pain despite increased movement and use that she expected would aggravate her symptoms. PROMIS Scales Higher is Better 04/15/2023 02/18/2023 Phys Func - Score 27 (severe dysfunction) 24 (severe dysfunction) Phys Func - Percentile 1 % 0 % Self-Eff Symptom - Score 43 (Average) 52 (Average) Self-Eff Symptom - Percentile 24 % 58 % T-scores: mean of general population = 50. 5 points is clinically meaningfully difference Percentiles provide an indication of how the patient's score ranks in relation to the general population. Higher percentile rankings indicate better function/quality of life. 50th percentile is the average of the general population and indicates half of respondents had a worse score. OBJECTIVE MEASURES WITH LEVEL OF FUNCTION: UE AROM R UE AROM: seated R Shoulder Flex: 161 Degrees R Shoulder ABduction: 83 Degrees R Shoulder Internal Rotation (Functional): 56cm less than L reaching behind back and limited by pain. R Shoulder External Rotation (Functional): 3cm less than L reaching behind head UE PROM R UE PROM: supine R Shoulder Flex: 170 Degrees R Shoulder ABduction: 146 Degrees R Shoulder Internal Rotation: 58 Degrees (90 degrees of abd) R Shoulder External Rotation: 43 Degrees (at 0 degrees of abd and 77 degrees at 90 degrees of abd) R Elbow Extension: 4 Degrees R Elbow Flexion: 151 Degrees TREATMENT: Therapeutic Exercise: 1: Pendulums for R shoulder 2x10 each 2: seated rope and kamaljit AAROM for R shoulder elevation 2x10 3: supine wand AAROM for flexion 2x10 4: supine wand AAROM for R shoulder ER with elbow flexed 90 degrees 2x10 5: HEP was thoroughly reviewed and continuation encouraged to tolerance continuing to use pain as her guide at all times. Skilled Intervention: Patient was educated in proper exercise technique and purpose for exercises. Skilled judgment was provided in selection of appropriate interventions. Correct performance of therapeutic exercises was facilitated with verbal, visual, and tactile cuing. Patient education as noted. Self-[facility] Management: 1: Re-assessment results were reviewed with patient and her in detail. This information andher change from status in 10/2022 pre-operatively were used as rationale for all recommendations. She was advised of realistic expectations and protocol was reviewed. Pt was advised about what she should and should not be doing functionally. She was educated on the postive improvements and she was educated on the positive indication that her AROM in R shoulder, especially initiation of movement, is suggestive of progress. Skilled Intervention: Skilled judgment in the selection of proper modification for activity of daily living/home management based on clinical presentation, deficits, and needs. Reviewed patient specific diagnosis in relation to activities of daily living/home management. Billing Therapeutic Exercise Treatment Minutes: 35 Self-Care/Home Management Treatment Minutes: 10 Total Treatment Time Minutes (timed/untimed): 45 Wan Wilkinson PT [facility] Miscellaneous Notes* Telephone Encounter - Cass Beatty PA-C - 04/09/2023 2:51 PM EDT Has had worsening pain since Saturday. No injury. Pain feels like it is burning and her motion has slightly decreased. Advised to take vitamin C twice daily. Discussed prescription anti-inflammatories vs prednisone taper. Rx for diclofenac sent to pharmacy. Cass Beatty PA-C * Telephone Encounter - Devi Perkins RN - 04/08/2023 2:25 PM EDT Pt calling. S/P right rotator cuff repair, DOS: 02/05/2023 Saw PT today who suggested she call. Burning sensation in bone, shoulder is extremely sensitive when it wasn't before. Also having more difficulty reaching when she was able to before. Ph. [phone] Please advise. documented in this encounterGu[facility]05-[facility]23 NoteHNO ID: [id number] Author: Wan Wilkinson PT Service: ? Author Type: Physical Therapist Type: Progress Notes Filed: 04/08/2023 3:57 PM Note Text: Episode Visit Count: 11 Therapist That Will Accept/Oversee The Plan Of Care: Wan Wilkinson PT Start of Care Date: 02/19/23 Onset Date: 02/05/23 Patient Identified by Name and Date of : Yes REHABILITATION AND SPORTS THERAPY PHYSICAL THERAPY TREATMENT NOTE ASSESSMENT: Carmencita Mondragon tolerated the session with fatigue and expected muscle soreness. She demonstrated improvements in R shoulder flexion and ER AAROM. The patient will continue to benefit from ongoing skilled physical therapy to progress toward set goals. PLAN FOR NEXT VISIT: Continue with AAROM. Progress note SUBJECTIVE: Patient Reason for Visit: Pt reports that her arm has been waking her up once Tylenol and Ibprofuen wear off. Pt states that its like a burning sensation, like her bones are on fire. Pt had a slight fever yesterday. Pt states exercises seem to be going well except for ER in supine. She is now having difficulty with lifting her arm in a small range, even difficulty to lift remote onto stand, and wasn't bothering her before. Whole shoulder is super sensitive. Pain: Pain Pain Level: 7 Pain Location: Shoulder - Right Description: Aching Post Treatment Pain Post Treatment Pain Level: 7 Post Treatment Pain Location: Shoulder - Right Post Treatment Symptoms: Pt stated that her shoulder felt hot at the end of the session. OBJECTIVE MEASURES WITH LEVEL OF FUNCTION: UE PROM R Shoulder Flex: 170 Degrees (AAROM supine with wand) R Shoulder External Rotation: 48 Degrees (AAROM with wand supine) TREATMENT: Therapeutic Exercise: 1: Pulleys for flexion 2x10 2: Supine AAROM wand flexion x10 3: AAROM ER with wand 1x10 seated, 1x10 Supine 4: Scapular retraction 2x10 5: Reviewed HEP. Skilled Intervention: Patient was educated in proper exercise technique and purpose for exercises. Skilled judgment was provided in selection of appropriate interventions. Correct performance of therapeutic exercises was facilitated with verbal and visual cuing. [facility] Management: 1: *Discussed spreading exercises out to decrease amount of discomfort and pain patient is having even with taking Tylenol and Ibprofeun. Skilled Intervention: Skilled judgment in the selection of proper modification for activity of daily living/home management based on clinical presentation, deficits, and needs. Billing Therapeutic Exercise Treatment Minutes: 32 Self-Care/Home Management Treatment Minutes: 10 Total Treatment Time Minutes (timed/untimed): 42 [place], RESEARCH AND DEVELOPMENT TESTER Wan Wilkinson, [facility]05-08-2023 History of Present illness Narrative* Wan Wilkinson, PT - 04/08/2023 12:49 PM EDT Episode Visit Count: 11 Therapist That Will Accept/Oversee The Plan Of Care: Wan Wilkinson PT Start of Care Date: 02/19/23 Onset Date: 02/05/23 Patient Identified by Name and Date of : Yes REHABILITATION AND SPORTS THERAPY PHYSICAL THERAPY TREATMENT NOTE ASSESSMENT: Carmencita Mondragon tolerated the session with fatigue and expected muscle soreness. She demonstrated improvements in R shoulder flexion and ER AAROM. The patient will continue to benefit from ongoing skilled physical therapy to progress toward set goals. PLAN FOR NEXT VISIT: Continue with AAROM. Progress note SUBJECTIVE: Patient Reason for Visit: Pt reports that her arm has been waking her up once Tylenol and Ibprofuen wear off. Pt states that its like a burning sensation, like her bones are on fire. Pthad a slight fever yesterday. Pt states exercises seem to be going well except for ER in supine. She is now having difficulty with lifting her arm in a small range, even difficulty to lift remote onto stand, and wasn't bothering her before. Whole shoulder is super sensitive. Pain: Pain Pain Level: 7 Pain Location: Shoulder - Right Description: Aching Post Treatment Pain Post Treatment Pain Level: 7 Post Treatment Pain Location: Shoulder - Right Post Treatment Symptoms: Pt stated that her shoulder felt hot at the end of the session. OBJECTIVE MEASURES WITH LEVEL OF FUNCTION: UE PROM R Shoulder Flex: 170 Degrees (AAROM supine with wand) R Shoulder External Rotation: 48 Degrees (AAROM with wand supine) TREATMENT: Therapeutic Exercise: 1: Pulleys for flexion 2x10 2: Supine AAROM wand flexion x10 3: AAROM ER with wand 1x10 seated, 1x10 Supine 4: Scapular retraction 2x10 5: Reviewed HEP. Skilled Intervention: Patient was educated in proper exercise technique and purpose for exercises. Skilled judgment was provided in selection of appropriate interventions. Correct performance of therapeutic exercises was facilitated with verbal and visual cuing. [facility] Management: 1: *Discussed spreading exercises out to decrease amount of discomfort and pain patient is having even with taking Tylenol and Ibprofeun. Skilled Intervention: Skilled judgment in the selection of proper modification for activity of daily living/home management based on clinical presentation, deficits, and needs. Billing Therapeutic Exercise Treatment Minutes: 32 Self-Care/Home Management Treatment Minutes: 10 Total Treatment Time Minutes (timed/untimed): 42 [place], ADRIAN Wilkinson PT documented in this encounterGu[facility]04-24-2023 NoteHNO ID: [id number] Author: aTnia Ramirez PT Service: ? Author Type: Physical Therapist Type: Progress Notes Filed: 03/25/2023 11:18 AM Note Text: Episode Visit Count: 10 Therapist That Will Accept/Oversee The Plan Of Care: Tania Ramirez PT Start of Care Date: 02/19/23 Onset Date: 02/05/23 Patient Identified by Name and Date of : Yes REHABILITATION AND SPORTS THERAPY PHYSICAL THERAPY TREATMENT NOTE ASSESSMENT: Carmencita Mondragon tolerated the session with fatigue and expected muscle soreness. She demonstrated improvements in R shoulder AAROM flexion and ER . The patient will continue to benefit from ongoing skilled physical therapy to progress toward set goals. PLAN FOR NEXT VISIT: Asses repsonse to use of pulleys at home. SUBJECTIVE: Patient Reason for Visit: Pt states that she was sore this morning and has a headache. Pain: Pain Pain Level: 6 Pain Location: Shoulder - Right Description: Aching Post Treatment Pain Post Treatment Pain Location: Shoulder - Right Post Treatment Symptoms: Pt stated her R shoulder felt warm at the end of the session. OBJECTIVE MEASURES WITH LEVEL OF FUNCTION: UE PROM R Shoulder Flex: 158 Degrees (AAROM with wand; 145 with pulleys; 168 PROM) R Shoulder External Rotation: 42 Degrees (AAROM with wand) TREATMENT: Therapeutic Exercise: 1: pendulum CW and CCW 1x15 2: *Pulleys for forward elevation 1x10,1x5 (pulleys vended for HEP) 3: supine PROM for elevation 3x10 4: wand assisted elevation supine 1x5 1x3 with fatigue 5: supine wand assisted ER 1x10 with cues for form 6: supine PROM for ER 3x10 Skilled Intervention: Patient was educated in proper exercise technique and purpose for exercises. Reviewed and educated patient on additions/changes for home exercise program as above (*). Skilled judgment was provided in selection of appropriate interventions. Correct performance of therapeutic exercises was facilitated with verbal and visual cuing. Billing Therapeutic Exercise Treatment Minutes: 50 Total Treatment Time Minutes (timed/untimed): 50 Awilda River PTA/Tania Ramirez, [facility]04-24-2023 History of Present illness Narrative* Tania Ramirez, PT - 03/25/2023 11:00 AM EDT Episode Visit Count: 10 Therapist That Will Accept/Oversee The Plan Of Care: Tania Ramirez PT Start of Care Date: 02/19/23 Onset Date: 02/05/23 Patient Identified by Name and Date of : Yes REHABILITATION AND SPORTS THERAPY PHYSICAL THERAPY TREATMENT NOTE ASSESSMENT: Carmencita Mondragon tolerated the session with fatigue and expected muscle soreness. She demonstrated improvements in R shoulder AAROM flexion and ER . The patient will continue to benefit from ongoing skilled physical therapy to progress toward set goals. PLAN FOR NEXT VISIT: Asses repsonse to use of pulleys at home. SUBJECTIVE: Patient Reason for Visit: Pt states that she was sore this morning and has a headache. Pain: Pain Pain Level: 6 Pain Location: Shoulder - Right Description: Aching Post Treatment Pain Post Treatment Pain Location: Shoulder - Right Post Treatment Symptoms: Pt stated her R shoulder felt warm at the end of the session. OBJECTIVE MEASURES WITH LEVEL OF FUNCTION: UE PROM R Shoulder Flex: 158 Degrees (AAROM with wand; 145 with pulleys; 168 PROM) R Shoulder External Rotation: 42 Degrees (AAROM with wand) TREATMENT: Therapeutic Exercise: 1: pendulum CW and CCW 1x15 2: *Pulleys for forward elevation 1x10,1x5 (pulleys vended for HEP) 3: supine PROM for elevation 3x10 4: wand assisted elevation supine 1x5 1x3 with fatigue 5: supine wand assisted ER 1x10 with cues for form 6: supine PROM for ER 3x10 Skilled Intervention: Patient was educated in proper exercise technique and purpose for exercises. Reviewed and educated patient on additions/changes for home exercise program as above (*). Skilled judgment was provided in selection of appropriate interventions. Correct performance of therapeutic exercises was facilitated with verbal and visual cuing. Billing Therapeutic Exercise Treatment Minutes: 50 Total Treatment Time Minutes (timed/untimed): 50 Awilda [place] PTA/Tania Ramirez PT documented in this [facility]Gu[facility]04-[facility] History of Present illness Narrative* Tania Ramirez PT - 03/18/2023 4:29 PM EDT Episode Visit Count: 9 Therapist That Will Accept/Oversee The Plan Of Care: Tania Ramirez PT Start of Care Date: 02/19/23 Onset Date: 02/05/23 Patient Identified by Name and Date of : Yes REHABILITATION AND SPORTS THERAPY PHYSICAL THERAPY PROGRESS REPORT PLAN OF CARE UPDATE: Assessment: Carmencita Mondragon demonstrates significant improvement in PROM and tolerance to exs . Conniehas progressed toward goals. Patient continues to present with impairments in ADL's, independence in exercise, overall function, range of motion, soft tissue healing, and strength that interfere withuse of right UE for ADL's . Current prognosis is Excellent due to: current objective clinical presentation . She will benefit from continued skilled therapy services to meet the updated goals for this plan of care as noted below. Goals for Episode of Care: created on 02/19/23 through 05/15/23 updated 03/18/23 [place] in home exercise program./ partially achieved will progress per protocol Patient will decrease pain rating by 2 points to meet minimal clinical important difference for numeric pain rating scale./ partially achieved Patient will increase passive ROM of right shoulder per protocol to 140 elevation and 40 ER to allow pt to facilitate full function halfway ./ partially achieved Perform ROM exs without pain./ achieved Pt will increase AROM to 150 degrees elevation , functional ER and IR to equal left in 4 weeks. ( newly established goal) LTG: increase strength of right shoulder to 4+/5 with tolerance to ADL's without pain / will address per protocol Patient Goals: return to full function/ progressing Planned Interventions, Frequency, and Duration: 1x/week, 8 weeks Total Number of Visits Planned: 8 Patient to be seen for Therapeutic exercise (35830), Neuromuscular re-education (88303), Self-usp management (16698), Patient/Family/Caregiver Education, Manual therapy (24121) PLAN FOR NEXT VISIT: will assess tolerance to newly added exs. consider adding shoulder kamaljit for AAROM elevation if comfortable SUBJECTIVE: Patient Reason for Visit: Pt notes that she is doing ok. Still feels some stiffness with pendulum exs at the beginning and notes more discomfort with CCW than CW.. Pain: Pain Pain Level: 5 (6-7 wtih certain movements) Pain Location: Shoulder - Right Description: Aching Post Treatment Pain Post Treatment Pain Level: No Change Post Treatment Pain Location: Shoulder - Right Post Treatment Symptoms: I can tell that I did more PROMIS Scales Higher is Better 02/18/2023 Phys Func - Score 24 (severe dysfunction) Phys Func - Percentile 0 % Self-Eff Symptom - Score 52 (Average) Self-Eff Symptom - Percentile 58 % T-scores: mean of general population = 50. 5 points is clinically meaningfully difference Percentiles provide an indication of how the patient's score ranks in relation to the general population. Higher percentile rankings indicate better function/quality of life. 50th percentile is the average of the general population and indicates half of respondents had a worse score. OBJECTIVE MEASURES WITH LEVEL OF FUNCTION: UE PROM R Shoulder Flex: 155 Degrees (AAROM with wand) R Shoulder External Rotation: 33 Degrees (supine with wand assist) TREATMENT: Therapeutic Exercise: 1: pendulum CW and CCW 1x15 2: supine PROM for elevation 3x10 3: supine PROM for ER 3x10 4: wand assisted elevation supine 1x5 1x3 with fatigue 5: supine wand assisted ER 1x10 with cues for form 6: active scapular retraction 1x10 Skilled Intervention: Patient was educated in proper exercise technique and purpose for exercises. Reviewed and educated patient on additions/changes for home exercise program . Skilled judgment was provided in selection of appropriate interventions. Provided written instruction for home exercise program to facilitate proper performance and compliance. Correct performance of therapeutic exercises was facilitated with verbal and visual cuing. Patient education as noted. [facility] Management: 1: discussed weaning from sling. Pt asked regarding sleeping in bed but tends to throw arms overhead. Suggested she use sling initially to see how it goes, then wean away. Skilled Intervention: Skilled judgment in the selection of proper modification for activity of daily living/home management based on clinical presentation, deficits, and needs. Home Exercise Program Assigned: 1: add wand assisted elevation, ER , and active scapular retraction Billing Therapeutic Exercise Treatment Minutes: 40 Total Treatment Time Minutes (timed/untimed): 45 Tania Ramirez PT documented in this encounterGu[facility]04[facility] History of Present illness Narrative* Cass Beatty PA-C - 03/15/2023 2:42 PM EDT POST OP Cass Beatty PA-C Department of Orthopaedics Orthopaedics [address] [place], [place] [id number] Dept: [phone] Ms. Mondragon presents today for her 5 weeks visit S/P right rotator cuff repair, subacromial decompression and intraarticular biceps tenodesis. DOS: 02/05/2023 History: her pain intensity is 5/10. Pain has been controlled with advil PM. She did have some redness/skin changes on her lateral arm post-operatively that was initially treated with prednisone taper with relief. After her rash returned she was referred to PCP who started her on clindamycin for an infection. She notes that her redness/warmth resolved but has started to return. She has two days left of her medication. The patient denies swelling, warmth, discharge, drainage, fevers, chills, sweats. She reports compliance sling. She reports no change in past medical & surgical history, medications, allergies, social history, family history and review of systems since last visit. Radiographs: not applicable Physical Examination: Appropriate postop appearance Diffuse swelling to posterolateral arm- no warmth or fluctuance Incision clean/dry/intact Positive axillary, musculocutaneous, median, ulna, and radial nerve function Positive distal pulses Plan: Progressing as expected in the immediate post operative period. Post op care discussed, all questions answered. OK to discontinue sling next week at 6 weeks post-op and start advancing PT Follow up in 6 weeks for repeat clinical evaluation Dr. Sudhakar Beatty PA-C documented in this encounterGuernsey [facility]04-10-2023 History of Present illness Narrative* Tania Ramirez, PT - 03/11/2023 12:40 PM EDT Episode Visit Count: 7 Therapist That Will Accept/Oversee The Plan Of Care: Tania Ramirez PT Start of Care Date: 02/19/23 Onset Date: 02/05/23 Patient Identified by Name and Date of : Yes REHABILITATION AND SPORTS THERAPY PHYSICAL THERAPY TREATMENT NOTE ASSESSMENT: Carmencita Mondragon tolerated the session with no issues. She demonstrated improvements in tightness of neck after stretching. The patient will continue to benefit from ongoing skilled physical therapy to progress toward set goals. PLAN FOR NEXT VISIT: Continue stretching per limitations of protocol. SUBJECTIVE: Patient Reason for Visit: Pt reports that she is having a pinching sensation deep in shoudler joint. Pain: Pain Pain Level: 5 Pain Location: Shoulder - Right Description: Aching Post Treatment Pain Post Treatment Pain Level: Better Post Treatment Pain Location: Shoulder - Right OBJECTIVE MEASURES WITH LEVEL OF FUNCTION: TREATMENT: Therapeutic Exercise: 1: Supine PROM elbow extension with wrist extension 2x10 2: Supine PROM flexion 2x15 3: pendulum CW and CCW 2x10 right shoulder 4: Supine PROM ER at 0 degrees of abduction 2x15 5: Seated R levator scap stretch 3x30 seconds Skilled Intervention: Patient was educated in proper exercise technique and purpose for exercises. Skilled judgment was provided in selection of appropriate interventions. Correct performance of therapeutic exercises was facilitated with verbal and visual cuing. Billing Therapeutic Exercise Treatment Minutes: 38 Total Treatment Time Minutes (timed/untimed): 38 Awilda River PTA/Tania Ramirez PT documented in this encounterGuernsey [facility]04-06-2023 History of Present illness Narrative* Tania Ramirez PT - 03/07/2023 8:05 AM EDT Episode Visit Count: 6 Therapist That Will Accept/Oversee The Plan Of Care: Tania Ramirez PT Start of Care Date: 02/19/23 Onset Date: 02/05/23 Patient Identified by Name and Date of : Yes REHABILITATION AND SPORTS THERAPY PHYSICAL THERAPY TREATMENT NOTE ASSESSMENT: Carmencita Mondragon tolerated the session with decreased symptoms. She demonstrated improvements in relaxation with PROM. The patient will continue to benefit from ongoing skilled physical therapy to progress toward set goals. PLAN FOR NEXT VISIT: Continue per protocol SUBJECTIVE: Patient Reason for Visit: Pt reports that she sent a picture of her arm to the physicain and they said it looks okay. Pt's shoulder not as hot or red this morning. Pain: Pain Pain Level: (6.5/10) Pain Location: Shoulder - Right Description: Aching Post Treatment Pain Post Treatment Pain Level: 5 Post Treatment Pain Location: Shoulder - Right OBJECTIVE MEASURES WITH LEVEL OF FUNCTION: UE PROM R Shoulder Flex: 140 Degrees TREATMENT: Therapeutic Exercise: 1: Supine PROM elbow extension with wrist extension 2x10 2: Supine PROM flexion 2x15 3: pendulum CW and CCW 2x10 right shoulder 4: Supine PROM ER at 0 degrees of abduction 2x15 Skilled Intervention: Patient was educated in proper exercise technique and purpose for exercises. Skilled judgment was provided in selection of appropriate interventions. Correct performance of therapeutic exercises was facilitated with verbal and visual cuing. Billing Therapeutic Exercise Treatment Minutes: 45 Total Treatment Time Minutes (timed/untimed): 45 Awilda River PTA/Tania Ramirez PT documented in this encounterGuernsey [facility]04-04-2023 Miscellaneous Notes* Telephone Encounter - Gauri Kay RN - 03/05/2023 4:20 PM EDT Called and spoke with pt, relayed message and recommendations to follow up with PCP for persisting symptoms, pt agreeable. * Telephone Encounter - Vitaliy Lam PA-C - 03/05/2023 2:41 PM EDT I have reviewed the uploaded images. I do not see anything concerning. Certainly nothing to suggestinfection or allergic reaction. When the patient was evaluated by myself on 02/18 she had urticaria on the arm thought to be secondary to Chloraprep. These are not present in the uploaded images today. At this point, I recommend the patient reach out to her PCP to discuss possible dermatology or forensic pathologist referral if she has continued concerns. Declan Lam PA-C * Telephone Encounter - Gauri Kay RN - 03/05/2023 1:43 PM EDT Pt calling in to report redness and warmth has returned to her right arm. This issue was evaluated at her post-op appt on 02/18 and she was prescribed steroids. Her symptoms improved but over the last 2 days the redness and warmth has returned She was advised by PT that she should contact her provider. Pt denies fever/chills/ pain or tenderness. Please advise if appt is recommended. Pt states she will attempt to send picture via [employer]. documented in this encounterGuernsey [facility]04-04-2023 History of Present illness Narrative* Tania Ramirez, PT - 03/05/2023 12:29 PM EDT Episode Visit Count: 5 Therapist That Will Accept/Oversee The Plan Of Care: Tania Ramirez PT Start of Care Date: 02/19/23 Onset Date: 02/05/23 Patient Identified by Name and Date of : Yes REHABILITATION AND SPORTS THERAPY PHYSICAL THERAPY TREATMENT NOTE ASSESSMENT: Carmencita Mondragon tolerated the session with no issues. She demonstrated improvements in technique with pendulums. The back of pt's arm was very hot to touch compared to other areas of her arm and compared to previous session. Pt advised to see surgeon or PCP. The patient will continue tobenefit from ongoing skilled physical therapy to progress toward set goals. PLAN FOR NEXT VISIT: continue PROM per prtocol limitations. SUBJECTIVE: Patient Reason for Visit: Pt reports that she took some Ibprofeun this morning. Pt has been using ice for the past 2 nights. Pt reports that her arm is very hot and red today. Pain: Pain Pain Level: 5 Pain Location: Shoulder - Right Description: Aching Post Treatment Pain Post Treatment Pain Level: No Change Post Treatment Pain Location: Shoulder - Right OBJECTIVE MEASURES WITH LEVEL OF FUNCTION: TREATMENT: Therapeutic Exercise: 1: Supine PROM elbow extension with wrist extension 2x10 2: Supine PROM flexion 2x15 3: pendulum CW and CCW 2x10 right shoulder 4: Supine PROM ER at 0 degrees of abduction 2x15 Skilled Intervention: Patient was educated in proper exercise technique and purpose for exercises. Skilled judgment was provided in selection of appropriate interventions. Correct performance of therapeutic exercises was facilitated with verbal and visual cuing. Billing Therapeutic Exercise Treatment Minutes: 40 Total Treatment Time Minutes (timed/untimed): 40 Awilda River PTA/Tania Ramirez PT documented in this encounterGuern[facility]03-31-2023 History of Present illness Narrative* Brando Beckett, PT - 03/01/2023 2:44 PM EDT Episode Visit Count: 4 Therapist That Will Accept/Oversee The Plan Of Care: Tania Ramirez PT Start of Care Date: 02/19/23 Onset Date: 02/05/23 Patient Identified by Name and Date of : Yes REHABILITATION AND SPORTS THERAPY PHYSICAL THERAPY TREATMENT NOTE ASSESSMENT: Carmencita Mondragon tolerated the session with fatigue and expected muscle soreness. She demonstrated difficulty with relaxing with PROM. The patient will continue to benefit from ongoing skilled physical therapy to progress toward set goals. PLAN FOR NEXT VISIT: Continue per protocol. SUBJECTIVE: Patient Reason for Visit: Pt states that she has some numbness and tingling in R fingers today. Pt states tightness and muscle fatigue in forearm and triceps. Pain: Pain Pain Level: 6 Pain Location: Shoulder - Right Description: Aching Post Treatment Pain Post Treatment Pain Level: No Change Post Treatment Pain Location: Shoulder - Right OBJECTIVE MEASURES WITH LEVEL OF FUNCTION: TREATMENT: Therapeutic Exercise: 1: Supine PROM elbow extension with wrist extension 2x10 2: Supine PROM flexion 2x15 3: pendulum CW and CCW 2x10 right shoulder 4: Supine PROM ER at 0 degrees of abduction 2x15 Skilled Intervention: Patient was educated in proper exercise technique and purpose for exercises. Skilled judgment was provided in selection of appropriate interventions. Correct performance of therapeutic exercises was facilitated with verbal and visual cuing. Billing Therapeutic Exercise Treatment Minutes: 38 Total Treatment Time Minutes (timed/untimed): 38 Awilda River, RESEARCH AND DEVELOPMENT TESTER Brando Beckett, PT documented in this encounterGuernsey [facility]03-31-2023 Miscellaneous Notes* Telephone Encounter - Tasneem Diallo - 03/01/2023 10:09 AM EDT If patient is willing to travel, patient can be scheduled to see Kandice BELTRÁN in [place] Tasneem Diallo * Telephone Encounter - Zina Olivarez - 03/01/2023 9:48 AM EDT Patient has post op appointment on 03/14/[address] De La Fuente in [place] and she will be out of the office that day. Schedule was checked and first available at [place] isn't until 04/04/23. Can youplease assist this patient to be scheduled in with Dr. De La Fuente before those dates in [place] (if they are willing to travel)? documented in this encounterGuernsey [facility]03-28-2023 History of Present illness Narrative* Tania Ramirez, PT - 02/26/2023 8:02 AM EDT Episode Visit Count: 3 Therapist That Will Accept/Oversee The Plan Of Care: Tania Ramirez PT Start of Care Date: 02/19/23 Onset Date: 02/05/23 Patient Identified by Name and Date of : Yes REHABILITATION AND SPORTS THERAPY PHYSICAL THERAPY TREATMENT NOTE ASSESSMENT: Carmencita Mondragon tolerated the session with decreased symptoms. She demonstrated improvements in R shoulder PROM flexion. The patient will continue to benefit from ongoing skilled physicaltherapy to progress toward set goals. PLAN FOR NEXT VISIT: Continue with PROM per protocol. SUBJECTIVE: Patient Reason for Visit: Pt states that she thinks something is pinched in her neck and has a headache ever since. Pt states compliance with HEP 3x per day. Pt has sharp, pinching pain along medial border of scapula and at shoulder joint. Pain: Pain Pain Level: 6 Pain Location: Shoulder - Right Description: Sharp, Aching Post Treatment Pain Post Treatment Pain Level: Better Post Treatment Pain Location: Shoulder - Right Post Treatment Symptoms: Pt stated that she felt her shoulder was good and stretched at end of session. OBJECTIVE MEASURES WITH LEVEL OF FUNCTION: UE PROM R Shoulder Flex: 132 Degrees (limit of 140 per protocol) TREATMENT: Therapeutic Exercise: 1: Supine PROM elbow extension with wrist extension 2x10 2: Supine PROM flexion 2x15 3: pendulum CW and CCW 2x10 right shoulder 4: Supine PROM ER at 0 degrees of abduction 2x15 Skilled Intervention: Patient was educated in proper exercise technique and purpose for exercises. Skilled judgment was provided in selection of appropriate interventions. Correct performance of therapeutic exercises was facilitated with verbal cuing. Billing Therapeutic Exercise Treatment Minutes: 42 Total Treatment Time Minutes (timed/untimed): 42 Awilda River PTA/Tania Ramirez PT documented in this encounterGuernsey [facility]03-23-2023 History of Present illness Narrative* Tania Ramirez PT - 02/21/2023 8:45 AM EDT Episode Visit Count: 2 Therapist That Will Accept/Oversee The Plan Of Care: Tania Ramirez PT Start of Care Date: 02/19/23 Onset Date: 02/05/23 Patient Identified by Name and Date of : Yes REHABILITATION AND SPORTS THERAPY PHYSICAL THERAPY TREATMENT NOTE ASSESSMENT: Carmencita Mondragon tolerated the session with expected muscle soreness. She demonstrated difficulty with pendulums. The patient will continue to benefit from ongoing skilled physical therapyto progress toward set goals. PLAN FOR NEXT VISIT: Will continue with PROM for elevation and ER as tolerated . Review pendulums SUBJECTIVE: Patient Reason for Visit: Pt reported that she had a rough night with sleeping lat night. Pt c/o neck stiffness from sling use. Pain: Pain Pain Level: 5 Pain Location: Shoulder - Right Description: Aching Post Treatment Pain Post Treatment Pain Level: No Change Post Treatment Pain Location: Shoulder - Right Post Treatment Pain Description: Aching OBJECTIVE MEASURES WITH LEVEL OF FUNCTION: TREATMENT: Therapeutic Exercise: 1: Supine PROM elbow extension wiht wrist extension 2: supine passive elbow flexion 3: pendulum CW and CCW 2x10 right shoulder 4: supine passive elevation and ER 5: *B UT stretch 1x30 seconds each side Skilled Intervention: Patient was educated in proper exercise technique and purpose for exercises. Skilled judgment was provided in selection of appropriate interventions. Correct performance of therapeutic exercises was facilitated with verbal and visual cuing. Billing Therapeutic Exercise Treatment Minutes: 38 Total Treatment Time Minutes (timed/untimed): 38 Awilda River PTA/Tania Ramirez PT documented in this encounterGuernsey [facility]03-20-2023 Miscellaneous Notes* Telephone Encounter - Vitaliy Lam PA-C - 02/18/2023 2:13 PM EDT I spoke with patient and let her know the OR confirmed Chloraprep was used to prep the surgical site. This has been added to her allergy list. All questions answered. Declan Lam PA-C * Telephone Encounter - Meeta Torres - 02/18/2023 1:17 PM EDT Patient is calling in stating she just missed a call from Declan as she was on her way home from appointment today. Please advise, Thanks! documented in this encounterGuernsey [facility]03-20-2023 History of Present illness Narrative* Vitaliy Lam PA-C - 02/18/2023 11:02 AM EDT Images from the original note were not included. POST OP Vitaliy Lam PA-C Orthopaedics [address] [address] Dept: [phone] Ms. Mondragon presents today for her 10-14 day visit from: status post right shoulder arthroscopy, rotator cuff repair, sad/acromioplasty, intraarticular biceps tenodesis on 02/05/[address] De La Fuente. History: PAIN EVALUATION 02/14/2023 1427 02/18/2023 1102 Pain Level: 5 5 Pain Location: Shoulder-Right -- R Shoulder Description: Aching;Burning;Itching;Numbness;Sharp;Shooting Burning;Itching Duration Amount of Time: 24 -- Duration Units: Months -- Frequency: Continuous Continuous Intervention/Comfort measure: Medication;Relaxation;Cold;Massage;Music;Pillow support;Rocking/holding -- She is doing fair postoperatively. Pain is well-controlled. Not taking any opioid pain medicine. Patient reports pruritic urticarial rash on right upper arm that began a few hours after her surgery. She has washed the area and is taking OTC antihistamines with some mild relief in the itching. She reports the surgical prep solution stained her sling. She denies any systemic allergy signs or symptoms. The patient denies swelling, warmth, discharge, drainage, fevers, chills, sweats. She reports compliance with sling and dressing/wound care. She reports no change in past medical & surgical history, medications, allergies, social history, family history and review of systems since last visit, with the exception of the following: None Review of Systems Skin: Positive for rash. All other systems reviewed and are negative. Radiographs: Not applicable Physical Examination: R shoulder: Urticarial rash on the upper arm Otherwise appropriate postop appearance No evidence of erythema, warmth, discharge or drainage Incisions are clean/dry/intact Sutures intact mild tenderness about the greater tuberosity Positive axillary, musculocutaneous, median, ulna, and radial nerve function Positive distal pulses PROCEDURE: Sutures removed from right shoulder. Well-tolerated without complication. Assessment: Urticarial rash, suspect this is secondary to chloraprep used in surgery. The rash has persisted due to patient washing skin with Hibiclens and sling being contaminated with the causative agent. Status post right shoulder arthroscopy, rotator cuff repair, sad/acromioplasty, intraarticular biceps tenodesis, stable Plan: I did speak with the OR staff and confirmed that Chloraprep was used to prep her skin. This has been added to her allergy list. We did place the patient in a new sling today due to the previous sling being stained with the causative agent. The patient reports she can not tolerate Medrol Dose pack but she is agreeable to prednisone taper. She will continue OTC antihistamines as needed for itching/rash Otherwise the patient is at normal post-operative stage of recovery. Begin phase 1 of physical therapy Post op care discussed, all questions answered. Follow up in 4 weeks for repeat clinical evaluation with Dr. De La Fuente, sooner as needed Vitaliy Lam PA-C documented in this encounterGuernsey [facility]03-17-2023 Miscellaneous Notes* Telephone Encounter - Radha Rinaldi RN - 02/15/2023 1:17 PM EDT Sent MCM with response * Telephone Encounter - Cass Beatty PA-C - 02/15/2023 1:09 PM EDT Reviewed mychart photos. Looks like some sort of bug bite or reaction to the tape used for dressing. Does not look infectious. Would recommend cleaning with warm/soapy water and applying benadryl cream. May also take oral benadryl or allergy med for a few days (claritin, mike etc). Cass Beatty PA-C * Telephone Encounter - Radha Rinaldi RN - 02/15/2023 10:19 AM EDT Spoke with pt S/p arth. Right shoulder Sat felt unusual, different type of pain Took shower , noticed a bump on her tricep Looked like an injection site Raised and hot Pt has been hot every since the surgery Thought it could be a larger hive This am she has tiny dots around the big one C/o low grade fever 99.7 Arm has been swollen and very warm color looks better than it has been Taking benadryl at night and has been taking IBU They will be send a pic via [employer] documented in this encounterGuernsey [facility]03-08-2023 Miscellaneous Notes* Telephone Encounter - Radha Rinaldi RN - 02/06/2023 9:11 AM EST Pt calling S/p RCR 02/05/23 C/o burning itch on her operative arm Asking if Benadryl was ok to take Advised ok to take Benadryl as long as it in not with percocet Pt has yet to take percocet, she is scared to take She will take Tylenol but watch mg incase she does need the percocet Pt has an allergy to iodine Cholraprep was used per Dr Sarah, which is orange Ok to take dressing down and wash with soap and water Pt notified documented in this encounterGuernsey [facility] Hospital03-07-2023 NoteHNO ID: [id number] Author: Oz Porras MD Service: Anesthesiology Author Type: Anesthesiologist Type: Anesthesia Procedure Notes Filed: 02/05/2023 12:41 PM Note Text: ANESTHESIOLOGY PROCEDURE NOTE Peripheral Nerve Block General Information Procedure Start Time/Medication Administration: 02/05/2023 7:18 AM Procedure End time: 02/05/2023 7:24 AM Patient location during procedure: pre-op Timeout Performed Pre-procedure: timeout performed Consent Obtained: Yes Patient identity confirmed: arm band Reason for block: post-op pain management/at surgeon's request Staffing Anesthesiologist: Oz Porras MD Performed by: anesthesiologist Preparation Sterility Preparation: hand hygiene performed prior to procedure, sterile gloves, drapes, and procedure tray, surgical cap used, mask used, sterile drape used during line insertion, skin prep agent completely dried prior to procedure Site Prep: Chloraprep Pre-Procedure Neuro Exam Location: RUE Sensory: intact Motor: intact Procedure Details Patient Position: supine Monitoring: Pulse OX, EKG and NIBP Block Type Upper Extremity: brachial plexus Approach: supraclavicular Laterality: right Injection Technique: single-shot Ultrasound Guided: Yes Image in Chart: yes Local Infiltration: Yes Needle Needle Gauge: 22 G Needle Length: 51 mm Needle Localization: ultrasound Assessment Injection assessment: negative aspiration, no paresthesia on injection, incremental injection and local visualized surrounding nerve on ultrasound Post-Procedure Neuro Exam Expected Regional Anesthesia: Yes Medications Administered dexamethasone sodium phosphate injection (DECADRON) - peripheral nerve block 4 mg - 02/05/2023 7:18:00 AM ropivacaine (PF) 5 mg/mL (0.5 %) injection (NAROPIN) - peripheral nerve block 20 mL - 02/05/2023 7:18:00 AM SIGNATURE: Oz Porras MD PATIENT NAME: Carmencita Mondragon DATE: February 05, 2023 TIME: 12:40 PM CSN: [id number] [id number] History of Past illness Narrative* Problem Noted Date Resolved Date Incomplete tear of right rotator cuff 02/05/2023 02/05/2023 Excessive or frequent menstruation 06/30/2008 11/12/2016 documented as of this encounter (statuses as of 02/06/2023) [facility] History of Past illness Narrative* Problem Noted Date Resolved Date Incomplete tear of right rotator cuff 02/05/2023 02/05/2023 Excessive or frequent menstruation 06/30/2008 11/12/2016 documented as of this encounter (statuses as of 02/15/2023) [facility]03-07-2023 History of Past illness Narrative* Problem Noted Date Resolved Date Incomplete tear of right rotator cuff 02/05/2023 02/05/2023 Excessive or frequent menstruation 06/30/2008 11/12/2016 documented as of this encounter (statuses as of 02/18/2023) [facility]03-07-2023 History of Past illness Narrative* Problem Noted Date Resolved Date Incomplete tear of right rotator cuff 02/05/2023 02/05/2023 Excessive or frequent menstruation 06/30/2008 11/12/2016 documented as of this encounter (statuses as of 02/18/2023) [facility]03-07-2023 History of Past illness Narrative* Problem Noted Date Resolved Date Incomplete tear of right rotator cuff 02/05/2023 02/05/2023 Excessive or frequent menstruation 06/30/2008 11/12/2016 documented as of this encounter (statuses as of 02/21/2023) [facility]-07-2023 History of Past illness Narrative* Problem Noted Date Resolved Date Incomplete tear of right rotator cuff 02/05/2023 02/05/2023 Excessive or frequent menstruation 06/30/2008 11/12/2016 documented as of this encounter (statuses as of 02/26/2023) [facility]-07-2023 History of Past illness Narrative* Problem Noted Date Resolved Date Incomplete tear of right rotator cuff 02/05/2023 02/05/2023 Excessive or frequent menstruation 06/30/2008 11/12/2016 documented as of this encounter (statuses as of 03/02/2023) [facility]-07[facility]2023 History of Past illness Narrative* Problem Noted Date Resolved Date Incomplete tear of right rotator cuff 02/05/2023 02/05/2023 Excessive or frequent menstruation 06/30/2008 11/12/2016 documented as of this encounter (statuses as of 03/04/2023) [facility]2023 History of Past illness Narrative* Problem Noted Date Resolved Date Incomplete tear of right rotator cuff 02/05/2023 02/05/2023 Excessive or frequent menstruation 06/30/2008 11/12/2016 documented as of this encounter (statuses as of 03/05/2023) [facility]20[facility] History of Past illness Narrative* Problem Noted Date Resolved Date Incomplete tear of right rotator cuff 02/05/2023 02/05/2023 Excessive or frequent menstruation 06/30/2008 11/12/2016 documented as of this encounter (statuses as of 03/07/2023) [facility]20[facility] History of Past illness Narrative* Problem Noted Date Resolved Date Incomplete tear of right rotator cuff 02/05/2023 02/05/2023 Excessive or frequent menstruation 06/30/2008 11/12/2016 documented as of this encounter (statuses as of 03/12/2023) [address]-2023 History of Past illness Narrative* Problem Noted Date Resolved Date Incomplete tear of right rotator cuff 02/05/2023 02/05/2023 Excessive or frequent menstruation 06/30/2008 11/12/2016 documented as of this encounter (statuses as of 03/16/2023) [address]-2023 History of Past illness Narrative* Problem Noted Date Resolved Date Incomplete tear of right rotator cuff 02/05/2023 02/05/2023 Excessive or frequent menstruation 06/30/2008 11/12/2016 documented as of this encounter (statuses as of 03/19/2023) [address]-2023 History of Past illness Narrative* Problem Noted Date Resolved Date Incomplete tear of right rotator cuff 02/05/2023 02/05/2023 Excessive or frequent menstruation 06/30/2008 11/12/2016 documented as of this encounter (statuses as of 03/25/2023) [address]-2023 History of Past illness Narrative* Problem Noted Date Resolved Date Incomplete tear of right rotator cuff 02/05/2023 02/05/2023 Excessive or frequent menstruation 06/30/2008 11/12/2016 documented as of this encounter (statuses as of 04/09/2023) [address]-2023 History of Past illness Narrative* Problem Noted Date Resolved Date Incomplete tear of right rotator cuff 02/05/2023 02/05/2023 Excessive or frequent menstruation 06/30/2008 11/12/2016 documented as of this encounter (statuses as of 04/10/2023) [address]-2023 History of Past illness Narrative* Problem Noted Date Resolved Date Incomplete tear of right rotator cuff 02/05/2023 02/05/2023 Excessive or frequent menstruation 06/30/2008 11/12/2016 documented as of this encounter (statuses as of 04/16/2023) [address]-2023 History of Past illness Narrative* Problem Noted Date Resolved Date Incomplete tear of right rotator cuff 02/05/2023 02/05/2023 Excessive or frequent menstruation 06/30/2008 11/12/2016 documented as of this encounter (statuses as of 05/01/2023) [address] History of Past illness Narrative* Problem Noted Date Resolved Date Incomplete tear of right rotator cuff 02/05/2023 02/05/2023 Excessive or frequent menstruation 06/30/2008 11/12/2016 documented as of this encounter (statuses as of 05/02/2023) [address] History of Past illness Narrative* Problem Noted Date Diagnosed Date Resolved Date Incomplete tear of right rotator cuff 02/05/2023 02/05/2023 Excessive or frequent menstruation 06/30/2008 11/12/2016 documented as of this encounter (statuses as of 06/14/2023) [address]-2023 History of Past illness Narrative* Problem Noted Date Diagnosed Date Resolved Date Incomplete tear of right rotator cuff 02/05/2023 02/05/2023 Excessive or frequent menstruation 06/30/2008 11/12/2016 documented as of this encounter (statuses as of 07/03/2023) [address]-2023 History of Past illness Narrative* Problem Noted Date Diagnosed Date Resolved Date Incomplete tear of right rotator cuff 02/05/2023 02/05/2023 Excessive or frequent menstruation 06/30/2008 11/12/2016 documented as of this encounter (statuses as of 09/18/2023) [address]07-2023 History of Past illness Narrative* Problem Noted Date Diagnosed Date Resolved Date Incomplete tear of right rotator cuff 02/05/2023 02/05/2023 Excessive or frequent menstruation 06/30/2008 11/12/2016 documented as of this encounter (statuses as of 03/18/2024) [address]07-2023 NoteHNO ID: [id number] Author: Alexia Madrigal APRN.MANAGER [employer] Service: Anesthesiology Author Type: Nurse Roller [place] Type: Anesthesia Procedure Notes Filed: 02/05/2023 8:14 AM Note Text: ANESTHESIOLOGY PROCEDURE NOTE Airway General Information Procedure Start Time/Medication Administration: 02/05/2023 7:42 AM Patient location during procedure: OR Timeout Performed Pre-procedure: timeout performed Consent Obtained: Yes 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[employer]: Alexia Madrigal APRN.MANAGER [employer] Performed by: ALE Indications and Patient Condition Indications for airway management: anesthesia Preoxygenated: yes anesthesia circuit Patient position: sniffing Method: asleep Cricoid Pressure: No Final Airway Details Final airway type: endotracheal airway Final Endotracheal Airway: ETT Cuffed: yes Successful intubation technique: direct laryngoscopy Devices used: intubating stylet Endotracheal tube insertion site: oral Blade: Karon Blade size: #3 ETT size (mm): 7.0 Measurement (cm): 21 Placement verified by: chest auscultation and capnometry Cormack-Lehane Classification: grade I - full view of glottis Number of attempts at approach: 1 SIGNATURE: Alexia Madrigal APRN.CRNA PATIENT NAME: Carmencita Mondragon DATE: February 05, 2023 TIME: 8:14 AM CSN: [id number] Hospital Discharge instructions Patient Education 01/25/2023 10:36:21 Cortisol Test Cortisol Test Why am I having this test? Cortisol is a hormone that plays an important role in many bodily functions. It helps regulate blood pressure and blood sugar (glucose) levels, aids digestion, and triggers the fight or flight reaction that your body uses to respond to stressful situations. You may have a cortisol test to check for problems with the glands that are associated with cortisol production (pituitary gland and adrenal gland). This test may be done to help diagnose: Hypopituitarism. Acute adrenal crisis. A tumor of the adrenal gland. Fillmore syndrome or disease. Radiant disease (adrenal insufficiency). What is being tested? This test measures the amount of cortisol in your body. What kind of sample is taken? This test may be done using a sample of blood, urine, or saliva. Cortisol levels will vary throughout the day. Your health care provider may ask that cortisol tests be taken at different times of theday. One or more tests may be done to confirm results. The most common way to measure cortisol in the body is to measure it in the blood. Blood samples are usually collected at 8 a.m. (when cortisol is highest) or at 4 p.m. (when it is lower). In some cases, it may be taken at midnight when cortisol is lowest. A blood sample is usually collected by inserting a needle into a blood vessel. Saliva tests are usually done around midnight. This is done by swabbing the inside of your cheeks with a cotton swab. Urine samples might include only one sample, or you may be asked to collect all of the urine you produce during a 24-hour period. How do I collect samples at home? You may be asked to collect urine at home, possibly over a period of 24 hours. When collecting a urine sample at home, make sure you: Use supplies and instructions that you received from the lab. Collect urine only in the germ-free (sterile) container that you received from the lab. Do not let any toilet paper or stool (feces) get into the container. Refrigerate the sample until you can return it to the lab. Return the sample(s) to the lab as instructed. How do I prepare for this test? How you prepare for this test depends on what kind of sample will be taken. If you will have a blood test, you may be instructed to: ?Avoid vigorous exercise or stress before the test. ?Stop taking certain medicines, such as: ?Certain anti-seizure medicines. ?Androgens. ?Estrogen. ?Glucocorticoids (cortisone). If you will have a saliva test, follow instructions from your health care provider about when to stop eating, drinking, and using toothpaste before the test. If you will have a urine test, no preparation is needed. Tell a health care provider about: Any allergies you have. All medicines you are taking, including vitamins, herbs, eye drops, creams, and deov-fby-nlrigkv medicines. Any blood disorders you have. Any surgeries you have had. Any medical conditions you have. Whether you are or may be . How are the results reported? Your results will be reported as a value that tells you how much cortisol is in your body. Different units may be used for blood, saliva, and urine. Your health care provider will compare your results to normal ranges that were established after testing a large group of people (reference ranges). Reference ranges may vary among labs and hospitals. For this test, common reference ranges also vary depending on the sample: Blood: ?Adult: morning blood test (8 a.m.): 5 23 mcg/dL. ?Adult: evening blood test (4 p.m.): 3 13 mcg/dL. ?Child 1 16 years: morning blood test (8 a.m.): 3 21 mcg/dL. ?Child 1 16 years: evening blood test (4 p.m.): 3 10 mcg/dL. ?: 1 24 mcg/dL. Saliva: ?7 a.m. to 9 a.m.: 100 750 ng/dL. ?3 p.m. to 5 p.m.: less than 401 ng/dL. ?11 p.m. to midnight: less than 100 ng/dL. Urine: ?Adult: less than 100 mcg per 24 hours. ?Adolescent: 5 55 mcg per 24 hours. ?Child: 2 27 mcg per 24 hours. What do the results mean? Results within the reference ranges are considered normal. A cortisol level that is higher than normal may mean that you have: Fillmore syndrome. Tumors near the pituitary gland or on the adrenal gland. A cortisol level that is lower than normal may be caused by: Radiant disease. Certain medicines, such as chemotherapy and glucocorticoid medicines. Hypopituitarism. If you have an abnormal result, you may need more than one cortisol test because cortisol levels can vary throughout the day and affect your test results. Talk with your health care provider about what your results mean. Questions to ask your health care provider Ask your health care provider, or the department that is doing the test: When will my results be ready? How will I get my results? What are my treatment options? What other tests do I need? What are my next steps? Summary A cortisol test may be done to check for problems with the glands associated with cortisol production (pituitary gland and adrenal gland). This test may be done using a sample of blood, urine, or saliva. A cortisol level that is higher than normal can be seen in Fillmore syndrome and in adrenal or pituitary gland tumors. A cortisol level that is lower than normal can be seen in Anand disease, with use of certain medicines, and in hypopituitarism. This information is not intended to replace advice given to you by your health care provider. Make sure you discuss any questions you have with your health care provider. Document Released: 12/12/2005 Document Revised: 10/31/2018 Document Reviewed: 06/18/2018 [employer] Patient Education 2020 [employer] 01/25/2023 10:36:21 Cortisol Test Cortisol Test Why am I having this test? Cortisol is a hormone that plays an important role in many bodily functions. It helps regulate blood pressure and blood sugar (glucose) levels, aids digestion, and triggers the fight or flight reaction that your body uses to respond to stressful situations. You may have a cortisol test to check for problems with the glands that are associated with cortisol production (pituitary gland and adrenal gland). This test may be done to help diagnose: Hypopituitarism. Acute adrenal crisis. A tumor of the adrenal gland. Beau syndrome or disease. Radiant disease (adrenal insufficiency). What is being tested? This test measures the amount of cortisol in your body. What kind of sample is taken? This test may be done using a sample of blood, urine, or saliva. Cortisol levels will vary throughout the day. Your health care provider may ask that cortisol tests be taken at different times of theday. One or more tests may be done to confirm results. The most common way to measure cortisol in the body is to measure it in the blood. Blood samples are usually collected at 8 a.m. (when cortisol is highest) or at 4 p.m. (when it is lower). In some cases, it may be taken at midnight when cortisol is lowest. A blood sample is usually collected by inserting a needle into a blood vessel. Saliva tests are usually done around midnight. This is done by swabbing the inside of your cheeks with a cotton swab. Urine samples might include only one sample, or you may be asked to collect all of the urine you produce during a 24-hour period. How do I collect samples at home? You may be asked to collect urine at home, possibly over a period of 24 hours. When collecting a urine sample at home, make sure you: Use supplies and instructions that you received from the lab. Collect urine only in the germ-free (sterile) container that you received from the lab. Do not let any toilet paper or stool (feces) get into the container. Refrigerate the sample until you can return it to the lab. Return the sample(s) to the lab as instructed. How do I prepare for this test? How you prepare for this test depends on what kind of sample will be taken. If you will have a blood test, you may be instructed to: ?Avoid vigorous exercise or stress before the test. ?Stop taking certain medicines, such as: ?Certain anti-seizure medicines. ?Androgens. ?Estrogen. ?Glucocorticoids (cortisone). If you will have a saliva test, follow instructions from your health care provider about when to stop eating, drinking, and using toothpaste before the test. If you will have a urine test, no preparation is needed. Tell a health care provider about: Any allergies you have. All medicines you are taking, including vitamins, herbs, eye drops, creams, and xmsp-zcd-lqpykve medicines. Any blood disorders you have. Any surgeries you have had. Any medical conditions you have. Whether you are or may be . How are the results reported? Your results will be reported as a value that tells you how much cortisol is in your body. Different units may be used for blood, saliva, and urine. Your health care provider will compare your results to normal ranges that were established after testing a large group of people (reference ranges). Reference ranges may vary among labs and hospitals. For this test, common reference ranges also vary depending on the sample: Blood: ?Adult: morning blood test (8 a.m.): 5 23 mcg/dL. ?Adult: evening blood test (4 p.m.): 3 13 mcg/dL. ?Child 1 16 years: morning blood test (8 a.m.): 3 21 mcg/dL. ?Child 1 16 years: evening blood test (4 p.m.): 3 10 mcg/dL. ?: 1 24 mcg/dL. Saliva: ?7 a.m. to 9 a.m.: 100 750 ng/dL. ?3 p.m. to 5 p.m.: less than 401 ng/dL. ?11 p.m. to midnight: less than 100 ng/dL. Urine: ?Adult: less than 100 mcg per 24 hours. ?Adolescent: 5 55 mcg per 24 hours. ?Child: 2 27 mcg per 24 hours. What do the results mean? Results within the reference ranges are considered normal. A cortisol level that is higher than normal may mean that you have: Fillmore syndrome. Tumors near the pituitary gland or on the adrenal gland. A cortisol level that is lower than normal may be caused by: Radiant disease. Certain medicines, such as chemotherapy and glucocorticoid medicines. Hypopituitarism. If you have an abnormal result, you may need more than one cortisol test because cortisol levels can vary throughout the day and affect your test results. Talk with your health care provider about what your results mean. Questions to ask your health care provider Ask your health care provider, or the department that is doing the test: When will my results be ready? How will I get my results? What are my treatment options? What other tests do I need? What are my next steps? Summary A cortisol test may be done to check for problems with the glands associated with cortisol production (pituitary gland and adrenal gland). This test may be done using a sample of blood, urine, or saliva. A cortisol level that is higher than normal can be seen in Fillmore syndrome and in adrenal or pituitary gland tumors. A cortisol level that is lower than normal can be seen in Radiant disease, with use of certain medicines, and in hypopituitarism. This information is not intended to replace advice given to you by your health care provider. Make sure you discuss any questions you have with your health care provider. Document Released: 12/12/2005 Document Revised: 10/31/2018 Document Reviewed: 06/18/2018 [employer] Patient Education 2020 [employer]. Follow Up Care 01/23/2023 12:12:29 With:RADHA MARTINES Address: [facility] [address] [place] [address] When: Unknown [facility] 02-24-2023 Summary of episode note CARMENCITA MONDRAGON :1965 Visit Date:01/25/2023 Your Visit Summary Tests Performed Cortisol Level -- Results Pending -- You will be contacted within 72 hours with your results. Your Care Team Attending Physician - RADHA MARTINES Primary Care Physician - JOHNATHAN PEREZ DO Vitals Temperature (Oral) 36.9 C Heart Rate 83 Blood Pressure 148/71 Height 167 cm What to do next Scheduled Follow-Up Appointments Appointment Type When With Where Contact [facility] Annual 05/15/2023 08:00 AM EDT JOHNATHAN PEREZ DO [address] [address] Follow Up Appointments Follow Up with RADHA MARTINES When Where: [facility] [address] [place] [address] Medications What How Much When Instructions Unchanged acetaminophen (acetaminophen 500 mg oral tablet) 2 tab(s) by mouth Three (3) times a day as needed for pain or fever Unchanged cholecalciferol (Vitamin D3 50 mcg (2000 intl units) oral capsule) 1 cap by mouth Once a day Unchanged meloxicam (meloxicam 15 mg oral tablet) 1 tab(s) by mouth Once a day as needed for Pain Duration: 90 Days Take with food/ milk and fluids. Do not take any other NSAIDs while on this med. Unchanged multivitamin (Multivitamin) 1 tab(s) by mouth Every day Unchanged triamcinolone nasal (Nasacort Allergy 24HR 55 mcg/ inh nasal spray) 1 spray(s) each nostril Once a day as needed for Allergy symptoms Allergies Compazine Morphine Sulfate iodine topical sulfa drug [employer] Cortisol Test Why am I having this test? Cortisol is a hormone that plays an important role in many bodily functions. It helps regulate blood pressure and blood sugar (glucose) levels, aids digestion, and triggers the fight or flight reaction that your body uses to respond to stressful situations. You may have a cortisol test to check for problems with the glands that are associated with cortisol production (pituitary gland and adrenal gland). This test may be done to help diagnose: Hypopituitarism. Acute adrenal crisis. A tumor of the adrenal gland. Fillmore syndrome or disease. Radiant disease (adrenal insufficiency). What is being tested? This test measures the amount of cortisol in your body. What kind of sample is taken? This test may be done using a sample of blood, urine, or saliva. Cortisol levels will vary throughout the day. Your health care provider may ask that cortisol tests be taken at different times of theday. One or more tests may be done to confirm results. The most common way to measure cortisol in the body is to measure it in the blood. Blood samples are usually collected at 8 a.m. (when cortisol is highest) or at 4 p.m. (when it is lower). In some cases, it may be taken at midnight when cortisol is lowest. A blood sample is usually collected by inserting a needle into a blood vessel. Saliva tests are usually done around midnight. This is done by swabbing the inside of your cheeks with a cotton swab. Urine samples might include only one sample, or you may be asked to collect all of the urine you produce during a 24-hour period. How do I collect samples at home? You may be asked to collect urine at home, possibly over a period of 24 hours. When collecting a urine sample at home, make sure you: Use supplies and instructions that you received from the lab. Collect urine only in the germ-free (sterile) container that you received from the lab. Do not let any toilet paper or stool (feces) get into the container. Refrigerate the sample until you can return it to the lab. Return the sample(s) to the lab as instructed. How do I prepare for this test? How you prepare for this test depends on what kind of sample will be taken. If you will have a blood test, you may be instructed to: ? Avoid vigorous exercise or stress before the test. ? Stop taking certain medicines, such as: ? Certain anti-seizure medicines. ? Androgens. ? Estrogen. ? Glucocorticoids (cortisone). If you will have a saliva test, follow instructions from your health care provider about when to stop eating, drinking, and using toothpaste before the test. If you will have a urine test, no preparation is needed. Tell a health care provider about: Any allergies you have. All medicines you are taking, including vitamins, herbs, eye drops, creams, and egtg-eep-webcdtm medicines. Any blood disorders you have. Any surgeries you have had. Any medical conditions you have. Whether you are or may be . How are the results reported? Your results will be reported as a value that tells you how much cortisol is in your body. Different units may be used for blood, saliva, and urine. Your health care provider will compare your results to normal ranges that were established after testing a large group of people (reference ranges). Reference ranges may vary among labs and hospitals. For this test, common reference ranges also vary depending on the sample: Blood: ? Adult: morning blood test (8 a.m.): 5 23 mcg/dL. ? Adult: evening blood test (4 p.m.): 3 13 mcg/dL. ? Child 1 16 years: morning blood test (8 a.m.): 3 21 mcg/dL. ? Child 1 16 years: evening blood test (4 p.m.): 3 10 mcg/dL. ? [place]: 1 24 mcg/dL. Saliva: ? 7 a.m. to 9 a.m.: 100 750 ng/dL. ? 3 p.m. to 5 p.m.: less than 401 ng/dL. ? 11 p.m. to midnight: less than 100 ng/dL. Urine: ? Adult: less than 100 mcg per 24 hours. ? Adolescent: 5 55 mcg per 24 hours. ? Child: 2 27 mcg per 24 hours. What do the results mean? Results within the reference ranges are considered normal. A cortisol level that is higher than normal may mean that you have: Beau syndrome. Tumors near the pituitary gland or on the adrenal gland. A cortisol level that is lower than normal may be caused by: Radiant disease. Certain medicines, such as chemotherapy and glucocorticoid medicines. Hypopituitarism. If you have an abnormal result, you may need more than one cortisol test because cortisol levels can vary throughout the day and affect your test results. Talk with your health care provider about what your results mean. Questions to ask your health care provider Ask your health care provider, or the department that is doing the test: When will my results be ready? How will I get my results? What are my treatment options? What other tests do I need? What are my next steps? Summary A cortisol test may be done to check for problems with the glands associated with cortisol production (pituitary gland and adrenal gland). This test may be done using a sample of blood, urine, or saliva. A cortisol level that is higher than normal can be seen in Beau syndrome and in adrenal or pituitary gland tumors. A cortisol level that is lower than normal can be seen in Radiant disease, with use of certain medicines, and in hypopituitarism. This information is not intended to replace advice given to you by your health care provider. Make sure you discuss any questions you have with your health care provider. Document Released: 12/12/2005 Document Revised: 10/31/2018 Document Reviewed: 06/18/2018 [employer] Patient Education 2020 [employer] Cortisol Test Why am I having this test? Cortisol is a hormone that plays an important role in many bodily functions. It helps regulate blood pressure and blood sugar (glucose) levels, aids digestion, and triggers the fight or flight reaction that your body uses to respond to stressful situations. You may have a cortisol test to check for problems with the glands that are associated with cortisol production (pituitary gland and adrenal gland). This test may be done to help diagnose: Hypopituitarism. Acute adrenal crisis. A tumor of the adrenal gland. Fillmore syndrome or disease. Radiant disease (adrenal insufficiency). What is being tested? This test measures the amount of cortisol in your body. What kind of sample is taken? This test may be done using a sample of blood, urine, or saliva. Cortisol levels will vary throughout the day. Your health care provider may ask that cortisol tests be taken at different times of theday. One or more tests may be done to confirm results. The most common way to measure cortisol in the body is to measure it in the blood. Blood samples are usually collected at 8 a.m. (when cortisol is highest) or at 4 p.m. (when it is lower). In some cases, it may be taken at midnight when cortisol is lowest. A blood sample is usually collected by inserting a needle into a blood vessel. Saliva tests are usually done around midnight. This is done by swabbing the inside of your cheeks with a cotton swab. Urine samples might include only one sample, or you may be asked to collect all of the urine you produce during a 24-hour period. How do I collect samples at home? You may be asked to collect urine at home, possibly over a period of 24 hours. When collecting a urine sample at home, make sure you: Use supplies and instructions that you received from the lab. Collect urine only in the germ-free (sterile) container that you received from the lab. Do not let any toilet paper or stool (feces) get into the container. Refrigerate the sample until you can return it to the lab. Return the sample(s) to the lab as instructed. How do I prepare for this test? How you prepare for this test depends on what kind of sample will be taken. If you will have a blood test, you may be instructed to: ? Avoid vigorous exercise or stress before the test. ? Stop taking certain medicines, such as: ? Certain anti-seizure medicines. ? Androgens. ? Estrogen. ? Glucocorticoids (cortisone). If you will have a saliva test, follow instructions from your health care provider about when to stop eating, drinking, and using toothpaste before the test. If you will have a urine test, no preparation is needed. Tell a health care provider about: Any allergies you have. All medicines you are taking, including vitamins, herbs, eye drops, creams, and wwfu-waw-rhgsiqg medicines. Any blood disorders you have. Any surgeries you have had. Any medical conditions you have. Whether you are or may be . How are the results reported? Your results will be reported as a value that tells you how much cortisol is in your body. Different units may be used for blood, saliva, and urine. Your health care provider will compare your results to normal ranges that were established after testing a large group of people (reference ranges). Reference ranges may vary among labs and hospitals. For this test, common reference ranges also vary depending on the sample: Blood: ? Adult: morning blood test (8 a.m.): 5 23 mcg/dL. ? Adult: evening blood test (4 p.m.): 3 13 mcg/dL. ? Child 1 16 years: morning blood test (8 a.m.): 3 21 mcg/dL. ? Child 1 16 years: evening blood test (4 p.m.): 3 10 mcg/dL. ? : 1 24 mcg/dL. Saliva: ? 7 a.m. to 9 a.m.: 100 750 ng/dL. ? 3 p.m. to 5 p.m.: less than 401 ng/dL. ? 11 p.m. to midnight: less than 100 ng/dL. Urine: ? Adult: less than 100 mcg per 24 hours. ? Adolescent: 5 55 mcg per 24 hours. ? Child: 2 27 mcg per 24 hours. What do the results mean? Results within the reference ranges are considered normal. A cortisol level that is higher than normal may mean that you have: Fillmore syndrome. Tumors near the pituitary gland or on the adrenal gland. A cortisol level that is lower than normal may be caused by: Radiant disease. Certain medicines, such as chemotherapy and glucocorticoid medicines. Hypopituitarism. If you have an abnormal result, you may need more than one cortisol test because cortisol levels can vary throughout the day and affect your test results. Talk with your health care provider about what your results mean. Questions to ask your health care provider Ask your health care provider, or the department that is doing the test: When will my results be ready? How will I get my results? What are my treatment options? What other tests do I need? What are my next steps? Summary A cortisol test may be done to check for problems with the glands associated with cortisol production (pituitary gland and adrenal gland). This test may be done using a sample of blood, urine, or saliva. A cortisol level that is higher than normal can be seen in Fillmore syndrome and in adrenal or pituitary gland tumors. A cortisol level that is lower than normal can be seen in Radiant disease, with use of certain medicines, and in hypopituitarism. This information is not intended to replace advice given to you by your health care provider. Make sure you discuss any questions you have with your health care provider. Document Released: 12/12/2005 Document Revised: 10/31/2018 Document Reviewed: 06/18/2018 [employer] Patient Education 2020 [employer] Additional Information VACCINATE! IT SAVES LIVES! Members of the community who have not yet received the COVID-19 vaccine and would like to receive it can visit one of [facility] vaccine clinics. There are many vaccine clinic locations within the [facility]. For locations and available times, please visit [email or web address] It is important to note that some COVID mobile vaccine clinics are held outdoors and may be canceled in rainy or stormy conditions. To learn more about pediatric vaccinations (ages 5-11), we invite you to visit the [facility] webpage. [email or web address]/[email or web address] [email or web address] learn more about the COVID-19 vaccine, we invite you to visit the CDC website for a list of frequently asked questions. https://www.cdc.gov/coronavirus/2019-ncov/vaccines/faq.html [facility] [employer] Patient Portal Access Instructions: Stay connected with your healthcare team and access your personal medical information anytime with the [facility] [employer] Patient Portal.If you would like a full copy of your medical records, please contact the [facility] Medical Records Department, Saturday through Saturday between 8a.m. and 4:30p.m. Please follow the directions below to access the portal: 1.Access the email account you provided upon registration to the [facility].2.Look for an invitation email from [facility].3.Open the email and access the invitation link: Accept Invitation to [facility]4.Fill in the required espana to create your account. Sign into [email or web address] with your username and password that you created in the above steps to stay up to date. You can then view a summary of results, a summary of your visits, and the ability to download your summaries to your computer or send the information securely to a physician. Remember that your healthcare information is confidential, so carefully consider who you will allow to register on the [facility] [employer] Patient Portal for access to your information. You can also access the [facility] Patient Portal on the [employer] susannah. Simply click on Health Records under [employer] and then click on the [facility] logo. HOW TO SAFELY DISPOSE OF PRESCRIPTION MEDICATIONS Please use one of the following methods to safely dispose of your unused medications. 1.Use a drug disposal kit: the drug disposal pouch allows you to safely discard your old and unuseddrugs. Ask your nurse to give you one when you are discharged.2.Visit a local take-back location: Many local pharmacies and police departments have programs that collect old and unwanted prescriptiondrugs. Call your local pharmacy or go to http://[employer]/3N9Cb8f to find one close to you.3.Make use of household items: Use cat litter or old coffee grounds to dispose medications if other options arenot available. Mix your drugs with these household products, seal them in an airtight container andthrow it into the garbage. Call [facility]: [phone] to be sure your drugs can be disposed of in this way. Some medicines may require a different approach.4.Never flush your medications down the toilet. IF YOU HAVE BEEN PRESCRIBED AN OPIOID FOR PAIN If you have been prescribed an opioid (such as hydrocodone, oxycodone or morphine), it is critical to understand the possible side effects and risks of opioid pain medications. Even when taken as directed, opioids can have several side effects including: Tolerance, meaning you might need to take more of a medication for the same pain relief. Nausea, vomiting and/or constipation. Sleepiness, dizziness, dry mouth, confusion, depression or itching. Physical dependence, meaning you have withdrawal symptoms when a medication is stopped, can develop within a few days. KNOW YOUR RESPONSIBILITIES It is important to know exactly how much and how often to take the opioid pain medications you are prescribed. Never take opioids in higher amounts or more often than prescribed. Do not combine opioids with alcohol or other drugs that cause drowsiness, such as benzodiazepines, also known as benzos, including diazepam and alprazolam, muscle relaxants or sleep aids. Never sell or share prescription opioids. This is illegal. Store opioids in a secure place and out of reach of others (including children, family, friends and visitors). The last page of this document has been signed and retained as a CHART COPY. Signatures Patient Education Materials Cortisol Test Cortisol Test Medication Leaflets My discharge plan and instructions have been reviewed and explained to me and I,CARMENCITA MONDRAGON understand my current condition and have read and understand these discharge instructions. I have received a written copy of the plan/instructions. If I have questions, I am aware that I should contact my doctor. Patient/Traffic Inspector Signature: Date/Time: Relationship to Patient: Witness Name/Signature: [id number] Instructions* Patient Instructions* Eboni Gómez APRN.[facility] - 01/21/2023 1:50 PM EST PATIENT PREOPERATIVE INSTRUCTIONS Ivelisse De La Fuente,* , has scheduled you for your procedure at this surgery center: [facility]: [phone] -- [address] [address]. Please read below carefully for your personalized instructions. Dietary Restrictions: - No solid food after midnight. - You may have 12 ounces of clear liquids (water, clear juices such as apple juice or gatorade, carbonated beverages, clear tea, black coffee, jello) until 2 hours before scheduled arrival at facility. - Do not drink any alcohol after midnight the night before your surgery. Medications: Unless instructed differently below, stay on all of your medications until your surgery. Approved medications to take the morning of surgery with a sip of water: none If you start any new medications after today's visit, please contact the surgeon's office. Blood Thinning Medications: - Stop NSAIDS (Ibuprofen, Advil, Aleve, Motrin, Celebrex, Mobic, etc.) 7 days before surgery, as directed by your surgeon. - Stop Aspirin 7 days before surgery, as directed by your surgeon. - Stop Vitamin E, ALL multi-vitamins, herbals and dietary supplements 7 days before surgery. - You may take Tylenol (Acetaminophen) or any of your pain medications that do not contain aspirin or NSAIDS as needed. Important Reminders: - Candy, mints, and tobacco products are NOT permitted the morning of surgery. - Hearing aids, dentures and glasses may be worn the morning of surgery. - NO jewelry, body piercings, makeup, hairpins or contacts are to be worn the day of surgery. If you develop symptoms such as a fever, cold, or flu, or have other changes to your health within TWO DAYS of scheduled surgery or the morning of surgery, please contact the surgery center above. Personal Belongings: -Please have photo ID and insurance cards. -If you do not have a copy of advance directives on file with us, please bring a copy with you on the day of surgery. - Leave ALL valuables and money at home or with family members. For Outpatient Procedures: - YOU MUST HAVE A RESPONSIBLE DIETITIAN CONSULTANT TAKE YOU HOME. A LAY OUT MACHINE OPERATOR OR SCRAP IRON LOADER CANNOT BE MADE A RESPONSIBLE DIETITIAN CONSULTANT. - We recommend that a responsible person stays with you overnight to take care of you. - You cannot stay in a hotel alone after outpatient surgery. You will not be permitted to have yoursurgery, if you do not have someone to take care of you. Arrival Time for Surgery: - The Surgery Center or hospital where you are having surgery will call the afternoon before surgery (or Saturday for Saturday surgery) with a scheduled arrival time. - If you have not heard by 4 pm, please contact the surgery center above. Please be aware that emergency situations arise, which may delay or change your surgical time. If this happens, we will notify you as soon as possible and regret any inconvenience. If you already have an Advance Directive, please fax a copy to [phone] or email to for it to be added to your chart. If you do not have an Advance Directive, you can find the appropriate form and more information at [email or web address]. We recommend that youcomplete the Advance Directive form found on the website and bring it with you the day of your surgery. It can be witnessed and scanned into your chart that day. Eboni Gómez APRN.CNP [facility] History and physical note * Eboni Gómez APRN.CNP - 01/21/2023 1:40 PM EST HISTORY AND PHYSICAL EXAMINATION SERVICE DATE: 01/21/2023 SERVICE TIME: 1:37 PM PRIMARY CARE PHYSICIAN: Dre Naqvi DO REASON FOR VISIT: Carmencita Mondragon is a 57 year old female who is scheduled for Procedure(s): ARTHROSCOPY SHOULDER ROTATOR CUFF (Right) TENODESIS LONG TENDON BICEPS (Right) at the request of Dr. Ivelisse De La Fuente for consultation. My final recommendation will be communicated back to the requesting physician by way of shared medical record or letter. Subjective The patient has the following: ACTIVE PROBLEM LIST Brachial Plexus Lesions Cervicalgia Myalgia and Myositis, Unspecified Lump Or Mass in Breast Pain in Limb Irregular Menstrual Cycle Mild Dysplasia of Cervix Premenstrual Tension Syndromes Allergic Rhinitis Fibromyalgia Postmenopausal Bleeding Tendinitis of Right Shoulder Impingement Syndrome of Right Shoulder Bursitis of Right Shoulder Bicipital Tendinitis of Right Shoulder COVID-19 Immunization Status Overdue - COVID-19 VACCINE (1) Overdue - never done No completion, postpone, frequency change, or communication history exists for this topic. CHIEF COMPLAINT: Pre-op evaluation HPI: 57 year old female here for pre-op evaluation. Patient complains of right Shoulder pain for years and has been worsening.Treated with injections, PT, and NSAID's. Symptoms include constant pain,described as a constant ache, and currently rated 5/10. Denies numbness/tingling. Recommended for above surgery. REVIEW OF SYSTEMS: General: No weight loss, malaise or fevers. Neurological: No history of TIA's, stroke, CREW BOSS tumor, impaired sensorium, hemiplegia, paraplegia orquadraplegia. No neurological symptoms or problems. Respiratory: No history of current cough or dyspnea, or pneumonia in the past 6 weeks. No history of respiratory/pulmonary symptoms or problems. Cardiovascular: No history of HTN requiring medication, no history of angina, CHF, IA, cardiac surgery or stents. Denies rest pain, gangrene or revascularization/amputation for PVD. No history of cardiovascular symptoms or problems. GI: No history of GI symptoms or problems. No history of esophageal varices, recent ascites, or ETOH greater than 2 drinks per day. : No history of dysuria, frequency or incontinence, stones or chronic kidney disease. No difficulty urinating, nocturia > 1 time per night or hematuria. 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 Endocrine: No history of diabetes. Has not taken steroids within the past 30 days. No history of endocrinological symptoms or problems. Hematology: No history of bleeding or clotting disorder. Patient is not taking anti-coagulation or platelet medications. No history of hematological symptoms or problems. Oncology: No history of CA metastasis, chemo within 30 days, or radiotherapy within 90 days. No history of oncological symptoms or problems. Psych: Positive for: anxiety (related to surgery, denies chronic underlying anxiety). Negative for: depression. Musculoskeletal: See HPI. Skin: Negative for lesions, rash and itching. PAST MEDICAL HISTORY Diagnosis Date Carpal tunnel syndrome Mild Excessive or frequent menstruation Heavy periods 3 to 14 days Irregular menstrual cycle Irregular periods PMH - PAST MEDICAL HISTORY OF abnormal PAP - mild dysplasia Unspecified glaucoma(365.9) Glaucoma suspect - monitering PAST SURGICAL HISTORY Procedure Laterality Date CONIZATION CERVIX W/WO D&C RPR ELTRD EXC 1998 LEEP-Cervix mild dysplasia DILATION & CURETTAGE DX&/THER NONOBSTETRIC 1993 Dilation & curettage/hysteroscopy LAPS ABD PRTM&OMENTUM DX W/WO SPEC BR/WA SPX 2003 Laparoscopy/ Hysteroscopy/curettage PAST SURGICAL HISTORY OF 01/06/2007 endometrial biopsy, polypectomy TONSILLECTOMY & ADENOIDECTOMY <AGE 13 Tonsil/adenoidectomy FAMILY HISTORY Problem Relation Age of Onset Coronary Artery Disease Mother Coronary Artery Disease Father [place] age 58 Diabetes Mother Diabetes Father Thyroid Mother hypo Cancer Maternal Grandmother uterus Cancer Paternal Grandmother kidney Osteoporosis Maternal Grandmother Heart Failure Mother congestive heart failure Heart Father heart attack other (valverde [Other]) Brother fatty liver Social History Tobacco Use Smoking status: Former Packs/day: 1.00 Years: 20.00 Pack years: 20.00 Types: Cigarettes Quit date: 12/02/1998 Years since quittin.1 Smokeless tobacco: Never Vaping Use Vaping Use: Never used Substance Use Topics Alcohol use: No Drug use: No Prior to Admission medications as of 01/21/23 1337 Medication Sig Last Dose Taking cholecalciferol (VITAMIN D-3) 50 mcg (2,000 unit) tablet Take 2,000 Units by mouth once daily. Taking Yes acetaminophen (TYLENOL ORAL) Take by mouth as needed. Taking Yes acetaminophen/diphenhydramine (TYLENOL PM ORAL) Take by mouth as needed. Taking Yes multivitamin (MULTIPLE VITAMINS ORAL) Take by mouth. Taking Yes meloxicam (MOBIC) 7.5 mg tablet Take 1 tablet by mouth once daily. Patient taking differently: Take 15 mg by mouth once daily. Taking Yes TRIAMCINOLONE ACETONIDE (NASACORT NASAL) Use in the nose. One spray in each nostril at bedtime Taking Yes No medication comments found. ALLERGIES Allergen Reactions Iodine Hives Morphine Vomiting Prochlorperazine Vomiting compazine Sulfa (Sulfonamide * uncertain Objective PHYSICAL EXAM: General: alert and oriented and healthy appearance. Pertinent negatives noted - not distressed. Skin: normal color, no rash or lesions. HEENT: pupils equal round and pupils reactive to light. Pertinent negatives noted - no carotid bruit. Cardiovascular: regular rate and rhythm, normal S1 and S2, no rub, murmurs, or gallop. Respiratory: normal breath sounds, no wheezes or crackles. Abdomen: soft. Pertinent negatives noted - not tender. Extremities: no deformity, no edema or tenderness, no joint swelling or clubbing. Neurological: normal cognition and motor skills. Gait normal. No weakness or sensory deficit. PAIN ASSESSMENT: Pain Pain Level: 5 Pain Location: Shoulder-Right Description: Aching, Sharp Duration Amount of Time: 8 Duration Units: Years Frequency: Continuous Intervention/Comfort measure: Medication VITALS: BP 124/82 Pulse 105 Temp (Src) 97.6 (Temporal) Resp 16 Ht 5' 6.5 (1.69m) Wt 185 lb (83.9kg) SpO2 96% LMP 10/06/2015 BMI 29.42 kg/(m^2). Diagnostic tests reviewed for today's visit: Lab Value Units Date High Low HB No results within date range. HCT No results within date range. WBC No results within date range. PLT No results within date range. NA No results within date range. K No results within date range. GLUC No results within date range. BUN No results within date range. CREAT No results within date range. PTSEC No results within date range. INR No results within date range. APTT No results within date range. ALT No results within date range. AST No results within date range. TBILI No results within date range. TSH No results within date range. Lab Value Units Date High Low HCGQT No results within date range. UHCG No results within date range. HCG, BODY* No results within date range. Lab Value Units Date High Low ABORHD No results within date range. ABSCREEN No results within date range. No results found for: HBA1C No results found for this or any previous visit (from the past 8760 hour(s)). No results found for this or any previous visit (from the past 98614 hour(s)). Assessment There is no known pertinent medical condition which may affect colt-operative course Arguello Activity Status Index: METS: Climb a flight of stairs or walk up a hill (5.50 METs) DASI Score: 5.5 Patient denies any chest pain or undue shortness of breath with the above physical activity. Clinical Frailty Scale: 4. Apparently vulnerable STOP-Bang Score: Patient over 50 years old Denies snoring loudly Denies feeling tired, fatigued, or sleepy during the daytime Has not been observed to stop breathing or choking/gasping during sleep Denies having high blood pressure BMI less than or equal to 35 kg/m^2 Does not have a large neck Non-male patient STOP-Bang Score: 1 [id number] Score: Age: <65 Sex: Female CHF history: No Hypertension history: No Stroke/TIA/thromboembolism history: No Vascular disease history: No Diabetes history: No [id number] Score: 1 ASA Class: 2 ANESTHESIA FINDINGS: Intubation History: No history of difficult intubation. No abnormal airway history Significant Anesthesia Considerations: potential postop nausea/vomiting Airway History: No history of difficult airway No abnormal airway history I - PHYSICAL EVALUATION AIRWAY Patient intubated: No. Tracheostomy tube not present Mallampati: II. TM distance: >3 FB. Neck ROM: full ROM without neurological symptoms. Mouth opening: adequate. Short neck: no. Thick neck: no Rojas present: no DENTAL Dental findings: teeth intact. Additional comments: Bridge and 3 crowns . II - ANESTHESIA PLAN ASA Score: 2 Beta Jennifer Monitoring Plan Post Procedure Analgesic Plan Prepared for Surgery: optimally prepared for surgery. CONSULTS: Patient does not require consults for optimization at this time Planned Anesthetic: anesthesia choice The Following Tests/Procedures Have Been Initiated: Orders Placed This Encounter cholecalciferol (VITAMIN D-3) 50 mcg (2,000 unit) tablet Sig: Take 2,000 Units by mouth once daily. acetaminophen (TYLENOL ORAL) Sig: Take by mouth as needed. acetaminophen/diphenhydramine (TYLENOL PM ORAL) Sig: Take by mouth as needed. Instructions Given to Patient: Instructions located in the after visit summary. Patient given verbal and written preop instructions and voices comprehension and compliance. SIGNATURE: Eboni Gómez APRN.CNP PATIENT NAME: Carmencita Mondragon DATE: January 21, 2023 TIME: 1:05 PM PAGER/CONTACT #: documented in this [facility] History of Present illness Narrative* Ivelisse De La Fuente, DO - 01/10/2023 11:19 AM EST Follow Up Visit Chief Complaint Carmencita Mondragon is a 57 year old female who presents today for follow up office visit. Patient presents with: Right Shoulder - Established Patient, Follow Up History of Present Illness PAIN EVALUATION 01/10/2023 1122 Pain Level: 5 Pain Location: Shoulder-Right Description: Aching;Sharp Duration Amount of Time: 8 Duration Units: Months Frequency: Continuous HPI: Carmencita Mondragon is a 57 year old female for a follow up visit for R shoulder tendinitis. Physical therapy has not been helping. Pain history is noted as above. Is there any overall improvement in your condition? No Any new injury, since being seen last: No REVIEW OF SYMPTOMS: Patient did not have, and does not currently have, any weight loss, malaise, fever, chills, headache, chest pain, chest pressure, palpitations, cough, shortness of breath, orthopnea, paroxsymal nocturnal dyspnea, nausea, vomiting, diarrhea, constipation, melena, hematochezia, urinary difficulties, prolonged bleeding, easily bruising, heat or cold intolerance, new onset joint pain or swelling, newonset extremity weakness or numbness, new onset auditory or visual disturbances, lightheadedness, dizziness, partial loss of consciousness or full loss of consciousness. Current Outpatient Medications Medication Sig multivitamin (MULTIPLE VITAMINS ORAL) Take by mouth. ergocalciferol, vitamin D2, (VITAMIN D2 ORAL) Take by mouth. meloxicam (MOBIC) 7.5 mg tablet Take 1 tablet by mouth once daily. TRIAMCINOLONE ACETONIDE (NASACORT NASAL) Use in the nose. One spray in each nostril at bedtime Estradiol-Norethindrone Acet (COMBIPATCH) 0.05-0.14 mg/24 hr Apply 1 Patch as directed two times a week. APPLY ONE(1) PATCH TWICE WEEKLY DIRECTED. (Patient not taking: Reported on 01/10/2023) No current facility-administered medications for this visit. Physical Exam Vitals: [facility] 10/06/2015 Psych: Pleasant, good affect and mood General Appearance: Well appearing, alert, in no acute distress, well-hydrated, well nourished.. Skin: Skin color, texture, turgor normal, no suspicious rashes or lesions. Peripheral Pulses: Normal. Neurologic: Gait normal. Reflexes normal and symmetric. Sensation grossly intact.. Lymph Nodes: No cervical lymphadenopathy, No supraclavicular lymphadenopathy, No axillary lymphadenopathy., and No inguinal lymphadenopathy.. Respiratory: No recent pulmonary infection, hemoptysis, chronic cough, or shortness of breath at rest Rheumatologic: Joint deformities: right shoulder follow up Right Shoulder Exam Tenderness The patient is experiencing no tenderness. Range of Motion Active abduction: abnormal Passive abduction: normal Extension: normal External rotation: abnormal Forward flexion: abnormal Internal rotation 0 degrees: normal Internal rotation 90 degrees: normal Muscle Strength Abduction: 5/5 Internal rotation: 5/5 External rotation: 5/5 Supraspinatus: 5/5 Subscapularis: 5/5 Biceps: 5/5 Tests Apprehension: negative Vang test: positive Cross arm: negative Impingement: positive Other Erythema: absent Sensation: normal Pulse: present Comments: B/l med, uln, rad, ax nerves intact Left Shoulder Exam Left shoulder exam is normal. Tenderness The patient is experiencing no tenderness. Range of Motion Active abduction: normal Passive abduction: normal Extension: normal External rotation: normal Forward flexion: normal Internal rotation 0 degrees: normal Internal rotation 90 degrees: normal Muscle Strength Abduction: 5/5 Internal rotation: 5/5 External rotation: 5/5 Supraspinatus: 5/5 Subscapularis: 5/5 Biceps: 5/5 Tests Apprehension: negative Vang test: negative Cross arm: negative Impingement: negative Other Erythema: absent Sensation: normal Pulse: present Assessment and Plan Radiographs: I have independently reviewed films and my findings are the same. and I have reviewed the images with the patient and family. Last MRI Shoulder - Impression Only MRI SHOULDER WO IVCON RT Exam End: 04/11/2022 2:17 PM (Final result) Impression: IMPRESSION: Low-grade partial thickness articular surface tear of the supraspinatus tendon with background rotator cuff tendinosis. Minimal subdeltoid/subacromial bursitis. ... Impression: No diagnosis found. Today, in detail, through a thorough evaluation, we discussed possible etiologies of pain and our plans for further diagnostic and therapeutic interventions. We discussed strategies for decreasing pain and improving strength, stability and motion. Patient's questions were answered in detailed. Patient verbalizes understanding and agrees with the treatment plan as discussed. Risks and benefits vs alternatives to treatment were discussed with patient. Risks including but not limited to blood loss, blood clot, infection, neurovascular injury, failure of procedure, need forrevision operation, loss of life and loss of limb. Patient aware of risks and benefits and agrees to proceed with written consent for surgical intervention. 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 She has made only minimal progress. Patient continues to present with impairments in ADL's, overall function, range of motion, strength , and symptom management that interfere with . Current prognosis is Fair due to: clinical presentation;limited tolerance to activity;poor past response to therapy intervention. She will benefit from continued skilled therapy services to meet the updated goals for this plan of care as noted below. Updated: 10/22/22 Goals for Episode of Care: created on 09/24/22 through 11/05/22 [place] in home exercise program. - MET, will continue and progress to tolerance prn Patient will decrease pain to 0/10 at rest and with functional activities to allow patient to improve sleeping. - Not Met, will continue Patient will increase active ROM of R shoulder to WFL, symmetrical and pain-free to allow pt to to improve performance of ADLs. - Not Met, will continue Patient will demonstrate increase in R shoulder strength to 5/5 during manual muscle testing and symmetrical dynamometer test in order to improve function for basic self-care tasks, moderate to heavy functional tasks, and prior functional tasks. 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 - Not Met, will continue Patient Goals: eliminate pain and need for medications - Not Met, will continue Planned Interventions, Frequency, and Duration: 2x/week, 6 weeks Total Number of Visits Planned: 12 Patient to be seen for Therapeutic exercise (10656);Manual therapy (51280);Neuromuscular re-education (03427);Therapeutic activities (25342);Self- usp management (56208);Patient/Family/CaregiverEducation;Body Mechanics Training PLAN FOR NEXT VISIT: PT is currently on hold. Pt was advised to schedule a follow up with referringprovider and then update therapist on the outcome of the follow up with referring provider. Therapymay resume pending the recommendation from referring provider. SUBJECTIVE: Patient Reason for Visit: Pt reports that overall her shoulder condition is worse. She reports that after starting therapy, she had one day where she felt noticeably better and she was optimistic about her rehab potential. Unfortunately though, she reports that her R shoulder symptoms are worse currently. She reports that pain is in R side of neck, R scapula and R shoulder. She reports compliance with HEP 3x day. She also reports a new onset of clicking in R shoulder with certain movements that she did not have before. 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 She states that she has not even attempted to walk her dog. Pain: Pain Pain Level: 4 Pain Location: Shoulder - Right;Scapula - Right;Neck - Right Description: Aching Frequency: Intermittent Post Treatment Pain Post Treatment Pain Level: No Change PROMIS Scales T-scores: mean of general population = 50. 5 points is clinically meaningfully difference Percentiles provide an indication of how the patient's score ranks in relation to the general population. Higher percentile rankings indicate better function/quality of life. 50th percentile is the average of the general population and indicates half of respondents had a worse score. T-scores: mean of general population = 50. 5 points is clinically meaningfully difference Percentiles provide an indication of how the patient's score ranks in relation to the general population. Higher percentile rankings indicate better function/quality of life. 50th percentile is the average of the general population and indicates half of respondents had a worse score. OBJECTIVE MEASURES WITH LEVEL OF FUNCTION: UE AROM R UE AROM: seated R Shoulder Extension: 37 Degrees R Shoulder Flex: 134 Degrees R Shoulder ABduction: 90 Degrees R Shoulder Internal Rotation (Functional): 5cm less than L reaching behind back R Shoulder External Rotation (Functional): 1cm greater than L reaching behind head UE and Cervical Strength R UE Strength: MMT deferred secondary to pt report of increased pain, decreased function and decrease in AROM of R shoulder. Her exercise tolerance has been limited and therefore strengthening therexhas been minimal. TREATMENT: Therapeutic Exercise: 1: SciFit StepOne seat #10 x5 minutes (Pt provided an update on her condition and subjective collected, especially as it relates to her functional goals.) 2: seated rope and kamaljit AAROM for R shoulder flexion 2x10 3: seated rope and kamaljit AAROM for R shoulder abduction 2x10 4: standing rope and kamaljit IR behind back 2x10 5: HEP reviewed and patient was reminded to decrease intensity with therex to end range if this causes an increase in symptoms and to stop any exercise that causes increased pain. She was advised to continue with HEP 1x day as able. 6: neck stretches reviewed and she will continue prn. 7: Re-assessment results presented and used as rationale for plan of care recommendations. Skilled Intervention: Patient was educated in proper exercise technique and purpose for exercises. Skilled judgment was provided in selection of appropriate interventions. Correct performance of therapeutic exercises was facilitated with verbal and visual cuing. Billing Therapeutic Exercise Treatment Minutes: 30 Total Treatment Time Minutes (timed/untimed): 30 Wan Wilkinson PT documented in this encounterGu[facility]11-16-2022 History of Present illness Narrative* Wan Wilkinson PT - 10/17/2022 10:49 AM EST Episode Visit Count: 8 Therapist That Will Accept/Oversee The Plan Of Care: Wan Wilkinson PT Start of Care Date: 09/24/22 Onset Date: 09/24/21 Patient Identified by Name and Date of : Yes REHABILITATION AND SPORTS THERAPY PHYSICAL THERAPY TREATMENT NOTE ASSESSMENT: Carmencita Mondragon tolerated the session with fatigue, expected muscle soreness, and no issues. She demonstrated difficulty with increased pain in posterior R shoulder since last session. The patient will continue to benefit from ongoing skilled physical therapy to progress toward set goals. PLAN FOR NEXT VISIT: Continue with active therex to improve R shoulder pain, AROM, strength and function. Progress to tolerance. SUBJECTIVE: Patient Reason for Visit: Pt reports that she has had increased pain in posterior R shoulder and scapular region since the evening of last session. She wonders if her exercise routine in PT needs adjusted. She reports that she has been compliant with HEP 2x day. Pain: Pain Pain Level: 6 Pain Location: Shoulder - Right;Scapula - Right Description: Stabbing;Aching Frequency: Intermittent Post Treatment Pain Post Treatment Pain Level: No Change Post Treatment Pain Location: Shoulder - Right;Scapula - Right Post Treatment Symptoms: During and after session pt denied any increase in pain. After session shecontinued to rate pain at 6/10. In the short term, exercise routine modifications were successful. OBJECTIVE MEASURES WITH LEVEL OF FUNCTION: TREATMENT: Therapeutic Exercise: 1: SciFit StepOne seat #10 x5 minutes (Pt provided an update on her condition and subjective collected.) 2: R UE bodyblade arm at side, blade horizontal up and down 3x30 seconds 3: R UE bodyblade elbow flexed 90 degrees, blade veritcal side to side 3x30 seconds 4: standing rope and kamaljit IR behind back 2x10 5: seated rope and kamaljit AAROM for R shoulder flexion 2x10 6: seated rope and kamaljit AAROM for R shoulder abduction 2x10 7: seated R levator scapulae stretch 3x30 seconds (This did stretch R levator scapulae muscle but she reported feeling it more on L side of neck and therefore not added to HEP.) 8: seated R UT stretch attempted but ineffective at eliciting a stretch in R UT and therefore deferred. 9: R UE alphabet tracing A-Z x2 without weight 10: R UE 5 on the wall #1-#5 3x30 seconds without weight. 11: HEP reviewed and patient was reminded to decrease intensity with therex to end range if this causes an increase in symptoms and to stop any exercise that causes increased pain. Skilled Intervention: Patient was educated in proper exercise technique and purpose for exercises. Skilled judgment was provided in selection of appropriate interventions. Correct performance of therapeutic exercises was facilitated with verbal and visual cuing. Patient education as noted. Billing Therapeutic Exercise Treatment Minutes: 43 Total Treatment Time Minutes (timed/untimed): 43 Wan Wilkinson PT documented in this [facility]Gu[facility]11[facility]22 History of Present illness Narrative* Wan Wilknison PT - 10/11/2022 11:43 AM EST Episode Visit Count: 6 Therapist That Will Accept/Oversee The Plan Of Care: Wan Wilkinson PT Start of Care Date: 09/24/22 Onset Date: 09/24/21 Patient Identified by Name and Date of : Yes REHABILITATION AND SPORTS THERAPY PHYSICAL THERAPY TREATMENT NOTE ASSESSMENT: Carmencita Malcom Mondragon tolerated the session with fatigue and expected muscle soreness. She demonstrated improvements in R UE 5 on the wall. The patient will continue to benefit from ongoing skilled physical therapy to progress toward set goals. PLAN FOR NEXT VISIT: Continue with AAROM. Possibly give isometrics for HEP. SUBJECTIVE: Patient Reason for Visit: Pt reports that her shoulder is sore today, can tell it is going to rain. Visit started 15 minutes early due to pt's early arrival. Pain: Pain Pain Location: Shoulder - Right Description: Aching Frequency: Continuous Post Treatment Pain Post Treatment Symptoms: Pt stated her shoulder felt hot, like she had worked it at the end of the session. OBJECTIVE MEASURES WITH LEVEL OF FUNCTION: Pt able to reach highest level on wall with 5 on the wall. TREATMENT: Therapeutic Exercise: 1: UBE UEs only seat #6 height #2 no resistance x5 minutes 2: wand AAROM for R shoulder flexion 3x10 without causing increased pain 3: wand AAROM for R shoulder abduction 3x10 without causing increased pain 4: Wand AAROM IR behind back 3x10 5: seated rope and kamaljit AAROM for R shoulder flexion 2x10 6: seated rope and kamaljit AAROM for R shoulder abduction 2x10 7: seated scapular retraction without resistance or shrugging 3x10 8: Wand IR with going towards midline 2x10 9: R UE alphabet tracing A-Z x1 without weight 10: R UE 5 on the wall #1-#5 3x30 seconds without weight. 11: Scapular isometrics Inv, Evr, flex, ext, abduciton x5 each with 5 second holds Skilled Intervention: Patient was educated in proper exercise technique and purpose for exercises. Skilled judgment was provided in selection of appropriate interventions. Correct performance of therapeutic exercises was facilitated with verbal and visual cuing. Billing Therapeutic Exercise Treatment Minutes: 45 Total Treatment Time Minutes (timed/untimed): 45 [place], RESEARCH AND DEVELOPMENT TESTER Wan Wilkinson PT documented in this encounterGu[facility]11-02-2022 History of Present illness Narrative* Wan Wilkinson PT - 10/03/2022 12:54 PM EDT Episode Visit Count: 4 Therapist That Will Accept/Oversee The Plan Of Care: Wan Wilkinson PT Start of Care Date: 09/24/22 Onset Date: 09/24/21 Patient Identified by Name and Date of : Yes REHABILITATION AND SPORTS THERAPY PHYSICAL THERAPY TREATMENT NOTE ASSESSMENT: Carmencita Mondragon tolerated the session with fatigue, expected muscle soreness, and no issues. She demonstrated improvements in AROM of right shoulder, improved exercise tolerance and no increase in pain. The patient will continue to benefit from ongoing skilled physical therapy to progress toward set goals. PLAN FOR NEXT VISIT: Continue with AAROM and AROM per pt's tolerance. Consider issuing rope and kamaljit for additional AAROM at home. SUBJECTIVE: Patient Reason for Visit: Pt reports that overall, everything is approximately the same. She reports compliance with HEP 3x day with the additional set of 10 added to each session last PTvisit. She reports getting a zinger of pain while driving here today and the pain she has currently is a residual from that. She reports that pain with certain motions persists. She reports that she is dreading the drive home. Pain: Pain Pain Level: 4 Pain Location: Shoulder - Right Description: Aching (sharp zinger earlier when driving and now an ache) Frequency: Continuous (constant ache) Post Treatment Pain Post Treatment Pain Level: No Change Post Treatment Pain Location: Shoulder - Right Post Treatment Pain Description: (fatigue) Post Treatment Symptoms: During and after session, pt reported fatigue but she denied any change inpain rating. OBJECTIVE MEASURES WITH LEVEL OF FUNCTION: UE AROM R UE AROM: seated R Shoulder Extension: 46 Degrees R Shoulder Flex: 163 Degrees R Shoulder ABduction: 110 Degrees R Shoulder Internal Rotation (Functional): 5cm less than L reaching behind back R Shoulder External Rotation (Functional): 2cm less than L reaching behind head. TREATMENT: Therapeutic Exercise: 1: UBE UEs only seat #6 height #2 no resistance x5 minutes 2: wand AAROM for R shoulder flexion 3x10 without causing increased pain 3: wand AAROM for R shoulder abduction 3x10 without causing increased pain 4: standing rope and kamaljit for R shoulder IR behind back 2x10 5: seated rope and kamaljit AAROM for R shoulder flexion 2x10 6: seated rope and kamaljit AAROM for R shoulder abduction 2x10 7: seated scapular retraction without resistance or shrugging 2x10 8: R UE body blade arm at side, blade horizontal, up and down 3x30 seconds 9: R UE alphabet tracing A-Z x1 without weight 10: R UE 5 on the wall #1-#5 3x30 seconds without weight. Skilled Intervention: Patient was educated in proper exercise technique and purpose for exercises. Skilled judgment was provided in selection of appropriate interventions. Correct performance of therapeutic exercises was facilitated with verbal and visual cuing. Billing Therapeutic Exercise Treatment Minutes: 45 Total Treatment Time Minutes (timed/untimed): 45 Wan Wilkinson PT documented in this encounterGu[facility]10-31-2022 History of Present illness Narrative* Wan Wilkinson PT - 10/01/2022 3:31 PM EDT Episode Visit Count: 3 Therapist That Will Accept/Oversee The Plan Of Care: Wan Wilkinson PT Start of Care Date: 09/24/22 Onset Date: 09/24/21 Patient Identified by Name and Date of : Yes REHABILITATION AND SPORTS THERAPY PHYSICAL THERAPY TREATMENT NOTE ASSESSMENT: Carmencita Mondragon tolerated the session with decreased activity tolerance due to pain anddiscomfort of R shoulder and increased symptoms. She demonstrated difficulty with scapular retractions. The patient will continue to benefit from ongoing skilled physical therapy to progress toward set goals. PLAN FOR NEXT VISIT: Continue with AAROM and AROM per pt's tolerance SUBJECTIVE: Patient Reason for Visit: Pt reports her R shoulder is achy and stiff and feels swollen. Pt states having a snap with shoulder AAROM flexion and it wasn't sharp but also wasn't a good feeling. Pt has sharp pain with over extending or trying to put a jacket on. Pain: Pain Pain Level: 4 Pain Location: Shoulder - Right Description: Aching;Sore;Sharp Post Treatment Pain Post Treatment Pain Level: Worse OBJECTIVE MEASURES WITH LEVEL OF FUNCTION: Pt fatigued with AAROM with addition of third set. TREATMENT: Therapeutic Exercise: 1: R levator scap stretch 3x30 seconds 2: wand AAROM for R shoulder flexion supine and standing 3x10 (cues to complete slower) 3: wand AAROM for R shoulder abduction 3x10 4: AROM flexion 2x10 5: AROM scaption to shoulder height 2x10 6: AROM abduction to 90 degrees x10, x 5 (with thubm pointed towards ceiling, N&T in ring and pinky fingers, doesn't last just happens with the motion.) 7: Seated ER with OTB x18, x8 without band 8: Scapular retractions 2x10 Skilled Intervention: Patient was educated in proper exercise technique and purpose for exercises. Reviewed and educated patient on additions/changes for home exercise program as above (*). Skilled judgment was provided in selection of appropriate interventions. Correct performance of therapeutic exercises was facilitated with verbal and visual cuing. Manual Therapy: 1: STM to R biceps tendon Skilled Intervention: Manual skills to improve joint mobility, ROM, and decrease pain. Utilized anatomy knowledge of the therapist, and assessment of patient's response to intervention. Billing Therapeutic Exercise Treatment Minutes: 25 Manual TherapyTreatment Minutes: 5 Total Treatment Time Minutes (timed/untimed): 30 ADRIAN Fernando PT documented in this encounterGuern[facility]10-28-2022 History of Present illness Narrative* Wan Wilkinson PT - 09/28/2022 12:00 PM EDT Episode Visit Count: 2 Therapist That Will Accept/Oversee The Plan Of Care: Wan Wilkinson PT Start of Care Date: 09/24/22 Onset Date: 09/24/21 Patient Identified by Name and Date of : Yes REHABILITATION AND SPORTS THERAPY PHYSICAL THERAPY TREATMENT NOTE ASSESSMENT: Carmencita Mondragon tolerated the session with decreased symptoms. She demonstrated difficulty with r shoulder scaption and abduction past 90 degrees. The patient will continue to benefit from ongoing skilled physical therapy to progress toward set goals. PLAN FOR NEXT VISIT: Asses repsonse to new exercsies and manual traction SUBJECTIVE: Patient Reason for Visit: Pt reoprts her shoulder is feeling pinchy today around deltiod/ neck region. Pt reports compiance with HEP 3x/day, sometimes they feel okay, other times then send a zinging or pinching sensation. Pain: Pain Pain Level: 4 Pain Location: Shoulder - Right Description: Sharp (pinching) Frequency: Continuous (constant but varies in intensity) Post Treatment Pain Post Treatment Pain Level: Better Post Treatment Symptoms: Pt had decreased pinching in R shuolder at end of session OBJECTIVE MEASURES WITH LEVEL OF FUNCTION: Pt able to complete full ROM of R shoulder with AAROM wand without pinching or pain. TREATMENT: Therapeutic Exercise: 1: R levator scap stretch 3x30 seconds 2: wand AAROM for R shoulder flexion 2x10 3: wand AAROM for R shoulder abduction 2x10 4: AROM flexion 2x10 5: AROM scaption to shoulder height 2x10 6: AROM abduction to 90 degrees (discomfrot at biceps tendon) 7: R upper trap stretch 1x30 seconds (no stretch felt) 8: Scapular retractions 2x10 Skilled Intervention: Patient was educated in proper exercise technique and purpose for exercises. Skilled judgment was provided in selection of appropriate interventions. Correct performance of therapeutic exercises was facilitated with verbal and visual cuing. Manual Therapy: 1: STM to R deltoid and biceps tendon 2: Manual cervical traction with intermittent pulls Skilled Intervention: Manual skills to improve joint mobility, ROM, and decrease pain. Utilized anatomy knowledge of the therapist, and assessment of patient's response to intervention. Billing Therapeutic Exercise Treatment Minutes: 33 Manual TherapyTreatment Minutes: 10 Total Treatment Time Minutes (timed/untimed): 43 [place], ADRIAN Wilkinson PT documented in this [facility]10[facility] History of Present illness Narrative* Wan Wilkinson PT - 09/24/2022 6:00 PM EDT Episode Visit Count: 1 Therapist That Will Accept/Oversee The Plan Of Care: Wan Wilkinson PT Start of Care Date: 09/24/22 Onset Date: 09/24/21 Patient Identified by Name and Date of : Yes REHABILITATION AND SPORTS THERAPY PHYSICAL THERAPY EVALUATION PLAN OF CARE: Assessment: Carmencita Mondragon presents with chief complaint of R shoulder pain that interferes with sleeping (vacuuming, mopping, walking the dog,). She presents with impairments in ADL's, independencein exercise, overall function, range of motion, strength , symptom management, and tissue tenderness. Prognosis for therapy is Excellent due to: current objective clinical presentation;good overall health status;good support system/ coping skills. She will benefit from skilled therapy services to meet the goals established for this plan of care as noted below. Goals for Episode of Care: created on 09/24/22 through 11/05/22 [place] in home exercise program. Patient will decrease pain to 0/10 at rest and with functional activities to allow patient to improve sleeping. Patient will increase active ROM of R shoulder to WFL, symmetrical and pain-free to allow pt to to improve performance of ADLs. Patient will demonstrate increase in R shoulder strength to 5/5 during manual muscle testing and symmetrical dynamometer test in order to improve function for basic self-care tasks, moderate to heavyfunctional tasks, and prior functional tasks. 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 Patient Goals: eliminate pain and need for medications Planned Interventions, Frequency, and Duration: Current Frequency: 2x/week Duration: 6 weeks Total Number of Visits Planned: 12 Planned Treatment Interventions: Therapeutic exercise (36669);Manual therapy (38458);Neuromuscular re-education (22169);Therapeutic activities (65943);Self- usp management (54425);Patient/Family/Caregiver Education;Body Mechanics Training PLAN FOR NEXT VISIT: Review, correct and progress HEP to tolerance. Continue with therex to addressROM, strength and pain of R shoulder to facilitate a return to prior functional level. Patient demonstrates good understanding of plan of care and treatment. The above goals and plan of care were discussed and agreed upon by patient/family. SUBJECTIVE: Carmencita Mondragon is a 57 year old female seen today for constant pain in R shoulder thatvaries in intensity. She reports that the pain is chronic and when injection failed to provide any relief, she had MRI that showed partial rotator cuff tear. She reports that referring provider told her that she is not a surgical candidate yet and that PT will be attempted first. 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 5 points is clinically meaningfully difference Percentiles provide an indication of how the patient's score ranks in relation to the general population. Higher percentile rankings indicate better function/quality of life. 50th percentile is the average of the general population and indicates half of respondents had a worse score. T-scores: mean of general population = 50. 5 points is clinically meaningfully difference Percentiles provide an indication of how the patient's score ranks in relation to the general population. Higher percentile rankings indicate better function/quality of life. 50th percentile is the average of the general population and indicates half of respondents had a worse score. OBJECTIVE MEASURES WITH LEVEL OF FUNCTION: Posture / Alignment Posture: Good Shoulder Observations R Shoulder Palpation Tenderness: (mild tenderness at sub AC region) UE AROM R UE AROM: seated L UE AROM: seated R Shoulder Extension: 56 Degrees R Shoulder Flex: 174 Degrees R Shoulder ABduction: 85 Degrees R Shoulder Internal Rotation (Functional): 8cm less than L reaching behind back R Shoulder External Rotation (Functional): symmetrical with reaching behind head L Shoulder Extension: 58 Degrees L Shoulder Flex: 186 Degrees L Shoulder ABduction: 151 Degrees UE and Cervical Strength Strength Tested: Shoulder All;Shoulder Dynamometer Testing R Shoulder Extension: 5/5 R Shoulder Flexion: 4+/5 R Shoulder Abduction (C5): 4/5 R Shoulder Internal Rotation: 4+/5 R Shoulder External Rotation: 4-/5 L Shoulder Extension: 5/5 L Shoulder Flexion: 5/5 L Shoulder Abduction (C5): 5/5 L Shoulder Internal Rotation: 5/5 L Shoulder External Rotation: 5/5 Dynamometer Strength R Shoulder Standing Scaption (lbs): 20.6 ft/lbs R Shoulder Standing Abduction (lbs): 19.8 ft/lbs R Shoulder Standing External Rotation (lbs): 17.8 ft/lbs R Shoulder Standing Internal Rotation (lbs): 18.1 ft/lbs L Shoulder Standing Scaption (lbs): 26.8 ft/lbs L Shoulder Standing Abduction (lbs): 27.4 ft/lbs L Shoulder Standing External Rotation (lbs): 23.3 ft/lbs L Shoulder Standing Internal Rotation (lbs): 22.5 ft/lbs R IR:ER Ratio (%) : 101.69 L IR:ER Ratio (%): 96.57 Special Tests - Shoulder Shoulder Special Tests: Empty Can;Vang-Eh;Speed's Empty Can: Right Positive Vang-Eh: Right Positive Speed's: Right Negative Education: Education Learning Preferences: Demonstration;Explanation;Performance;Printed Materials Barriers: None Learning/educational needs: Home exercise program;Plan of Care;Posture;Body Mechanics;Health promotion Education Provided: Yes, see treatment interventions for education provided Education Provided To: Patient Education Mode/Type: Demonstration;Explanation/Discussion;Literature/Printed Materials;Performance Response to Education/Teach Back: States/Identifies;Return Demonstration;Requires Review/AdditionalEducation TREATMENT: PT Treatment Interventions: Therapeutic Exercise Evaluation Therapeutic Exercise: 1: Pt was educated on the anatomy of R shoulder, likely source of symptoms and rationale for plan of care recommended. Pictures were used to clarify all education. She was advised to stop all previous exercises and stop any current exercises that cause increased pain. Pt was educated on the inflammatory process and rationale for exercises chosen. Pt was advised that her pain was not caused by weakness and therefore resistance exercises are not a priority. 2: *maricel AAROM for R shoulder flexion 2x10 3: *shaund AAROM for R shoulder abduction 2x10 Skilled Intervention: Patient was educated in proper exercise technique and purpose for exercises. Reviewed and educated patient on additions/changes for home exercise program as above (*). Skilled judgment was provided in selection of appropriate interventions. Provided written instruction for home exercise program to facilitate proper performance and compliance. Correct performance of therapeutic exercises was facilitated with verbal, visual, and tactile cuing. Patient education as noted. Billing * Evaluation Moderate Complexity: 1 Unit Therapeutic Exercise Treatment Minutes: 15 Total Treatment Time Minutes (timed/untimed): 45 Wan Wilkinson PT documented in this encounterGu[facility]08-15-2022 History of Present illness Narrative* Thuy Cardoso MD - 07/16/2022 9:44 AM EDT Carmencita Mondragon is a 56 year old female who presents for problem visit for c/o hot flahses. They come on quickly. No menses at all since age 52. Was here then for EMB for PMB and it was weakly proliferative. No bleeding at all since then. Some hot flashes/night sweats. Wakes up about once a week w/drenching night sweat but has night flashes that wake her up a couple of times a night. They seemedlike they were better for a while and now worse again. Tried black cohash without much relief. Tried SSRI in past and didn't help much either. Some acne on face. No other hair or skin changes. Has started meloxicam off and on for about a year. Has lost weight. Had labs by PCP, CMP, CBC and TSh, vit D level and I reviewed those and her pap and HPV. OB History T2 L3 SAB1 IAB0 Ectopic0 Multiple0 Live Births0 [place] History LMP: 10/06/2015, Postmenopausal Age at Menarche: Age at First : Age at Menopause: [employer] History Comments: Sexual Activity: Yes; Male Contraception: Vasectomy PAST MEDICAL HISTORY Diagnosis Date Carpal tunnel syndrome Mild Excessive or frequent menstruation Heavy periods 3 to 14 days Irregular menstrual cycle Irregular periods PMH - PAST MEDICAL HISTORY OF abnormal PAP - mild dysplasia Unspecified glaucoma(365.9) Glaucoma suspect - monitering PAST SURGICAL HISTORY Procedure Laterality Date CONIZATION CERVIX W/WO D&C RPR ELTRD EXC 1998 LEEP-Cervix mild dysplasia DILATION & CURETTAGE DX&/THER NONOBSTETRIC 1993 Dilation & curettage/hysteroscopy LAPS ABD PRTM&OMENTUM DX W/WO SPEC BR/WA SPX 2003 Laparoscopy/ Hysteroscopy/curettage PAST SURGICAL HISTORY OF 01/06/2007 endometrial biopsy, polypectomy TONSILLECTOMY & ADENOIDECTOMY <AGE 13 Tonsil/adenoidectomy FAMILY HISTORY Problem Relation Age of Onset Coronary Artery Disease Mother Coronary Artery Disease Father [place] age 58 Diabetes Mother Diabetes Father Thyroid Mother hypo Cancer Maternal Grandmother uterus Cancer Paternal Grandmother kidney Osteoporosis Maternal Grandmother Heart Failure Mother congestive heart failure Heart Father heart attack other (valverde [Other]) Brother fatty liver Social History Tobacco Use Smoking status: Former Packs/day: 1.00 Years: 20.00 Pack years: 20.00 Types: Cigarettes Quit date: 12/02/1998 Years since quittin.6 Smokeless tobacco: Never Substance Use Topics Alcohol use: No Drug use: No Current Outpatient Medications Medication Sig multivitamin (MULTIPLE VITAMINS ORAL) Take by mouth. ergocalciferol, vitamin D2, (VITAMIN D2 ORAL) Take by mouth. meloxicam (MOBIC) 7.5 mg tablet Take 1 tablet by mouth once daily. TRIAMCINOLONE ACETONIDE (NASACORT NASAL) Use in the nose. One spray in each nostril at bedtime No current facility-administered medications for this visit. Allergies As of Date: 07/16/2022 Allergen Noted Reaction IODINE 04/04/2004 Hives MORPHINE 03/25/2006 Vomiting PROCHLORPERAZINE 04/04/2004 Vomiting SULFA (SULFONAMIDE ANTIBIOTICS) 04/04/2004 Fully Assessed 07/16/2022 Allergies and current medication updated:Yes EXAM: LMP 10/06/2015 GENERAL: pleasant, female in no apparent distress ASSESSMENT AND PLAN: No diagnosis found. Climacteric hot flashes. reassured pap and HPV are negative, no f/u for this at this time. r/b/a to estrogen therapy vs non estrogen therapies reviewed. Questions answered and she desires trial of estrogen patch trying to make healthy lifestyle changes as well vit D low, reviewed supplementation for this Thuy Cardoso MD documented in this encounterGu[facility]07-19-2022 Miscellaneous Notes* Telephone Encounter - Jayla Spicer RN - 06/19/2022 2:25 PM EDT 1st Attempt. No answer. Left message on voicemail to call and schedule appointment with Dr. Cardoso. - Jayla Dubose Patient returned call. Appointment given. Jayla Spicer RN documented in this encounterGu[facility]sey [facility]06-28-[facility]22 Note ORIGINAL FROM: LOBO SRINIVASAN [address] [place] [id number] PROCEDURE FOR: CARMENCITA MONDRAGON [address] [place] [address] Home: PID#: [id number] Exam#: [id number] : 1965 Age: 56 TO: JOHNATHAN PEREZ DO [address] [place] [id number] Fax: NO FAX EXAMINATION: SCREENING DIGITAL BILATERAL MAMMOGRAM WITH TOMOSYNTHESIS, 05/29/2022 7:57 am TECHNIQUE: Screening mammography of the bilateral breasts was performed with tomosynthesis. 2D standard and 3D tomosynthesis combination imaging performed through both breasts in the MLO and CC projection. Computer aided detection was utilized in the interpretation of this exam. COMPARISON: 05/24/2021 HISTORY: Breast cancer screening. FINDINGS: BREAST DENSITY: Scattered fibroglandular tissue There are no significant masses or calcifications. IMPRESSION: No mammographic evidence of malignancy. Continued screening with annual mammograms is recommended. BIRADS: MAMMOGRAM BI-RADS: 1: Negative RECALL: 1 year screening RECALL TYPE: mammo LETTER SENT: Normal BI-RADS 1 and 2 Interpreted by: Sylvester Loyd MD Preliminary Report By: Sylvester Loyd MD Electronically signed By Sylvester Loyd MD Dictated Date: 05/29/2022 3:09:13 PM Prelim Date: 05/29/2022 3:10:45 PM Sign Date: 05/29/2022 3:10:45 PM Ordering Provider: JOHNATHAN PEREZ Senior Analyst: BRUNO GROSS RT (R)(M) letter sent: Normal BI-RADS 1 and 2 Mammogram BI-RADS: 1 [facility]06-28-2022 Note ORIGINAL FROM: [address] [id number] PROCEDURE FOR: CARMENCITA MONDRAGON [address] [place] [address] Home: PID#: [id number] Exam#: [id number] : 1965 Age: 56 TO: JOHNATHAN PEREZ DO [address] [place] [phone] Fax: NO FAX EXAMINATION: SCREENING DIGITAL BILATERAL MAMMOGRAM WITH TOMOSYNTHESIS, 05/29/2022 7:57 am TECHNIQUE: Screening mammography of the bilateral breasts was performed with tomosynthesis. 2D standard and 3D tomosynthesis combination imaging performed through both breasts in the MLO and CC projection. Computer aided detection was utilized in the interpretation of this exam. COMPARISON: 05/24/2021 HISTORY: Breast cancer screening. FINDINGS: BREAST DENSITY: Scattered fibroglandular tissue There are no significant masses or calcifications. IMPRESSION: No mammographic evidence of malignancy. Continued screening with annual mammograms is recommended. BIRADS: MAMMOGRAM BI-RADS: 1: Negative RECALL: 1 year screening RECALL TYPE: mammo LETTER SENT: Normal BI-RADS 1 and 2 Interpreted by: Sylvester Loyd MD Preliminary Report By: Sylvester Loyd MD Electronically signed By Sylvester Loyd MD Dictated Date: 05/29/2022 3:09:13 PM Prelim Date: 05/29/2022 3:10:45 PM Sign Date: 05/29/2022 3:10:45 PM Ordering Provider: JOHNATHAN PEREZ Senior Analyst: BRUNO GROSS RT (R)(M) letter sent: Normal BI-RADS 1 and 2 Mammogram BI-RADS: 1 Negative [facility]05-27-2022 History of Present illness Narrative * Ivelisse De La Fuente, DO - 04/27/2022 12:14 PM EDT Images from the original note were not included. Follow Up Visit Chief Complaint Carmencita Mondragon is a 56 year old female who presents today for follow up office visit. Patient presents with: Right Shoulder - Follow Up, Pain History of Present Illness PAIN EVALUATION 04/27/2022 1213 Pain Level: 3 Pain Location: Shoulder-Right Description: Aching;Dull;Sore Duration Amount of Time: ongoing Frequency: Intermittent Intervention/Comfort measure: Reposition;Relaxation;Cold;Medication HPI: Carmencita Mondragon is a 56 year old female for a follow up visit right shoulder pain. Here to go over MRI results. No change in pain. Pain history is noted as above. Denies calf pain, numbness, tingling, fever, chills or other constitutional symptoms. Is there any overall improvement in your condition? No Any new injury, since being seen last: No REVIEW OF SYMPTOMS: Patient did not have, and does not currently have, any weight loss, malaise, fever, chills, headache, chest pain, chest pressure, palpitations, cough, shortness of breath, orthopnea, paroxsymal nocturnal dyspnea, nausea, vomiting, diarrhea, constipation, melena, hematochezia, urinary difficulties, prolonged bleeding, easily bruising, heat or cold intolerance, new onset joint pain or swelling, newonset extremity weakness or numbness, new onset auditory or visual disturbances, lightheadedness, dizziness, partial loss of consciousness or full loss of consciousness. Current Outpatient Medications Medication Sig ergocalciferol, vitamin D2, (VITAMIN D2 ORAL) Take by mouth. TRIAMCINOLONE ACETONIDE (NASACORT NASAL) Use in the nose. One spray in each nostril at bedtime No current facility-administered medications for this visit. Physical Exam Vitals: [facility] 10/06/2015 Psych: Pleasant, good affect and mood General Appearance: Well appearing, alert, in no acute distress, well-hydrated, well nourished.. Skin: Skin color, texture, turgor normal, no suspicious rashes or lesions. Peripheral Pulses: Normal. Neurologic: Gait normal. Reflexes normal and symmetric. Sensation grossly intact.. Lymph Nodes: No cervical lymphadenopathy, No supraclavicular lymphadenopathy, No axillary lymphadenopathy. and No inguinal lymphadenopathy.. Respiratory: No recent pulmonary infection, hemoptysis, chronic cough, or shortness of breath at rest Rheumatologic: Joint deformities: Right shoulder pain Right Shoulder Exam Right shoulder exam is normal. Tenderness The patient is experiencing no tenderness. Range of Motion Active abduction: 80 normal Passive abduction: 150 normal Extension: 40 normal External rotation: 10 normal Forward flexion: 110 normal Internal rotation 0 degrees: normal Internal rotation 90 degrees: normal Muscle Strength Abduction: 5/5 Internal rotation: 5/5 External rotation: 5/5 Supraspinatus: 5/5 Subscapularis: 5/5 Biceps: 5/5 Tests Apprehension: negative Vang test: positive Cross arm: negative Impingement: positive Drop arm: positive Other Erythema: absent Sensation: normal Pulse: present Comments: Med,uln, rad nerves intact Left Shoulder Exam Left shoulder exam is normal. Tenderness The patient is experiencing no tenderness. Range of Motion The patient has normal left shoulder ROM. Active abduction: normal Passive abduction: normal Extension: normal External rotation: normal Forward flexion: normal Internal rotation 0 degrees: normal Internal rotation 90 degrees: normal Muscle Strength Abduction: 5/5 Internal rotation: 5/5 External rotation: 5/5 Supraspinatus: 5/5 Subscapularis: 5/5 Biceps: 5/5 Tests Apprehension: negative Vang test: negative Cross arm: negative Impingement: negative Other Erythema: absent Sensation: normal Pulse: present Assessment and Plan Radiographs: I have independently reviewed films and my findings are the same. and I have reviewed the images with the patient and family. IMPRESSION: Low-grade partial thickness articular surface tear of the supraspinatus tendon with background rotator cuff tendinosis. Minimal subdeltoid/subacromial bursitis. 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 Tendinitis of right shoulder M77.8 2. Impingement syndrome of right shoulder M75.41 3. Bursitis of right shoulder M75.51 4. Biceps tendinitis of right upper extremity M75.21 Discussed MRI results in detail with patient- nonop for now, did discuss if this cont- cassidy biceps that surgery is option for dec pain and increasing function Would not do Injection today as pain is 3 Would do exercises at home, HEP Take otc nsaids as needed No wide pourer buggy ladle lifting Today, in detail, through a thorough evaluation, we discussed possible etiologies of pain and our plans for further diagnostic and therapeutic interventions. We discussed strategies for decreasing pain and improving strength, stability and motion. Patient's questions were answered in detailed. Patient verbalizes understanding and agrees with the treatment plan as discussed. documented in this encounterGuernsey [facility]05-11-2022 History of Present illness Narrative* RT Jameson(R) - 04/11/2022 1:40 PM EDT Radiology Service Progress Note PATIENT NAME: Carmencita Mondragon DATE OF SERVICE: April 11, 2022 TIME: 1:57 PM PATIENT IDENTITY VERIFICATION COMPLETED USING TWO (2) IDENTIFIERS: Name and Date of confirmedby patient verbally. FALL SCREENING: Has the patient had 2 falls in the last year or 1 fall with injury or currently using an Ambulatory Assistive Device (Walker, Cane, Wheelchair, Crutches, etc.)? No PATIENT GENDER DATA: Female. status: : No status: NO. PATIENT RELEVANT IMPLANT DATA REVIEWED: Yes RADIOLOGY DEPARTMENT: MR; Exam(s) Completed: Upper MSK: Shoulder, right PERIPHERAL IV DATA: Not applicable SIGNED BY: RT Jameson(R) April 11, 2022 1:57 PM documented in this encounterGuernsey [facility]05-09-2022 Miscellaneous Notes* Telephone Encounter - Meeta Torres - 04/09/2022 11:19 AM EDT I updated referral, and scheduled patient MRI and rescheduled the MRI follow up. Also sent an e-mail to [facility] to review the referral as I wanted to make sure I updated it correctly. Thank you! Meeta * Telephone Encounter - Vitaliy Lam PA-C - 04/06/2022 2:20 PM EDT P2P complete. MRI is approved (Auth #[id number]) and is good through 05/07/2022. Please notify the patient and help her schedule the MRI. Declan Lam PA-C * Telephone Encounter - Tanisha Dubois [facility] - 04/02/2022 2:57 PM EDT Patient called asking if we are working on her mri denial. This was found in the chart. Please advise. Procedure(s) denied: 37011 - MRI ANY JT UPPER EXTREMITY W/O CONTRAST MATRL Procedure(s) approved: N/A Diagnosis code(s): M25.511,G89.29 (ICD-10-CM) - Chronic right shoulder pain May I know when case was denied? 03/25/2022 ORM Team please see request for additional information Rep advised reconsideration is available: N/A What is the reconsideration timeframe? N/A How can it be done? N/A Who can complete the reconsideration? N/A If no additional information available, please send to [facility] Peer to Peer Is the peer to peer available? Yes Is the peer to peer for consultation only? No May I have the P2P ph# along with prompts? [phone] opt 4 What is the time frame for the peer to peer? 14 calendar days Would the peer to peer timeframe cover all services or is it specific for a type of service (surgery - office visit - injections)? Imaging Does the P2P have to be scheduled or is it done right away? Either way Is it required for the provider to schedule the P2P or can this be done by his medical auditor? Anyone from Dr's office Who can complete the P2P (Doctor, PA, HEAVY LIFT RIGGER)? Doctor, PA, HEAVY LIFT RIGGER Would the peer to peer be available if services have been rendered? As long as done within 14 days P2P window Is the appeal available? Yes Can I have the appeal ph# along with prompts (information only or can do verbal appeal)? n/a Can I have the appeal fax#? [phone] Can I have the appeal mailing address? Appeals [address], [address] [facility] [address] Attention to? Appeals Is it necessary to include any form? No What is the appeal time frame? 180 calendar days. Denial reason: Based on [employer] Musculoskeletal Imaging Guidelines Section(s): MS 19 Shoulder and 1.0 General Guidelines, we cannot approve this request. Your records show that you have a problem related to your right shoulder. The request cannot be approved because: Imaging requires six weeks of provider directed treatment to be completed. Supported treatments include (but are not limited to) drugs for swelling or pain, an in office workout (physical therapy), and/or oral or injected steroids. This must have been completed in the past three months without improved symptoms. Contact (via office visit, phone, email, or messaging) must occur after the treatmentis completed. This has not been met because: You have not completed six weeks of provider directed treatment. [facility] Miscellaneous Notes* Telephone Encounter - Meeta Torres - 03/13/2022 2:50 PM EDT Called patient and scheduled her appointment. * Telephone Encounter - Tasneem Goel - 03/13/2022 2:16 PM EDT Patient will need to come in for an appointment for MRI order to be placed. Need a recent note stating conservative treatments have failed so MRI will be approved through insurance. Please call patient to schedule, thank you! * Telephone Encounter - Meeta Torres - 03/13/2022 1:41 PM EDT Patient is calling in stating she received an injection in R shoulder after Thanksgiving and it didn't help. Patient was advised to get MRI if injection didn't help, and she is calling to schedule. Please advise and place MRI order so PSS can schedule. Thanks! [place] [id number] History of Past illness Narrative* Problem Noted Date Resolved Date Excessive or frequent menstruation 06/30/2008 11/12/2016 documented as of this encounter (statuses as of 03/13/2022) [address] History of Past illness Narrative* Problem Noted Date Resolved Date Excessive or frequent menstruation 06/30/2008 11/12/2016 documented as of this encounter (statuses as of 04/09/2022) [address] History of Past illness Narrative* Problem Noted Date Resolved Date Excessive or frequent menstruation 06/30/2008 11/12/2016 documented as of this encounter (statuses as of 04/12/2022) [address] History of Past illness Narrative* Problem Noted Date Resolved Date Excessive or frequent menstruation 06/30/2008 11/12/2016 documented as of this encounter (statuses as of 04/27/2022) [address]-2008 History of Past illness Narrative* Problem Noted Date Resolved Date Excessive or frequent menstruation 06/30/2008 11/12/2016 documented as of this encounter (statuses as of 06/19/2022) [place] [id number] History of Past illness Narrative* Problem Noted Date Resolved Date Excessive or frequent menstruation 06/30/2008 11/12/2016 documented as of this encounter (statuses as of 07/16/2022) [address]2008 History of Past illness Narrative* Problem Noted Date Resolved Date Excessive or frequent menstruation 06/30/2008 11/12/2016 documented as of this encounter (statuses as of 09/24/2022) [address]2008 History of Past illness Narrative* Problem Noted Date Resolved Date Excessive or frequent menstruation 06/30/2008 11/12/2016 documented as of this encounter (statuses as of 09/28/2022) [address] History of Past illness Narrative* Problem Noted Date Resolved Date Excessive or frequent menstruation 06/30/2008 11/12/2016 documented as of this encounter (statuses as of 10/01/2022) [address] History of Past illness Narrative* Problem Noted Date Resolved Date Excessive or frequent menstruation 06/30/2008 11/12/2016 documented as of this encounter (statuses as of 10/03/2022) [address]2008 History of Past illness Narrative* Problem Noted Date Resolved Date Excessive or frequent menstruation 06/30/2008 11/12/2016 documented as of this encounter (statuses as of 10/11/2022) [address] History of Past illness Narrative* Problem Noted Date Resolved Date Excessive or frequent menstruation 06/30/2008 11/12/2016 documented as of this encounter (statuses as of 10/17/2022) [address] History of Past illness Narrative* Problem Noted Date Resolved Date Excessive or frequent menstruation 06/30/2008 11/12/2016 documented as of this encounter (statuses as of 10/22/2022) [address] History of Past illness Narrative* Problem Noted Date Resolved Date Excessive or frequent menstruation 06/30/2008 11/12/2016 documented as of this encounter (statuses as of 01/11/2023) [address] History of Past illness Narrative* Problem Noted Date Resolved Date Excessive or frequent menstruation 06/30/2008 11/12/2016 documented as of this encounter (statuses as of 01/14/2023) [facility] of Past illness Narrative* Problem Noted Date Resolved Date Excessive or frequent menstruation 06/30/2008 11/12/2016 documented as of this encounter (statuses as of 01/21/2023) [facility] App[facility]ments Appointment Date:05/22/2022 08:00:00 AM Scheduled Provider:JOHNATHAN PEREZ DO Location:[facility] Appointment Type:PC Wellness Annual Future Scheduled Tests Laboratory* Lipid Profile 08/25/21 * Vitamin D Level 08/25/21 [facility] Evaluation + Plan note Future Appointments Appointment Date:05/29/2022 08:00:00 AM Scheduled Provider: Location:[facility] Appointment Type:MA Mammogram Screening Bilateral w/ Renato Appointment Date:06/14/2022 09:00:00 AM Scheduled Provider:JORGE LUIS HOUSTON PA-C Location:[facility] Appointment Type:PS HEAVY LIFT RIGGER Appointment Date:07/17/2022 08:30:00 AM Scheduled Provider:JOHNATHAN PEREZ DO Location:[facility] Appointment Type:PC OV Future Scheduled Tests Radiology* MA Mammo Screening Bilateral w/ Renato 05/29/22 [facility] Evaluation + Plan note Future Appointments Appointment Date:06/14/2022 09:00:00 AM Scheduled Provider:JORGE LUIS HOUSTON PA-C Location:[facility] Appointment Type:PS HEAVY LIFT RIGGER Appointment Date:07/17/2022 08:30:00 AM Scheduled Provider:JOHNATHAN PEREZ DO Location:[facility] Appointment Type:PC OV [facility] Evaluation + Plan note Future Appointments Appointment Date:10/09/2022 09:30:00 AM Scheduled Provider:JOHNATHAN PEREZ DO Location:[facility] Appointment Type:PC OV Future Scheduled Tests Laboratory* Lipid Profile 07/17/22 * Vitamin D Level 07/17/22 [facility] Evaluation + Plan note Future Appointments Appointment Date:10/09/2022 09:30:00 AM Scheduled Provider:JOHNATHAN PEREZ DO Location:[facility] Appointment Type:PC OV [facility] Evaluation + Plan note Future Appointments Appointment Date:05/15/2023 08:00:00 AM Scheduled Provider:JOHNATHAN PEREZ DO Location:[facility] Appointment Type:PC Wellness Annual Diagnostic Tests Pending * Metanephrines, Plasma 01/08/23 [facility] Evaluation + Plan note Future Appointments Appointment Date:05/15/2023 08:00:00 AM Scheduled Provider:JOHNATHAN PEREZ DO Location:[facility] Appointment Type:PC Wellness Annual [facility] Evaluation + Plan note Future Appointments Appointment Date:06/18/2023 10:00:00 AM Scheduled Provider:JROGE LUIS HOUSTON PA-C Location:[facility] Appointment Type:PS HEAVY LIFT RIGGER Appointment Date:08/14/2023 09:00:00 AM Scheduled Provider:JOHNATHAN PEREZ DO Location:[facility] Appointment Type:PC OV Future Scheduled Tests Radiology* MA Mammo Screening Bilateral w/ Renato 05/15/23 [facility] Evaluation + Plan note Future Appointments Appointment Date:06/18/2023 10:00:00 AM Scheduled Provider:JORGE LUIS HOUSTON PA-C Location:[facility] Appointment Type:PS HEAVY LIFT RIGGER Appointment Date:08/14/2023 09:00:00 AM Scheduled Provider:JOHNATHAN PEREZ DO Location:[facility] Appointment Type:PC OV [facility] Evaluation + Plan note Future Appointments Appointment Date:12/27/2023 08:30:00 AM Scheduled Provider:JOHNATHAN PEREZ DO Location:[facility] Appointment Type:PC OV [facility] Evaluation + Plan note Future Appointments Appointment Date:07/23/2024 02:15:00 PM Scheduled Provider: Location:[facility] Appointment Type:PC Nurse Injection Appointment Date:08/06/2024 09:30:00 AM Scheduled Provider:JOHNATHAN PEREZ DO Location[facility] Appointment Type:PC OV Future Scheduled Tests Radiology* US Soft Tissue Mass of Abd/Mid Back 07/09/24 [facility] Evaluation + Plan note Future Appointments Appointment Date:08/06/2024 09:30:00 AM Scheduled Provider:JOHNATHAN PEREZ DO Location:[facility] Appointment Type:PC OV [facility] Evaluation + Plan note Future Appointments Appointment Date:09/17/2024 09:00:00 AM Scheduled Provider:JOHNATHAN PEREZ DO Location:[facility] Appointment Type:PC OV Appointment Date:09/29/2024 09:00:00 AM Scheduled Provider:JUSTINE OLGUIN MD Location:[facility] Appointment Type: OV [facility] Evaluation + Plan note Future Appointments Appointment Date:09/23/2024 02:45:00 PM Scheduled Provider: Location:[facility] Appointment Type:MRI Spine Cervical w/o Contrast Appointment Date:09/29/2024 09:00:00 AM Scheduled Provider:JUSTINE OLGUIN MD Location:[facility] Appointment Type: OV Appointment Date:11/03/2024 09:00:00 AM Scheduled Provider:JOHNATHAN PEREZ DO Location:[facility] Appointment Type:PC OV Future Scheduled Tests Radiology* MRI Shoulder w/o Contrast Right 09/17/24 * CT Abdomen and Pelvis w/ contrast 09/17/24 * MRI Spine Cervical w/o Contrast 09/23/24 [facility] Evaluation + Plan note Future Appointments Appointment Date:10/02/2024 09:30:00 AM Scheduled Provider: Location:[facility] Appointment Type:MRI Shoulder w/o Contrast Right Appointment Date:10/05/2024 11:30:00 AM Scheduled Provider: Location:[facility] Appointment Type:CT Abdomen and Pelvis w/ Contrast Appointment Date:10/09/2024 07:45:00 AM Scheduled Provider: Location:[facility] Appointment Type:HL Plain Stress Test Appointment Date:10/09/2024 11:00:00 AM Scheduled Provider: Location:[facility] Appointment Type:Echo - Echocardiogram Adult Appointment Date:10/27/2024 10:00:00 AM Scheduled Provider:JUSTINE OLGUIN MD Location: [facility] Appointment Type: OV Appointment Date:11/03/2024 09:00:00 AM Scheduled Provider:JOHNATHAN PEREZ DO Location:[facility] Appointment Type:PC OV Future Scheduled Tests Radiology* MRI Shoulder w/o Contrast Right 10/02/24 * CT Abdomen and Pelvis w/ contrast 10/05/24 [facility] Evaluation + Plan note Future Appointments Appointment Date:10/07/2024 07:15:00 AM Scheduled Provider: Location:[facility] Appointment Type:MRI Shoulder w/o Contrast Right Appointment Date:10/09/2024 07:45:00 AM Scheduled Provider: Location:[facility] Appointment Type:HL Plain Stress Test Appointment Date:10/09/2024 11:00:00 AM Scheduled Provider: Location:[facility] Appointment Type:Echo - Echocardiogram Adult Appointment Date:10/27/2024 10:00:00 AM Scheduled Provider:JUSTINE OLGUIN MD Location: [facility] Appointment Type: OV Appointment Date:11/03/2024 09:00:00 AM Scheduled Provider:JOHNATHAN PEREZ DO Location:[facility] Appointment Type:PC OV Future Scheduled Tests Radiology* MRI Shoulder w/o Contrast Right 10/07/24 [facility] Evaluation + Plan note Future Appointments Appointment Date:10/09/2024 07:45:00 AM Scheduled Provider: Location:[facility] Appointment Type:HL Plain Stress Test Appointment Date:10/09/2024 11:00:00 AM Scheduled Provider: Location:[facility] Appointment Type:Echo - Echocardiogram Adult Appointment Date:10/27/2024 10:00:00 AM Scheduled Provider:JUSTINE OLGUIN MD Location: [facility] Appointment Type: OV Appointment Date:11/03/2024 09:00:00 AM Scheduled Provider:JOHNATHAN PEREZ DO Location:[facility] Appointment Type:PC OV Future Scheduled Tests Radiology* US Axilla Bilateral 10/07/24 [facility] Evaluation + Plan note Future Appointments Appointment Date:10/12/2024 11:30:00 AM Scheduled Provider: Location:[facility] Appointment Type:US Axilla Bilateral Appointment Date:10/27/2024 10:00:00 AM Scheduled Provider:JUSTINE OLGUIN MD Location: [facility] Appointment Type: OV Appointment Date:11/03/2024 09:00:00 AM Scheduled Provider:JOHNATHAN PEREZ DO Location:[facility] Appointment Type:PC OV Future Scheduled Tests Radiology* US Axilla Bilateral 10/12/24 [facility] Evaluation + Plan note Future Appointments Appointment Date:10/27/2024 10:00:00 AM Scheduled Provider:JUSTINE OLGUIN MD Location: [facility] Appointment Type: OV Appointment Date:11/03/2024 09:00:00 AM Scheduled Provider:JOHNATHAN PEREZ DO Location:[facility] Appointment Type: OV [facility] Evaluation + Plan note Future Appointments Appointment Date:12/15/2024 09:00:00 AM Scheduled Provider:JOHNATHAN PEREZ DO Location:[facility] Appointment Type:PC OV Future Scheduled Tests Radiology* CT Coronary Calcium Score w/o Contrast 11/05/24 [facility] Evaluation + Plan note Future Appointments Appointment Date:08/18/2024 09:30:00 AM Scheduled Provider:JUSTINE OLGUIN MD Location: [facility] Appointment Type: HEAVY LIFT RIGGER Appointment Date:09/17/2024 09:00:00 AM Scheduled Provider:JOHNATHAN PEREZ DO Location:[facility] Appointment Type:PC OV [facility] Evaluation + Plan note Future Appointments Appointment Date:02/16/2025 09:30:00 AM Scheduled Provider:JOHNATHAN PEREZ DO Location:[facility] Appointment Type:PC OV Future Scheduled Tests Radiology* CT Coronary Calcium Score w/o Contrast 11/05/24 [facility] Evaluation + Plan note Future Appointments Appointment Date:04/19/2025 01:15:00 PM Scheduled Provider:JUSTINE OLGUIN MD Location: [facility] Appointment Type:WH OV Appointment Date:04/21/2025 10:00:00 AM Scheduled Provider: Location:[facility] Appointment Type:MEDS - Weight Management Appointment Date:04/21/2025 10:30:00 AM Scheduled Provider: Location:[facility] Appointment Type:NUT Diet Visit Individual Appointment Date:06/08/2025 09:00:00 AM Scheduled Provider:JOHNATHAN PEREZ DO Location:[facility] Appointment Type:PC OV Future Scheduled Tests Radiology* CT Coronary Calcium Score w/o Contrast 11/05/24 [facility] Evaluation + Plan note Future Appointments Appointment Date:05/12/2025 01:00:00 PM Scheduled Provider: Location:[facility] Appointment Type:MEDS - Weight Management Appointment Date:05/12/2025 01:30:00 PM Scheduled Provider: Location:[facility] Appointment Type:NUT Diet Visit Individual Appointment Date:06/08/2025 09:00:00 AM Scheduled Provider:JOHNATHAN PEREZ DO Location:[facility] Appointment Type:PC OV Future Scheduled Tests Radiology* CT Coronary Calcium Score w/o Contrast 11/05/24 [facility] evaluation + Plan note Future Appointments Appointment Date:06/08/2025 09:00:00 AM Scheduled Provider:JOHNATHAN PEREZ DO Location:[facility] Appointment Type:PC OV Appointment Date:06/23/2025 10:30:00 AM Scheduled Provider: Location:[facility] Appointment Type:MEDS - Weight Management Appointment Date:06/23/2025 11:00:00 AM Scheduled Provider: Location:[facility] Appointment Type:NUT Diet Visit Individual Future Scheduled Tests Radiology* CT Coronary Calcium Score w/o Contrast 11/05/24 [facility] Evaluation note* Diagnosis Chronic right shoulder pain Pain in joint, shoulder region [facility] Diagnosis Tendinitis of right shoulder- Primary Disorders of bursae and tendons in shoulder region, unspecified Impingement syndrome of right shoulder Other affections of shoulder region, not elsewhere classified Bursitis of right shoulder Disorders of bursae and tendons in shoulder region, unspecified Biceps tendinitis of right upper extremity [facility] Diagnosis Symptomatic menopausal or female climacteric states- Primary Low vitamin D level [facility] Tendinitis of right shoulder Disorders of bursae and tendons in shoulder region, unspecified Impingement syndrome of right shoulder Other affections of shoulder region, not elsewhere classified Bursitis of right shoulder Disorders of bursae and tendons in shoulder region, unspecified Biceps tendinitis of right upper extremity Bicipital tendinitis of right shoulder Bicipital tenosynovitis documented in this encounter [facility] [place] [facility]* Diagnosis Tendinitis of right shoulder- Primary Disorders of bursae and tendons in shoulder region, unspecified Impingement syndrome of right shoulder Other affections of shoulder region, not elsewhere classified Bursitis of right shoulder Disorders of bursae and tendons in shoulder region, unspecified Bicipital tendinitis of right shoulder Bicipital tenosynovitis documented in this encounter [facility] [place] [facility]* Diagnosis Tendinitis of right shoulder- Primary Disorders of bursae and tendons in shoulder region, unspecified Impingement syndrome of right shoulder Other affections of shoulder region, not elsewhere classified Bursitis of right shoulder Disorders of bursae and tendons in shoulder region, unspecified Bicipital tendinitis of right shoulder Bicipital tenosynovitis [facility] Diagnosis Tendinitis of right shoulder- Primary Disorders of bursae and tendons in shoulder region, unspecified Impingement syndrome of right shoulder Other affections of shoulder region, not elsewhere classified Bursitis of right shoulder Disorders of bursae and tendons in shoulder region, unspecified Bicipital tendinitis of right shoulder Bicipital tenosynovitis documented [facility]* Diagnosis Tendinitis of right shoulder- Primary Disorders of bursae and tendons in shoulder region, unspecified Impingement syndrome of right shoulder Other affections of shoulder region, not elsewhere classified Bursitis of right shoulder Disorders of bursae and tendons in shoulder region, unspecified Bicipital tendinitis of right shoulder Bicipital tenosynovitis documented in this encounter [facility] [place] [facility]* Diagnosis Tendinitis of right shoulder- Primary Disorders of bursae and tendons in shoulder region, unspecified Impingement syndrome of right shoulder Other affections of shoulder region, not elsewhere classified Bursitis of right shoulder Disorders of bursae and tendons in shoulder region, unspecified Bicipital tendinitis of right shoulder Bicipital tenosynovitis documented [facility]* Diagnosis Tendinitis of right shoulder- Primary Disorders of bursae and tendons in shoulder region, unspecified Impingement syndrome of right shoulder Other affections of shoulder region, not elsewhere classified Bursitis of right shoulder Disorders of bursae and tendons in shoulder region, unspecified Bicipital tendinitis of right shoulder Bicipital tenosynovitis documented [facility] this encounter [facility] noteNo assessment information availableWCleveland [facility] Work Phone: Evaluation note* Diagnosis Tendinitis of right shoulder- Primary Disorders of bursae and tendons in shoulder region, unspecified Impingement syndrome of right shoulder Other affections of shoulder region, not elsewhere classified Bursitis of right shoulder Disorders of bursae and tendons in shoulder region, unspecified Bicipital tendinitis of right shoulder Bicipital tenosynovitis Incomplete tear of right rotator cuff, unspecified whether traumatic documented in this encounter [facility] [place] [facility]* Diagnosis Incomplete tear of right rotator cuff, unspecified whether traumatic- Primary Biceps tendinitis of right upper extremity Incomplete tear of right rotator cuff, unspecified whether traumatic Biceps tendinitis of right upper extremity documented in this encounter [facility] [place] [facility]* Diagnosis Pre-op evaluation- Primary Preoperative examination, unspecified Incomplete tear of right rotator cuff, unspecified whether traumatic Biceps tendinitis of right upper extremity documented in this encounter [facility] [place] [facility]* Diagnosis S/P right rotator cuff repair- Primary Biceps tendonosis of right shoulder Urticarial rash Urticaria, unspecified [facility] Diagnosis S/P right rotator cuff repair- Primary Biceps tendonosis of right shoulder [facility] Diagnosis S/P right rotator cuff repair- Primary Biceps tendonosis of right shoulder [facility]* Diagnosis S/P right rotator cuff repair- Primary Biceps tendonosis of right shoulder [facility]* Diagnosis S/P right rotator cuff repair- Primary Biceps tendonosis of right shoulder documented in this encounter [facility] [place] [facility]* Diagnosis S/P right rotator cuff repair- Primary Biceps tendonosis of right shoulder [facility] [place] [facility]* Diagnosis S/P right rotator cuff repair- Primary Biceps tendonosis of right shoulder documented [facility] encounter [facility] [place] [facility]* Diagnosis S/P right rotator cuff repair- Primary documented in this encounter [facility] [place] [facility]* Diagnosis S/P right rotator cuff repair- Primary Biceps tendonosis of right shoulder documented in this encounter [facility] note* Diagnosis S/P right rotator cuff repair- Primary Biceps tendonosis of right shoulder documented in this encounter [facility] note* Diagnosis S/P right rotator cuff repair- Primary documented in this encounter [facility] [place] [facility]* Diagnosis S/P right rotator cuff repair- Primary Biceps tendonosis of right shoulder documented [facility] this encounter [facility] [place] [facility]* Diagnosis Pain of right upper extremity- Primary Biceps tendonosis of right shoulder Tendinitis of right shoulder Disorders of bursae and tendons in shoulder region, unspecified Bursitis of right shoulder Disorders of bursae and tendons in shoulder region, unspecified S/P right rotator cuff repair documented in this encounter [facility] note* Diagnosis Biceps tendonosis of right shoulder- Primary Tendinitis of right shoulder Disorders of bursae and tendons in shoulder region, unspecified Cervical radiculopathy Brachial neuritis or radiculitis nos documented in this encounter [facility] note* Diagnosis Acute pain of right shoulder- Primary S/P right rotator cuff repair documented in this encounter [facility] note* Diagnosis APPOINTMENT CANCELLED- Primary documented in this encounter [facility] note* Diagnosis Other chest pain Hyperlipidemia, unspecified Obstructive sleep apnea (adult) (pediatric) documented in this encounter [facility] Work Phone: Hospital course Narrative No data available for this section [facility] Hospital Discharge instructions No data available for this section [facility] Progress note No data available for this section [facility] Reason for referral (narrative)* Outpatient Procedure (Routine) - Authorized Specialty Diagnoses / Procedures Referred By Nida t Referred To [facility] Diagnoses Pain of right upper extremity Biceps tendonosis of right shoulder Tendinitis of right shoulder Bursitis of right shoulder S/P right rotator cuff repair Procedures US ARM VEIN DVT UNL VAS LAB DUP-SCAN XTR VEINS UNILATERAL/LIMITED STUDY Ivelisse De La Fuente DO [address] [facility] [place] [address] [facility] [place] [address] [place] [id number] Referral ID Status Reason Start Date Expiration Date Visits Requested Visits Authorized [id number] Authorized Auto-Generat ed Referral 05/02/2023 05/01/2024 1 1 * Physical Therapy (Routine) - Pending Review Specialty Diagnoses / Procedures Referred By Nida arnold Referred To Contact [facility] Diagnoses Pain of right upper extremity Biceps tendonosis of right shoulder Tendinitis of right shoulder Bursitis of right shoulder S/P right rotator cuff repair Procedures CONSULT TO PHYSICAL THERAPY PHYSICAL THERAPY EVALUATION HIGH COMPLEX 45 MINS Ivelisse De La Fuente DO [address] [facility] [address] [place] [address] [facility] [address] [address] Referral ID Status Reason Start Date Expiration Date Visits Requested Visits Authorized [id number] Pending Review Auto-Generat ed Referral 05/02/2023 05/01/2024 1 1 * Diagnostic Procedure Only (Routine) - Pending Review Specialty Diagnoses / Procedures Referred By Nida arnold Referred To Contact US IMAGING Diagnoses Pain of right upper extremity Procedures US DVT UPPER RIGHT DUP-SCAN XTR VEINS UNILATERAL/LIMITED STUDY Ivelisse De La Fuente DO [address] [facility] [address] [place] [address] Us Imaging Referral ID Status Reason Start Date Expiration Date Visits Requested Visits Authorized [id number] Pending Review Auto-Generat ed Referral 05/02/2023 05/31/2024 1 1 [facility]No reason for referral information availableWC[facility] Work Phone: Reason for visit Narrative* Imaging (Routine) - Pending Review Specialty Diagnoses / Procedures Referred By Contac t Referred To Contact Radiology Diagnoses Other chest pain Hyperlipidemia, unspecified Obstructive sleep apnea (adult) (pediatric) Procedures CT cardiac scoring wo IV contrast Mark Cuellar, ENVIRONMENTAL CONTROL ADMINISTRATOR-BODY SERVICE TEAM MEMBER [address] [place] [address] Phone: tel: fax: Referral ID Status Reason Start Date Expiration Date Visits Requested Visits Authorized [id number] Pending Review Perform Procedure 11/06/2024 11/06/2025 1 1 [facility] Work Phone: Reason for Referral Specialty Diagnoses / Procedures Referred By Contac t Referred To Contact [facility] [place] Diagnoses Cervical radiculopathy Procedures CONSULT TO [facility] OFFICE/OUTPATIENT [facility] 60-74 MINUTES Ivelisse De La Fuente DO [address] [facility] [address] [place] [address] Referral ID Status Reason Start Date Expiration Date Visits Requested Visits Authorized [id number] Authorized PCP Requested Referral 06/13/2023 06/12/2024 1 1 Specialty Diagnoses / Procedures Referred By Contac t Referred To Contact [facility] Diagnoses S/P right rotator cuff repair Biceps tendonosis of right shoulder Procedures CONSULT TO PHYSICAL THERAPY PHYSICAL THERAPY EVALUATION HIGH COMPLEX 45 MINS Vitaliy Lam PA-C [address] [place] [address] [facility] [place] [address] [place] [id number] Referral ID Status Reason Start Date Expiration Date V isits Requested Visits Authorized [id number] Authorized 12/02/2022 12/01/2023 40 40 Specialty Diagnoses / Procedures Referred By Contac t Referred To Contact [facility] Diagnoses Tendinitis of right shoulder Impingement syndrome of right shoulder Bursitis of right shoulder Biceps tendinitis of right upper extremity Procedures CONSULT TO PHYSICAL THERAPY PHYSICAL THERAPY EVALUATION HIGH COMPLEX 45 MINS Ivelisse De La Fuente DO [address] [place] [address] [facility] [place] [address] [place] [place] [address] Referral ID Status Reason Start Date Expiration Date Visits Requested Visits Authorized [id number] Pending Review Auto-Generat ed Referral 04/27/2022 04/27/2023 1 1 Specialty Diagnoses / Procedures Referred By Nida arnold Referred To Contact MR IMAGING Diagnoses Chronic right shoulder pain Procedures MRI SHOULDER WO IVCON RT MRI ANY JT UPPER EXTREMITY W/O CONTRAST MATRL Ivelisse De La Fuente, [address] [place] [address] Mr Imaging Referral ID Status Reason Start Date Expiration Date V isits Requested Visits Authorized [id number] Closed Auto-Generate d Referral 03/23/2022 05/07/2022 1 1 Chief Complaint and Reason for Visit Chief Complaint HEMATURIA PELVIC Chief Complaint R SHOULDER DR TO FAX SELF PAY DRY NEEDLE. SHOULDER? PT HAS RX? Chief Complaint Admit Date Test Result February 24, 2025 9:5 0am EPIGASTRIC PAIN March 18, 2025 7:3 3am INT LABS April 20, 2025 6:24a m Reason for Visit Admit Date Dyspepsia February 03, 2025 9:36 am Epigastric pain February 03, 2025 9:36 am Epigastric pain February 24, 2025 9:5 0am Chief Complaint Admit Date Test Result February 24, 2025 9:5 0am EPIGASTRIC PAIN March 18, 2025 7:3 3am INT LABS April 20, 2025 6:24a m Follow up April 29, 2025 2:58p m Family History No Family History Records Found Relationship Condition Age at Onset Recorded Date/T teresita grandmother Osteoporosis Unknown Cardiac disease Unknown Arthritis Unknown Diabetes mellitus Unknown grandfather Arthritis Unknown father Diabetes mellitus Unknown Hypertension Unknown Hyperlipidemia Unknown Malignant neoplasm Unknown Obesity Unknown mother Diabetes mellitus Unknown Disorder of thyroid Unknown Depression Unknown brother Hypertension Unknown Advance Directives No Advanced Directives Records Found Advance Directive Response Recorded Date/ Time Living Will No October 08 8:40am Power of Oil Analyst No October 08, 2018 8:40am Advance Directive Response Recorded Date/ Time Living Will No February 01, 2025 12:15pm Do you have a Healthcare Power of Oil Analyst? No February 01, 2025 12:15pm Summary Purpose Additional Source Comments Source Comments (unrecognize d section and content) In the event this informatio n is protected by the Federal Confidentiality of Alcohol and Drug Abuse Patient Records regulations: The Federal rules restrict any use of the information to criminally investigate or prosecute any alcohol or drug abuse patient.[facility] the event this information is protected by the Federal Confidentiality of Alcohol and Drug Abuse Patient Records regulations: The Federal rules restrict any use of the information to criminally investigate or prosecute any alcohol or drug abuse patient.[facility] Hospital[facility] the event this information is protected by the Federal Confidentiality of Alcohol and Drug Abuse Patient Records regulations: The Federal rules restrict any use of the information to criminally investigate or prosecute any alcohol or drug abuse patient.[facility] HospitalIn the event this information is protected by the Federal Confidentiality of Alcohol and Drug Abuse Patient Records regulations: The Federal rules restrict any use of the information to criminally investigate or prosecute any alcohol or drug abuse patient.[facility] HospitalIn the event this information is protected by the Federal Confidentiality of Alcohol and Drug Abuse Patient Records regulations: The Federal rules restrict any use of the information to criminally investigate or prosecute any alcohol or drug abuse patient.[facility] HospitalIn the event this information is protected by the Federal Confidentiality of Alcohol and Drug Abuse Patient Records regulations: The Federal rules restrict any use of the information to criminally investigate or prosecute any alcohol or drug abuse patient.[facility] HospitalIn the event this information is protected by the Federal Confidentiality of Alcohol and Drug Abuse Patient Records regulations: The Federal rules restrict any use of the information to criminally investigate or prosecute any alcohol or drug abuse patient.[facility] HospitalIn the event this information is protected by the Federal Confidentiality of Alcohol and Drug Abuse Patient Records regulations: The Federal rules restrict any use of the information to criminally investigate or prosecute any alcohol or drug abuse patient.[facility] Hospital[facility] the event this information is protected by the Federal Confidentiality of Alcohol and Drug Abuse Patient Records regulations: The Federal rules restrict any use of the information to criminally investigate or prosecute any alcohol or drug abuse patient.[facility] HospitalIn the event this information is protected by the Federal Confidentiality of Alcohol and Drug Abuse Patient Records regulations: The Federal rules restrict any use of the information to criminally investigate or prosecute any alcohol or drug abuse patient.[facility] HospitalIn the event this information is protected by the Federal Confidentiality of Alcohol and Drug Abuse Patient Records regulations: The Federal rules restrict any use of the information to criminally investigate or prosecute any alcohol or drug abuse patient.[facility] HospitalIn the event this information is protected by the Federal Confidentiality of Alcohol and Drug Abuse Patient Records regulations: The Federal rules restrict any use of the information to criminally investigate or prosecute any alcohol or drug abuse patient.[facility] HospitalIn the event this information is protected by the Federal Confidentiality of Alcohol and Drug Abuse Patient Records regulations: The Federal rules restrict any use of the information to criminally investigate or prosecute any alcohol or drug abuse patient.[facility] HospitalIn the event this information is protected by the Federal Confidentiality of Alcohol and Drug Abuse Patient Records regulations: The Federal rules restrict any use of the information to criminally investigate or prosecute any alcohol or drug abuse patient.[facility] HospitalIn the event this information is protected by the Federal Confidentiality of Alcohol and Drug Abuse Patient Records regulations: The Federal rules restrict any use of the information to criminally investigate or prosecute any alcohol or drug abuse patient.[facility] HospitalIn the event this information is protected by the Federal Confidentiality of Alcohol and Drug Abuse Patient Records regulations: The Federal rules restrict any use of the information to criminally investigate or prosecute any alcohol or drug abuse patient.[facility] HospitalIn the event this information is protected by the Federal Confidentiality of Alcohol and Drug Abuse Patient Records regulations: The Federal rules restrict any use of the information to criminally investigate or prosecute any alcohol or drug abuse patient.[facility] HospitalIn the event this information is protected by the Federal Confidentiality of Alcohol and Drug Abuse Patient Records regulations: The Federal rules restrict any use of the information to criminally investigate or prosecute any alcohol or drug abuse patient.[facility] HospitalIn the event this information is protected by the Federal Confidentiality of Alcohol and Drug Abuse Patient Records regulations: The Federal rules restrict any use of the information to criminally investigate or prosecute any alcohol or drug abuse patient.[facility] HospitalIn the event this information is protected by the Federal Confidentiality of Alcohol and Drug Abuse Patient Records regulations: The Federal rules restrict any use of the information to criminally investigate or prosecute any alcohol or drug abuse patient.[facility] HospitalIn the event this information is protected by the Federal Confidentiality of Alcohol and Drug Abuse Patient Records regulations: The Federal rules restrict any use of the information to criminally investigate or prosecute any alcohol or drug abuse patient.[facility] HospitalIn the event this information is protected by the Federal Confidentiality of Alcohol and Drug Abuse Patient Records regulations: The Federal rules restrict any use of the information to criminally investigate or prosecute any alcohol or drug abuse patient.[facility] HospitalIn the event this information is protected by the Federal Confidentiality of Alcohol and Drug Abuse Patient Records regulations: The Federal rules restrict any use of the information to criminally investigate or prosecute any alcohol or drug abuse patient.[facility] HospitalIn the event this information is protected by the Federal Confidentiality of Alcohol and Drug Abuse Patient Records regulations: The Federal rules restrict any use of the information to criminally investigate or prosecute any alcohol or drug abuse patient.[facility] HospitalIn the event this information is protected by the Federal Confidentiality of Alcohol and Drug Abuse Patient Records regulations: The Federal rules restrict any use of the information to criminally investigate or prosecute any alcohol or drug abuse patient.[facility] HospitalIn the event this information is protected by the Federal Confidentiality of Alcohol and Drug Abuse Patient Records regulations: The Federal rules restrict any use of the information to criminally investigate or prosecute any alcohol or drug abuse patient.[facility] HospitalIn the event this information is protected by the Federal Confidentiality of Alcohol and Drug Abuse Patient Records regulations: The Federal rules restrict any use of the information to criminally investigate or prosecute any alcohol or drug abuse patient.[facility] HospitalIn the event this information is protected by the Federal Confidentiality of Alcohol and Drug Abuse Patient Records regulations: The Federal rules restrict any use of the information to criminally investigate or prosecute any alcohol or drug abuse patient.[facility] HospitalIn the event this information is protected by the Federal Confidentiality of Alcohol and Drug Abuse Patient Records regulations: The Federal rules restrict any use of the information to criminally investigate or prosecute any alcohol or drug abuse patient.[facility] HospitalIn the event this information is protected by the Federal Confidentiality of Alcohol and Drug Abuse Patient Records regulations: The Federal rules restrict any use of the information to criminally investigate or prosecute any alcohol or drug abuse patient.[facility] HospitalIn the event this information is protected by the Federal Confidentiality of Alcohol and Drug Abuse Patient Records regulations: The Federal rules restrict any use of the information to criminally investigate or prosecute any alcohol or drug abuse patient.[facility] HospitalIn the event this information is protected by the Federal Confidentiality of Alcohol and Drug Abuse Patient Records regulations: The Federal rules restrict any use of the information to criminally investigate or prosecute any alcohol or drug abuse patient.[facility] HospitalIn the event this information is protected by the Federal Confidentiality of Alcohol and Drug Abuse Patient Records regulations: The Federal rules restrict any use of the information to criminally investigate or prosecute any alcohol or drug abuse patient.[facility] HospitalIn the event this information is protected by the Federal Confidentiality of Alcohol and Drug Abuse Patient Records regulations: The Federal rules restrict any use of the information to criminally investigate or prosecute any alcohol or drug abuse patient.[facility] HospitalIn the event this information is protected by the Federal Confidentiality of Alcohol and Drug Abuse Patient Records regulations: The Federal rules restrict any use of the information to criminally investigate or prosecute any alcohol or drug abuse patient.[facility] HospitalIn the event this information is protected by the Federal Confidentiality of Alcohol and Drug Abuse Patient Records regulations: The Federal rules restrict any use of the information to criminally investigate or prosecute any alcohol or drug abuse patient.[facility] HospitalIn the event this information is protected by the Federal Confidentiality of Alcohol and Drug Abuse Patient Records regulations: The Federal rules restrict any use of the information to criminally investigate or prosecute any alcohol or drug abuse patient.[facility] HospitalIn the event this information is protected by the Federal Confidentiality of Alcohol and Drug Abuse Patient Records regulations: The Federal rules restrict any use of the information to criminally investigate or prosecute any alcohol or drug abuse patient.[facility] HospitalIn the event this information is protected by the Federal Confidentiality of Alcohol and Drug Abuse Patient Records regulations: The Federal rules restrict any use of the information to criminally investigate or prosecute any alcohol or drug abuse patient.[facility] Reason for Visit (unrecogniz ed section and content) Reason Comments Physical Therapy Specialty Diagnoses / Procedures Referred By Contac t Referred To Contact [facility] Diagnoses S/P right rotator cuff repair Biceps tendonosis of right shoulder Procedures CONSULT TO PHYSICAL THERAPY PHYSICAL THERAPY EVALUATION HIGH COMPLEX 45 MINS Vitaliy Lam PA-C [address] [place] [address] [facility] [place] [address] Referral ID Status Reason Start Date Expiration Date V isits Requested Visits Authorized [id number] Authorized 12/02/2022 12/01/2023 40 40 Reason Comments Physical Therapy PT Progress Note Specialty Diagnoses / Procedures Referred By Contac t Referred To Contact PHYSICAL THERAPY Diagnoses Tendinitis of right shoulder Impingement syndrome of right shoulder Bursitis of right shoulder Biceps tendinitis of right upper extremity Procedures CONSULT TO PHYSICAL THERAPY PHYSICAL THERAPY EVALUATION HIGH COMPLEX 45 MINS Ivelisse De La Fuente DO [address] [place] [id number] [facility] [address] [place] [address] Referral ID Status Reason Start Date Expiration Date V isits Requested Visits Authorized [id number] Authorized 12/02/2021 12/01/2022 40 40 Reason Comments MRI order Reason Comments Patient Question Specialty Diagnoses / Procedures Referred By Contac t Referred To Contact MR IMAGING Diagnoses Chronic right shoulder pain Procedures MRI SHOULDER WO IVCON RT MRI ANY JT UPPER EXTREMITY W/O CONTRAST MATRL Ivelisse De La Fuente DO [address] [place] [address] Mr Imaging Referral ID Status Reason Start Date Expiration Date V isits Requested Visits Authorized [id number] Closed Auto-Generate d Referral 03/23/2022 05/07/2022 1 1 Reason Comments Follow Up Pain Reason Comments Future Appointment Reason Comments Discussion Reason Comments PT Eval Reason Comments Established Patient Follow Up Reason Comments Consult Reason Comments arm update Reason Comments Post Op Reason Comments Returning Patient's Call Reason Comments Appointment Reason Comments Post Op Pain Reason Comments PT Progress Note Specialty Diagnoses / Procedures Referred By Contac t Referred To Contact [facility] Diagnoses S/P right rotator cuff repair Biceps tendonosis of right shoulder Procedures CONSULT TO PHYSICAL THERAPY PHYSICAL THERAPY EVALUATION HIGH COMPLEX 45 MINS Vitaliy Lam PA-C [address] [place] [address] [facility] [place] [address] [place] [address] Reason Comments Patient Update Patient Question Reason Comments Post Op Follow Up Reason Comments Post Op 18 weeks 2 days post R shoulder arthroscopy RCR. SAD, acromioplasty,intra articular biceps tendonitis Reason Comments Established Patient Follow Up Pain Care Teams (unrecognized sec tion and content) Director Of Category Management Relationship Specialty Start Date End Date Dre Naqvi PCP - General Family Practice 11/28/17 Director Of Category Management Relationship Specialty Start Date End Date Dre Naqvi PCP - General Family Practice 11/28/17 Director Of Category Management Relationship Specialty Start Date End Date Dre Naqvi PCP - General Family Practice 11/28/17 Director Of Category Management Relationship Specialty Start Date End Date Dre Naqvi PCP - General Family Practice 11/28/17 Director Of Category Management Relationship Specialty Start Date End Date Dre Naqvi PCP - General Family Practice 11/28/17 Director Of Category Management Relationship Specialty Start Date End Date Dre Naqvi PCP - General Family Practice 11/28/17 Director Of Category Management Relationship Specialty Start Date End Date Dre Naqvi PCP - General Family Medicine 11/28/17 Director Of Category Management Relationship Specialty Start Date End Date Donya Dre Macias PCP - General Family Medicine 11/28/17 Director Of Category Management Relationship Specialty Start Date End Date Donya Dre Macias PCP - General Family Medicine 11/28/17 Director Of Category Management Relationship Specialty Start Date End Date Donya Dre Gilberto PCP - General Family Medicine 11/28/17 Director Of Category Management Relationship Specialty Start Date End Date Donya Dre Gilberto PCP - General Family Medicine 11/28/17 Director Of Category Management Relationship Specialty Start Date End Date Dre Naqvi PCP - General Family Medicine 11/28/17 Team Status: Active Member Role Status Dates Dr. Josh Shoemaker DO Family Provider Active Dr. Johnathan Perez DO Primary Care Provider Active Team Status: Inactive Member Role Status Dates Dr. Danelle Andrea MD Attending Provider, Referring Ingrid gonsales Active Dr. Johnathan Perez DO Primary Care Provider Active Director Of Category Management Relationship Specialty Start Date End Date Dre Naqvi DO PCP - General Family Medicine 11/28/17 Director Of Category Management Relationship Specialty Start Date End Date Dre Naqvi DO PCP - General Family Medicine 11/28/17 Director Of Category Management Relationship Specialty Start Date End Date Dre Naqvi DO PCP - General Family Medicine 11/28/17 Director Of Category Management Relationship Specialty Start Date End Date Johnathan Perez DO [address] [place] [address] PCP - General Family Medicine 02/05/23 Director Of Category Management Relationship Specialty Start Date End Date PanchitoJohnathan zhou DO [address] [place] [address] PCP - General Family Medicine 02/05/23 Director Of Category Management Relationship Specialty Start Date End Date PanchitoJohnathan zhou DO [address] [place] [address] PCP - General Family Medicine 02/05/23 Director Of Category Management Relationship Specialty Start Date End Date AnaJohnathan DO [address] [place] [address] PCP - General Family Medicine 02/05/23 Director Of Category Management Relationship Specialty Start Date End Date AnaJohnathan DO [address] [place] [address] PCP - General Family Medicine 02/05/23 Director Of Category Management Relationship Specialty Start Date End Date AnaJohnathan DO [address] [place] [address] PCP - General Family Medicine 02/05/23 Director Of Category Management Relationship Specialty Start Date End Date AnaJohnathan DO [address] [place] [address] PCP - General Family Medicine 02/05/23 Director Of Category Management Relationship Specialty Start Date End Date AnaJohnathan DO [address] [place] [address] PCP - General Family Medicine 02/05/23 Director Of Category Management Relationship Specialty Start Date End Date AnaJohnathan DO [address] [place] [address] PCP - General Family Medicine 02/05/23 Director Of Category Management Relationship Specialty Start Date End Date Johnathan Perez DO [address] [place] [address] PCP - General Family Medicine 02/05/23 Director Of Category Management Relationship Specialty Start Date End Date AnaJohnathan DO [address] [place] [address] (Fax) PCP - General Family Medicine 02/05/23 Director Of Category Management Relationship Specialty Start Date End Date Ana JohnathanDO terrell [address] [place] [address] (Fax) PCP - General Family Medicine 02/05/23 Director Of Category Management Relationship Specialty Start Date End Date Johnathan Perez [address] [place] [address] (Fax) PCP - General Family Medicine 02/05/23 Director Of Category Management Relationship Specialty Start Date End Date Johnathan Perez [address] [place] [address] (Fax) PCP - General Family Medicine 02/05/23 Director Of Category Management Relationship Specialty Start Date End Date Johnathan Perez [address] [place] [address] (Fax) PCP - General Family Medicine 02/05/23 Director Of Category Management Relationship Specialty Start Date End Date Johnathan Perez DO [address] [place] [address] (Fax) PCP - General Family Medicine 02/05/23 Director Of Category Management Relationship Specialty Start Date End Date Johnathan Perez DO [address] [place] [address] (Fax) PCP - General Family Medicine 02/05/23 Director Of Category Management Relationship Specialty Start Date End Date Johnathan Perez DO [address] [place] [id number] PCP - General Family Medicine 02/05/23 Team Status: Active Member Role Status Dates Dr. Johnathan Perez DO Primary Care Provider Active Dr. Ivelisse De La Fuente , DO Attending Provider, Ref erring Provider Active Team Status: Inactive Member Role Status Dates Dr. Johnathan Perez DO Primary Care Provider Active Self Referred Attending Provider, Referring Provider A ctive Team Status: Inactive Member Role Status Dates Dr. Johnathan Perez DO Primary Care Provider Active Dr. Ivelisse De La Fuente , DO Attending Provider, Ref erring Provider Active Director Of Category Management Relationship Specialty Start Date End Date Johnathan Perez DO [address] [place] [id number] PCP - General Family Medicine 02/05/23 Director Of Category Management Relationship Specialty Start Date End Date Johnathan Perez DO [address] [place] [address] PCP - General Family Medicine 11/06/24 Team Status: Active Member Role Status Dates Dr. Johnathan Perez DO Primary Care Provider Active Team Status: Inactive Member Role Status Dates Dr. Johnathan Perez DO Primary Care Provider Active Start: February 03, 2025 End: February 03, 2025 Dr. Johnathan Perez DO Referring Provider Active St art: February 03, 2025 End: February 03, 2025 Dr. Matt Padron , Attending Provider Active Start: February 03, 2025 End: February 03, 2025 Team Status: Active Member Role Status Dates Dr. Johnathan Perez DO Primary Care Provider Active Start: February 03, 2025 Dr. Johnathan Perez DO Referring Provider Active St art: February 03, 2025 Dr. Matt Padron , Attending Provider Active Start: February 03, 2025 Dr. Matt Padron , DO Other Provider Active St art: February 03, 2025 Team Status: Inactive Member Role Status Dates Dr. Johnathan Perez DO Primary Care Provider Active Start: February 24, 2025 End: February 24, 2025 Dr. Johnathan Perez DO Referring Provider Active St art: February 24, 2025 End: February 24, 2025 Jayla Reynoso [employer] Attending Provider Active Start: February 24, 2025 End: February 24, 2025 Team Status: Inactive Member Role Status Dates Dr. Johnathan Perez DO Primary Care Provider Active Start: March 18, 2025 End: March 18, 2025 Jayla Reynoso [employer]-C Attending Provider Active Start: March 18, 2025 End: March 18, 2025 Jayla Reynoso [employer]-C Referring Provider Active Start: March 18, 2025 End: March 18, 2025 Team Status: Inactive Member Role Status Dates Dr. Johnathan Perez DO Primary Care Provider Active Start: April 20, 2025 End: April 20, 2025 Jayla Reynoso [employer]-C Attending Provider Active Start: April 20, 2025 End: April 20, 2025 Jayla Reynoso [employer]-C Referring Provider Active Start: April 20, 2025 End: April 20, 2025 Team Status: Inactive Member Role Status Dates Dr. Johnathan Perez DO Primary Care Provider Active Start: April 29, 2025 End: April 29, 2025 Dr. Johnathan Perez DO Referring Provider Active St art: April 29, 2025 End: April 29, 2025 Jayla Reynoso [employer]-C Attending Provider Active Start: April 29, 2025 End: April 29, 2025 Care Team (unrecognized sect ion and content) Personnel Name: JOHNATHAN PEREZ DO Address: Address: [address] [place] [address]- Care Team Personnel Name: JOHNATHAN PEREZ DO Position: P4 Physician - Primary Care Med Service: Active Provider Member Role: Primary Care Physician Address: Address: [address] [place] [address]- Care Team Related Persons Name: NUSRAT MONDRAGON Address: Home [address] [place], [place] [id number] [place] Care Team Personnel Name: JOHNATHAN PEREZ DO Position: P4 Physician - Primary Care Med Service: Active Provider Member Role: Primary Care Physician Address: Address: [address] [place] [address]- Care Team Related Persons Name: NUSRAT MONDRAGON Address: Home [address] [place], [place] [id number] [place] Care Team Personnel Name: JOHNATHAN PEREZ DO Position: P4 Physician - Primary Care Member Role: Primary Care Physician Address: Address: [address] [place] [address]- Care Team Related Persons Name: NUSRAT MONDRAGON Address: Home [address] [place], [place] [id number] [place] Care Team Personnel Name: JOHNATHAN PEREZ DO Position: P4 Physician - Primary Care Member Role: Primary Care Physician Address: Address: [address] [place] [address]- Care Team Related Persons Name: NUSRAT MONDRAGON Address: Home [address] [place], [place] [id number] [place] Care Team Personnel Name: JOHNATHAN PEREZ DO Position: P4 Physician - Primary Care Member Role: Primary Care Physician Address: Address: [address] [place] [address]- Care Team Related Persons Name: NUSRAT MONDRAGON Address: Home [address] [place], [place] [id number] [place] Goals (unrecognized section and content) Goals may be documented in a n alternate section INFORMATION SOURCE (unrecogn ized section and content) DATE CREATED AUTHOR 02/07/2023 [facility] DATE CREATED AUTHOR AUTHOR'S ORGANIZ ATION 03/19/2024 [facility] DATE CREATED AUTHOR AUTHOR'S ORGANIZ ATION 07/27/2024 [facility] ([place]) DATE CREATED AUTHOR AUTHOR'S ORGANIZ ATION 12/21/2024 [facility] DATE CREATED AUTHOR AUTHOR'S ORGANIZ ATION 05/02/2025 [facility] DATE CREATED AUTHOR AUTHOR'S ORGANIZ ATION 05/22/[address] [facility] FOR RECORDS PERTAINING TO PATIENTS WHO ARE OR HAVE BEEN ENROLLED IN A CHEMICAL DEPENDENCY/SUBSTANCEABUSE PROGRAM, SOME INFORMATION MAY BE OMITTED. This clinical summary was aggregated from multiple sources. Caution should be exercised in using it in the provision of clinical care. This summary normalizes information from multiple sources, and as a consequence, information in this document may materially change the coding, format and clinical context of patient data. In addition, data may be omitted in some cases. CLINICAL DECISIONS SHOULD BE BASED ON THE PRIMARY CLINICAL RECORDS. [facility]. provides no warranty or guarantee of the accuracy or completeness of information in this document.
[2025-05-26 09:03] LABS: AST(SGOT) 23 U/L (<=31); Alanine Aminotransfer ALT/SGPT 25 U/L (<=34); Albumin, Serum 4.2 g/dL (3.5-5.0); Alkaline Phosphatase 101 U/L (35-104); Bilirubin, Direct 0.14 mg/dL (0.00-0.30); Protein, Total 7.3 g/dL (5.9-8.4); Total Bilirubin 0.45 mg/dL (0.00-1.30)
[2025-05-26 12:55] LABS: Hepatitis B Surface Antibody REAC
== END | disposition home or self-care (01) ==
LOC: LAB 06:56
PROVIDERS: PCP Student in an Organized Health Care Education/Training Program; Referring Provider Nurse Practitioner Acute Care; Visit Provider Nurse Practitioner Acute Care
DX: K75.81 Nonalcoholic steatohepatitis (NASH) (principal); R74.8 Abnormal levels of other serum enzymes; R10.13 Epigastric pain; R11.0 Nausea
CPT/HCPCS: 36415; 80076; 86706